=== PATIENT | female | born 1960 | race Caucasian/White ===

== ENCOUNTER → 2021-07-08 12:55 | Outpatient (BNVA) | payer MEDICAID, SELFPAY | PROVIDERS: PCP Registered Nurse Community Health; Visit Provider Advanced Practice Midwife ==

== ENCOUNTER → 2021-07-22 13:25 | Outpatient (BNVA) | payer MEDICAID, SELFPAY | PROVIDERS: PCP Registered Nurse Community Health; Visit Provider Surgery Vascular Surgery | DX: I83.12 Varicose veins of left lower extremity with inflammation (principal) | CPT/HCPCS: 99202 ==

== ENCOUNTER 2021-08-13 12:58 | Outpatient (REF) | payer MEDICAID, SELFPAY ==
--- NOTE | ~2021-08-13 | XR_ITS ---
EXAMINATION: XR lumbar spine 4V min CLINICAL INFORMATION: Reason for Exam DORSALGIA COMPARISON: None TECHNIQUE: 5 views of the lumbar spine XR/XR lumbar spine 4V min FINDINGS/IMPRESSION: Transitional anatomy. There are 4 nonrib-bearing lumbar-type vertebral bodies with sacralization of L5 and rudimentary L5-S1 disc space. There are diminutive T12 ribs. If intervention is being considered recommend total spine radiographs to ensure accurate numbering. Vertebral body heights are maintained. Mild dextroconvex curvature of the lumbar spine centered at L2. No pars defects. Mild multilevel degenerative disc disease at the thoracolumbar junction manifested by loss of disc space height and degenerative endplate spurring. L4-L5 facet arthropathy. Paravertebral soft tissues are unremarkable.
== END 2021-08-13 12:59 | disposition home or self-care (01) ==
LOC: HO.XRAY 12:58
PROVIDERS: Visit Provider Registered Nurse Community Health
DX: M54.9 Dorsalgia, unspecified (principal)
CPT/HCPCS: 72110

== ENCOUNTER 2021-08-20 10:20 | Outpatient (REF) | payer MEDICAID, SELFPAY ==
--- NOTE | ~2021-08-20 | US_ITS ---
EXAMINATION: US LOWER EXTREMITY VENOUS (REFLUX EXAM), BILATERAL CLINICAL INDICATION: This is a 60-year-old female with varicose veins of the lower extremity. Venous insufficiency. COMPARISON: None. TECHNIQUE: Color flow triplex imaging and compression Doppler was performed to evaluate both the deep and the superficial systems bilaterally. To evaluate the superficial system, the examination was performed in the upright position. Color-flow Doppler ultrasound and compression ultrasound were utilized. In addition, maneuvers were utilized to demonstrate reflux. FINDINGS: 1. DEEP VENOUS ULTRASOUND OF THE RIGHT LOWER EXTREMITY: Common Femoral Vein: Compressible, normal respiratory variation and augmented flow. Femoral vein: Compressible, normal color flow and augmentation. Popliteal Vein: Compressible, normal augmentation. Deep Reflux: There is no evidence of reflux in the deep system in either the common femoral vein or the popliteal vein. There is no evidence of a Moran's cyst. 2. SUPERFICIAL ULTRASOUND WITH DOPPLER OF RIGHT LOWER EXTREMITY: GREAT SAPHENOUS VEIN: Saphenofemoral Junction: 0.7 cm. There is no reflux. Mid Thigh: 0.3 cm. There is no reflux. Above Knee: 0.3 cm. There is no reflux. Below Knee: 0.3 cm. The reflux time is 2512 ms. Mid Calf: 0.3 cm. The reflux time is 2960 ms. Ankle: 0.3 cm. The reflux time is 1524 ms. GSV REFLUX: There is isolated reflux below the knee. There is no reflux at the saphenofemoral junction. DUPLICATED GREAT SAPHENOUS VEIN: None SMALL SAPHENOUS VEIN: Proximal: 0.2 cm Distal: 0.3 cm SSV REFLUX: No evidence of reflux. VEIN OF GIACOMINI: None Imaged. PERFORATORS: There is a 0.2 cm proximal thigh rn unit manager without reflux. VARICOSITIES: There are 0.3 cm proximal calf varicose veins with the reflux time of 1664 ms. Incidental note is made of varicose veins next appears to extend off the inferior epigastric vein and communicates to the great saphenous vein in the distal thigh. Another varicosities seen between the great saphenous vein in the thigh to the anterior tibial vein in the proximal calf on the left. 3. DEEP VENOUS ULTRASOUND OF THE LEFT LOWER EXTREMITY: Common Femoral Vein: Compressible, normal respiratory variation and augmented flow. Femoral Vein: Compressible, normal color flow and augmentation. Popliteal Vein: Compressible, normal augmentation. Deep Reflux: There is no evidence of reflux in the deep system in either the common femoral vein or the popliteal vein. There is no evidence of a Moran's cyst. 4. SUPERFICIAL ULTRASOUND WITH DOPPLER OF LEFT LOWER EXTREMITY: GREAT SAPHENOUS VEIN: Saphenofemoral Junction: 0.6 cm. There is no reflux. Mid Thigh: 0.4 cm. The reflux time is 2780 ms. Above Knee: 0.4 cm. There is no reflux. Below Knee: 0.3 cm. The reflux time is 1612 ms. Mid Calf: 0.3 cm. The reflux time is 820 ms. Ankle: 0.3 cm. There is no reflux. GSV REFLUX: There is no reflux at the saphenofemoral junction. The reflux begins in the mid thigh. DUPLICATED GREAT SAPHENOUS VEIN: There is a 0.3 cm duplicated lateral great saphenous vein without reflux. SMALL SAPHENOUS VEIN: Proximal: 0.2 cm Distal: 0.1 cm SSV REFLUX: No evidence of reflux. VEIN OF GIACOMINI: None Imaged. PERFORATORS: There is a 0.5 cm proximal thigh rn unit manager without reflux. There is a 0.3 cm mid calf rn unit manager without reflux. VARICOSITIES: There are 0.3 cm proximal thigh varicose veins without reflux. US/US venous duplex LE BI IMPRESSION: 1. There is a patent right great saphenous vein without reflux at the saphenofemoral junction. 2. There is a patent right small saphenous vein without reflux. 3. There are 0.3 cm proximal calf varicose veins with reflux. 4. There is a patent left great saphenous vein without reflux at the saphenofemoral junction. 5. There is a patent left small saphenous vein without reflux. 6. There are proximal thigh 0.3 cm left-sided varicose veins without reflux. 7. Incidental note is made of some varicose veins extending from the inferior epigastric vein as noted above.
== END 2021-08-20 10:21 | disposition home or self-care (01) ==
LOC: HO.US 10:20
PROVIDERS: Visit Provider Surgery Vascular Surgery
DX: I83.12 Varicose veins of left lower extremity with inflammation (principal)
CPT/HCPCS: 93970

== ENCOUNTER → 2021-08-26 10:46 | Outpatient (BNVA) | payer MEDICAID, SELFPAY | PROVIDERS: PCP Registered Nurse Community Health; Visit Provider Surgery Vascular Surgery | DX: I83.12 Varicose veins of left lower extremity with inflammation (principal) | CPT/HCPCS: 99212 ==

== ENCOUNTER → 2021-08-29 07:35 | Outpatient (BNVA) | payer MEDICAID, SELFPAY | PROVIDERS: PCP Registered Nurse Community Health; Visit Provider Surgery Vascular Surgery | DX: I83.12 Varicose veins of left lower extremity with inflammation (principal); M79.605 Pain in left leg | CPT/HCPCS: 36482 ==

== ENCOUNTER 2021-09-01 11:26 | Outpatient (REF) | payer MEDICAID, SELFPAY ==
--- NOTE | ~2021-09-01 | US_ITS ---
EXAMINATION: US VENOUS ULTRASOUND WITH DOPPLER LOWER EXTREMITY, LEFT CLINICAL INFORMATION: Pain left leg. Status post Venaseal. COMPARISON: None TECHNIQUE: Ultrasound of the deep veins is performed from the hip to the calf with compression sonography and color and pulse Doppler assessment. Spectral analysis with color-flow imaging is performed. FINDINGS: There is an echogenic thrombus seen in the left greater saphenous vein approximately 1.25 cm from the venous junction with common femoral vein. There is no flow seen in the segment. US/US venous duplex LE LT IMPRESSION: Posteriorly not filled there is thrombus visualized in the greater saphenous vein approximately 1.25 cm from the common femoral venous junction.
== END 2021-09-01 11:27 | disposition home or self-care (01) ==
LOC: HO.US 11:26
PROVIDERS: PCP Registered Nurse Community Health; Visit Provider Surgery Vascular Surgery
DX: M79.605 Pain in left leg (principal)
CPT/HCPCS: 93971

== ENCOUNTER → 2021-09-11 12:54 | Outpatient (BNVA) | payer MEDICAID, SELFPAY | PROVIDERS: PCP Registered Nurse Community Health; Visit Provider Surgery Vascular Surgery | DX: I83.12 Varicose veins of left lower extremity with inflammation (principal) | CPT/HCPCS: 99212 ==

== ENCOUNTER 2021-11-12 08:15 | Outpatient (REF) | payer MEDICAID, SELFPAY ==
--- NOTE | ~2021-11-12 | MM_ITS ---
EXAMINATION: MM SCREENING DIGITAL BREAST TOMOSYNTHESIS, BILATERAL CLINICAL INFORMATION: Screening. Asymptomatic. The lifetime risk of breast cancer based on the Tyrer-Cuzick Model is 6%. COMPARISON: Outside mammography 2D images: 10/08/2020 ([facility], [place], [place]). TECHNIQUE: Digital breast tomosynthesis is performed in both the craniocaudal and mediolateral oblique views along with computer-aided detection (CAD). Synthesized 2D images are generated from the tomosynthesis. FINDINGS: There are scattered areas of fibroglandular density (ACR BI-RADS breast composition Category b). Parenchymal pattern is similar to prior outside exam. There are scattered stable bilateral asymmetries. No interval significant mass or architectural abnormality. Again, there is a biopsy clip marker mid 3:00 left breast. Scattered punctate isolated round benign calcifications are again seen in each breast. The axilla and skin contours are unremarkable. MM/MM tomosynthesis screening BI IMPRESSION: No significant changes from prior outside exam. ASSESSMENT: BI-RADS 2: Benign RECOMMENDATION: Routine annual mammography screening. This patient's information was entered into a reminder system with a target due date for their next mammogram.
== END 2021-11-12 08:16 | disposition home or self-care (01) ==
LOC: HO.MAMMO 08:15
PROVIDERS: Visit Provider Registered Nurse Community Health
DX: Z12.31 Encounter for screening mammogram for malignant neoplasm of breast (principal)
CPT/HCPCS: 77063; 77067

== ENCOUNTER → 2021-12-01 09:00 | Outpatient (REF) | payer MEDICAID, SELFPAY | LOC: HO.SL 09:00 | PROVIDERS: Visit Provider Registered Nurse Community Health | DX: G47.33 Obstructive sleep apnea (adult) (pediatric) (principal) | CPT/HCPCS: 95806 ==

== ENCOUNTER → 2021-12-09 10:47 | Outpatient (BNVA) | payer MEDICAID, SELFPAY | PROVIDERS: PCP Registered Nurse Community Health; Visit Provider Surgery Vascular Surgery | DX: I83.12 Varicose veins of left lower extremity with inflammation (principal) | CPT/HCPCS: 99212 ==

== ENCOUNTER 2022-01-07 12:22 | Emergency (ER) | payer MEDICAID, SELFPAY ==
--- NOTE | ~2022-01-07 | CT_ITS ---
EXAMINATION: CT ABDOMEN AND PELVIS WITHOUT CONTRAST CLINICAL INFORMATION: Left lower quadrant pain with question of diverticulitis COMPARISON: None TECHNIQUE: Multidetector volumetric imaging was performed from the superior aspect of the liver through the pubic symphysis. Sagittal and coronal reformatted images were obtained on the technologist's workstation. This CT examination was performed using dose optimization techniques as appropriate, variously including the following: *Automated exposure control *Adjustment of mA and/or kV according to patient size (this includes techniques or standardized protocols for targeted exams where dose is matched to indication/reason for exam; i.e. extremities or head) *Use of iterative reconstruction technique DLP: 551 mGy-cm FINDINGS: LUNG BASES: The visualized lung bases are unremarkable. LIVER, GALLBLADDER, AND BILIARY TREE: The liver is normal in size, and shape but demonstrates decreased attenuation consistent with hepatic steatosis. No focal hepatic lesion or biliary ductal dilatation is present. The gallbladder is unremarkable with no evidence of radiopaque gallstones, gallbladder wall thickening, or obvious pericholecystic inflammatory changes. PANCREAS: Unremarkable. SPLEEN: Unremarkable. ADRENAL GLANDS: Unremarkable. KIDNEYS AND URETERS: The kidneys are normal in size, shape, and attenuation. No hydronephrosis, hydroureter, or calculi seen. No perinephric stranding. BLADDER: Unremarkable. GASTROINTESTINAL TRACT: Marked diverticular changes are present in the sigmoid without evidence of diverticulitis. The small and large bowel are otherwise unremarkable. The appendix is unremarkable. ABDOMINAL WALL: No significant hernia is appreciated. A tiny periumbilical hernia seen containing only fat. LYMPH NODES: No retroperitoneal lymphadenopathy VASCULAR: Unremarkable. The left renal vein is retroaortic. PELVIC VISCERA: Status post hysterectomy. An abnormal pelvic mass or free intraperitoneal fluid is not seen. OSSEOUS STRUCTURES: Unremarkable. CT/CT abdomen pelvis wo con IMPRESSION: 1. A cause for the patient's left lower quadrant has not been found. There is extensive sigmoid diverticulosis but without any findings to suggest diverticulitis. 2. Other incidental findings described above including hepatic steatosis. Fleischner guidelines were followed.
[2022-01-07 12:24] VITALS: BP 153/84; PULSE 83; RESP 18; TEMP 36.4; O2SAT 100; BMI 32.0
[2022-01-07 19:20] LABS: MANUAL DIFF FLAG NO
[2022-01-07 19:24] LABS: Appearance Urine HAZY; Basophils Absolute Auto 0.1 X10*3/uL (0.0-0.2); Basophils Percent Auto 0.5 % (0-2); Color Urine YELLOW; Eosinophils Absolute Auto 0.1 X10*3/uL (0.0-0.4); Eosinophils Percent Auto 0.5 % (0-4); Glucose Urine UA 100 MG/DL (NEG); Hemoglobin 14.2 g/dl (12.0-16.0); Imm Gran Abs Auto 0.03 X10*3/uL (0.00-0.03); Imm Gran Pct Auto 0.3 % (0.0-0.4); Leukocyte Esterase Urine TRACE (NEG); Lymphocytes Absolute Auto 2.9 X10*3/uL (1.2-4.9); Mean Corpuscular HGB Conc 34.6 g/dl (31.0-35.0); Mean Corpuscular Hemoglobin 29.3 pg (27.0-33.0); Mean Corpuscular Volume 84.5 fL (80.0-98.0); Mean Platelet Volume 10.1 fL (9.4-12.3); Monocytes Absolute Auto 0.7 X10*3/uL (0.1-1.2); Monocytes Percent Auto 6.8 % (2-11); Neutrophils Absolute Auto 6.9 x10*3/uL (2.0-8.3); Neutrophils Percent Auto 64.9 % (45-73); Nitrite Urine NEG (NEG); PH 5.5 (5.0-8.0); Platelet Count 343 X10*3/uL (160-400); Red Blood Count 4.85 X10*6/uL (4.20-5.50); Red Cell Distribution Width 13.1 % (11.0-16.0); Specific Gravity - Urine >= 1.030 (1.005-1.025); Urine Blood NEG (NEG); Urine Ketones NEG (NEG); Urine Protein NEG (NEG-TRACE); White Blood Count 10.7 X10*3/uL (4.8-10.8)
[2022-01-07 19:29] VITALS: BP 119/44; PULSE 76; RESP 16; TEMP 36.9; O2SAT 99
--- NOTE | 2022-01-07 19:38 | ED_ITS ---
HPI - Abdominal Pain General Chief Complaint: Abdominal Pain Stated Complaint: L side pain sent by [facility] Time Seen by Provider: 01/07/22 19:38 Source: patient Mode of arrival: ambulatory Limitations: no limitations History of Present Illness HPI narrative: Patient history of diverticulitis in 2019 comes here for 3 days of left lower quadrant pain with with diarrhea and nausea and poor appetite was seen by PCP and sent to the ER for further evaluation. Patient denies any fever or chills no urinary symptoms no blood in the stool Related Data Home Medications Medication Instructions Recorded Confirmed acetaminophen 500 mg capsule 500 mg PO Q6H PRN 07/08/21 07/08/21 albuterol sulfate 90 mcg/actuation 1 inh inhalation Q4-6H PRN 07/08/21 07/08/21 breath activated powder inhaler,sensor lptucxqirm-rissmofmmyayd-ziirjanu 1 cap PO Q8H PRN 07/08/21 07/08/21 50 mg-300 mg-40 mg capsule (Fioricet) calcium carbonate 500 mg calcium 500 mg PO DAILY 07/08/21 07/08/21 (1,250 mg) chewable tablet (Calcium 500) cetirizine 10 mg capsule (Zyrtec) 10 mg PO DAILY PRN 07/08/21 07/08/21 citalopram 20 mg tablet (Celexa) 20 mg PO DAILY 07/08/21 07/08/21 clonazepam 0.5 mg tablet (Klonopin) 0.5 mg PO DAILY 07/08/21 07/08/21 enalapril maleate 10 mg tablet 10 mg PO DAILY 07/08/21 07/08/21 famotidine 20 mg tablet (Pepcid) 20 mg PO DAILY 07/08/21 07/08/21 fluticasone propionate 230 2 puff inhalation BID 07/08/21 07/08/21 mcg-salmeterol 21 mcg/actuation HFA inhaler (Advair HFA) gabapentin 300 mg capsule 300 mg PO DAILY 07/08/21 07/08/21 gemfibrozil 600 mg tablet (Lopid) 600 mg PO DAILY 07/08/21 07/08/21 glimepiride 4 mg tablet (Amaryl) 4 mg PO DAILY 07/08/21 07/08/21 semaglutide 3 mg tablet (Rybelsus) 3 mg PO DAILY 07/08/21 07/08/21 sitagliptin 50 mg tablet (Januvia) 50 mg PO DAILY 07/08/21 07/08/21 zolpidem 5 mg tablet (Ambien) 5 mg PO BEDTIME PRN 07/08/21 07/08/21 metformin 500 mg tablet,extended 500 mg PO BID 07/22/21 release 24 hr blood sugar diagnostic (FreeStyle #10 ea 08/26/21 Lite Strips) lidocaine 5 % topical patch 1 patch topical DAILY 08/26/21 sitagliptin 100 mg tablet (Januvia) 100 mg PO DAILY 08/26/21 gdpqvcmnhe-gdqjxyskvslwd-bayhlglj 0 tab PO 08/29/21 50 mg-325 mg-40 mg tablet calcium carbonate 500 mg-vitamin 1 tab PO DAILY 09/11/21 D3 10 mcg (400 unit) chewable tablet cetirizine 10 mg tablet 10 mg PO DAILY 09/11/21 lancets 28 gauge (FreeStyle #100 ea 09/11/21 Lancets) alcohol swabs (Alcohol Prep Pads) 0 pad topical BID 12/09/21 lancets 33 gauge (TRUEplus Lancets) #100 ea 12/09/21 pregabalin 25 mg capsule 25 mg PO BID PRN neuropathic pain 12/09/21 Previous Rx's Medication Instructions Recorded amoxicillin 875 mg-potassium 1 tab PO BID #20 tabs 01/07/22 clavulanate 125 mg tablet tramadol 50 mg tablet 50 mg PO Q6H PRN pain #20 tabs 01/07/22 Allergies Allergy/AdvReac Type Severity Reaction Status Date / Time No Known Allergies Allergy Verified 12/09/21 10:52 Review of Systems Review of Systems Yes all other systems are reviewed and are negative [facility] Past Medical History Medical History Anxiety Asthma Diverticulitis DM type 2 (diabetes mellitus, type 2) Essential hypertension Gastritis Hyperlipidemia Migraine Moderate persistent asthma Obesity (BMI 30.0-34.9) Osteopenia Poor circulation Urinary tract infection Surgical History H/O colonoscopy with polypectomy H/O total hysterectomy H/O tubal ligation Hx of breast biopsy Social History Social History Patient Tobacco Use Status: Never used Tobacco Advance Directives: No Advance Directives Information Provided: No Physical Exam ED Vital Signs: Vital Signs - 24 hr 01/07/22 12:24 01/07/22 19:29 01/07/22 20:00 Temperature 97.6 F 98.4 F Pulse Rate 83 76 71 Respiratory Rate 18 16 20 Blood Pressure 153/84 H 119/44 L Pulse Oximetry 100 99 98 Oxygen Delivery Method Room Air Room Air Room Air 01/07/22 22:07 01/08/22 00:33 Temperature 97.7 F 97.5 F Pulse Rate 67 63 Respiratory Rate 14 16 Blood Pressure 119/63 106/46 L Pulse Oximetry 98 96 Oxygen Delivery Method Room Air Room Air BMI result Body Mass Index 32.0 Appearance: Alert. Oriented X3. No acute distress. Eyes: No pallor or icterus ENT: Pharynx normal. Oral Mucosa moist Neck: Normal inspection. Neck supple. CVS: Normal heart rate and rhythm. Pulses normal. Respiratory: No respiratory distress. Equal air entry bilateral, no wheezing/rales/rhonchi Abdomen: Soft , deep tenderness left lower quadrant with guarding no rebound tenderness Bowel sounds are present, no mass palpable, no CVA tenderness Skin: Skin warm and dry. Normal skin color. Normal skin turgor. Extremities: No lower extremity edema. No calf tenderness Neuro: Oriented X 3. No motor deficit. MDM - Abdominal Pain MDM Narrative Medical decision making narrative: Patient has significant left lower quadrant pain with normal WBC count and CT scan showing some significant diverticulosis without any findings of diverticulitis although there is no clean no CT scan finding of diverticulitis patient has significant pain will give her dose of Zosyn discharge patient home on Augmentin for possible diverticulitis Lab Data Attestation: I reviewed the patient's lab results. Result diagrams: 01/07/22 19:12 01/07/22 19:12 Labs: Lab Results 01/07/22 01/07/22 01/07/22 Range/Units 19:12 19:12 19:12 WBC 10.7 (4.8-10.8) X10*3/uL RBC 4.85 (4.20-5.50) X10*6/uL Hgb 14.2 (12.0-16.0) g/dl Hct 41.0 (37.0-47.0) % MCV 84.5 (80.0-98.0) fL MCH 29.3 (27.0-33.0) pg MCHC 34.6 (31.0-35.0) g/dl RDW 13.1 (11.0-16.0) % Plt Count 343 (160-400) X10*3/uL MPV 10.1 (9.4-12.3) fL Immature Gran % (Auto) 0.3 (0.0-0.4) % Neut % (Auto) 64.9 (45-73) % Lymph % (Auto) 27.0 (20-40) % [place] % (Auto) 6.8 (2-11) % Eos % (Auto) 0.5 (0-4) % Baso % (Auto) 0.5 (0-2) % Lymph # (Auto) 2.9 (1.2-4.9) X10*3/uL [place] # (Auto) 0.7 (0.1-1.2) X10*3/uL Eos # (Auto) 0.1 (0.0-0.4) X10*3/uL Baso # (Auto) 0.1 (0.0-0.2) X10*3/uL Abs Immat Gran (auto) 0.03 (0.00-0.03) X10*3/uL Absolute Neuts (auto) 6.9 (2.0-8.3) x10*3/uL Absolute Nucleated RBC 0.000 (0.0-0.012) X10*3/uL Nucleated RBC % (auto) 0.0 (0.0-0.2) /100WBC Sodium 143 (135-145) mmol/L Potassium 4.6 (3.3-5.1) mmol/L Chloride 105 (96-108) mmol/L Carbon Dioxide 28 (22-29) mmol/L Anion Gap 15 (12-20) BUN 15 (9-16) mg/dL Creatinine 0.80 (0.5-1.4) mg/dL Estim Creat Clear Calc 68.2 Estimated GFR > 60 Random Glucose 108 (60-115) mg/dL Calcium 9.9 (8.4-10.2) mg/dL Total Bilirubin 0.6 (0.0-1.0) mg/dL Direct Bilirubin 0.2 (0.0-0.5) mg/dL AST 23 (5-31) U/L ALT 30 (0-31) U/L Alkaline Phosphatase 53 (39-117) U/L Total Protein 7.5 (6.5-8.0) g/dL Albumin 4.4 (3.5-5.0) g/dL Urine Color YELLOW Urine Appearance HAZY Urine pH 5.5 (5.0-8.0) Ur Specific [place] >= 1.030 H (1.005-1.025) Urine Protein NEG (NEG-TRACE) MG/DL Urine Glucose (UA) 100 H (NEG) MG/DL Urine Ketones NEG (NEG) MG/DL Urine Blood NEG (NEG) Urine Nitrite NEG (NEG) Ur Leukocyte Esterase TRACE H (NEG) Urine RBC 0 (0) /HPF Urine WBC 1-4 (0-4) /HPF Ur Squamous Epith Cells 2+ /LPF Uric Acid Crystals TRACE /LPF Urine Bacteria NONE /LPF Urine Mucus TRACE /LPF COVID-19 ([facility]) (Negative) COVID-19 Clin Com 01/07/22 Range/Units 20:05 WBC (4.8-10.8) X10*3/uL RBC (4.20-5.50) X10*6/uL Hgb (12.0-16.0) g/dl Hct (37.0-47.0) % MCV (80.0-98.0) fL MCH (27.0-33.0) pg MCHC (31.0-35.0) g/dl RDW (11.0-16.0) % Plt Count (160-400) X10*3/uL MPV (9.4-12.3) fL Immature Gran % (Auto) (0.0-0.4) % Neut % (Auto) (45-73) % Lymph % (Auto) (20-40) % [place] % (Auto) (2-11) % Eos % (Auto) (0-4) % Baso % (Auto) (0-2) % Lymph # (Auto) (1.2-4.9) X10*3/uL [place] # (Auto) (0.1-1.2) X10*3/uL Eos # (Auto) (0.0-0.4) X10*3/uL Baso # (Auto) (0.0-0.2) X10*3/uL Abs Immat Gran (auto) (0.00-0.03) X10*3/uL Absolute Neuts (auto) (2.0-8.3) x10*3/uL Absolute Nucleated RBC (0.0-0.012) X10*3/uL Nucleated RBC % (auto) (0.0-0.2) /100WBC Sodium (135-145) mmol/L Potassium (3.3-5.1) mmol/L Chloride (96-108) mmol/L Carbon Dioxide (22-29) mmol/L Anion Gap (12-20) BUN (9-16) mg/dL Creatinine (0.5-1.4) mg/dL Estim Creat Clear Calc Estimated GFR Random Glucose (60-115) mg/dL Calcium (8.4-10.2) mg/dL Total Bilirubin (0.0-1.0) mg/dL Direct Bilirubin (0.0-0.5) mg/dL AST (5-31) U/L ALT (0-31) U/L Alkaline Phosphatase (39-117) U/L Total Protein (6.5-8.0) g/dL Albumin (3.5-5.0) g/dL Urine Color Urine Appearance Urine pH (5.0-8.0) Ur Specific [place] (1.005-1.025) Urine Protein (NEG-TRACE) MG/DL Urine Glucose (UA) (NEG) MG/DL Urine Ketones (NEG) MG/DL Urine Blood (NEG) Urine Nitrite (NEG) Ur Leukocyte Esterase (NEG) Urine RBC (0) /HPF Urine WBC (0-4) /HPF Ur Squamous Epith Cells /LPF Uric Acid Crystals /LPF Urine Bacteria /LPF Urine Mucus /LPF COVID-19 ([facility]) Negative (Negative) COVID-19 Clin Com See Note Discharge Plan Discharge Clinical Impression: Diverticulosis Patient Disposition: Home, Self-Care Instructions: Diverticulosis (ED) Additional Instructions: You have significant diverticulosis CT scan did not show any evidence of diverticulitis but you have significant pain hence will give antibiotics as prophylaxis Drink plenty of fluids have liquid diet slowly advance as tolerated Tramadol for pain Follow-up with your PCP if not better Prescriptions: New tramadol 50 mg tablet 50 mg PO Q6H PRN (Reason: pain) Qty: 20 0RF amoxicillin-pot clavulanate 875-125 mg tablet 1 tab PO BID Qty: 20 0RF No Action citalopram [Celexa] 20 mg tablet 20 mg PO DAILY clonazepam [Klonopin] 0.5 mg tablet 0.5 mg PO DAILY Advair HFA 230-21 mcg/actuation HFA aerosol inhaler 2 puff inhalation BID albuterol sulfate 90 mcg/actuation aero powdr breath act w/sensor 1 inh inhalation Q4-6H PRN gemfibrozil [Lopid] 600 mg tablet 600 mg PO DAILY gabapentin 300 mg capsule 300 mg PO DAILY glimepiride [Amaryl] 4 mg tablet 4 mg PO DAILY acetaminophen 500 mg capsule 500 mg PO Q6H PRN zolpidem [Ambien] 5 mg tablet 5 mg PO BEDTIME PRN famotidine [Pepcid] 20 mg tablet 20 mg PO DAILY Zyrtec 10 mg capsule 10 mg PO DAILY PRN tbnhvpzthi-zkknrfaqfydfz-fsuv [Fioricet] 50-300-40 mg capsule 1 cap PO Q8H PRN Januvia 50 mg tablet 50 mg PO DAILY Rybelsus 3 mg tablet 3 mg PO DAILY enalapril maleate 10 mg tablet 10 mg PO DAILY calcium carbonate [Calcium 500] 500 mg calcium (1,250 mg) tablet,chewable 500 mg PO DAILY (DME) FreeStyle Lite Strips Strip See Rx Instructions Not Applicable TID Qty: 10 Rx Instructions: As directed Januvia 100 mg tablet 100 mg PO DAILY lidocaine 5 % adhesive patch,medicated 1 patch topical DAILY (DME) lancets [FreeStyle Lancets] 28 gauge misc See Rx Instructions topical BID Qty: 100 Rx Instructions: As directed calcium carbonate-vitamin D3 500 mg-10 mcg (400 unit) tablet,chewable 1 tab PO DAILY cetirizine 10 mg tablet 10 mg PO DAILY (DME) lancets [TRUEplus Lancets] 33 gauge misc See Rx Instructions Not Applicable BID Qty: 100 Rx Instructions: As directed alcohol swabs [Alcohol Prep Pads] Pads, Medicated 0 pad topical BID pregabalin 25 mg capsule 25 mg PO BID PRN (Reason: neuropathic pain) metformin 500 mg tablet extended release 24 hr 500 mg PO BID abuskucgma-hvfkiwfedfvql-lsgk 50-325-40 mg tablet 0 tab PO Interventions: ED Discharge Assessment Last Done: 01/08/22 00:38 Print Language: Latvian
[2022-01-07 19:48] LABS: Alanine Aminotransferase 30 U/L (0-31); Albumin Level 4.4 g/dL (3.5-5.0); Alkaline Phosphatase 53 U/L (39-117); Anion Gap 15 (12-20); Aspartate Amino Transferase 23 U/L (5-31); Bilirubin Direct 0.2 mg/dL (0.0-0.5); Bilirubin Total 0.6 mg/dL (0.0-1.0); Blood Urea Nitrogen 15 mg/dL (9-16); Calcium 9.9 mg/dL (8.4-10.2); Carbon Dioxide 28 mmol/L (22-29); Chloride 105 mmol/L (96-108); Creatinine Clr Calc Pharmacy 68.2; Estimated Glomerular Filt Rate > 60; Glucose Random 108 mg/dL (60-115); Potassium 4.6 mmol/L (3.3-5.1); Sodium 143 mmol/L (135-145); Total Protein 7.5 g/dL (6.5-8.0)
[2022-01-07 19:51] LABS: Mucus Urine TRACE /LPF; RBC Urine 0 /HPF (0); Squamous Epithelial Cell Urine 2+ /LPF; Uric Acid Crystals Urine TRACE /LPF
[2022-01-07 20:00] VITALS: PULSE 71; RESP 20; O2SAT 98
[2022-01-07] MEDS: 0.9 % Sodium Chloride 1,000 ML 999 ML IV (20:04)
[2022-01-07] MEDS: ondansetron HCL 4 MG/2 ML VIAL IVPUSH (20:07)
[2022-01-07] MEDS: Morphine Sulfate 4 MG/ML CARTRIDGE IVPUSH (20:08)
[2022-01-07 20:24] LABS: COVID-19 Test Negative (Negative); IDNOW Serial# 16C4AD1C
[2022-01-07 22:07] VITALS: BP 119/63; PULSE 67; RESP 14; TEMP 36.5; O2SAT 98
--- NOTE | 2022-01-07 22:51 | PC.NURSE ---
report given to SCOTT Man
[2022-01-07] MEDS: Piperacillin Sodium/Tazobactam 3.375 GM in 0.9 % Sodium Chloride 50 ML IV (23:58)
[2022-01-08 00:33] VITALS: BP 106/46; PULSE 63; RESP 16; TEMP 36.4; O2SAT 96
== END 2022-01-08 00:48 | disposition home or self-care (01) ==
PROVIDERS: Emergency Provider Internal Medicine; PCP Registered Nurse Community Health
DX: K57.30 Diverticulosis of large intestine without perforation or abscess without bleeding (principal); Z20.822 Contact with and (suspected) exposure to COVID-19; R10.32 Left lower quadrant pain
CPT/HCPCS: 36415; 74176; 80053; 81001; 82248; 85025; 87635; 96361; 96365; 96375; 99284; J2270; J2405; J2543

== ENCOUNTER → 2022-03-10 15:14 | Outpatient (BNVA) | payer MEDICAID, SELFPAY | PROVIDERS: PCP Registered Nurse Community Health; Visit Provider Nurse Practitioner | DX: R19.7 Diarrhea, unspecified (principal); K21.9 Gastro-esophageal reflux disease without esophagitis; R13.12 Dysphagia, oropharyngeal phase | CPT/HCPCS: 99202; 99212 ==

== ENCOUNTER 2022-03-11 08:39 | Outpatient (REF) | payer MEDICAID, SELFPAY ==
[2022-03-13 10:12] LABS: Transglutaminase Ab IgG <1.0 U/mL; Transglutaminase IgA <1.0 U/mL
== END 2022-03-11 08:40 | disposition home or self-care (01) ==
LOC: HO.LAB 08:39
PROVIDERS: PCP Registered Nurse Community Health; Visit Provider Nurse Practitioner
DX: R19.7 Diarrhea, unspecified (principal)
CPT/HCPCS: 36415; 82656; 83993; 86003; 86140; 86364; 87507

== ENCOUNTER 2022-03-11 13:53 | Outpatient (REF) | payer MEDICAID, SELFPAY ==
[2022-03-11 16:22] LABS: Adenovirus F 40/41 Not Detected (Not Detect.); Astrovirus Not Detected (Not Detect.); Campylobacter Not Detected (Not Detect.); Cryptosporidium Not Detected (Not Detect.); Cyclospora cayetanensis Not Detected (Not Detect.); E. coli EAEC Not Detected (Not Detect.); E. coli EPEC Not Detected (Not Detect.); E. coli ETEC Not Detected (Not Detect.); E. coli STEC Not Detected (Not Detect.); Entamoeba histolytica Not Detected (Not Detect.); Giardia lamblia Not Detected (Not Detect.); Norovirus GI/GII Not Detected (Not Detect.); Plesiomonas shigelloides Not Detected (Not Detect.); Salmonella Not Detected (Not Detect.); Shigella sp./EIEC Not Detected (Not Detect.); Vibrio Not Detected (Not Detect.); Vibrio Cholerae Not Detected (Not Detect.); Yersinia enterocolitica Not Detected (Not Detect.)
[2022-03-11 16:23] LABS: Rotavirus A Not Detected (Not Detect.); Sapovirus Not Detected (Not Detect.)
[2022-03-15 19:32] LABS: Calprotectin, Fecal 20 mcg/g
[2022-03-17 15:06] LABS: Pancreatic Elastase-1 >500 mcg/g
== END 2022-03-11 13:54 | disposition home or self-care (01) ==
LOC: HO.LNP 13:53
PROVIDERS: Visit Provider Nurse Practitioner
DX: R19.7 Diarrhea, unspecified (principal)
CPT/HCPCS: 82656; 83993; 87507

== ENCOUNTER → 2022-04-01 15:05 | Outpatient (BNVA) | payer MEDICAID, SELFPAY | PROVIDERS: PCP Registered Nurse Community Health; Visit Provider Nurse Practitioner | DX: R19.7 Diarrhea, unspecified (principal); R10.12 Left upper quadrant pain; K21.9 Gastro-esophageal reflux disease without esophagitis; R13.12 Dysphagia, oropharyngeal phase | CPT/HCPCS: 99212 ==

== ENCOUNTER 2022-04-08 11:42 | Day surgery (SDC) | payer MEDICAID, SELFPAY ==
[2022-04-02 14:43] VITALS: BMI 30.8
--- NOTE | 2022-04-07 11:59 | P.CONAN_ITS ---
Documented by User: Sharla Gutierrez NP 04/07/22 12:00 HPI - Anesthesia Eval Consult details Narrative: 61yo F for Upper Endoscopy and Colonoscopy [facility] Active Problems Active Problems: All Active Problems (Updated 04/01/22 @ 15:47 by UVALDO Hanson) Left upper quadrant abdominal pain (Acute) Dysphagia, oropharyngeal (Acute) GERD (gastroesophageal reflux disease) (Acute) Diarrhea (Acute) Varicose veins of left lower extremity with inflammation (Acute) Status post total hysterectomy and bilateral salpingo-oophorectomy (BSO) (Acute) Well woman exam with routine gynecological exam (Acute) Past Medical History Medical History Anxiety Asthma Diverticulitis DM type 2 (diabetes mellitus, type 2) Essential hypertension Gastritis Hyperlipidemia Migraine Moderate persistent asthma Obesity (BMI 30.0-34.9) Osteopenia Poor circulation Urinary tract infection Surgical History Surgical History H/O colonoscopy with polypectomy H/O total hysterectomy H/O tubal ligation History of esophagogastroduodenoscopy (EGD) Hx of breast biopsy Social History Social History Patient Tobacco Use Status: Never used Tobacco Advance Directives: No Advance Directives Information Provided: Yes Meds Allergies Allergy/AdvReac Type Severity Reaction Status Date / Time No Known Allergies Allergy Verified 04/01/22 15:13 Home Medications Medication Instructions Recorded Confirmed Last Taken Type acetaminophen 500 mg capsule 500 mg PO Q6H PRN 07/08/21 07/08/21 Unknown History albuterol sulfate 90 mcg/actuation 1 inh inhalation Q4-6H PRN 07/08/21 07/08/21 Unknown History breath activated powder inhaler,sensor citalopram 20 mg tablet (Celexa) 20 mg PO DAILY 07/08/21 07/08/21 Unknown History clonazepam 0.5 mg tablet (Klonopin) 0.5 mg PO DAILY 07/08/21 07/08/21 Unknown History enalapril maleate 10 mg tablet 10 mg PO DAILY 07/08/21 07/08/21 Unknown History fluticasone propionate 230 2 puff inhalation BID 07/08/21 07/08/21 Unknown History mcg-salmeterol 21 mcg/actuation HFA inhaler (Advair HFA) gemfibrozil 600 mg tablet (Lopid) 600 mg PO DAILY 07/08/21 07/08/21 Unknown History zolpidem 5 mg tablet (Ambien) 5 mg PO BEDTIME PRN 07/08/21 07/08/21 Unknown Hi story metformin 500 mg tablet,extended 500 mg PO BID 07/22/21 Unknown History release 24 hr blood sugar diagnostic (FreeStyle #10 ea 08/26/21 Unknown History Lite Strips) lidocaine 5 % topical patch 1 patch topical DAILY 08/26/21 Unknown History sitagliptin 100 mg tablet (Januvia) 100 mg PO DAILY 08/26/21 Unknown History calcium carbonate 500 mg-vitamin 1 tab PO DAILY 09/11/21 Unknown History D3 10 mcg (400 unit) chewable tablet cetirizine 10 mg tablet 10 mg PO DAILY 09/11/21 Unknown History lancets 28 gauge (FreeStyle #100 ea 09/11/21 Unknown History Lancets) alcohol swabs (Alcohol Prep Pads) 0 pad topical BID 12/09/21 Unknown History lancets 33 gauge (TRUEplus Lancets) #100 ea 12/09/21 Unknown History terbinafine HCl 250 mg tablet 250 mg PO DAILY 03/10/22 Unknown History smfjhncdic-czpdzjhpuafvo-xjyaugnv 1 tab PO .every 8 h PRN 04/01/22 Unknown History 50 mg-325 mg-40 mg tablet fluconazole 200 mg tablet 200 mg PO Q3D 04/01/22 Unknown History glimepiride 4 mg tablet (Amaryl) 4 mg PO BID 04/01/22 Unknown History pregabalin 75 mg capsule 75 mg PO BID 04/01/22 Unknown History Exam Exam Date and Time: April 07, 2022 1159 Height,Weight and Vital Signs: Height 5 ft Weight 71.6 kg Pertinent Lab Results Pertinent Lab Results: Laboratory Tests 01/07/22 01/07/22 19:12 19:12 WBC 10.7 Hgb 14.2 Hct 41.0 Plt Count 343 Sodium 143 Potassium 4.6 Chloride 105 Carbon Dioxide 28 BUN 15 Creatinine 0.80 Assessment and Plan Assessment Anesthesia Assessment: Chart Reviewed Documented by User: Ayah Garrison MD 04/08/22 13:24 [facility] Past Medical History Medical History Anxiety Asthma Diverticulitis DM type 2 (diabetes mellitus, type 2) Essential hypertension Gastritis Hyperlipidemia Migraine Moderate persistent asthma Obesity (BMI 30.0-34.9) Osteopenia Poor circulation Urinary tract infection Functional capacity: independent ambulation Patient : No Family History Family history of problems with anesthesia: No Surgical History Surgical History H/O colonoscopy with polypectomy H/O total hysterectomy H/O tubal ligation History of esophagogastroduodenoscopy (EGD) Hx of breast biopsy History of Problems with Anesthesia: No Social History Social History Patient Tobacco Use Status: Never used Tobacco Advance Directives: No Advance Directives Information Provided: Yes Meds Allergies Allergy/AdvReac Type Severity Reaction Status Date / Time No Known Allergies Allergy Verified 04/01/22 15:13 Home Medications Medication Instructions Recorded Confirmed Last Taken Type acetaminophen 500 mg capsule 500 mg PO Q6H PRN 07/08/21 07/08/21 Unknown History albuterol sulfate 90 mcg/actuation 1 inh inhalation Q4-6H PRN 07/08/21 07/08/21 Unknown History breath activated powder inhaler,sensor citalopram 20 mg tablet (Celexa) 20 mg PO DAILY 07/08/21 07/08/21 Unknown History clonazepam 0.5 mg tablet (Klonopin) 0.5 mg PO DAILY 07/08/21 07/08/21 Unknown History enalapril maleate 10 mg tablet 10 mg PO DAILY 07/08/21 07/08/21 Unknown History fluticasone propionate 230 2 puff inhalation BID 07/08/21 07/08/21 Unknown History mcg-salmeterol 21 mcg/actuation HFA inhaler (Advair HFA) gemfibrozil 600 mg tablet (Lopid) 600 mg PO DAILY 07/08/21 07/08/21 Unknown History zolpidem 5 mg tablet (Ambien) 5 mg PO BEDTIME PRN 07/08/21 07/08/21 Unknown History metformin 500 mg tablet,extended 500 mg PO BID 07/22/21 Unknown History release 24 hr blood sugar diagnostic (FreeStyle #10 ea 08/26/21 Unknown History Lite Strips) lidocaine 5 % topical patch 1 patch topical DAILY 08/26/21 Unknown History sitagliptin 100 mg tablet (Januvia) 100 mg PO DAILY 08/26/21 Unknown History calcium carbonate 500 mg-vitamin 1 tab PO DAILY 09/11/21 Unknown History D3 10 mcg (400 unit) chewable tablet cetirizine 10 mg tablet 10 mg PO DAILY 09/11/21 Unknown History lancets 28 gauge (FreeStyle #100 ea 09/11/21 Unknown History Lancets) alcohol swabs (Alcohol Prep Pads) 0 pad topical BID 12/09/21 Unknown History lancets 33 gauge (TRUEplus Lancets) #100 ea 12/09/21 Unknown History terbinafine HCl 250 mg tablet 250 mg PO DAILY 03/10/22 Unknown History dwxsabhurv-fyuviurarveeu-rwxwirad 1 tab PO .every 8 h PRN 04/01/22 Unknown History 50 mg-325 mg-40 mg tablet fluconazole 200 mg tablet 200 mg PO Q3D 04/01/22 Unknown History glimepiride 4 mg tablet (Amaryl) 4 mg PO BID 04/01/22 Unknown History pregabalin 75 mg capsule 75 mg PO BID 04/01/22 Unknown History Exam Airway Mallampati Class: II TM Dist: >3cm Neck ROM: Full Heart: RRR Lungs: CTA Assessment and Plan Final Anesthetic Review Family History of Problems with Anesthesia: No History of Problems with Anesthesia: No ASA Class: II Final Preanesthetic Review: No Changes in Pt Med Stat, Meds/Allgs Chart Reviewed, Consent Obtained/Reviewed and Anes Risks/Benef Reviewed Patient Risk: Low Procedure Risk: Low Anesthetic Plan Anesthetic Plan: MAC: Disposition: Standard PACU
[2022-04-08 12:28] VITALS: BP 125/76; PULSE 80; RESP 16; TEMP 36.6; O2SAT 96
[2022-04-08 12:41] LABS: Glucose, Whole Blood 106 mg/dL (60-115)
--- NOTE | 2022-04-08 12:44 | MHC.SHP ---
Pre-Procedural Eval Section A Date of Service: 04/08/22 Section B Chief Complaint: diarrhea,reflux disease,dysphagia Relevant Social History: None Present Medications: see Short Stay Collaborative assessment Medical History: Significant History (Anxiety Asthma Diverticulitis DM type 2 (diabetes mellitus, type 2) Essential hypertension Gastritis Hyperlipidemia Migraine Moderate persistent asthma Obesity (BMI 30.0-34.9) Osteopenia Poor circulation Urinary tract infection) History of Previous Operations: Relevant previous surgery/procedure and date(s) (H/O colonoscopy with polypectomy H/O total hysterectomy H/O tubal ligation History of esophagogastroduodenoscopy (EGD) Hx of breast biopsy) Allergies: Allergies Allergy/AdvReac Type Severity Reaction Status Date / Time No Known Allergies Allergy Verified 04/01/22 15:13 Review of Systems Sugical H&P ROS: Negative: Constitution, Cardiovascular, Respiratory, Neurological, Psychiatric, Hem-Onc, Allergic/Immunologic, Gastrointestinal, Genitourinary, Musculoskeletal, Integumentary, Endocrine and Eyes/Ears/Nose/Throat Exam Surgical H&P Exam: Normal: HEENT, Normal: Heart, Normal: Lungs, Normal: Extremities, Normal: Abdomen, Normal: Skin and Normal: Neurological Plan Diagnosis/Plan: Unchanged I have reviewed the history and physical and performed a pertinent physical examination on my patient. No changes have occurred unless specified.
[2022-04-08] MEDS: Lactated Ringers 1,000 ML 100 ML IVCONT (12:45)
--- NOTE | 2022-04-08 13:20 | W.PM.OPN ---
Operative Note Operative Note Date of Service: 04/08/22 Narrative: Operative Information Procedure Description: EGD, Colonoscopy Indication: diarrhea, reflux Anesthesia: MAC FLEXIBLE TRANSORAL UPPER GASTROINTESTINAL ENDOSCOPY AND COLONOSCOPY PROCEDURE NOTE UPPER ENDOSCOPY Consent: Indications for the procedure and potential complications of bleeding, perforation, reaction to medications and missed diagnosis were discussed with the patient and informed consent was obtained. Instrument: Olympus GIF H 190 J mid size upper endoscope Monitoring: Vital signs and clinical assessment, continuous EKG monitoring, Pulse oximetry, Carbon Dioxide monitoring and blood pressure monitoring were done throughout the procedure. Procedure: The patient was placed in the left lateral decubitis position and pre-procedure medications were administered and a bite block was placed. The endoscope was inserted into the mouth and advanced under direct vision to the third part of duodenum. A careful inspection was made as the upper endoscope was withdrawn including a retroflexed examination of the proximal stomach; Findings and interventions are described below. Findings: Larynx:normal Esophagus: GE junction at 37 cm, diaphragm hiatus at 37 cm, bogginess and erythema at GEJ, bx taken as well as from distal and proximal esophagus Stomach: Mild erythematous mucosa. Biopsies were obtained. Grade 2 flap valve on retroflexed examination of the cardia. Duodenum: Normal bulb and descending duodenum, mild erythema in bulb, bx taken Intervention: Biopsies as noted above COLONOSCOPY Instrument: Olympus variable stiffness pediatric scope 190L Colonoscopy Monitoring: Vital signs and clinical assessment, continuous EKG monitoring, Pulse oximetry, Carbon Dioxide monitoring and blood pressure monitoring were done throughout the procedure. Colon withdrawal time was 11 minutes. Procedure: The patient was placed in the left lateral decubitis position and pre-procedure medications were administered. After a digital rectal examination of the ano-rectum, the video colonoscope was inserted into the rectum and advanced through the colon to the cecum/TI. The colonoscope was slowly withdrawn in a retrograde panoramic fashion and the colon mucosa was carefully examined including a retroflexed view of the rectum. Findings and interventions are described below. Procedure Difficulty: easy Findings: Terminal Ileum-normal, bx taken bx taken from rectum, left and right colon in separate jars Cecum: x 2 sessile polyps 6-7 mm removed with cold forceps Ascending Colon: x 1 sessile polyp 6-7 mm removed with cold forceps Transverse Colon -normal Descending Colon:normal Sigmoid Colon:moderate diverticulosis Rectum: Retroflexion with small internal hemorrhoids, grade I Anorectum - normal Colon preparation: Fallon Bowel Preparation Scale Right colon; 1 Transverse colon: 2 Left colon; 1-2 (0 = Unprepared colon segment with mucosa not seen due to solid stool that cannot be cleared. 1 = Portion of mucosa of the colon segment seen, but other areas of the colon segment not well seen due to staining, residual stool and/or opaque liquid. 2 = Minor amount of residual staining, small fragments of stool and/or opaque liquid, but mucosa of colon segment seen well. 3 = Entire mucosa of colon segment seen well with no residual staining, small fragments of stool or opaque liquid) Impression and Post Procedure Diagnosis: Endoscopy Findings: esophagitis mild gastritis and duodenitis Colonoscopy Findings: polyps internal hemorrhoids diverticular disease Plan: Await Pathology results Repeat Colonoscopy in 1-2 years due to prep or earlier if clinically indicated High fiber diet leaflet avoid straining at stool, epsom salts and sitz bath, anusol supps or cream if h pylori pos then treat reflux precautions Above findings were reviewed with the patient and relevant handouts were provided if indicated.
[2022-04-08 13:48] VITALS: BP 108/64; PULSE 81; RESP 20; TEMP 36.2; O2SAT 96
[2022-04-08 14:03] VITALS: BP 113/71; PULSE 70; RESP 18; O2SAT 98
[2022-04-08 14:19] VITALS: BP 121/70; PULSE 66; RESP 16; TEMP 36.2; O2SAT 99
== END 2022-04-08 14:55 | disposition home or self-care (01) ==
PROVIDERS: PCP Registered Nurse Community Health; Visit Provider Internal Medicine Gastroenterology
PROC: (CPT 45380; principal; 2022-04-08 13:20)
DX: R19.7 Diarrhea, unspecified (principal); D12.0 Benign neoplasm of cecum; D12.2 Benign neoplasm of ascending colon; K57.30 Diverticulosis of large intestine without perforation or abscess without bleeding; K64.0 First degree hemorrhoids; R13.12 Dysphagia, oropharyngeal phase; K21.9 Gastro-esophageal reflux disease without esophagitis; K44.9 Diaphragmatic hernia without obstruction or gangrene; K29.50 Unspecified chronic gastritis without bleeding; K29.80 Duodenitis without bleeding; K20.80 Other esophagitis without bleeding; I10 Essential (primary) hypertension; F41.1 Generalized anxiety disorder; J45.40 Moderate persistent asthma, uncomplicated; E11.9 Type 2 diabetes mellitus without complications; E78.5 Hyperlipidemia, unspecified; E66.9 Obesity, unspecified; Z68.30 Body mass index [BMI] 30.0-30.9, adult
CPT/HCPCS: 45380; 43239; 82947; 88305; 88342

== ENCOUNTER → 2022-04-22 12:44 | Outpatient (BNVA) | payer MEDICAID, SELFPAY | PROVIDERS: PCP Registered Nurse Community Health; Referring Provider Registered Nurse Community Health; Visit Provider Nurse Practitioner | DX: R19.7 Diarrhea, unspecified (principal); K22.10 Ulcer of esophagus without bleeding; D12.6 Benign neoplasm of colon, unspecified; Z98.890 Other specified postprocedural states | CPT/HCPCS: 99212 ==

== ENCOUNTER 2022-05-06 09:32 | Outpatient (REF) | payer MEDICAID, SELFPAY ==
--- NOTE | ~2022-05-06 | FL_ITS ---
PROCEDURE: FL BARIUM SWALLOW CLINICAL INFORMATION: Dysphagia. COMPARISON: None TECHNIQUE: Barium swallow examination is performed using fluoroscopic evaluation in addition to multiple fluoroscopic spot views. The patient is imaged both upright and prone and using both thick and thin sulfate along with effervescent granules. Fluoroscopy time: 1.7 minutes DAP: 14.938 Gy-cm2 Images: 54 FINDINGS: Following oral administration of thick barium and barium-coated solid food there is normal propagation of bolus from the oral cavity through the pharynx, esophagus into stomach without any evidence of obstruction, narrowing or stricture. There is no extrinsic compression. FL/FL barium swallow IMPRESSION: Unremarkable barium swallow exam.
== END 2022-05-06 09:33 | disposition home or self-care (01) ==
LOC: HO.XRAY 09:32
PROVIDERS: PCP Registered Nurse Community Health; Visit Provider Nurse Practitioner
DX: R13.12 Dysphagia, oropharyngeal phase (principal)
CPT/HCPCS: 74220

== ENCOUNTER → 2022-06-17 14:00 | Outpatient (BNVA) | payer MEDICAID, SELFPAY | PROVIDERS: PCP Registered Nurse Community Health; Visit Provider Nurse Practitioner | DX: K22.10 Ulcer of esophagus without bleeding (principal); K21.9 Gastro-esophageal reflux disease without esophagitis; R13.12 Dysphagia, oropharyngeal phase; R19.7 Diarrhea, unspecified | CPT/HCPCS: 99212 ==

== ENCOUNTER 2022-09-18 12:59 | Outpatient (REF) | payer MEDICAID, SELFPAY ==
[2022-09-19 12:26] LABS: BV Int Neg Control Negative (Negative); BV Int Pos Control Positive (Positive)
== END 2022-09-18 13:00 | disposition home or self-care (01) ==
LOC: HO.LNP 12:59
PROVIDERS: PCP Registered Nurse Community Health; Visit Provider Advanced Practice Midwife
DX: Z01.419 Encounter for gynecological examination (general) (routine) without abnormal findings (principal); N94.9 Unspecified condition associated with female genital organs and menstrual cycle; N95.2 Postmenopausal atrophic vaginitis; N90.89 Other specified noninflammatory disorders of vulva and perineum
CPT/HCPCS: 87480; 87510; 87660

== ENCOUNTER → 2022-10-15 13:14 | Outpatient (BNVA) | payer MEDICAID, SELFPAY | PROVIDERS: PCP Nurse Practitioner Primary Care; Referring Provider Nurse Practitioner Primary Care; Visit Provider Nurse Practitioner | DX: K22.10 Ulcer of esophagus without bleeding (principal); K21.9 Gastro-esophageal reflux disease without esophagitis; R19.7 Diarrhea, unspecified; R13.12 Dysphagia, oropharyngeal phase; Z79.899 Other long term (current) drug therapy; Z86.010 Personal history of colon polyps | CPT/HCPCS: 99212 ==

== ENCOUNTER 2022-11-05 10:51 | Outpatient (REF) | payer MEDICAID, SELFPAY ==
--- NOTE | 2022-11-05 16:59 | MHC.AU.HAS ---
Hearing Aid Evaluation Date of Visit: 11/05/22 Process Checker Used: Occitan- By Phone Historical Information: Description of Hearing: Mild sensorineural hearing loss 1000-2000Hz with otherwise normal hearing bilaterally. See 11/05/22 audiogram for report. Summary: Discussed impact of mild sensorineural hearing loss. Discussed tinnitus management. Gave patient option to try hearing aids now or wait a year with repeat audiogram. Patient is noting difficulty hearing and asking frequently for repetition so she is motivated to try hearing aids now. Discussed benefits of amplification and connectivity to her iPhone. Mailed medical clearance to PCP. Explained that we will wait to order the hearing aids until we receive MC. Once we receive the hearing aids we will contact the patient to schedule the fitting. She indicated understanding. Hearing Aid Prescription: Based on the individual?s shared listening needs, communication environments, dexterity, desire for connectivity, and personal preferences, the following prescription for amplification has been made: Right ear: Oticon More 2 miniRITE-R Rechargeable, #93 chestnut brown Parts Cleaner: 3/ Type of Dome: 8mm open Left ear: Left ear prescription to be same as Right Hearing Aid above: Oticon More 2 miniRITE-R Rechargeable, #93 chestnut brown Parts Cleaner: 3/60 Type of Dome: 8mm open Plan of Care: Primary Diagnosis: H90.3 Bilateral Sensorineural Hearing Loss Secondary Diagnosis: H93.13 Tinnitus, Bilateral Signature: Provider: Lyndsey Phillips, [facility]
== END 2022-11-05 10:52 | disposition home or self-care (01) ==
LOC: HO.SH 10:51
PROVIDERS: Visit Provider Nurse Practitioner Primary Care
DX: Z01.118 Encounter for examination of ears and hearing with other abnormal findings (principal); H90.3 Sensorineural hearing loss, bilateral; H93.13 Tinnitus, bilateral
CPT/HCPCS: 92557; 92567; 92591

== ENCOUNTER 2022-11-16 09:32 | Outpatient (REF) | payer MEDICAID, SELFPAY ==
--- NOTE | ~2022-11-16 | MM_ITS ---
EXAMINATION: MM SCREENING DIGITAL BREAST TOMOSYNTHESIS, BILATERAL CLINICAL INFORMATION: Screening. Asymptomatic. The lifetime risk of breast cancer based on the Tyrer-Cuzick Model is 6.3%. COMPARISON: Mammography: November 12, 2021 and October 08, 2020 TECHNIQUE: Digital breast tomosynthesis is performed in both the craniocaudal and mediolateral oblique views along with computer-aided detection (CAD). Synthesized 2D images are generated from the tomosynthesis. FINDINGS: The breasts are heterogeneously dense, which may obscure small masses (ACR BI-RADS breast composition Category c). There are no significant masses, abnormal calcifications, or other abnormalities. Some stable circumscribed densities seen bilaterally. MM/MM tomosynthesis screening BI IMPRESSION: No significant changes from prior exam. ASSESSMENT: BI-RADS 1: Negative RECOMMENDATION: Routine annual mammography screening. This patient's information was entered into a reminder system with a target due date for their next mammogram.
== END 2022-11-16 09:33 | disposition home or self-care (01) ==
LOC: HO.MAMMO 09:32
PROVIDERS: PCP Nurse Practitioner Primary Care; Visit Provider Nurse Practitioner Primary Care
DX: Z12.31 Encounter for screening mammogram for malignant neoplasm of breast (principal)
CPT/HCPCS: 77063; 77067

== ENCOUNTER 2022-11-27 09:30 | Outpatient (RCR) | payer MEDICAID, SELFPAY | END 2022-12-30 10:05 | disposition home or self-care (01) | LOC: HO.PT 09:30 | PROVIDERS: PCP Nurse Practitioner Primary Care; Visit Provider Nurse Practitioner Primary Care | DX: R42 Dizziness and giddiness (principal) | CPT/HCPCS: 95992; 97112; 97162 ==

== ENCOUNTER 2022-12-17 08:26 | Outpatient (REF) | payer MEDICAID, SELFPAY ==
--- NOTE | 2022-12-17 11:21 | MHC.AU.HA2 ---
Hearing Instrument Fitting- Adult- Binaural Date of Visit: 12/17/22 Tar Man Used: Indonesian, in person hospital home health care physician, Calista. Hearing Instruments Dispensed: Right Ear: Make, Model, Color, Serial Number: Oticon More 2 miniRITE-R, #93 rita fortune SN: [id number] Lunch Truck Operator Repair Warranty: 12/25/2025 Lunch Truck Operator Loss and Damage Warranty: 12/25/2025 [facility] Service Plan: 12/18/2023 Battery Size: Rechargeable Systematic Theology Professor/Slim Tube: 3/60 Earmold/Dome/CShell/SlimTip: 6mm open Type of Wax Guard: Prowax minifit Left Ear: Make, Model, Color, Serial Number: Oticon More 2 miniRITE-R, #93 rita fortune SN: [id number] Lunch Truck Operator Repair Warranty: 12/25/2025 Lunch Truck Operator Loss and Damage Warranty: 12/25/2025 [facility] Service Plan: 12/18/2023 Battery Size: Rechargeable Systematic Theology Professor/Slim Tube: 3/60 Earmold/Dome/CShell/SlimTip: 6mm open Type of Wax Guard: Prowax minifit Accessories/Assistive Technology: Comic Book Writer 1.0 MiniRite R [id number] Warrr 12/25/25 Summary of Fitting: The patient is here for a hearing aid fitting, accompanied by a new [facility] (Calista). Hearing aids were programmed to the patient's audiogram on adaptation level 3. Volume control is disabled. Speech mapping reveals the hearing aids are functioning and meeting targets appropriately. No feedback noted. The patient reported a loud but comfortable volume percept bilaterally. We reviewed hearing aid care and cleaning and reviewed the cupola charger. Discussed importance of consistent hearing aid use. The patient was able to manipulate, insert and remove the hearing aids with ease. We will discuss enabling the volume control and pairing to her iPhone at her follow-up in 2-3 weeks. I have ordered Indonesian hearing aid manual to give at the follow-up as well. She signed the MH receipt and a copy was given. Diagnosis Code(s): Primary Diagnosis: H90.3 Bilateral Sensorineural Hearing Loss Secondary Diagnosis: H93.13 Tinnitus, Bilateral Signature: Provider: Tana Wesley, Lyndsey, CCC-A
== END 2022-12-17 08:27 | disposition home or self-care (01) ==
LOC: HO.HAP 08:26
PROVIDERS: Visit Provider Nurse Practitioner Primary Care
DX: Z46.1 Encounter for fitting and adjustment of hearing aid (principal); H90.3 Sensorineural hearing loss, bilateral
CPT/HCPCS: 92595; V5011; V5160; V5261; V5299

== ENCOUNTER 2023-01-04 10:21 | Outpatient (REF) | payer MEDICAID, SELFPAY | END 2023-01-04 10:22 | disposition home or self-care (01) | LOC: HO.HAP 10:21 | PROVIDERS: Visit Provider Nurse Practitioner Primary Care | DX: Z13.89 Encounter for screening for other disorder (principal) ==

== ENCOUNTER 2023-02-23 14:15 | Outpatient (REF) | payer MEDICAID, SELFPAY ==
[2023-02-23 16:31] LABS: Estimated Average Glucose 111 mg/dL; Hemoglobin A1c % 5.5 %
[2023-02-23 17:12] LABS: Anion Gap 14 (12-20); Blood Urea Nitrogen 11 mg/dL (9-16); Calcium 9.7 mg/dL (8.4-10.2); Carbon Dioxide 27 mmol/L (22-29); Chloride 106 mmol/L (96-108); Cholesterol 163 mg/dL; Estimated Glomerular Filt Rate > 60; Glucose Random 60 mg/dL (60-115); HDL Cholesterol 39 mg/dL; LDL Cholesterol Calculated 69 mg/dl; Potassium 4.1 mmol/L (3.3-5.1); Sodium 143 mmol/L (135-145); Triglycerides 279 mg/dL; Vitamin D 25-OH Total 45.3 ng/mL (>30)
[2023-02-23 17:23] LABS: Creatinine Urine 38.79 mg/dL; Microalbum/Creatinine Ratio Ur 33.5 ug/mg cr
== END 2023-02-23 14:16 | disposition home or self-care (01) ==
LOC: HO.HHCL 14:15
PROVIDERS: Visit Provider Nurse Practitioner Primary Care
DX: Z00.00 Encounter for general adult medical examination without abnormal findings (principal); E78.5 Hyperlipidemia, unspecified; E11.69 Type 2 diabetes mellitus with other specified complication
CPT/HCPCS: 36415; 80048; 80061; 82043; 82306; 83036

== ENCOUNTER → 2023-04-16 12:24 | Outpatient (BNVA) | payer MEDICAID, SELFPAY | PROVIDERS: PCP Nurse Practitioner Primary Care; Visit Provider Nurse Practitioner | DX: R10.12 Left upper quadrant pain (principal); K21.9 Gastro-esophageal reflux disease without esophagitis; K58.9 Irritable bowel syndrome, unspecified; K22.10 Ulcer of esophagus without bleeding; D12.6 Benign neoplasm of colon, unspecified; R19.7 Diarrhea, unspecified | CPT/HCPCS: 99212 ==

== ENCOUNTER 2023-04-16 12:25 | Outpatient (AMB) | payer MEDICAID, SELFPAY ==
--- NOTE | 2023-04-16 12:25 | MHC.OFFVIS ---
Intake Vital Signs 04/16/23 12:40 Height 5 ft Weight 153 lb 0.013 oz BMI 29.9 BP 142/69 H Blood Pressure Location Lt brachial Position Sitting Pulse 75 Intake Visit Reasons: 6 months follow up Intake Note: Patient presents to in office visit today in 6 months follow up of GERD. CC: Patient reports sometimes having abdominal discomfort, bloating, and diarrhea. 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 She continues on her pantoprazole 40mg bid and she has famotidine for breakthrough. She also continues on the dicyclomine which helps with her IBS-D and her esophageal spasm. She is agreeable to having the colonoscopy repeated, there was a 1 year recall requested r/t # polyps and poor prep. There are no prior problems with anesthesia or sedation. Her asthma is well controlled and she denies any cardiac problems. There are no infectious disease problems. She is agreeable to going for lab work for part of her preop exam. Return office visit in 6 months for her chronic problems and of course all see her also after the colonoscop (2) GERD (gastroesophageal reflux disease): Code(s): K21.9 - Gastro-esophageal reflux disease without esophagitis (3) Diarrhea: Code(s): R19.7 - Diarrhea, unspecified (4) Dysphagia, oropharyngeal: Code(s): R13.12 - Dysphagia, oropharyngeal phase (5) Pre-op examination: Code(s): Z01.818 - Encounter for other preprocedural examination (6) Tubular adenoma of colon: Comment: 2021 scope at least 3 repeat in 1 year due to insufficient prep aeb Code(s): D12.6 - Benign neoplasm of colon, unspecified Orders: Orders Comprehensive Met. Panel Today D12.6 - Benign maggy plasm of colon, un specified, Z01.818 - Encounter for o ther preprocedural examination Complete Blood Cou nt Auto Diff Today D12.6 - Benign maggy plasm of colon, un specified, Z01.818 - Encounter for o ther preprocedural examination Medications: New peg 3350-electroly diane 236-22.74-6.74 -5.86 gram (Golyt rain) until feca l effluent is saúl r; do not exceed a total volume of 2 ,000 mL 240 mL PO Q10M 1 day 4,000 mL 0RF Z12.11 - Encounter for screening for malignant neoplas m of colon Refilled dicyclomine 40 mg (2 x 20 mg) PO QID 240 tabs 1R F R19.7 - Diarrhea, unspecified famotidine (Pepcid ) 40 mg PO BID 60 t abs 6RF K21.9 - Gastro-eso phageal reflux dis ease without esoph agitis, R13.12 - D ysphagia, orophary ngeal phase pantoprazole (Prot kiarra) 40 mg PO BID 30 d ays 30 tabs 6RF K22.10 - Ulcer of esophagus without bleeding LABS COLONOSCOPY Not scheduled or obtained BIOPSY TODAY'S VISIT Malagasy #Marilia Basurto She has not yet heard re: colonoscopy. Sent another note. She is complaining of the return of a problem that had resolved in the past. This is pain in the epigastrum and to the LUQ with eating with bloating and post prandial diarrhea. No changes in diet or medications etc. She still has a GB so not post vonda syndrome. Will start imipramine 10mg qhs and titrate up, as this happens will decrease the bentyl to avoid s/e. The cessation of sx seemed to be r/t the bentyl, but we have maxed the dose and it is not working, so will progress. She has not yet heard ROV 4 weeks. [facility] Medical History Anxiety Asthma Diverticulitis DM type 2 (diabetes mellitus, type 2) Essential hypertension Gastritis Hyperlipidemia Migraine Moderate persistent asthma Obesity (BMI 30.0-34.9) Osteopenia Poor circulation Tubular adenoma of colon Urinary tract infection Surgical History H/O colonoscopy with polypectomy H/O total hysterectomy H/O tubal ligation History of esophagogastroduodenoscopy (EGD) Hx of breast biopsy Family History (Updated 04/23/23 @ 10:34 by Lily Nugent [facility]) Maternal Aunt Stomach cancer Father HTN (hypertension) Heart disease Mother Diabetes Asthma Family/Other Diabetes HTN (hypertension) Social History Household Members Other:: son and 2 granddaughters Patient Tobacco Use Status: Never used Tobacco Female Reproductive History Menstrual Age of Menarche: 13 Review of Systems Const Denies fatigue, Denies fever(s), Denies night sweats, Denies poor appetite and Denies weight loss ENT Reports Normal hearing present, Denies dental pain, Denies dysphagia, Denies hearing loss, Denies mouth pain, Denies odynophagia, Denies throat swelling, Denies tongue swelling and Reports other (Dentition adequate) Card Reports no additional complaints Resp Reports no additional complaints GI Reports abdominal pain, Denies melena, Denies bloating, Denies hematochezia, Reports constipation, Denies GI cramping, Denies dysphagia, Denies excessive flatus, Denies early satiety, Reports heartburn, Reports diarrhea, Denies nausea, Denies odynophagia, Denies vomiting and Denies hematemesis Skin/Breast Denies pruritus, Denies lesions, Denies rash and Denies jaundice Neuro Reports Normal hearing present and Denies Abnormal speech present Endo Denies fatigue Aller/Immun Denies throat swelling and Denies tongue swelling Physical Exam Vital Signs: Last Vital Signs Pulse 75 04/16/23 12:40 BP 142/69 H 04/16/23 12:40 BMI result Body Mass Index 29.9 Const General: cooperative, no acute distress, well developed and well groomed Nutritional Appearance: well nourished and overweight Orientation/consciousness: oriented to person, oriented to place and oriented to time Limitations: language barrier HEENT Head: Yes normocephalic and Yes atraumatic Eyes General: appearance normal, both eyes and all related structures Pupils: Equal, round and reactive pupils present Neck Neck: Yes normal visual inspection and Yes no lymphadenopathy Thyroid: Thyroid normal Resp Effort & Inspection: normal respiratory effort and able to speak in complete sentences Auscultation: clear to auscultation bilaterally Cardio Rate: regular rate Rhythm: regular rhythm Heart sounds: Normal, physiologic split S2 sound present Peripheral pulses: radial pulses present and posterior tibial pulses present GI Inspection: No distended, No Abdominal panniculus present and Yes obesity Palpation (GI): Soft to palpation, Tenderness to palpation present (GI) in the LUQ, no guarding, not rigid and No hepatosplenomegaly present Percussion: Yes normal to percussion Auscultation: normal bowel sounds Rectal Exam - Female: deferred Skin General skin exam: no rashes or lesions noted, turgor normal, skin not dry, no jaundice, No spider nevi and no striae Rashes: no rashes Nails: normal Neuro General: oriented to person, oriented to place and oriented to time Cranial nerves: Yes Equal, round and reactive pupils present and Yes Normal hearing present Speech: No Abnormal speech present Extrem General: Yes normal to inspection, No clubbing, No cyanosis and No edema Psych Appearance: grossly normal and well kempt Mental Status: mental status grossly normal Speech and movement: Normal speech and movement present Affect: normal affect Attitude: cooperative Thought process: Normal thought process present and not confabulating Thought content: Normal thought content present Insight: Limited insight present (Psych) Judgement: Limited judgement present (Psych) Assessment & Plan Assessment & Plan (1) Left upper quadrant abdominal pain: Code(s): R10.12 - Left upper quadrant pain Plan: Malagasy #Marilia LIve She has not yet heard re: colonoscopy. Sent another note. She is complaining of the return of a problem that had resolved in the past. This is pain in the epigastrum and to the LUQ with eating with bloating and post prandial diarrhea. No changes in diet or medications etc. She still has a GB so not post vonda syndrome. Will start imipramine 10mg qhs and titrate up, as this happens will decrease the bentyl to avoid s/e. The cessation of sx seemed to be r/t the bentyl, but we have maxed the dose and it is not working, so will progress. She has not yet heard ROV 4 weeks. (2) GERD (gastroesophageal reflux disease): Code(s): K21.9 - Gastro-esophageal reflux disease without esophagitis (3) IBS (irritable bowel syndrome): Code(s): K58.9 - Irritable bowel syndrome without diarrhea (4) Erosive esophagitis: Code(s): K22.10 - Ulcer of esophagus without bleeding (5) Diarrhea: Code(s): R19.7 - Diarrhea, unspecified (6) Tubular adenoma of colon: Comment: 2021 scope at least 3 repeat in 1 year due to insufficient prep aeb Code(s): D12.6 - Benign neoplasm of colon, unspecified Medications: New imipramine HCl 10 mg PO BEDTIME 30 tabs 6RF 30 days K58.9 - Irritable bowel syndrome without diarrhea Coding Level of Care Code Est Pt Level 3 (57087) Diagnoses Left upper quadrant abdominal pain R10.12 GERD (gastroesophageal reflux disease) K21.9 IBS (irritable bowel syndrome) K58.9 Erosive esophagitis K22.10 Diarrhea R19.7 Tubular adenoma of colon D12.6
[2023-04-16 12:40] VITALS: BP 142/69; PULSE 75; BMI 29.9
== END 2023-04-16 13:28 | disposition home or self-care (01) ==
PROVIDERS: PCP Nurse Practitioner Primary Care; Visit Provider Nurse Practitioner
DX: R10.12 Left upper quadrant pain (principal); K21.9 Gastro-esophageal reflux disease without esophagitis; K58.9 Irritable bowel syndrome, unspecified; K22.10 Ulcer of esophagus without bleeding; R19.7 Diarrhea, unspecified; D12.6 Benign neoplasm of colon, unspecified
CPT/HCPCS: 99213

== ENCOUNTER 2023-04-23 09:49 | Outpatient (AMB) | payer MEDICAID, SELFPAY ==
--- NOTE | 2023-04-23 10:12 | MHC.OFFVIS ---
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 Pt was diagnosed with ESTEPHANIA in Nov, 2021. The home sleep study result was significant for moderate degree of sleep apnea. The AHI was 16/hr and oxygen rivera was 81%. She started APAP [id number]. The CPAP compliance and therapy response (01/14/23-04/13/23) reviewed. THe usage days 40% and and the average usage hours 1hr and 40 min. The AHI was 3.7/hr and max pressure was 10.7. Pt reports she feels suffocated. She tried nasal mask and full mask. She did not tolerate the CPAP. [facility] Medical History Anxiety Asthma Diverticulitis DM type 2 (diabetes mellitus, type 2) Essential hypertension Gastritis Hyperlipidemia Migraine Moderate persistent asthma Obesity (BMI 30.0-34.9) Osteopenia Poor circulation Tubular adenoma of colon Urinary tract infection Surgical History H/O colonoscopy with polypectomy H/O total hysterectomy H/O tubal ligation History of esophagogastroduodenoscopy (EGD) Hx of breast biopsy Family History (Updated 04/23/23 @ 10:34 by Lily Nugent CMA) Maternal Aunt Stomach cancer Father HTN (hypertension) Heart disease Mother Diabetes Asthma Family/Other Diabetes HTN (hypertension) Social History Household Members Other:: son and 2 granddaughters Patient Tobacco Use Status: Never used Tobacco Female Reproductive History Menstrual Age of Menarche: 13 Review of Systems Const All systems reviewed & are unremarkable except as noted in HPI and below ENT Reports Normal hearing present Neuro Reports Normal hearing present Physical Exam Vital Signs: Last Vital Signs Pulse 74 04/23/23 10:34 BP 150/92 H 04/23/23 10:34 Pulse Ox 98 04/23/23 10:34 Oxygen Delivery Method Room Air 04/23/23 10:34 BMI result Body Mass Index 29.9 Const General: cooperative Nutritional Appearance: overweight Orientation/consciousness: patient oriented x3 Neck Neck: Yes full ROM and Yes supple Resp Effort & Inspection: normal respiratory effort and able to speak in complete sentences Neuro General: patient oriented x3 and gait normal Cranial nerves: Yes Bilaterally intact EOM present, Yes Normal facial strength present, Yes Midline tongue present, Yes Symmetric palate elevation present, Yes Normal hearing present, Yes Ability to bilaterally rotate head present and Yes Ability to bilaterally elevate shoulders present Cognition (Neuro): normal cognition Gait exam (Neuro): Normal gait present Motor exam (neuro): 5/5 motor strength present throughout, Pronator motor function not present and no tremor noted Psych Appearance: grossly normal Mental Status: mental status grossly normal Speech and movement: Normal speech and movement present Affect: normal affect Attitude: cooperative Assessment & Plan Assessment & Plan (1) Sleep apnea: Code(s): G47.30 - Sleep apnea, unspecified Plan New mask fitting prescription given to patient. Stressed compliance, use CPAP nightly and more than 4 hrs. Pt is not interested in Inspire at this time. Will consider somnoguard to treat her sleep apnea if she is not tolerate CPAP and new masks. Coding Level of Care Code New Pt Level 3 (44370) Diagnoses Sleep apnea G47.30
[2023-04-23 10:34] VITALS: BP 150/92; PULSE 74; O2SAT 98; BMI 29.9
== END 2023-04-23 11:04 | disposition home or self-care (01) ==
PROVIDERS: PCP Nurse Practitioner Primary Care; Visit Provider Nurse Practitioner Family
DX: G47.30 Sleep apnea, unspecified (principal)
CPT/HCPCS: 99203

== ENCOUNTER → 2023-04-23 09:49 | Outpatient (BNVA) | payer MEDICAID, SELFPAY | PROVIDERS: PCP Nurse Practitioner Primary Care; Visit Provider Nurse Practitioner Family | DX: G47.30 Sleep apnea, unspecified (principal) | CPT/HCPCS: 99212 ==

== ENCOUNTER 2023-05-20 12:16 | Outpatient (REF) | payer MEDICAID, SELFPAY ==
--- NOTE | ~2023-05-20 | XR_ITS ---
EXAMINATION: XR SHOULDER, RIGHT CLINICAL INFORMATION: Atraumatic right shoulder pain for 2 to 3 weeks COMPARISON: None available. TECHNIQUE: 5 views of the right shoulder. FINDINGS: Mild degenerative changes in the acromioclavicular and glenohumeral joints with mild hypertrophic change. No abnormal soft tissue calcifications identified adjacent to the humeral head. XR/XR shoulder RT min 2V IMPRESSION: Mild degenerative changes.
== END 2023-05-20 12:17 | disposition home or self-care (01) ==
LOC: HO.HHCX 12:16
PROVIDERS: Visit Provider Nurse Practitioner Primary Care
DX: M25.511 Pain in right shoulder (principal)
CPT/HCPCS: 73030

== ENCOUNTER 2023-05-28 10:25 | Outpatient (AMB) | payer MEDICAID, SELFPAY ==
--- NOTE | 2023-05-28 10:35 | A.OFFVIS_ITS ---
Intake Vital Signs 05/28/23 10:43 Height 5 ft Weight 152 lb 1.903 oz BMI 29.7 BP 134/77 Blood Pressure Location Lt brachial Position Sitting Pulse 81 Intake Visit Reasons: 4 week follow up Diarrhea Intake Note: Patient presents to in office visit today in 4 weeks follow up.SHe CC: Patient reports that she took the imipramine for 2 weeks but she discontinued because she was having headaches, dizziness, and tiredness. She states when she gets abdominal pain almost every time she eats. Special Procedure Technologist Required: Yes Accompanied by: Self / Same As Patient Allergies latex Allergy (Severe, Verified 04/23/23 10:17) Angioedema HPI 4 week follow up Diarrhea HPI Details Assessment & Plan (1) Left upper quadrant abdominal pain: Code(s): R10.12 - Left upper quadrant pain Plan: Syriac #Marilia LIve She has not yet heard re: colonoscopy. Sent another note. She is complaining of the return of a problem that had resolved in the past. Th is is pain in the epigastrum and to the LUQ with eating with bloating and post prandial diarrhea. No changes in diet or medications etc. She still has a GB so not post vonda syndrome. Will start imipramine 10mg qhs and titrate up, as this happens will decrease the bentyl to avoid s/e. The cessation of sx seemed to be r/t the bentyl, but we have maxed the dose and it is not working, so will progress. She has not yet heard ROV 4 weeks. (2) GERD (gastroesophageal reflux diseas e): Code(s): K21.9 - Gastro-esophageal reflux disease without esophagitis (3) IBS (irritable bowel syndrome): Code(s): K58.9 - Irritable bowel syndrome without diarrhea (4) Erosive esophagitis: Code(s): K22.10 - Ulcer of esophagus without bleeding (5) Diarrhea: Code(s): R19.7 - Diarrhea, unspecified (6) Tubular adenoma of colon: Comment: 2021 scope at least 3 repeat in 1 year d ue to insufficient prep aeb Code(s): D12.6 - Benign neoplasm of colon, unspecified Medications: New imipramine HCl 10 mg PO BEDTIME 3 0 tabs 6RF 30 days K58.9 - Irritable bowel syndrome wit hout diarrhea TODAY'S VISIT Syriac #[id number] then Isamar LIve ? REPEAT COLONOSCOPY Scheduled for 07/14 She took the imipramine and she took it for 2 weeks but it caused her PALAFOX and dizziness so she stopped. We will try Levsin next if we can get covered by insurance. In the meantime she can continue the Bentyl even though it does not have enough efficacy at max dose. I will also give a trial of creon and she can start with one for a week, then try the other and see which is better. She still feels left sided swelling. This is post prandial bloating and stooling that varies from hard to soft to diarrhea. ROV 3 weeks. [facility] Medical History Tubular adenoma of colon Urinary tract infection Moderate persistent asthma Osteopenia Hyperlipidemia Essential hypertension Obesity (BMI 30.0-34.9) Poor circulation DM type 2 (diabetes mellitus, type 2) Migraine Diverticulitis Gastritis Asthma Anxiety Surgical History History of esophagogastroduodenoscopy (EGD) Hx of breast biopsy H/O colonoscopy with polypectomy H/O total hysterectomy H/O tubal ligation Family History Maternal Aunt Stomach cancer Father HTN (hypertension) Heart disease Mother Diabetes Asthma Family/Other Diabetes HTN (hypertension) Social History Household Members Other:: son and 2 granddaughters Patient Tobacco Use Status: Never used Tobacco Female Reproductive History Menstrual Age of Menarche: 13 Review of Systems Const Denies fatigue, Denies fever(s), Denies night sweats, Denies poor appetite and Denies weight loss Eyes Details: glasses Reports requires corrective lenses ENT Reports Normal hearing present, Denies dental pain, Denies dysphagia, Denies hearing loss, Denies mouth pain, Denies odynophagia, Denies throat swelling, Denies tongue swelling and Reports other (Dentition adequate) Card Reports no additional complaints Resp Reports no additional complaints GI Reports abdominal pain, Denies melena, Reports bloating, Denies hematochezia, Reports constipation, Denies GI cramping, Denies dysphagia, Denies excessive flatus, Denies early satiety, Reports heartburn, Reports diarrhea, Denies nausea, Denies odynophagia, Denies vomiting and Denies hematemesis Skin/Breast Denies pruritus, Denies lesions, Denies rash and Denies jaundice Neuro Reports Normal hearing present and Denies Abnormal speech present Endo Denies fatigue Aller/Immun Denies throat swelling and Denies tongue swelling Physical Exam Vital Signs: Last Vital Signs Pulse 81 05/28/23 10:43 BP 134/77 05/28/23 10:43 BMI result Body Mass Index 29.7 Const General: cooperative, no acute distress, well developed and well groomed Nutritional Appearance: well nourished and obese Orientation/consciousness: oriented to person, oriented to place and oriented to time Limitations: language barrier HEENT Head: Yes normocephalic and Yes atraumatic Eyes General: appearance normal, both eyes and all related structures Pupils: Equal, round and reactive pupils present Neck Neck: Yes normal visual inspection and Yes no lymphadenopathy Thyroid: Thyroid normal Resp Effort & Inspection: normal respiratory effort and able to speak in complete sentences Auscultation: clear to auscultation bilaterally Cardio Rate: regular rate Rhythm: regular rhythm Heart sounds: Normal, physiologic split S2 sound present Peripheral pulses: radial pulses present and posterior tibial pulses present GI Inspection: No distended, Yes Abdominal panniculus present and Yes obesity Palpation (GI): Soft to palpation, nontender, no guarding, not rigid and No hepatosplenomegaly present Percussion: Yes normal to percussion Auscultation: normal bowel sounds Rectal Exam - Female: deferred Skin General skin exam: no rashes or lesions noted, turgor normal, skin not dry, no jaundice, No spider nevi and no striae Rashes: no rashes Nails: normal Neuro General: oriented to person, oriented to place and oriented to time Cranial nerves: Yes Equal, round and reactive pupils present and Yes Normal he aring present Speech: No Abnormal speech present Extrem General: Yes normal to inspection, No clubbing, No cyanosis and No edema Psych Appearance: grossly normal and well kempt Mental Status: mental status grossly normal Speech and movement: Normal speech and movement present Affect: normal affect Attitude: cooperative Thought process: Normal thought process present and not confabulating Thought content: Normal thought content present Insight: Limited insight present (Psych) Judgement: Limited judgement present (Psych) Assessment & Plan Assessment & Plan (1) GERD (gastroesophageal reflux disease): Code(s): K21.9 - Gastro-esophageal reflux disease without esophagitis (2) Left upper quadrant abdominal pain: Code(s): R10.12 - Left upper quadrant pain (3) Dysphagia, oropharyngeal: Code(s): R13.12 - Dysphagia, oropharyngeal phase (4) Tubular adenoma of colon: Comment: 2021 scope at least 3 repeat in 1 year due to insufficient prep aeb Code(s): D12.6 - Benign neoplasm of colon, unspecified (5) IBS (irritable bowel syndrome): Code(s): K58.9 - Irritable bowel syndrome without diarrhea Plan Syriac #[id number] then Isamar LIve ? REPEAT COLONOSCOPY Scheduled for 07/14 She took the imipramine and she took it for 2 weeks but it caused her PALAFOX and dizziness so she stopped. We will try Levsin next if we can get covered by insurance. In the meantime she can continue the Bentyl even though it does not have enough efficacy at max dose. I will also give a trial of creon and she can start with one for a week, then try the other and see which is better. She still feels left sided swelling. This is post prandial bloating and stooling that varies from hard to soft to diarrhea. ROV 3 weeks. Medications: New hyoscyamine sulfate (Levsin/SL) 0.125 mg PO QID 120 tabs 6RF K58.9 - Irritable bowel syndrome without diarrhea [id number] 24,000-76,000 -120,000 unit (Creon) administer with meals and/or snacks 1 cap PO QID 120 caps 1RF 30 days K58.9 - Irritable bowel syndrome without diarrhea Discontinued imipramine HCl Discontinued Reason: Doctor's Order 10 mg PO BEDTIME 30 days 30 tabs 6RF K58.9 - Irritable bowel syndrome without diarrhea Coding Level of Care Code Est Pt Level 3 (00212) Diagnoses GERD (gastroesophageal reflux disease) K21.9 Left upper quadrant abdominal pain R10.12 Dysphagia, oropharyngeal R13.12 Tubular adenoma of colon D12.6 IBS (irritable bowel syndrome) K58.9
[2023-05-28 10:43] VITALS: BP 134/77; PULSE 81; BMI 29.7
== END 2023-05-28 11:18 | disposition home or self-care (01) ==
PROVIDERS: PCP Nurse Practitioner Primary Care; Visit Provider Nurse Practitioner
DX: K21.9 Gastro-esophageal reflux disease without esophagitis (principal); R10.12 Left upper quadrant pain; R13.12 Dysphagia, oropharyngeal phase; D12.6 Benign neoplasm of colon, unspecified; K58.9 Irritable bowel syndrome, unspecified
CPT/HCPCS: 99213

== ENCOUNTER → 2023-05-28 10:25 | Outpatient (BNVA) | payer MEDICAID, SELFPAY | PROVIDERS: PCP Nurse Practitioner Primary Care; Visit Provider Nurse Practitioner | DX: K21.9 Gastro-esophageal reflux disease without esophagitis (principal); R10.12 Left upper quadrant pain; R13.12 Dysphagia, oropharyngeal phase; K58.0 Irritable bowel syndrome with diarrhea; D12.6 Benign neoplasm of colon, unspecified | CPT/HCPCS: 99212 ==

== ENCOUNTER 2023-06-18 09:52 | Outpatient (AMB) | payer MEDICAID, SELFPAY ==
--- NOTE | 2023-06-18 09:55 | MHC.OFFVIS ---
Intake Vital Signs 06/18/23 10:10 Height 5 ft Weight 150 lb 12.739 oz BMI 29.4 BP 121/66 Blood Pressure Location Lt brachial Position Sitting Pulse 75 Intake Visit Reasons: 3 week follow up IBS Intake Note: Patient presents to in office visit today in 3 weeks follow up of new medication. CC: Patient states she has been feeling so so . Denies any new GI concerns today. Plexiglas Former Required: Yes Accompanied by: Self / Same As Patient Allergies latex Allergy (Severe, Verified 07/21/23 09:47) Angioedema HPI 3 week follow up IBS HPI Details Assessment & Plan (1) Left upper quadrant abdominal pain: Code(s): R10.12 - Left upper quadrant pain Plan: [place] #Marilia LIve She has not yet heard re: colonoscopy. Sent another note. She is complaining of the return of a problem that had resolved in the past. This is pain in the epigastrum and to the LUQ with eating with bloating and post prandial diarrhea. No changes in diet or medications etc. She still has a GB so not post vonda syndrome. Will start imipramine 10mg qhs and titrate up, as this happens will decrease the bentyl to avoid s/e. The cessation of sx seemed to be r/t the bentyl, but we have maxed the dose and it is not working, so will progress. She has not yet heard ROV 4 weeks. (2) GERD (gastroesophageal reflux disease): Code(s): K21.9 - Gastro-esophageal reflux disease without esophagitis (3) IBS (irritable bowel syndrome): Code(s): K58.9 - Irritable bowel syndrome without diarrhea (4) Erosive esophagitis: Code(s): K22.10 - Ulcer of esophagus without bleeding (5) Diarrhea: Code(s): R19.7 - Diarrhea, unspecified (6) Tubular adenoma of colon: Comment: 2021 scope at least 3 repeat in 1 year due to insufficient prep aeb Code(s): D12.6 - Benign neoplasm of colon, unspecified Medications: New imipramine HCl 10 mg PO BEDTIME 3 0 tabs 6RF 30 days K58.9 - Irritable bowel syndrome wit hout diarrhea COLONOSCOPY BIOPSY Scheduled for 07/09 TODAY'S VISIT [place] #Rosalinda Muro There was quite a bit of confusion regarding how to take the medicines. She thought she was to take the creon for a week, then the hyoscamine. BUT I had wanted her to take the bentyl and then the hyoscamine to see which worked best. None made any difference but she did not take the creon long enough. We will simplify the regimen, stopping the famotidine, hyoscamine (she did not like the SL), and continuing the protonix bic. She had a bad rxn to the imipramine wiht PALAFOX and back ache, so can't use this. She has significant diverticular disease of the sigmoid colon and she has persistent left-sided abdominal pain so this could be related to mild diverticulitis. We will try treating her with an antibiotic. Return office visit in 5 weeks to see how she is progressing. [facility] BROUGHT ALL OF HER MEDS TODAY AND WE REVIEWED. WROTE ALL UP IN [place] USING [employer] Medical History Tubular adenoma of colon Urinary tract infection Moderate persistent asthma Osteopenia Hyperlipidemia Essential hypertension Obesity (BMI 30.0-34.9) Poor circulation DM type 2 (diabetes mellitus, type 2) Migraine Diverticulitis Gastritis Asthma Anxiety Surgical History History of esophagogastroduodenoscopy (EGD) Hx of breast biopsy H/O colonoscopy with polypectomy H/O total hysterectomy H/O tubal ligation Family History Maternal Aunt Stomach cancer Father HTN (hypertension) Heart disease Mother Diabetes Asthma Family/Other Diabetes HTN (hypertension) Social History Household Members Other:: son and 2 granddaughters Patient Tobacco Use Status: Never used Tobacco Female Reproductive History Menstrual Age of Menarche: 13 Review of Systems Const Denies fatigue, Denies fever(s), Denies night sweats, Denies poor appetite and Denies weight loss ENT Reports Normal hearing present, Denies dental pain, Denies dysphagia, Denies hearing loss, Denies mouth pain, Denies odynophagia, Denies throat swelling, Denies tongue swelling and Reports other (Dentition adequate) Card Reports no additional complaints Resp Reports no additional complaints GI Denies abdominal pain, Denies melena, Reports bloating, Denies hematochezia, Denies constipation, Reports GI cramping, Denies dysphagia, Denies excessive flatus, Denies early satiety, Reports heartburn, Reports diarrhea, Denies nausea, Denies odynophagia, Denies vomiting and Denies hematemesis Skin/Breast Denies pruritus, Denies lesions, Denies rash and Denies jaundice Neuro Reports Normal hearing present and Denies Abnormal speech present Endo Denies fatigue Aller/Immun Denies throat swelling and Denies tongue swelling Physical Exam Vital Signs: Last Vital Signs Pulse 75 06/18/23 10:10 BP 121/66 06/18/23 10:10 BMI result Body Mass Index 29.4 Const General: cooperative, no acute distress, well developed and well groomed Nutritional Appearance: average body habitus and well nourished Orientation/consciousness: oriented to person, oriented to place and oriented to time Limitations: language barrier and ambulation with cane HEENT Head: Yes normocephalic and Yes atraumatic Eyes General: appearance normal, both eyes and all related structures Pupils: Equal, round and reactive pupils present Neck Neck: Yes normal visual inspection and Yes no lymphadenopathy Thyroid: Thyroid normal Resp Effort & Inspection: normal respiratory effort and able to speak in complete sentences Auscultation: clear to auscultation bilaterally Cardio Rate: regular rate Rhythm: regular rhythm Heart sounds: Normal, physiologic split S2 sound present Peripheral pulses: radial pulses present and posterior tibial pulses present GI Inspection: No distended and No Abdominal panniculus present Palpation (GI): Soft to palpation, Tenderness to palpation present (GI), no guarding, not rigid and No hepatosplenomegaly present Percussion: Yes normal to percussion Auscultation: normal bowel sounds Rectal Exam - Female: deferred Skin General skin exam: no rashes or lesions noted, turgor normal, skin not dry, no jaundice, No spider nevi and no striae Rashes: no rashes Nails: normal Neuro General: oriented to person, oriented to place and oriented to time Cranial nerves: Yes Equal, round and reactive pupils present and Yes Normal hearing present Speech: No Abnormal speech present Extrem General: Yes normal to inspection, No clubbing, No cyanosis and No edema Psych Appearance: grossly normal and well kempt Mental Status: mental status grossly normal Speech and movement: Normal speech and movement present Affect: normal affect Attitude: cooperative Thought process: Normal thought process present and not confabulating Thought content: Normal thought content present Insight: Limited insight present (Psych) Judgement: Limited judgement present (Psych) Assessment & Plan Assessment & Plan (1) Left upper quadrant abdominal pain: Code(s): R10.12 - Left upper quadrant pain (2) GERD (gastroesophageal reflux disease): Code(s): K21.9 - Gastro-esophageal reflux disease without esophagitis (3) IBS (irritable bowel syndrome): Code(s): K58.9 - Irritable bowel syndrome without diarrhea Plan COLONOSCOPY BIOPSY Scheduled for 07/09 TODAY'S VISIT [place] #Rosalinda Muro There was quite a bit of confusion regarding how to take the medicines. She thought she was to take the creon for a week, then the hyoscamine. BUT I had wanted her to take the bentyl and then the hyoscamine to see which worked best. None made any difference but she did not take the creon long enough. We will simplify the regimen, stopping the famotidine, hyoscamine (she did not like the SL), and continuing the protonix bic. She had a bad rxn to the imipramine wiht PALAFOX and back ache, so can't use this. She has significant diverticular disease of the sigmoid colon and she has persistent left-sided abdominal pain so this could be related to mild diverticulitis. We will try treating her with an antibiotic. Return office visit in 5 weeks to see how she is progressing. [facility] BROUGHT ALL OF HER MEDS TODAY AND WE REVIEWED. WROTE ALL UP IN [place] USING [employer] (power[employer]) Medications: New amoxicillin-pot clavulanate 875-125 mg 1 tab PO BID 30 tabs 3RF R10.12 - Left upper quadrant pain Changed From vyetin-rwbujign-mbtyasi 24,000-76,000 -120,000 unit administer with meals and/or snacks 1 cap PO QID 30 days 120 caps 1RF K58.9 - Irritable bowel syndrome without diarrhea To digvcl-domoxzqo-eqsfyyl 24,000-76,000 -120,000 unit (Creon) administer with meals and/or snacks 2 caps PO BID 120 caps 6RF 30 days K58.9 - Irritable bowel syndrome without diarrhea Discontinued famotidine Discontinued Reason: Doctor's Order 40 mg PO BID 60 tabs 6RF K21.9 - Gastro-esophageal reflux disease without esophagitis, R13.12 - Dysphagia, oropharyngeal phase hyoscyamine sulfate Discontinued Reason: Patient Completed Course 0.125 mg PO QID 120 tabs 6RF K58.9 - Irritable bowel syndrome without diarrhea Patient Instructions: Brooklynn Wheatley [place] los medicamentos que le receto de la siguiente manera (October) 1. pantoprazol dos veces al d?a 2. Creon 2 c?psulas dos veces al d?a 3. diciclomina 4 veces al d?a 4. augmentin dos veces al d?a adolfo 14 d?as (el antibi?italo) 5. Probi?italo de venta margarito adolfo al menos 30 d?as para compensar la diarrea que pueda causar el antibi?italo. Quiero verte de regreso en 4-5 semanas. DEJE DE OMERO HIOSCAMINA, IMIPRAMINA, FAMOTIDINA. Coding Level of Care Code Est Pt Level 3 (69218) Diagnoses Left upper quadrant abdominal pain R10.12 GERD (gastroesophageal reflux disease) K21.9 IBS (irritable bowel syndrome) K58.9
[2023-06-18 10:10] VITALS: BP 121/66; PULSE 75; BMI 29.4
== END 2023-06-18 11:22 | disposition home or self-care (01) ==
PROVIDERS: PCP Nurse Practitioner Primary Care; Visit Provider Nurse Practitioner
DX: R10.12 Left upper quadrant pain (principal); K21.9 Gastro-esophageal reflux disease without esophagitis; K58.9 Irritable bowel syndrome, unspecified
CPT/HCPCS: 99213

== ENCOUNTER → 2023-06-18 09:52 | Outpatient (BNVA) | payer MEDICAID, SELFPAY | PROVIDERS: PCP Nurse Practitioner Primary Care; Visit Provider Nurse Practitioner | DX: K58.9 Irritable bowel syndrome, unspecified (principal); K21.9 Gastro-esophageal reflux disease without esophagitis; R10.12 Left upper quadrant pain | CPT/HCPCS: 99212 ==

== ENCOUNTER 2023-07-14 10:22 | Day surgery (SDC) | payer MEDICAID, SELFPAY ==
--- NOTE | 2023-07-13 09:19 | P.CONAN_ITS ---
Documented by User: Sharla Gutierrez NP 07/13/23 09:20 HPI - Anesthesia Eval Consult details Narrative: 62yo F for Colonoscopy PMFSH Active Problems Active Problems: All Active Problems (Updated 05/24/23 @ 23:14 by Fred Jacinto CNP) Sleep apnea (Acute) IBS (irritable bowel syndrome) (Acute) Pre-op examination (Acute) Tubular adenoma of colon (Acute) Erosive esophagitis (Acute) Left upper quadrant abdominal pain (Acute) Dysphagia, oropharyngeal (Acute) GERD (gastroesophageal reflux disease) (Acute) Diarrhea (Acute) Varicose veins of left lower extremity with inflammation (Acute) Status post total hysterectomy and bilateral salpingo-oophorectomy (BSO) (Acute) Well woman exam with routine gynecological exam (Acute) Past Medical History Medical History Tubular adenoma of colon Urinary tract infection Moderate persistent asthma Osteopenia Hyperlipidemia Essential hypertension Obesity (BMI 30.0-34.9) Poor circulation DM type 2 (diabetes mellitus, type 2) Migraine Diverticulitis Gastritis Asthma Anxiety Family History Family History Maternal Aunt Stomach cancer Father HTN (hypertension) Heart disease Mother Diabetes Asthma Family/Other Diabetes HTN (hypertension) Family history of problems with anesthesia: No Surgical History Surgical History History of esophagogastroduodenoscopy (EGD) Hx of breast biopsy H/O colonoscopy with polypectomy H/O total hysterectomy H/O tubal ligation History of Problems with Anesthesia: No Social History Social History Household Members Other:: son and 2 granddaughters Patient Tobacco Use Status: Never used Tobacco Advance Directives: No Advance Directives Information Provided: Yes Meds Allergies Allergy/AdvReac Type Severity Reaction Status Date / Time latex Allergy Severe Angioedema Verified 04/23/23 10:17 Home Medications Medication Instructions Recorded Confirmed Last Taken Type albuterol sulfate 90 mcg/actuation 1 inh inhalation Q4-6H PRN 07/08/21 07/08/21 Unknown History breath activated powder inhaler,sensor enalapril maleate 10 mg tablet 10 mg PO DAILY 07/08/21 07/08/21 Unknown History fluticasone propionate 230 2 puff inhalation BID 07/08/21 07/08/21 Unknown History mcg-salmeterol 21 mcg/actuation HFA inhaler (Advair HFA) blood sugar diagnostic (FreeStyle #10 ea 08/26/21 Unknown History Lite Strips) lidocaine 5 % topical patch 1 patch topical DAILY 08/26/21 Unknown History cetirizine 10 mg tablet 10 mg PO DAILY 09/11/21 Unknown History lancets 28 gauge (FreeStyle #100 ea 09/11/21 Unknown History Lancets) lancets 33 gauge (TRUEplus Lancets) #100 ea 12/09/21 Unknown History glimepiride 4 mg tablet (Amaryl) 4 mg PO BID 04/01/22 Unknown History pregabalin 100 mg capsule 100 mg PO BID 06/17/22 Unknown History capsaicin 0.1 % topical cream appl topical BID 10/15/22 Unknown History (Capzasin-HP) meloxicam 7.5 mg tablet 7.5 mg PO BID 10/15/22 Unknown History gcxkdohame-yguxnjbmrisgd-ysagolgh 1 cap PO DAILY PRN 04/23/23 Unknown History 50 mg-300 mg-40 mg capsule (Fioricet) metformin 500 mg tablet,extended 1,000 mg PO BID 05/28/23 Unknown History release 24 hr acetaminophen 650 mg 650 mg PO Q12H PRN 06/18/23 Unknown History tablet,extended release (Arthritis Pain Relief (acetaminophen) ER) Exam Pertinent Lab Results Pertinent Lab Results: Laboratory Tests 01/07/22 02/23/23 19:12 14:28 WBC 10.7 Hgb 14.2 Hct 41.0 Plt Count 343 Sodium 143 Potassium 4.1 Chloride 106 Carbon Dioxide 27 BUN 11 Creatinine 0.72 Assessment and Plan Assessment Anesthesia Assessment: Chart Reviewed Final Anesthetic Review Family History of Problems with Anesthesia: No History of Problems with Anesthesia: No Documented by User: Trace Horner MD 07/14/23 10:24 [facility] Past Medical History Medical History Tubular adenoma of colon Urinary tract infection Moderate persistent asthma Osteopenia Hyperlipidemia Essential hypertension Obesity (BMI 30.0-34.9) Poor circulation DM type 2 (diabetes mellitus, type 2) Migraine Diverticulitis Gastritis Asthma Anxiety Family History Family History Maternal Aunt Stomach cancer Father HTN (hypertension) Heart disease Mother Diabetes Asthma Family/Other Diabetes HTN (hypertension) Surgical History Surgical History History of esophagogastroduodenoscopy (EGD) Hx of breast biopsy H/O colonoscopy with polypectomy H/O total hysterectomy H/O tubal ligation Social History Social History Household Members Other:: son and 2 granddaughters Patient Tobacco Use Status: Never used Tobacco Advance Directives: No Advance Directives Information Provided: Yes Meds Allergies Allergy/AdvReac Type Severity Reaction Status Date / Time latex Allergy Severe Angioedema Verified 04/23/23 10:17 Home Medications Medication Instructions Recorded Confirmed Last Taken Type albuterol sulfate 90 mcg/actuation 1 inh inhalation Q4-6H PRN 07/08/21 07/08/21 Unknown History breath activated powder inhaler,sensor enalapril maleate 10 mg tablet 10 mg PO DAILY 07/08/21 07/08/21 Unknown History fluticasone propionate 230 2 puff inhalation BID 07/08/21 07/08/21 Unknown History mcg-salmeterol 21 mcg/actuation HFA inhaler (Advair HFA) blood sugar diagnostic (FreeStyle #10 ea 08/26/21 Unknown History Lite Strips) lidocaine 5 % topical patch 1 patch topical DAILY 08/26/21 Unknown History cetirizine 10 mg tablet 10 mg PO DAILY 09/11/21 Unknown History lancets 28 gauge (FreeStyle #100 ea 09/11/21 Unknown History Lancets) lancets 33 gauge (TRUEplus Lancets) #100 ea 12/09/21 Unknown History glimepiride 4 mg tablet (Amaryl) 4 mg PO BID 04/01/22 Unknown History pregabalin 100 mg capsule 100 mg PO BID 06/17/22 Unknown History capsaicin 0.1 % topical cream appl topical BID 10/15/22 Unknown History (Capzasin-HP) meloxicam 7.5 mg tablet 7.5 mg PO BID 10/15/22 Unknown History owxddddfvl-rasevnmdjuyue-hfmelarv 1 cap PO DAILY PRN 04/23/23 Unknown History 50 mg-300 mg-40 mg capsule (Fioricet) metformin 500 mg tablet,extended 1,000 mg PO BID 05/28/23 Unknown History release 24 hr acetaminophen 650 mg 650 mg PO Q12H PRN 06/18/23 Unknown History tablet,extended release (Arthritis Pain Relief (acetaminophen) ER) Exam Airway Mallampati Class: II TM Dist: >3cm Neck ROM: Limited Heart: rrrr Lungs: cta Assessment and Plan Assessment Anesthesia Assessment: Anesthesia Plan Discussed Final Anesthetic Review NPO: Yes ASA Class: III Final Preanesthetic Review: No Changes in Pt Med Stat, Meds/Allgs Chart Reviewed, Consent Obtained/Reviewed and Anes Risks/Benef Reviewed Patient Risk: Intermediate Procedure Risk: Low Anesthetic Plan Anesthetic Plan: MAC: and Agree w/ Assess. and Plan Disposition: Standard PACU
[2023-07-14 10:26] VITALS: BMI 30.1
--- NOTE | 2023-07-14 10:32 | MHC.SHP ---
Pre-Procedural Eval Section A Date of Service: 07/14/23 Section B Chief Complaint: Irritable bowel syndrome without diarrhea Relevant Family History (Specify if Yes): No Relevant Social History: None Present Medications: see Short Stay Collaborative assessment Medical History: Significant History (Tubular adenoma of colon Urinary tract infection Moderate persistent asthma Osteopenia Hyperlipidemia Essential hypertension Obesity (BMI 30.0-34.9) Poor circulation DM type 2 (diabetes mellitus, type 2) Migraine Diverticulitis Gastritis Asthma Anxiety) History of Previous Operations: Relevant previous surgery/procedure and date(s) (History of esophagogastroduodenoscopy (EGD) Hx of breast biopsy H/O colonoscopy with polypectomy H/O total hysterectomy H/O tubal ligation) Allergies: Allergies Allergy/AdvReac Type Severity Reaction Status Date / Time latex Allergy Severe Angioedema Verified 04/23/23 10:17 Review of Systems Sugical H&P ROS: Negative: Constitution, Cardiovascular, Respiratory, Neurological, Psychiatric, Hem-Onc, Allergic/Immunologic, Gastrointestinal, Genitourinary, Musculoskeletal, Integumentary, Endocrine and Eyes/Ears/Nose/Throat Exam Surgical H&P Exam: Normal: HEENT, Normal: Heart, Normal: Lungs, Normal: Extremities, Normal: Abdomen, Normal: Skin and Normal: Neurological Plan Diagnosis/Plan: Unchanged I have reviewed the history and physical and performed a pertinent physical examination on my patient. No changes have occurred unless specified. Time Spent With Patient Time: Total time managing care of this patient today ____ minutes.
[2023-07-14 10:52] VITALS: BP 127/73; PULSE 77; RESP 16; TEMP 36.4; O2SAT 98
[2023-07-14] MEDS: Lactated Ringers 1,000 ML 100 ML IVCONT (10:54)
[2023-07-14 11:00] LABS: Glucose, Whole Blood 111 mg/dL (60-115)
--- NOTE | 2023-07-14 11:55 | W.PM.OPN ---
Operative Note Operative Note Date of Service: 07/14/23 Narrative: Operative Information Procedure Description: Colonoscopy Indication: screening Anesthesia: MAC COLONOSCOPY Instrument: Olympus variable stiffness pediatric scope 190L Colonoscopy Monitoring: Vital signs and clinical assessment, continuous EKG monitoring, Pulse oximetry, Carbon Dioxide monitoring and blood pressure monitoring were done throughout the procedure. Colon withdrawal time was 8 minutes. Procedure: The patient was placed in the left lateral decubitis position and pre-procedure medications were administered. After a digital rectal examination of the ano-rectum, the video colonoscope was inserted into the rectum and advanced through the colon to the cecum/TI. The colonoscope was slowly withdrawn in a retrograde panoramic fashion and the colon mucosa was carefully examined including a retroflexed view of the rectum. Findings and interventions are described below. Procedure Difficulty: easy Findings: Terminal Ileum-normal Cecum: 4-5 mm sessile polyp removed with cold snare Ascending Colon: normal Transverse Colon - 4-5 mm sessile polyp removed with cold forceps Descending Colon:normal Sigmoid Colon: moderate diverticulosis Rectum: Retroflexion with small internal hemorrhoids, grade I Anorectum - normal Colon preparation: W[place] Bowel Preparation Scale Right colon; 1-2 Transverse colon: 2 Left colon; 2 (0 = Unprepared colon segment with mucosa not seen due to solid stool that cannot be cleared. 1 = Portion of mucosa of the colon segment seen, but other areas of the colon segment not well seen due to staining, residual stool and/or opaque liquid. 2 = Minor amount of residual staining, small fragments of stool and/or opaque liquid, but mucosa of colon segment seen well. 3 = Entire mucosa of colon segment seen well with no residual staining, small fragments of stool or opaque liquid) Impression and Post Procedure Diagnosis: polyps internal hemorrhoids diverticular disease Plan: High fiber diet leaflet Avoid straining at stool, epsom salts and sitz bath, anusol supps or cream Repeat Colonoscopy in 3-4 years due to fair prep on the right or earlier if clinically indicated Above findings were reviewed with the patient and relevant handouts were provided if indicated.
[2023-07-14 11:59] VITALS: BP 100/57; PULSE 73; RESP 16; TEMP 36.8; O2SAT 97
[2023-07-14 12:14] VITALS: BP 122/71; PULSE 65; RESP 16; TEMP 36.8; O2SAT 98
== END 2023-07-14 14:19 | disposition home or self-care (01) ==
PROVIDERS: PCP Nurse Practitioner Primary Care; Visit Provider Internal Medicine Gastroenterology
PROC: 0DJD8ZZ Inspection of Lower Intestinal Tract, Via Natural or Artificial Opening Endoscopic (ICD-10-PCS; CPT 45378; principal; 2023-07-14 12:00)
DX: Z12.11 Encounter for screening for malignant neoplasm of colon (principal); D12.0 Benign neoplasm of cecum; K57.30 Diverticulosis of large intestine without perforation or abscess without bleeding; K64.0 First degree hemorrhoids; Z86.010 Personal history of colon polyps; E11.9 Type 2 diabetes mellitus without complications; I10 Essential (primary) hypertension; E78.5 Hyperlipidemia, unspecified; K21.9 Gastro-esophageal reflux disease without esophagitis; K22.10 Ulcer of esophagus without bleeding; K58.9 Irritable bowel syndrome, unspecified; J45.40 Moderate persistent asthma, uncomplicated; Z90.710 Acquired absence of both cervix and uterus; Z79.899 Other long term (current) drug therapy; Z79.84 Long term (current) use of oral hypoglycemic drugs
CPT/HCPCS: 45385; 45380; 82947; 88305; J0171; J2704

== ENCOUNTER → 2023-07-14 10:22 | Outpatient (BNV) | payer MEDICAID, SELFPAY | PROVIDERS: PCP Nurse Practitioner Primary Care; Visit Provider Internal Medicine Gastroenterology | DX: Z12.11 Encounter for screening for malignant neoplasm of colon (principal); D12.0 Benign neoplasm of cecum; D12.3 Benign neoplasm of transverse colon; K64.0 First degree hemorrhoids; K57.30 Diverticulosis of large intestine without perforation or abscess without bleeding | CPT/HCPCS: 45380; 45385 ==

== ENCOUNTER 2023-07-21 09:13 | Outpatient (AMB) | payer MEDICAID, SELFPAY ==
[2023-07-21 09:46] VITALS: PULSE 78; O2SAT 98; BMI 28.9
--- NOTE | 2023-07-21 09:46 | A.OFFVIS_ITS ---
Intake Vital Signs 07/21/23 09:46 Height 5 ft Weight 148 lb BMI 28.9 Pulse 78 Pulse Source Pulse Oximeter Pulse Oximetry (%) 98 Oxygen Delivery Method Room Air Intake Visit Reasons: 3 mnts f/u for Sleep-Confirmed Intake Note: Patient presents for 3 month follow up Allergies latex Allergy (Severe, Verified 07/21/23 09:47) Angioedema HPI HPI Comments History of Present Illness Details 62 y/o female patient presents for follo w up of ESTEPHANIA on CPAP. Pt reports she had new mask but it makes her face itchy. She uses CPAP, but she hold the CPAP mask to not to touch her face. The CPAP compliance and therapy response reviewed, but it says 0 min used. Pt continues to endorse non refreshing sleep and daytime tiredness. [facility] Medical History Tubular adenoma of colon Urinary tract infection Moderate persistent asthma Osteopenia Hyperlipidemia Essential hypertension Obesity (BMI 30.0-34.9) Poor circulation DM type 2 (diabetes mellitus, type 2) Migraine Diverticulitis Gastritis Asthma Anxiety Surgical History History of esophagogastroduodenoscopy (EGD) Hx of breast biopsy H/O colonoscopy with polypectomy H/O total hysterectomy H/O tubal ligation Family History Maternal Aunt Stomach cancer Father HTN (hypertension) Heart disease Mother Diabetes Asthma Family/Other Diabetes HTN (hypertension) Social History Household Members Other:: son and 2 granddaughters Patient Tobacco Use Status: Never used Tobacco Female Reproductive History Menstrual Age of Menarche: 13 Review of Systems Const All systems reviewed & are unremarkable except as noted in HPI and below ENT Reports Normal hearing present Neuro Reports Normal hearing present Physical Exam Vital Signs: Last Vital Signs Pulse 78 07/21/23 09:46 Pulse Ox 98 07/21/23 09:46 Oxygen Delivery Method Room Air 07/21/23 09:46 BMI result Body Mass Index 28.9 Const General: cooperative Nutritional Appearance: overweight Orientation/consciousness: patient oriented x3 Neck Neck: Yes full ROM and Yes supple Resp Effort & Inspection: normal respiratory effort and able to speak in complete sentences Neuro General: patient oriented x3 and gait normal Cranial nerves: Yes Bilaterally intact EOM present, Yes Normal facial strength present, Yes Midline tongue present, Yes Symmetric palate elevation present, Yes Normal hearing present, Yes Ability to bilaterally rotate head present and Yes Ability to bilaterally elevate shoulders present Cognition (Neuro): normal cognition Gait exam (Neuro): Normal gait present Motor exam (neuro): 5/5 motor strength present throughout, Pronator motor function not present and no tremor noted Psych Appearance: grossly normal Mental Status: mental status grossly normal Speech and movement: Normal speech and movement present Affect: normal affect Attitude: cooperative Assessment & Plan Assessment & Plan (1) Sleep apnea: Code(s): G47.30 - Sleep apnea, unspecified Plan New mask fitting prescription given to patient. Advised patient to try CPAP mask liner to prevent skin irritation and allergy reaction. Stressed compliance, use CPAP nightly and more than 4 hrs. Pt is not interested in Inspire at this time. Coding Level of Care Code Est Pt Level 3 (23403) Diagnoses Sleep apnea G47.30
== END 2023-07-21 10:21 | disposition home or self-care (01) ==
PROVIDERS: PCP Nurse Practitioner Primary Care; Visit Provider Nurse Practitioner Family
DX: G47.30 Sleep apnea, unspecified (principal)
CPT/HCPCS: 99213

== ENCOUNTER → 2023-07-21 09:13 | Outpatient (BNVA) | payer MEDICAID, SELFPAY | PROVIDERS: PCP Nurse Practitioner Primary Care; Visit Provider Nurse Practitioner Family | DX: G47.30 Sleep apnea, unspecified (principal) | CPT/HCPCS: 99212 ==

== ENCOUNTER 2023-08-06 13:11 | Outpatient (AMB) | payer MEDICAID, SELFPAY ==
[2023-08-06 13:18] VITALS: BP 136/70; BMI 29.3
--- NOTE | 2023-08-06 13:18 | MHC.OFFVIS ---
Intake Vital Signs 08/06/23 13:18 Height 5 ft Weight 150 lb BMI 29.3 BP 136/70 Blood Pressure Location Lt brachial Position Sitting Intake Visit Reasons: s/p colon Intake Note: Patient presents to in office visit today in follow up of colonoscopy. CC:Patient underwent colonoscopy 07/14/[address] Villalpando. She reports occasional pain from LUQ of her abdomen. Denies other GI symptoms. 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 She thought she was to take the creon for a week, then the hyoscamine. BUT I had wanted her to take the bentyl and then the hyoscamine to see which worked best. None made any difference but she did not take the creon long enough. We will simplify the regimen, stopping the famotidine, hyoscamine (she did not like the SL), and continuing the protonix bic. She had a bad rxn to the imipramine wiht PALAFOX and back ache, so can't use this. She has significant diverticular disease of the sigmoid colon and she has persistent left-sided abdominal pain so this could be related to mild diverticulitis. We will try treating her with an antibiotic. Return office visit in 5 weeks to see how she is progressing. Luis BROUGHT ALL OF HER MEDS TODAY AND WE REVIEWED. WROTE ALL UP IN [place] USING [employer] Medications: New amoxicillin-pot cl avulanate 875-125 mg 1 tab PO BID 30 ta bs 3RF R10.12 - Left uppe r quadrant pain Changed From owztmq-hjhqogvj-ih ylase 24,000-76,00 0 -120,000 unit administer with m eals and/or snacks 1 cap PO QID 30 d ays 120 caps 1RF K58.9 - Irritable bowel syndrome wit hout diarrhea To qjzpdc-fmalgkfa-xx ylase 24,000-76,00 0 -120,000 unit (C reon) administe r with meals and/o r snacks 2 caps PO BID 120 caps 6RF 30 days K58.9 - Irritable bowel syndrome wit hout diarrhea Discontinued famotidine Disc ontinued Reason: Doctor's Order 40 mg PO BID 60 t abs 6RF K21.9 - Gastro-eso phageal reflux dis ease without esoph agitis, R13.12 - D ysphagia, orophary ngeal phase hyoscyamine sulfat e Discontinued Reason: Patient C ompleted Course 0.125 mg PO QID 1 20 tabs 6RF K58.9 - Irritable bowel syndrome wit hout diarrhea Patient Instructions: Brooklynn Wheatley Conley los medicamentos que le receto de la siguiente manera (October) 1. pantoprazol dos veces al d?a 2. Creon 2 c?psulas dos veces al d?a 3. diciclomina 4 veces al d?a 4. augmentin dos veces al d?a adolfo 14 d?as (el antibi?italo) 5. Probi?italo de venta margarito adolfo al menos 30 d?as para compensar la diarrea que pueda causar el antibi?italo. Quiero verte de regreso en 4-5 semanas. DEJE DE OMERO HIOSCAMINA, IMIPRAMINA, FAMOTIDINA. COLONOSCOPY 07/14/23 Findings: Terminal Ileum-normal Cecum: 4-5 mm sessile polyp removed with cold snare Ascending Colon: normal Transverse Colon - 4-5 mm sessile polyp removed with cold forceps Descending Colon:normal Sigmoid Colon: moderate diverticulosis Rectum: Retroflexion with small internal hemorrhoids, grade I Anorectum - normal Impression and Post Procedure Diagnosis: polyps internal hemorrhoids diverticular disease Plan: High fiber diet leaflet Avoid straining at stool, epsom salts and sitz bath, anusol supps or cream Repeat Colonoscopy in 3-4 years due to fair prep on the right or earlier if clinically indicated Received: 07/14/23 Diagnosis A. Cecum, polypectomy: Tubular adenoma; negative for high-grade dysplasia or carcinoma. B. Colon, transverse, polypectomy: Colonic mucosa with mild surface hyperplastic changes TODAY'S VISIT [place] #Isamar Live She wants a picture of the colonoscopy but I can not access it. I will see what I can do - she wants the written reports for the procedure and this I will provide. She is dong better with her GI problems on the current regimen. The OTC probiotic helped alot. She continues on her dicyclomine, Creon, pantoprazole 40 mg twice a day. She has lost a few pounds and she says she wants to lose wt up to the 140's. She admits her appetite has been less antoinette for meats and rice. She also feels that the metformin and glimiperide may be c/f. ROV 6 mos. PFSH Medical History Tubular adenoma of colon Urinary tract infection Moderate persistent asthma Osteopenia Hyperlipidemia Essential hypertension Obesity (BMI 30.0-34.9) Poor circulation DM type 2 (diabetes mellitus, type 2) Migraine Diverticulitis Gastritis Asthma Anxiety Surgical History History of esophagogastroduodenoscopy (EGD) Hx of breast biopsy H/O colonoscopy with polypectomy H/O total hysterectomy H/O tubal ligation Family History Maternal Aunt Stomach cancer Father HTN (hypertension) Heart disease Mother Diabetes Asthma Family/Other Diabetes HTN (hypertension) Social History Household Members Other:: son and 2 granddaughters Patient Tobacco Use Status: Never used Tobacco Female Reproductive History Menstrual Age of Menarche: 13 Review of Systems Const Denies fatigue, Denies fever(s), Denies night sweats, Denies poor appetite and Denies weight loss ENT Reports Normal hearing present, Denies dental pain, Denies dysphagia, Denies hearing loss, Denies mouth pain, Denies odynophagia, Denies throat swelling, Denies tongue swelling and Reports other (Dentition adequate) Card Reports no additional complaints Resp Reports no additional complaints GI Denies abdominal pain, Denies melena, Reports bloating, Denies hematochezia, Denies constipation, Reports GI cramping, Denies dysphagia, Denies excessive flatus, Denies early satiety, Reports heartburn, Reports diarrhea, Denies nausea, Denies odynophagia, Denies vomiting and Denies hematemesis Skin/Breast Denies pruritus, Denies lesions, Denies rash and Denies jaundice Neuro Reports Normal hearing present and Denies Abnormal speech present Endo Denies fatigue Aller/Immun Denies throat swelling and Denies tongue swelling Physical Exam Vital Signs: Last Vital Signs BP 136/70 08/06/23 13:18 BMI result Body Mass Index 29.3 Const General: cooperative, no acute distress, well developed and well groomed Nutritional Appearance: well nourished and overweight Orientation/consciousness: oriented to person, oriented to place and oriented to time Limitations: language barrier HEENT Head: Yes normocephalic and Yes atraumatic Eyes General: appearance normal, both eyes and all related structures Pupils: Equal, round and reactive pupils present Neck Neck: Yes normal visual inspection and Yes no lymphadenopathy Thyroid: Thyroid normal Resp Effort & Inspection: normal respiratory effort and able to speak in complete sentences Auscultation: clear to auscultation bilaterally Cardio Rate: regular rate Rhythm: regular rhythm Heart sounds: Normal, physiologic split S2 sound present Peripheral pulses: radial pulses present and posterior tibial pulses present GI Inspection: No distended and No Abdominal panniculus present Palpation (GI): Soft to palpation, nontender, no guarding, not rigid and No hepatosplenomegaly present Percussion: Yes normal to percussion Auscultation: normal bowel sounds Rectal Exam - Female: deferred Skin General skin exam: no rashes or lesions noted, turgor normal, skin not dry, no jaundice, No spider nevi and no striae Rashes: no rashes Nails: normal Neuro General: oriented to person, oriented to place and oriented to time Cranial nerves: Yes Equal, round and reactive pupils present and Yes Normal hearing present Speech: No Abnormal speech present Extrem General: Yes normal to inspection, No clubbing, No cyanosis and No edema Psych Appearance: grossly normal and well kempt Mental Status: mental status grossly normal Speech and movement: Normal speech and movement present Affect: normal affect Attitude: cooperative Thought process: Normal thought process present and not confabulating Thought content: Normal thought content present Insight: Limited insight present (Psych) Judgement: Limited judgement present (Psych) Assessment & Plan Assessment & Plan (1) Diarrhea: Code(s): R19.7 - Diarrhea, unspecified (2) GERD (gastroesophageal reflux disease): Code(s): K21.9 - Gastro-esophageal reflux disease without esophagitis (3) Dysphagia, oropharyngeal: Code(s): R13.12 - Dysphagia, oropharyngeal phase (4) Erosive esophagitis: Code(s): K22.10 - Ulcer of esophagus without bleeding (5) IBS (irritable bowel syndrome): Code(s): K58.9 - Irritable bowel syndrome without diarrhea (6) Tubular adenoma of colon: Comment: 07/2023=neg but only fair prep repeat 3-4 years; 2021 scope at least 3 repeat in 1 year due to insufficient prep aeb Code(s): D12.6 - Benign neoplasm of colon, unspecified Plan [place] #Isamar Live She wants a picture of the colonoscopy but I can not access it. I will see what I can do - she wants the written reports for the procedure and this I will provide. She is dong better with her GI problems on the current regimen. The OTC probiotic helped alot. She continues on her dicyclomine, Creon, pantoprazole 40 mg twice a day. She has lost a few pounds and she says she wants to lose wt up to the 140's. She admits her appetite has been less antoinette for meats and rice. She also feels that the metformin and glimiperide may be c/f. ROV 6 mos. Medications: Changed From mvsmqy-olfgzybe-imuaugl 24,000-76,000 -120,000 unit administer with meals and/or snacks 2 caps PO BID 30 days 120 caps 6RF K58.9 - Irritable bowel syndrome without diarrhea To gqoytg-fcwjidcj-zsamtli 24,000-76,000 -120,000 unit (Creon) administer with meals and/or snacks 2 caps PO BID 360 caps 2RF 30 days K58.9 - Irritable bowel syndrome without diarrhea Refilled dicyclomine 40 mg (2 x 20 mg) PO QID 720 tabs 2RF R19.7 - Diarrhea, unspecified pantoprazole 40 mg PO BID 180 tabs 2RF K22.10 - Ulcer of esophagus without bleeding Coding Level of Care Code Est Pt Level 3 (49113) Diagnoses Diarrhea R19.7 GERD (gastroesophageal reflux disease) K21.9 Dysphagia, oropharyngeal R13.12 Erosive esophagitis K22.10 IBS (irritable bowel syndrome) K58.9 Tubular adenoma of colon D12.6
== END 2023-08-06 13:49 | disposition home or self-care (01) ==
PROVIDERS: PCP Nurse Practitioner Primary Care; Visit Provider Nurse Practitioner
DX: R19.7 Diarrhea, unspecified (principal); K21.9 Gastro-esophageal reflux disease without esophagitis; R13.12 Dysphagia, oropharyngeal phase; K22.10 Ulcer of esophagus without bleeding; K58.9 Irritable bowel syndrome, unspecified; D12.6 Benign neoplasm of colon, unspecified
CPT/HCPCS: 99213

== ENCOUNTER → 2023-08-06 13:11 | Outpatient (BNVA) | payer MEDICAID, SELFPAY | PROVIDERS: PCP Nurse Practitioner Primary Care; Visit Provider Nurse Practitioner | DX: K21.9 Gastro-esophageal reflux disease without esophagitis (principal); K22.10 Ulcer of esophagus without bleeding; K58.9 Irritable bowel syndrome, unspecified; R19.7 Diarrhea, unspecified; R13.12 Dysphagia, oropharyngeal phase; D12.6 Benign neoplasm of colon, unspecified | CPT/HCPCS: 99212 ==

== ENCOUNTER 2023-09-08 14:47 | Outpatient (REF) | payer MEDICAID, SELFPAY | END 2023-09-08 14:48 | disposition home or self-care (01) | LOC: HO.HAP 14:47 | PROVIDERS: Visit Provider Nurse Practitioner Primary Care | DX: Z13.89 Encounter for screening for other disorder (principal) ==

== ENCOUNTER 2023-09-09 14:39 | Outpatient (REF) | payer MEDICAID, SELFPAY | END 2023-09-09 14:40 | disposition home or self-care (01) | LOC: HO.HAP 14:39 | PROVIDERS: Visit Provider Nurse Practitioner Primary Care | DX: Z13.89 Encounter for screening for other disorder (principal) ==

== ENCOUNTER 2023-09-21 13:16 | Outpatient (AMB) | payer MEDICAID, SELFPAY ==
--- NOTE | 2023-09-21 13:22 | MHC.OFFVIS ---
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 She is doing well with concerns: occasional external itching. Attempting to eat a healthy diet with calcium and vitamin D and stays active with stairs, walking. Currently not sexually active. Denies any vaginal dryness or irritation. History of hysterectomy due to cystocele. Last mammogram; 10/2022. Colonoscopy is UTD. Denies any family history of breast, ovarian or colon cancer. [facility] Medical History Tubular adenoma of colon Urinary tract infection Moderate persistent asthma Osteopenia Hyperlipidemia Essential hypertension Obesity (BMI 30.0-34.9) Poor circulation DM type 2 (diabetes mellitus, type 2) Migraine Diverticulitis Gastritis Asthma Anxiety Surgical History History of esophagogastroduodenoscopy (EGD) Hx of breast biopsy H/O colonoscopy with polypectomy H/O total hysterectomy H/O tubal ligation Family History Maternal Aunt Stomach cancer Father HTN (hypertension) Heart disease Mother Diabetes Asthma Family/Other Diabetes HTN (hypertension) Social History Household Members Other:: son and 2 granddaughters Patient Tobacco Use Status: Never used Tobacco Female Reproductive History Menstrual Age of Menarche: 13 Menopause type: surgical Total pregnancies: 3 Full term: 3 Number of Living Children: 3 Date of Mammogram: 11/16/22 (Birad 1) Review of Systems Const All systems reviewed & are unremarkable except as noted in HPI and below Reports as per HPI Eyes Reports no additional complaints ENT Reports no additional complaints Card Reports no additional complaints Resp Reports no additional complaints GI Reports as per HPI and Reports no additional complaints Reports as per HPI Musc Reports no additional complaints Skin/Breast Reports as per HPI Neuro Reports no additional complaints Psych Reports no additional complaints Endo Reports no additional complaints Nathaniel/Lymph Reports no additional complaints Aller/Immun Reports no additional complaints Physical Exam Vital Signs: Last Vital Signs BP 120/80 09/21/23 13:26 BMI result Body Mass Index 28.5 Const General: cooperative, healthy appearing, no acute distress, well developed and alert Orientation/consciousness: patient oriented x3 HEENT Head: Yes normal to inspection Eyes General: appearance normal, both eyes and all related structures Neck Neck: Yes normal visual inspection Thyroid: Thyroid normal Chest Chest palpation & inspection: normal inspection of the chest and other (no puckering, dimpling, peau de orange, retraction, discharge, masses) Breast/axilla inspection: normal inspection of the breasts Breast/axilla palpation: normal palpation of the breasts Resp Effort & Inspection: normal respiratory effort GI Inspection: Yes normal to inspection Palpation (GI): Soft to palpation Rectal Exam - Female: deferred Other: shaving rash General: Yes bladder normal to palpation External Female Exam: normal external appearance and normal appearance of the urethra Speculum Exam - Vagina: normal appearance of the vagina, normal palpation, normal vaginal discharge (scant) and vagina atrophic Speculum Exam - Cervix: Cervix absent (vag cuff: no lesions or nodules) Bimanual exam- vagina & uterus: normal bimanual exam, normal palpation, bladder normal to palpation and uterus absent Bimanual Exam- Adnexa, other: no masses Skin General skin exam: no rashes or lesions noted Rashes: no rashes Neuro General: patient oriented x3 Cognition (Neuro): normal cognition Extrem General: Yes normal to inspection Psych Attitude: cooperative Thought process: Normal thought process present Assessment & Plan Assessment & Plan (1) Well woman exam with routine gynecological exam: Code(s): Z01.419 - Encounter for gynecological examination (general) (routine) without abnormal findings Plan Discussed: Current recommendations for pap smears per ASCCP guidelines. Breast awareness, periodic self breast exams and yearly mammogram. Maintain a healthy lifestyle, well balanced diet including Calcium 1,200 mg and Vitamin D 600 IU daily, and routine exercise. Patient verbalizes understanding and agrees to the plan of care. She was given opportunity to ask questions and all questions were answered to the best of my ability. RTO in 1 year for annual delicatessen manager exam. This note is constructed using voice recognition software. While every effort has been made to ensure accuracy, solution developer errors may have been included. Coding Level of Care Code Est Pt Prev Care 40-64y(89783) Diagnoses Well woman exam with routine gynecological exam Z01.419
[2023-09-21 13:26] VITALS: BP 120/80; BMI 28.5
== END 2023-09-21 14:19 | disposition home or self-care (01) ==
LOC: HO.HWS 13:16
PROVIDERS: PCP Nurse Practitioner Primary Care; Visit Provider Advanced Practice Midwife
DX: Z01.419 Encounter for gynecological examination (general) (routine) without abnormal findings (principal)
CPT/HCPCS: 99396

== ENCOUNTER 2023-09-21 13:16 | Outpatient (REF) | payer MEDICARE, MEDICAID, SELFPAY ==
[2023-09-23 11:34] LABS: BV Int Neg Control Negative (Negative); BV Int Pos Control Positive (Positive)
== END 2023-09-21 13:17 | disposition home or self-care (01) ==
LOC: HO.LNP 13:16
PROVIDERS: PCP Nurse Practitioner Primary Care; Visit Provider Advanced Practice Midwife
DX: Z01.419 Encounter for gynecological examination (general) (routine) without abnormal findings (principal); N89.8 Other specified noninflammatory disorders of vagina
CPT/HCPCS: 87480; 87510; 87660; 99396

== ENCOUNTER 2023-11-10 09:47 | Outpatient (AMB) | payer MEDICAID, SELFPAY ==
--- NOTE | 2023-11-10 10:00 | A.OFFVIS_ITS ---
Intake Vital Signs 11/10/23 10:08 Height 5 ft Weight 146 lb 8 oz BMI 28.6 BP 122/70 Blood Pressure Location Lt brachial Position Sitting Pulse 76 Pulse Source Pulse Oximeter Pulse Oximetry (%) 98 Oxygen Delivery Method Room Air Intake Visit Reasons: 3 mo f/u - Sleep Intake Note: Patient presents for 3 months F/U. Returned CPAP machine back. Was having a allergic reaction to the mask. Allergies latex Allergy (Severe, Verified 11/10/23 10:07) Angioedema HPI HPI Comments History of Present Illness Details 62 y/o female patient presents for follo w up of ESTEPHANIA on CPAP. Pt reports she had new mask but it makes her face itchy. She uses CPAP, but she hold the CPAP mask to not to touch her face. Pt returned CPAP. Pt continues to endorse non refreshing sleep and daytime tiredness. Pt wants to try CPAP with different mask, or other tretment options. Pt lost about 20 lb since the last sleep study in November/2021. [facility] Medical History Tubular adenoma of colon Urinary tract infection Moderate persistent asthma Osteopenia Hyperlipidemia Essential hypertension Obesity (BMI 30.0-34.9) Poor circulation DM type 2 (diabetes mellitus, type 2) Migraine Diverticulitis Gastritis Asthma Anxiety Surgical History History of esophagogastroduodenoscopy (EGD) Hx of breast biopsy H/O colonoscopy with polypectomy H/O total hysterectomy H/O tubal ligation Family History Maternal Aunt Stomach cancer Father HTN (hypertension) Heart disease Mother Diabetes Asthma Family/Other Diabetes HTN (hypertension) Social History Household Members Other:: son and 2 granddaughters Patient Tobacco Use Status: Never used Tobacco Female Reproductive History Menstrual Age of Menarche: 13 Review of Systems Const All systems reviewed & are unremarkable except as noted in HPI and below ENT Reports Normal hearing present Neuro Reports Normal hearing present Physical Exam Vital Signs: Last Vital Signs Pulse 76 11/10/23 10:08 BP 122/70 11/10/23 10:08 Pulse Ox 98 11/10/23 10:08 Oxygen Delivery Method Room Air 11/10/23 10:08 BMI result Body Mass Index 28.6 Const General: cooperative Nutritional Appearance: overweight Orientation/consciousness: patient oriented x3 Neck Neck: Yes full ROM and Yes supple Resp Effort & Inspection: normal respiratory effort and able to speak in complete sentences Neuro General: patient oriented x3 and gait normal Cranial nerves: Yes Bilaterally intact EOM present, Yes Normal facial strength present, Yes Midline tongue present, Yes Symmetric palate elevation present, Yes Normal hearing present, Yes Ability to bilaterally rotate head present and Yes Ability to bilaterally elevate shoulders present Cognition (Neuro): normal cognition Gait exam (Neuro): Normal gait present Motor exam (neuro): 5/5 motor strength present throughout, Pronator motor function not present and no tremor noted Psych Appearance: grossly normal Mental Status: mental status grossly normal Speech and movement: Normal speech and movement present Affect: normal affect Attitude: cooperative Assessment & Plan Assessment & Plan (1) Sleep apnea: Code(s): G47.30 - Sleep apnea, unspecified Plan Pt advised to undergo in lab sleep study to assess sleep apnea due to she lost about 10% of wt. Pt also did not tolerate the CPAP. Pt is not interested in [facility] at this time. Orders: Orders RT PSG in-lab sleep study Today G47.30 - Sleep apnea, unspecified Coding Level of Care Code Est Pt Level 3 (29923) Diagnoses Sleep apnea G47.30
[2023-11-10 10:08] VITALS: BP 122/70; PULSE 76; O2SAT 98; BMI 28.6
== END 2023-11-10 10:27 | disposition home or self-care (01) ==
PROVIDERS: PCP Nurse Practitioner Primary Care; Visit Provider Nurse Practitioner Family
DX: G47.30 Sleep apnea, unspecified (principal)
CPT/HCPCS: 99213

== ENCOUNTER → 2023-11-10 09:47 | Outpatient (BNVA) | payer MEDICAID, SELFPAY | PROVIDERS: PCP Nurse Practitioner Primary Care; Visit Provider Nurse Practitioner Family | DX: G47.30 Sleep apnea, unspecified (principal) | CPT/HCPCS: 99212 ==

== ENCOUNTER → 2023-11-19 09:00 | Outpatient (BNV) | payer MEDICARE, SELFPAY | PROVIDERS: PCP Nurse Practitioner Primary Care; Visit Provider Radiology Diagnostic Radiology | DX: Z12.31 Encounter for screening mammogram for malignant neoplasm of breast (principal) | CPT/HCPCS: 77063; 77067 ==

== ENCOUNTER 2023-11-19 09:02 | Outpatient (REF) | payer MEDICARE, SELFPAY ==
--- NOTE | ~2023-11-19 | MM_ITS ---
EXAMINATION: MM SCREENING DIGITAL BREAST TOMOSYNTHESIS, BILATERAL CLINICAL INFORMATION: Screening. Asymptomatic. COMPARISON: Mammography: This study is compared with prior exams dating back to 2020. TECHNIQUE: Digital breast tomosynthesis is performed in both the craniocaudal and mediolateral oblique views along with computer-aided detection (CAD). Synthesized 2D images are generated from the tomosynthesis. FINDINGS: There are scattered areas of fibroglandular density (ACR BI-RADS breast composition Category b). There are no significant masses, abnormal calcifications, or other abnormalities. There is a tissue marker present left breast from prior benign percutaneous biopsy. MM/MM tomosynthesis screening BI IMPRESSION: No mammographic evidence of malignancy. ASSESSMENT: BI-RADS BI-RADS 2 - Benign Findings RECOMMENDATION: Routine annual mammography screening. 1 year F/U This examination should not preclude the clinical evaluation of a suspicious palpable abnormality. This patient's information was entered into a reminder system with a target due date for their next mammogram.
== END 2023-11-19 09:03 | disposition home or self-care (01) ==
LOC: HO.MAMMO 09:02
PROVIDERS: PCP Nurse Practitioner Primary Care; Visit Provider Nurse Practitioner Primary Care
DX: Z12.31 Encounter for screening mammogram for malignant neoplasm of breast (principal)
CPT/HCPCS: 77063; 77067

== ENCOUNTER 2023-11-23 13:00 | Outpatient (RCR) | payer MEDICARE, MEDICAID, SELFPAY | END 2023-12-20 08:08 | disposition home or self-care (01) | LOC: HO.PT 13:00 | PROVIDERS: PCP Nurse Practitioner Primary Care; Visit Provider Nurse Practitioner Primary Care | DX: M25.511 Pain in right shoulder (principal) | CPT/HCPCS: 97035; 97110; 97140; 97161 ==

== ENCOUNTER → 2023-12-03 20:30 | Outpatient (REF) | payer MEDICARE, SELFPAY | LOC: HO.SL 20:30 | PROVIDERS: PCP Nurse Practitioner Primary Care; Visit Provider Nurse Practitioner Family | DX: Z13.89 Encounter for screening for other disorder (principal) ==

== ENCOUNTER 2024-01-27 09:30 | Outpatient (REF) | payer MEDICARE, SELFPAY ==
[2024-01-27 12:14] LABS: Anion Gap 13 (12-20); Blood Urea Nitrogen 13 mg/dL (9-16); Calcium 9.8 mg/dL (8.4-10.2); Carbon Dioxide 28 mmol/L (22-29); Chloride 105 mmol/L (96-108); Cholesterol 187 mg/dL (<200); Estimated Glomerular Filt Rate > 60; Glucose Random 77 mg/dL (60-115); HDL Cholesterol 44 mg/dL (>40); LDL Cholesterol Calculated 104 mg/dL (<100); Potassium 4.4 mmol/L (3.3-5.1); Sodium 142 mmol/L (135-145); Triglycerides 199 mg/dL (<150)
[2024-01-27 12:35] LABS: Vitamin D 25-OH Total 34.6 ng/mL (>30)
[2024-01-27 12:36] LABS: Creatinine Urine 40.16 mg/dL; Microalbum/Creatinine Ratio Ur 39.8 ug/mg cr (<30)
== END 2024-01-27 09:31 | disposition home or self-care (01) ==
LOC: HO.HHCL 09:30
PROVIDERS: Visit Provider Nurse Practitioner Primary Care
DX: E11.9 Type 2 diabetes mellitus without complications (principal); M85.80 Other specified disorders of bone density and structure, unspecified site; E78.1 Pure hyperglyceridemia
CPT/HCPCS: 36415; 80048; 80061; 82043; 82306; 82570

== ENCOUNTER 2024-02-24 11:17 | Outpatient (AMB) | payer MEDICARE, MEDICAID, SELFPAY ==
--- NOTE | 2024-02-24 11:27 | MHC.OFFVIS ---
Vital Signs 02/24/24 11:28 Height 5 ft Weight 151 lb 10.848 oz BMI 29.6 BP 142/66 H Blood Pressure Location Lt brachial Position Sitting Pulse 74 Pulse Source Pulse Oximeter Pulse Oximetry (%) 98 Oxygen Delivery Method Room Air Intake Visit Reasons: 6 months follow up Intake Note: Brooklynn presents in office today for a scheduled 6 mos FUV. CC; Pt reports that they have been stable since their last visit and their sx have slightly improved. Pt is still taking all medications as instructed. Pt reports that they are still experiencing diarrhea intermittently, however; it has improved since their previous OV. Bricklayer Sewer Required: Yes Bricklayer Sewer Services: Bricklayer Sewer Offered & Declined Accompanied by: Grand Child Allergies latex Allergy (Severe, Verified 02/24/24 11:27) Angioedema HPI HPI 6 months follow up: Details: Assessment & Plan (1) Diarrhea: Code(s): R19.7 - Diarrhea, unspecified (2) GERD (gastroesophageal reflux disease): Code(s): K21.9 - Gastro-esophageal reflux disease without esophagitis (3) Dysphagia, oropharyngeal: Code(s): R13.12 - Dysphagia, oropharyngeal phase (4) Erosive esophagitis: Code(s): K22.10 - Ulcer of esophagus without bleeding (5) IBS (irritable bowel syndrome): Code(s): K58.9 - Irritable bowel syndrome without diarrhea (6) Tubular adenoma of colon: Comment: 07/2023=neg but only fair prep repeat 3-4 years; 2021 scope at least 3 repeat in 1 year due to insufficient prep aeb Code(s): D12.6 - Benign neoplasm of colon, unspecified Plan [place] #Isamar Live She wants a picture of the colonoscopy but I can not access it. I will see what I can do - she wants the written reports for the procedure and this I will provide. She is dong better with her GI problems on the current regimen. The OTC probiotic helped alot. She continues on her dicyclomine, Creon, pantoprazole 40 mg twice a day. She has lost a few pounds and she says she wants to lose wt up to the 140's. She admits her appetite has been less antoinette for meats and rice. She also feels that the metformin and glimiperide may be c/f. ROV 6 mos. Medications: Changed From rdagpi-vcfurrhw-wfqngiv 24,000-76,000 -120,000 unit administer with meals and/or snacks 2 caps PO BID 30 days 120 caps 6RF K58.9 - Irritable bowel syndrome without diarrhea To jwrksy-urkqczbk-trvyzax 24,000-76,000 -120,000 unit (Creon) administer with meals and/or snacks 2 caps PO BID 360 caps 2RF 30 days K58.9 - Irritable bowel syndrome without diarrhea Refilled dicyclomine 40 mg (2 x 20 mg) PO QID 720 tabs 2RF R19.7 - Diarrhea, unspecified pantoprazole 40 mg PO BID 180 tabs 2RF K22.10 - Ulcer of esophagus without bleeding TODAY'S VISIT [place] #Graddtr translates per pt request She feels that with her current GI medicine in the addition of occasional doses of Imodium she is well controlled. She continues on Creon, dicyclomine, and pantoprazole. Return office visit in 6 months [facility] Medical History (Updated 02/24/24 @ 11:36 by UVALDO Hanson) Pre-op examination Left upper quadrant abdominal pain Well woman exam with routine gynecological exam Tubular adenoma of colon Urinary tract infection Moderate persistent asthma Osteopenia Hyperlipidemia Essential hypertension Obesity (BMI 30.0-34.9) Poor circulation DM type 2 (diabetes mellitus, type 2) Migraine Diverticulitis Gastritis Asthma Anxiety Surgical History (Updated 02/24/24 @ 11:36 by UVALDO Hanson) Status post total hysterectomy and bilateral salpingo-oophorectomy (BSO) History of esophagogastroduodenoscopy (EGD) Hx of breast biopsy H/O colonoscopy with polypectomy H/O total hysterectomy H/O tubal ligation Family History Maternal Aunt Stomach cancer Father HTN (hypertension) Heart disease Mother Diabetes Asthma Family/Other Diabetes HTN (hypertension) Social History Household Members Other:: son and 2 granddaughters Patient Tobacco Use Status: Never used Tobacco Female Reproductive History Menstrual Age of Menarche: 13 Review of Systems Const Denies fatigue, Denies fever(s), Denies night sweats, Denies poor appetite and Denies weight loss ENT Reports Normal hearing present, Denies dental pain, Denies dysphagia, Denies hearing loss, Denies mouth pain, Denies odynophagia, Denies throat swelling, Denies tongue swelling and Reports other (Dentition adequate) Card Reports no additional complaints Resp Reports no additional complaints GI Details: Denies abdominal pain, Denies melena, Reports bloating, Denies hematochezia, Denies constipation, Denies GI cramping, Denies dysphagia, Denies excessive flatus, Denies early satiety, Reports heartburn, Reports diarrhea, Denies nausea, Denies odynophagia, Denies vomiting and Denies hematemesis Skin/Breast Denies pruritus, Denies lesions, Denies rash and Denies jaundice Neuro Reports Normal hearing present and Denies Abnormal speech present Endo Denies fatigue Aller/Immun Denies throat swelling and Denies tongue swelling Physical Exam Vital Signs: Last Vital Signs Pulse 74 02/24/24 11:28 BP 142/66 H 02/24/24 11:28 Pulse Ox 98 02/24/24 11:28 Oxygen Delivery Method Room Air 02/24/24 11:28 BMI result Body Mass Index 29.6 Const General: cooperative, no acute distress, well developed and well groomed Nutritional Appearance: well nourished and overweight Orientation/consciousness: oriented to person, oriented to place and oriented to time Limitations: language barrier HEENT Head: Yes normocephalic and Yes atraumatic Eyes General: appearance normal, both eyes and all related structures Pupils: Equal, round and reactive pupils present Neck Neck: Yes normal visual inspection and Yes no lymphadenopathy Thyroid: Thyroid normal Resp Effort & Inspection: normal respiratory effort and able to speak in complete sentences Auscultation: clear to auscultation bilaterally Cardio Rate: regular rate Rhythm: regular rhythm Heart sounds: Normal, physiologic split S2 sound present Peripheral pulses: radial pulses present and posterior tibial pulses present GI Inspection: No distended, No Abdominal panniculus present and Yes obesity Palpation (GI): Soft to palpation, nontender, no guarding, not rigid and No hepatosplenomegaly present Percussion: Yes normal to percussion Auscultation: normal bowel sounds Rectal Exam - Female: deferred Skin General skin exam: no rashes or lesions noted, turgor normal, skin not dry, no jaundice, No spider nevi and no striae Rashes: no rashes Nails: normal Neuro General: oriented to person, oriented to place and oriented to time Cranial nerves: Yes Equal, round and reactive pupils present and Yes Normal hearing present Speech: No Abnormal speech present Extrem General: Yes normal to inspection, No clubbing, No cyanosis and No edema Psych Appearance: grossly normal and well kempt Mental Status: mental status grossly normal Speech and movement: Normal speech and movement present Affect: normal affect Attitude: cooperative Thought process: Normal thought process present and not confabulating Thought content: Normal thought content present Insight: Limited insight present (Psych) Judgement: Limited judgement present (Psych) Assessment & Plan Assessment & Plan (1) GERD (gastroesophageal reflux disease): Code(s): K21.9 - Gastro-esophageal reflux disease without esophagitis Category: Medical (2) Dysphagia, oropharyngeal: Code(s): R13.12 - Dysphagia, oropharyngeal phase Category: Medical (3) Erosive esophagitis: Code(s): K22.10 - Ulcer of esophagus without bleeding Category: Medical (4) IBS (irritable bowel syndrome): Code(s): K58.9 - Irritable bowel syndrome without diarrhea Category: Medical Plan [place] #Graddtr translates per pt request She feels that with her current GI medicine in the addition of occasional doses of Imodium she is well controlled. She continues on Creon, dicyclomine, and pantoprazole. Return office visit in 6 months Medications: New loperamide (Imodium A-D) 2 mg PO BID 60 caps 6RF K58.9 - Irritable bowel syndrome without diarrhea Refilled vffyre-tnkzmeyt-gfbprsc 24,000-76,000 -120,000 unit (Creon) administer with meals and/or snacks 2 caps PO BID 360 caps 2RF 30 days K58.9 - Irritable bowel syndrome without diarrhea pantoprazole 40 mg PO BID 180 tabs 2RF K22.10 - Ulcer of esophagus without bleeding dicyclomine 40 mg (2 x 20 mg) PO QID 720 tabs 2RF R19.7 - Diarrhea, unspecified Coding Level of Care Code Est Pt Level 3 (70730) Diagnoses GERD (gastroesophageal reflux disease) K21.9 Dysphagia, oropharyngeal R13.12 Erosive esophagitis K22.10 IBS (irritable bowel syndrome) K58.9
[2024-02-24 11:28] VITALS: BP 142/66; PULSE 74; O2SAT 98; BMI 29.6
== END 2024-02-24 11:44 | disposition home or self-care (01) ==
PROVIDERS: PCP Nurse Practitioner Primary Care; Visit Provider Nurse Practitioner
DX: K21.9 Gastro-esophageal reflux disease without esophagitis (principal); R13.12 Dysphagia, oropharyngeal phase; K22.10 Ulcer of esophagus without bleeding; K58.9 Irritable bowel syndrome, unspecified
CPT/HCPCS: 99213

== ENCOUNTER → 2024-02-24 11:17 | Outpatient (BNVA) | payer MEDICARE, SELFPAY | PROVIDERS: PCP Nurse Practitioner Primary Care; Visit Provider Nurse Practitioner | DX: K21.9 Gastro-esophageal reflux disease without esophagitis (principal); K22.10 Ulcer of esophagus without bleeding; R13.12 Dysphagia, oropharyngeal phase; K58.9 Irritable bowel syndrome, unspecified | CPT/HCPCS: 99212 ==

== ENCOUNTER 2024-04-06 12:51 | Outpatient (REF) | payer SELFPAY ==
--- NOTE | 2024-04-06 13:21 | MHC.AU.HA3 ---
Hearing Instrument Follow-Up- Binaural Date of Visit: 04/06/24 Right Ear: Make, Model, Color, Serial Number: [employer] More 2 miniRITE-R SN: [id number] Color: [place] Brown Bench Molder Repair Warranty: 12/25/2025 Bench Molder Loss and Damage Warranty: 12/25/2025 [facility] Service Plan: 12/18/2023 Battery Size: Rechargeable Fur Trimming Machine Operator/Slim Tube: 3/60 Earmold/Dome/CShell/SlimTip:6mm open dome (no retention tail) Type of Wax Guard: miniFit Dispensed By: [facility] Date of Fittin12/17/2022 Left Ear: Make, Model, Color, Serial Number: [employer] More 2 miniRITE-R SN: [id number] Color: [place] Brown Bench Molder Repair Warranty: 12/25/2025 Bench Molder Loss and Damage Warranty: 12/25/2025 [facility] Service Plan: 12/18/2023 Battery Size: Rechargeable Fur Trimming Machine Operator/Slim Tube: 3/60 Earmold/Dome/CShell/SlimTip: 6mm open dome (no retention tail) Type of Wax Guard: miniFit Dispensed By: [facility] Date of Fittin12/17/2022 Follow-Up Summary: Left hearing aid dropped off, casing broken - Sent to [employer] Recommendations: Patient will be contacted when materials have arrived. Diagnosis Code(s): Primary Diagnosis: H90.3 Bilateral Sensorineural Hearing Loss Signature: Provider: Robbin Haney, [facility]
== END 2024-04-06 12:52 | disposition home or self-care (01) ==
LOC: HO.HAP 12:51
PROVIDERS: Visit Provider Nurse Practitioner Primary Care
DX: Z13.89 Encounter for screening for other disorder (principal)

== ENCOUNTER 2024-05-09 13:28 | Outpatient (REF) | payer SELFPAY | END 2024-05-09 13:29 | disposition home or self-care (01) | LOC: HO.HAP 13:28 | PROVIDERS: Visit Provider Nurse Practitioner Primary Care | DX: Z46.1 Encounter for fitting and adjustment of hearing aid (principal) | CPT/HCPCS: 92592 ==

== ENCOUNTER 2024-05-11 13:06 | Outpatient (AMB) | payer MEDICARE, SELFPAY ==
--- NOTE | 2024-05-11 13:08 | MHC.OFFVIS ---
Vital Signs 05/11/24 13:10 Height 5 ft Weight 152 lb 2 oz BMI 29.7 Intake Visit Reasons: 6 mo f/u Intake Note: Patient presents for 6 months Allergies latex Allergy (Severe, Verified 05/11/24 13:12) Angioedema Medication List - Last Reconciled 05/11/24 by STEVE Moreno acetaminophen ER (Arthritis Pain Relief (acetaminophen) ER) 650 mg PO Q12H PRN albuterol sulfate 90 mcg/actuation 1 inh inhalation Q4-6H PRN blood sugar diagnostic (FreeStyle Lite Strips) As directed capsaicin 0.1% (Capzasin-HP) appl topical BID cetirizine 10 mg PO DAILY dicyclomine 40 mg (2 x 20 mg) PO QID enalapril maleate 10 mg PO DAILY fexofenadine 180 mg PO DAILY PRN fluticasone propion-salmeterol 230-21 mcg/actuation (Advair HFA) 2 puffs inhalation BID glimepiride (Amaryl) 4 mg PO BID lancets (TRUEplus Lancets) As directed lancets (FreeStyle Lancets) As directed lidocaine 5% 1 patch topical DAILY vvxmbj-imjnpfts-zpqdbtw 24,000-76,000 -120,000 unit (Creon) 2 caps PO BID 30 days loperamide (Imodium A-D) 2 mg PO BID meloxicam 7.5 mg PO BID metformin ER 1,000 mg PO BID pantoprazole 40 mg PO BID pregabalin 100 mg PO BID HPI Comments Details: 63-yr-old female presents for follow-up visit of sleep apnea, accompanied by her son. Pt denies any significant interval medical history changes. Since the last visit, pt underwent In-lab PSG which revealed: AHI 9/hr REM AHI 7/hr w/ O2 rivera 86% w/ SpO2 < 88% x's 0.5 min, and average SpO2 95%; Periodic limb movement of sleep (PLMS) index: 0.6/hr; PLMS arousal index: 0.5/hr. Since, pt has resumed APAP tx. She is using a new nasal mask, which she is tolerating much better than her previous mask. She states she is using her APAP nightly, the display shows her a green face in the mronings. She is sleeping well on APAP. She denies daytime tiredness. [address], [facility] Email: [email or web address] Compliance Report Usage 04/11/2024 - 05/10/2024 Usage days 30/30 days (100%) >= 4 hours 30 days (100%) < 4 hours 0 days (0%) Average usage (days used) 7 hours 42 minutes AirSense 10 AutoSet Serial number [id number] Mode AutoSet Min Pressure 5 cmH2O Max Pressure 20 cmH2O EPR Fulltime EPR level 2 Response Standard Therapy Pressure - cmH2O Median: 6.2 95th percentile: 9.8 Maximum: 12.1 Leaks - L/min Median: 2.5 95th percentile: 34.2 Maximum: 57.8 Events per hour AI: 1.9 HI: 0.4 AHI: 2.3 Apnea Index Central: 0.3 Obstructive: 0.5 Unknown: 1.0 RERA Index 0.7 PFSH Medical History Pre-op examination Left upper quadrant abdominal pain Well woman exam with routine gynecological exam Tubular adenoma of colon Urinary tract infection Moderate persistent asthma Osteopenia Hyperlipidemia Essential hypertension Obesity (BMI 30.0-34.9) Poor circulation DM type 2 (diabetes mellitus, type 2) Migraine Diverticulitis Gastritis Asthma Anxiety Surgical History Status post total hysterectomy and bilateral salpingo-oophorectomy (BSO) History of esophagogastroduodenoscopy (EGD) Hx of breast biopsy H/O colonoscopy with polypectomy H/O total hysterectomy H/O tubal ligation Family History Maternal Aunt Stomach cancer Father HTN (hypertension) Heart disease Mother Diabetes Asthma Family/Other Diabetes HTN (hypertension) Social History Household Members Other:: son and 2 granddaughters Patient Tobacco Use Status: Never used Tobacco Female Reproductive History Menstrual Age of Menarche: 13 Physical Exam Vital Signs: BMI result Body Mass Index 29.7 Const General: no acute distress Orientation/consciousness: patient oriented x3 HEENT Other: Mallampati stage Resp Effort & Inspection: normal respiratory effort and able to speak in complete sentences Neuro General: patient oriented x3 Psych Mental Status: mental status grossly normal Speech and movement: Clear speech present Attitude: cooperative Assessment & Plan Assessment & Plan (1) Mild obstructive sleep apnea: Code(s): G47.33 - Obstructive sleep apnea (adult) (pediatric) Category: Medical Plan Reviewed results of sleep study report, results c/w sleep apnea. Continue APAP 5-20 cmH2O w/ EPR 2 nightly > 4 hours, as pt is experiencing good clinical effect from use. Clean CPAP machine and supplies routinely. Change CPAP supplies routinely. Pt to contact us or respiratory company with any questions or concerns. Coding Level of Care Code Est Pt Level 3 (17249) Diagnoses Mild obstructive sleep apnea G47.33
[2024-05-11 13:10] VITALS: BMI 29.7
== END 2024-05-11 13:43 | disposition home or self-care (01) ==
PROVIDERS: PCP Nurse Practitioner Primary Care; Visit Provider Nurse Practitioner Family
DX: G47.33 Obstructive sleep apnea (adult) (pediatric) (principal)
CPT/HCPCS: 99213

== ENCOUNTER → 2024-05-11 13:06 | Outpatient (BNVA) | payer OTHER, MEDICAID, SELFPAY | PROVIDERS: PCP Nurse Practitioner Primary Care; Visit Provider Nurse Practitioner Family | DX: G47.33 Obstructive sleep apnea (adult) (pediatric) (principal) | CPT/HCPCS: 99212 ==

== ENCOUNTER 2024-07-18 09:03 | Outpatient (REF) | payer MEDICARE, SELFPAY ==
[2024-07-18 11:38] LABS: Cholesterol 117 mg/dL (<200); HDL Cholesterol 39 mg/dL (>40); LDL Cholesterol Calculated 59 mg/dL (<100); Triglycerides 98 mg/dL (<150)
== END 2024-07-18 09:04 | disposition home or self-care (01) ==
LOC: HO.HHCL 09:03
PROVIDERS: Visit Provider Nurse Practitioner Primary Care
DX: E11.69 Type 2 diabetes mellitus with other specified complication (principal); E78.5 Hyperlipidemia, unspecified
CPT/HCPCS: 36415; 80061

== ENCOUNTER 2024-07-19 11:03 | Outpatient (REF) | payer MEDICARE, SELFPAY ==
--- NOTE | ~2024-07-19 | MM_ITS ---
EXAMINATION: BONE DENSITOMETRY CLINICAL INDICATION: Osteopenia. COMPARISON: This is the patient's baseline examination. TECHNIQUE: Using a [employer] DXA System (software version: 13.1) manufactured by [employer], dual-energy x-ray absorptiometry was performed of the lumbar spine and left hip. The images are of good technical quality. Summary results are attached. FINDINGS: LEFT FEMUR, NECK: BMD 0.715 g/cm2, Z-score -1.1, T-score -2.3, osteopenia. LEFT FEMUR, TOTAL: BMD 0.874 g/cm2, Z-score -0.1, T-score -1.1, osteopenia. AP SPINE L1-L4: BMD 1.050 g/cm2, Z-score 0.1, T-score -1.1, osteopenia. IDENTIFIED RISK FACTORS: Menopause, hysterectomy, bilateral oophorectomy. HISTORY OF FRACTURE: None listed. MEDICATIONS: None listed. MM/XR DEXA axial skeleton IMPRESSION: 1. DIAGNOSIS: Osteopenia based on the lowest T-score value of -2.3 in the femoral neck applying World Health Organization criteria. 2. 10-YEAR FRACTURE RISK PREDICTION, FRAX: Major osteoporotic fracture (clinical spine, forearm, hip or shoulder) 6.2%. Hip fracture 1.0%. 3. Treatment Recommendations: NOF guidelines recommend consideration for treatment in postmenopausal women and men age 50 and older presenting with the following: -A hip or vertebral (clinical or morphometric) fracture. -T-score less than or equal to -2.5 at the femoral neck or spine after appropriate evaluation to exclude secondary causes. -Low bone mass at the hip or spine and a 10-year fracture probability by FRAX of greater than or equal to 3% for hip fracture or greater than or equal to 20% for major osteoporotic fracture based on the [place] adapted WHO algorithm. 4. Other Recommendations: All treatment decisions require clinical judgment and consideration of individual patient factors, including patient preferences, comorbidities, previous drug use, risk factors not captured in the FRAX model (e.g. frailty, falls, vitamin D deficiency, increased bone turnover, interval significant decline in bone density) and possible under or overestimation of fracture risk by FRAX. Additional medical evaluation for secondary cause of low bone mineral density may be appropriate. FUTURE SCAN RECOMMENDATION: People with diagnosed cases of osteoporosis or at high risk for fracture should have regular bone mineral density tests. For patients eligible for Medicare, routine testing is allowed once every 2 years. The testing frequency can be increased to one year for patients who have rapidly progressing disease, those who are receiving or discontinuing medical therapy to restore bone mass, or have additional risk factors. Electronically signed by: All Sullivan MD 07/19/2024 01:56 PM [facility]
== END 2024-07-19 11:04 | disposition home or self-care (01) ==
LOC: HO.MAMMO 11:03
PROVIDERS: PCP Nurse Practitioner Primary Care; Visit Provider Nurse Practitioner Primary Care
DX: Z13.820 Encounter for screening for osteoporosis (principal); M85.80 Other specified disorders of bone density and structure, unspecified site; Z78.0 Asymptomatic menopausal state
CPT/HCPCS: 77080

== ENCOUNTER 2024-08-16 09:25 | Outpatient (REF) | payer MEDICARE, SELFPAY ==
[2024-08-16 11:35] LABS: Alanine Aminotransferase 27 U/L (0-31); Albumin Level 4.5 g/dL (3.5-5.0); Alkaline Phosphatase 65 U/L (39-117); Aspartate Amino Transferase 29 U/L (5-31); Bilirubin Direct 0.2 mg/dL (0.0-0.5); Bilirubin Total 0.7 mg/dL (0.0-1.0); Total Protein 7.7 g/dL (6.5-8.0)
[2024-08-16 12:08] LABS: Folate 15.2 ng/mL (> or = 4.0); Vitamin B12 321 pg/mL (200-900)
== END 2024-08-16 09:26 | disposition home or self-care (01) ==
LOC: HO.HHCL 09:25
PROVIDERS: Visit Provider Nurse Practitioner Primary Care
DX: Z13.89 Encounter for screening for other disorder (principal)
CPT/HCPCS: 36415; 80076; 82607; 82746; 87086

== ENCOUNTER 2024-08-16 16:26 | Emergency (ER) | payer MEDICARE, SELFPAY ==
[2024-08-16 16:37] VITALS: BP 128/63; PULSE 91; RESP 20; TEMP 37.4; O2SAT 97; BMI 26.7
--- NOTE | 2024-08-16 20:59 | ED.BACK ---
HPI - Back Pain/Injury General Chief Complaint: Back Pain/Injury Stated Complaint: Lower back pain Time Seen by Provider: 08/16/24 20:58 Source: patient and family Mode of arrival: EMS Limitations: language barrier (Swiss speaking only, [facility] translator interpreter used) History of Present Illness ED Provider: Dr. Benito Haddad HPI Narrative: 63-year-old female with a history of GERD, IBS, ESTEPHANIA who presents emergency department for evaluation of 3 days of lower back pain. Patient states she was had back pain in the past but this back pain is different than her previous pain. She states that 3 days prior she had gradual onset of left lower back pain with no reported injury. She describes the pain is a constant, sharp pain which is worse with movement. The pain does radiate to her left groin and occasionally down her left anterior thigh to her knee. She denies any weakness or loss of bowel or bladder control. She denied fever, chills or other systemic symptoms. Patient did go to an urgent care clinic and was given IM Toradol with no relief for pain and was advised to go to the emergency department for further evaluation. Related Data Home Medications ?Medication ?Instructions ?Recorded ?Confirmed albuterol sulfate 90 mcg/actuation 1 inh inhalation Q4-6H PRN 07/08/21 05/11/24 breath activated powder inhaler,sensor enalapril maleate 10 mg tablet 10 mg PO DAILY 07/08/21 05/11/24 fluticasone propionate 230 2 puff inhalation BID 07/08/21 05/11/24 mcg-salmeterol 21 mcg/actuation HFA inhaler (Advair HFA) blood sugar diagnostic (FreeStyle #10 ea 08/26/21 05/11/24 Lite Strips) lidocaine 5 % topical patch 1 patch topical DAILY 08/26/21 05/11/24 cetirizine 10 mg tablet 10 mg PO DAILY 09/11/21 05/11/24 lancets 28 gauge (FreeStyle #100 ea 09/11/21 05/11/24 Lancets) lancets 33 gauge (TRUEplus Lancets) #100 ea 12/09/21 05/11/24 glimepiride 4 mg tablet (Amaryl) 4 mg PO BID 04/01/22 05/11/24 pregabalin 100 mg capsule 100 mg PO BID 06/17/22 05/11/24 capsaicin 0.1 % topical cream appl topical BID 10/15/22 05/11/24 (Capzasin-HP) meloxicam 7.5 mg tablet 7.5 mg PO BID 10/15/22 05/11/24 metformin 500 mg tablet,extended 1,000 mg PO BID 05/28/23 05/11/24 release 24 hr acetaminophen 650 mg 650 mg PO Q12H PRN 06/18/23 05/11/24 tablet,extended release (Arthritis Pain Relief (acetaminophen) ER) fexofenadine 180 mg tablet 180 mg PO DAILY PRN allergies 02/24/24 05/11/24 Previous Rx's ?Medication ?Instructions ?Recorded dicyclomine 20 mg tablet 40 mg (2 x 20 mg) PO QID #720 tabs 02/24/24 vzooho-gdzhyqwm-yzbhzxd 2 cap PO BID 30 days #360 caps 02/24/24 24,000-76,000-120,000 unit capsule,delayed rel (Creon) loperamide 2 mg capsule (Imodium 2 mg PO BID #60 caps 02/24/24 A-D) pantoprazole 40 mg tablet,delayed 40 mg PO BID #180 tabs 02/24/24 release cyclobenzaprine 5 mg tablet 5 mg PO TID PRN muscle spasm or 08/16/24 pain #14 tabs morphine 15 mg immediate release 15 mg PO Q8H PRN pain #10 tabs 08/16/24 tablet prednisone 20 mg tablet 60 mg (3 x 20 mg) PO DAILY 5 days 08/16/24 #15 tabs Allergies Allergy/AdvReac Type Severity Reaction Status Date / Time latex Allergy Severe Angioedema Verified 08/16/24 16:39 Review of Systems Review of Systems: Yes all other systems are reviewed and are negative [facility] Past Medical History [facility] Narrative: Social history: She denies tobacco, alcohol and drug use. 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 Medical History Pre-op examination Left upper quadrant abdominal pain Well woman exam with routine gynecological exam Tubular adenoma of colon Urinary tract infection Moderate persistent asthma Osteopenia Hyperlipidemia Essential hypertension Obesity (BMI 30.0-34.9) Poor circulation DM type 2 (diabetes mellitus, type 2) Migraine Diverticulitis Gastritis Asthma Anxiety Surgical History Status post total hysterectomy and bilateral salpingo-oophorectomy (BSO) History of esophagogastroduodenoscopy (EGD) Hx of breast biopsy H/O colonoscopy with polypectomy H/O total hysterectomy H/O tubal ligation Family History Family History Maternal Aunt Stomach cancer Father HTN (hypertension) Heart disease Mother Diabetes Asthma Family/Other Diabetes HTN (hypertension) Social History Social History Household Members Other:: son and 2 granddaughters Patient Tobacco Use Status: Never used Tobacco Advance Directives: No Advance Directives Information Provided: Yes Do you have a plan to hurt others: No Plan Physical Exam Vital Signs: Vital Signs: Last Vital Signs Temp 99.3 F 08/16/24 16:37 Pulse 91 08/16/24 16:37 Resp 20 08/16/24 16:37 BP 128/63 08/16/24 16:37 Pulse Ox 97 08/16/24 16:37 O2 Del Method Room Air 08/16/24 16:37 BMI result Body Mass Index 26.7 Vital signs were normal Exam: General: Awake, alert in no distress Head: Normocephalic, atraumatic Abdomen: soft, nondistended, no tenderness palpation over her groin area or lower abdominal quadrants. Back: Patient has tenderness palpation over her lumbar vertebrae with no localizing point tenderness, she also has tenderness and spasm of the paraspinal muscles in the left lumbar sacral region, she was negative straight leg raises bilaterally, minimally obtainable patella reflexes bilaterally symmetric. Extremities: no deformities, moves all extremities symmetrically Neuro: Awake, alert, oriented, normal speech, cranial nerves intact, moves all extremities symmetrically Psych: Pleasant, cooperative Medical Decision Making Medical Decision Making MDM Narrative: 63-year-old female with a history of GERD, IBS, ESTEPHANIA who presents emergency department for evaluation of 3 days of lower back pain with pain radiating to her left groin and occasionally down the anterior left thigh to her knee with no weakness, loss of bowel or bladder control or concerning systemic symptoms. Patient was seen at an urgent care today in treated with IM Toradol with no relief for pain. Vital signs were normal. Back exam did reveal lumbar sacral vertebral tenderness and tenderness palpation over the paraspinal muscles in the left lumbar sacral area with spasm of these muscles. She had negative straight leg raises bilaterally and no leg weakness on exam. Differential diagnosis: ?Includes but is not limited to musculoskeletal strain, musculoskeletal sprain, lumbar radiculopathy, sciatica Course: 21:31 Patient's examination is consistent with musculoskeletal sprain/strain of the lumbar sacral area on the left with radiculopathy to the left groin and occasionally to the left anterior thigh to the knee. Neurologic exam was nonfocal. This time I do not think the patient needs any imaging studies. Patient was started on prednisone 60 mg once a day for 5 days, Flexeril 5 mg 3 times a day as needed for pain and spasm, Tylenol 1000 mg 3 times a day as needed for pain and for pain not relieved by these medications she was prescribed morphine 15 mg Q 8 hours prn pain. Patient was given printed and verbal instructions and discharged home. She was advised to follow up with her PCP within 2-7 days for re-evaluation. She was advised to return to the emergency department if her symptoms got worse or or she develops any new symptoms that are concerning to her. Admission/Observation Consideration of admission/observation: Escalation of care including admission/observation considered (No) Prescription Management I considered prescription management with: Pain Medication (Morphine) and Other (Anti-inflammatory steroids: Prednisone, antispasmodics: Flexeril) Discharge Plan Discharge Clinical Impression: Acute left lumbar radiculopathy Patient Disposition: Home, Self-Care Instructions: Lumbar Radiculopathy (ED) Additional Instructions: You have tenderness and spasm of the muscles of your left lower back causing inflammation of the nerves coming out of your back. Apply ice for 15 minutes 4 to 6 times a day for the next 2-3 days to reduce the inflammation in his muscles Continue to use the lidocaine patches. Take prednisone 20 mg pills, 3 pills once a day for 5 days. While you ?are taking prednisone, do not take any NSAIDs (Motrin, Advil, ibuprofen, Aleve, naproxen). Take Tylenol (acetaminophen) 2 pills every 6 hours as needed for pain. For pain not relieved by prednisone or Tylenol take morphine 15 mg pills, 1 pill every 6 hours as needed for pain. This medication will make you sleepy, do not drive or work while taking this medication. Morphine is a narcotic medication and can be addicting. If you are concerned about addiction you can ask the pharmacist for less pills or do not get this prescription filled. Take Flexeril (cyclobenzaprine) 10 mg pills, 1 pill every 6-8 hours as needed for pain or spasm. ?This medication will make you sleepy. ?Do not drive or work while taking this medication. Follow-up with your doctor in 2 days. Please return to the emergency department if your symptoms get worse or if you develop any symptoms that are concerning to you. Prescriptions: New prednisone 20 mg tablet 60 mg PO DAILY 5 Days Qty: 15 0RF morphine 15 mg tablet 15 mg PO Q8H PRN (Reason: pain) Qty: 10 0RF Rx Instructions: Partial Fill upon patient request. cyclobenzaprine 5 mg tablet 5 mg PO TID PRN (Reason: muscle spasm or pain) Qty: 14 0RF No Action Advair HFA 230-21 mcg/actuation HFA aerosol inhaler 2 puff inhalation BID albuterol sulfate 90 mcg/actuation aero powdr breath act w/sensor 1 inh inhalation Q4-6H PRN enalapril maleate 10 mg tablet 10 mg PO DAILY glimepiride [Amaryl] 4 mg tablet 4 mg PO BID (DME) FreeStyle Lite Strips Strip See Rx Instructions Not Applicable TID Qty: 10 Rx Instructions: As directed lidocaine 5 % adhesive patch,medicated 1 patch topical DAILY (DME) lancets [FreeStyle Lancets] 28 gauge misc See Rx Instructions topical BID Qty: 100 Rx Instructions: As directed cetirizine 10 mg tablet 10 mg PO DAILY (DME) lancets [TRUEplus Lancets] 33 gauge misc See Rx Instructions Not Applicable BID Qty: 100 Rx Instructions: As directed capsaicin [Capzasin-HP] 0.1 % cream topical BID meloxicam 7.5 mg tablet 7.5 mg PO BID metformin 500 mg tablet extended release 24 hr 1,000 mg PO BID pregabalin 100 mg capsule 100 mg PO BID acetaminophen [Arthritis Pain Relief (acetam)] 650 mg tablet extended release 650 mg PO Q12H PRN fexofenadine 180 mg tablet 180 mg PO DAILY PRN (Reason: allergies) loperamide [Imodium A-D] 2 mg capsule 2 mg PO BID Qty: 60 6RF dicyclomine 20 mg tablet 40 mg PO QID Qty: 720 2RF Creon 24,000-76,000 -120,000 unit capsule,delayed release(DR/EC) 2 cap PO BID 30 Days Qty: 360 2RF Rx Instructions: administer with meals and/or snacks pantoprazole 40 mg tablet,delayed release (DR/EC) 40 mg PO BID Qty: 180 2RF Print Language: Swiss
--- NOTE | 2024-08-16 21:16 | PC.NURSE ---
Dr. Haddad at bedside speaking with patient. Dr. Haddad is using a guest relations representative at the bedside.
[2024-08-16] MEDS: Morphine Sulfate Immed Release 15 MG TABLET PO (21:59)
[2024-08-16 22:00] VITALS: BP 121/60; PULSE 88; RESP 20; TEMP -17.7; TEMP 0; O2SAT 97
[2024-08-16] MEDS: predniSONE 20 MG TABLET 60 MG PO (22:00)
== END 2024-08-16 22:00 | disposition home or self-care (01) ==
PROVIDERS: Emergency Provider Emergency Medicine Emergency Medical Services; PCP Nurse Practitioner Primary Care
DX: M54.16 Radiculopathy, lumbar region (principal); R10.2 Pelvic and perineal pain; M25.562 Pain in left knee; Z79.899 Other long term (current) drug therapy
CPT/HCPCS: 36415; 80076; 82607; 82746; 87086; 99283

== ENCOUNTER 2024-09-28 14:16 | Outpatient (REF) | payer MEDICARE, SELFPAY ==
--- NOTE | 2024-09-28 14:20 | EMG_ITS ---
Chief complaint: Bilateral hand pain and numbness, denied neck pain Reason for referral: Evaluate for Carpal Tunnel Syndrome Referred by: Dr. Ani Anguiano Procedure done: Upper extremity NCS Precautions and/or limitations: Needle phobia Setswana speaking, seen with court interpreter. The limb temperature was monitored continuously and remained between 32-36 degrees C during the performance of the NCS. Nerve Conduction Studies Anti Sensory Summary Table ?Stim Site NR Onset (ms) Norm Onset (ms) Peak (ms) Norm Peak (ms) O-P Amp (?V) Norm O-P Amp Site1 Site2 Delta-0 (ms) Dist (cm) Victor Hugo (m/s) Norm Victor Hugo (m/s) Left Median Anti Sensory (2nd Digit) Wrist ? 3.1 3.8 <3.6 29.3 >10 Wrist 2nd Digit 3.1 14.0 45 Right Median Anti Sensory (2nd Digit) Wrist ? 3.9 4.8 <3.6 8.0 >10 Wrist 2nd Digit 3.9 14.0 36 Right Radial Anti Sensory (Thumb) Forearm ? 1.4 2.1 <3.1 23.9 Forearm Thumb 1.4 0.0 Left Ulnar Anti Sensory (5th Digit) Wrist ? 2.3 3.1 <3.7 22.1 >15.0 Wrist 5th Digit 2.3 14.0 61 Right Ulnar Anti Sensory (5th Digit) Wrist ? 2.4 3.0 <3.7 29.8 >15.0 Wrist 5th Digit 2.4 14.0 58 Motor Summary Table ?Stim Site NR Onset (ms) Norm Onset (ms) O-P Amp (mV) Norm O-P Amp iAmp (mV) Amp (1st) (%) Site1 Site2 Delta-0 (ms) Dist (cm) Victor Hugo (m/s) Norm Victor Hugo (m/s) Left Median Motor (Abd Poll Brev) Wrist ? 3.8 <3.9 6.9 >4.5 8.9 100.0 Elbow Wrist 3.5 18.0 51 >45 Elbow ? 7.3 8.1 10.4 117.4 Right Median Motor (Abd Poll Brev) Wrist ? 6.3 <3.9 6.4 >4.5 7.6 100.0 Elbow Wrist 3.6 18.0 50 >45 Elbow ? 9.9 6.8 8.3 106.3 Left Ulnar Motor (Abd Dig Minimi) Wrist ? 2.9 <3.0 10.5 >5 12.0 100.0 B Elbow Wrist 2.6 16.0 62 >45 B Elbow ? 5.5 9.7 11.2 92.4 A Elbow B Elbow 1.5 10.0 67 >45 A Elbow ? 7.0 8.9 10.2 84.8 Right Ulnar Motor (Abd Dig Minimi) Wrist ? 2.7 <3.0 11.0 >5 12.1 100.0 B Elbow Wrist 2.7 17.0 63 >45 B Elbow ? 5.4 10.1 11.4 91.8 A Elbow B Elbow 1.3 10.0 77 >45 A Elbow ? 6.7 10.0 11.4 90.9 FINDINGS: Right median motor nerve showed prolonged distal latency, normal amplitude and normal conduction velocity. Right median sensory nerve showed prolonged peak latency and small amplitude. Left median sensory nerve showed prolonged peak latency. All other nerves tested were within normal. IMPRESSION: 1. This is an abnormal study. 2. There is electrodiagnostic evidence for right moderate-severe and left mild median neuropathy at the wrist, consistent with carpal tunnel syndrome. 3. There is no electrodiagnostic evidence for ulnar neuropathy. Thank you for your kind referral. Awilda Burnham MD, LUCIA Board Certified, [place] Board [employer] Physical [employer] and Rehabilitation (ABPMR) Board Certified, [place] Board of Electrodiagnostic Medicine (ABEM) CODIN MTDD
--- OUTSIDE RECORDS SUMMARY | 2024-09-28 17:22 | XMS_ITS | Encounter Summary ---
Author Organization [employer] Address [address] [facility] [address] [place] [address] Care Team Providers Care Registered Nurse Nursery Name Role Phone Ani Anguiano Primary Care Provider [phone] Encounter Details Date Type Department Care Team (Late st Contact Info) Description 04/14/2024 Orders Only [facility] MEDICINE [address] [place] [address] Ani Anguiano ANP [address] [place] [address] Social History Tobacco Use Types Packs/Day Years Used Date Smoking Tobacco: Never Smokeless Tobacco: Never Alcohol Use Standard Drinks/Week Comments Not Currently 0 (1 standard drink = 0.6 oz pur e alcohol) Alcohol Answer Date Recorded Frequency of Alcohol Consumption Not on file 09/17/2023 Average Number of Drinks Not on file 024 Frequency of Binge Drinking Not on file 09/02 Score 0 09/17/2023 Depression Answer Date Recorded Patient Health Questionnaire-9 Score 0 09/17/2023 Patient Health Questionnaire-9 Score 0 09/17/2023 Last PHQ-9: Questionnaire Data Not on file 0 09/17/2023 Housing Stability Answer Date Recorded What is your housing situation today? I have shanae blanchard 08/05/[address] you li ve. Do you have problems with any of the following? None of the above 08/05/2023 Food Insecurity Answer Date Recorded Within the past 12 months, y ou worried that your food would run out before you got money to buy more: Sometimes True 2023 Within the past 12 months,th e food you bought just didn't last and you didn't have enough money to get more: Sometimes True 08/05/2023 Transportation Answer Date Recorded In the past 12 months, has l ack of transportation kept you from medical appts, meetings, work or from getting things needed for daily living? No 05/18/2023 Utilities Answer Date Recorded In the past 12 months, has t he electric, gas, oil or water company threatened to shut off services in your home? No 05/18/2023 Depression Answer Date Recorded Patient Health Questionnaire-2 Score 0 09/17/2023 Comments No Sex and Gender Information Value Date Recorded Sex Assigned at Female 06/01/2022 10:39 AM EDT Legal Sex Female 10:39 AM EDT Gender Identity Female 06/01/2022 10:39 AM EDT Sexual Orientation Straight 06/01/2022 10 :39 AM EDT documented as of this encounter Plan of Treatment Upcoming Encounters Date Type Department Care Team (Late st Contact Info) Description 10/13/2024 9:15 AM EDT Office Visit [facility] MEDICINE [address] [place] [phone] Ani Anguiano ANP [address] [place] [phone] 08/10/2025 10:00 AM EST Medication Management [address] [phone] Emma Her, PharmD [address] [place] [phone] documented as of this encounter Visit Diagnoses Not on filedocumented in this encounter Additional Health Concerns Assessment Noted Time PHQ-9 Depression Total Score: 0 09/17/19 24 11:20 AM EST documented as of this encounter Care Teams Registered Nurse Nursery Relationship Specialty Start Date End Date Ani Anguiano ANP [address] [place] [phone] PCP - General Family Medicine 05/06/22 documented as of this encounter
--- OUTSIDE RECORDS SUMMARY | 2024-09-28 17:22 | XMS_ITS | Encounter Summary ---
Author Organization [employer] Address [address] [facility] [address]t [place] [address] Care Team Providers Care Real Estate Paralegal Name Role Phone Ani Anguiano Primary Care Provider [phone] Reason for Visit * Reason Comments Med Refill Encounter Details Date Type Department Care Team ([facility] st Contact Info) Description 06/01/2023 Refill [facility] MED & PEDS [address] [place], [place] [phone] Ani Anguiano ANP [address] [place] [address] Type 2 diabetes mellitus without complication, without long-term current use of insulin ([facility]) Social History Tobacco Use Types Packs/Day Years Used Date Smoking Tobacco: Never Smokeless Tobacco: Never Alcohol Use Standard Drinks/Week Comments Not Currently 0 (1 standard drink = 0.6 oz pur e alcohol) Depression Answer Date Recorded Patient Health Questionnaire-9 Score 0 08/26/2022 Housing Stability Answer Date Recorded What is your housing situation today? I have housing today, but I am worried about losing housing in the future 05/18/[address] you li ve. Do you have problems with any of the following? None of the above 05/18/2023 Food Insecurity Answer Date Recorded Within the past 12 months, y ou worried that your food would run out before you got money to buy more: Never True 05/18/2023 Within the past 12 months,th e food you bought just didn't last and you didn't have enough money to get more: Never True Transportation Answer Date Recorded In the past [...] Date Recorded Patient Health Questionnaire-2 Score 0 08/26/2022 Comments Unknown Sex and Gender Information Value Date Recorded Sex Assigned at Female 06/01/2022 10:39 AM EDT Legal Sex Female 10:39 AM EDT Gender Identity Female 06/01/2022 10:39 AM EDT Sexual Orientation Straight 06/01/2022 10 :39 AM EDT documented as of this encounter Plan of Treatment Upcoming Encounters Date Type Department Care Team (Late st Contact Info) Description 10/13/2024 9:15 AM EDT Office Visit [facility] MEDICINE [address] [place] [phone] Ani Anguiano ANP [address] [place] [address] 08/10/2025 10:00 AM EST Medication Management [facility] MEDICINE [address] [place] [phone] Emma Her, PharmD [address] [place] [phone] documented as of this encounter Visit Diagnoses Diagnosis Type 2 diabetes mellitus without complication, without long-term current use of insulin ([facility]) documented in this encounter Additional Health Concerns Assessment Noted Time PHQ-9 Depression Total Score: 0 08/26/19 23 2:13 PM EST documented as of this encounter Care Teams Real Estate Paralegal Relationship Specialty Start Date End Date Ani Anguiano ANP [address] [place] [phone] PCP - General Family Medicine 05/06/22 documented as of this encounter
--- OUTSIDE RECORDS SUMMARY | 2024-09-28 17:22 | XMS_ITS | Encounter Summary ---
Author Organization [employer] Address [address] [place] [address] [address] [place] [address] Care Team Providers Care Oil Lease Broker Name Role Phone Ani Anguiano Primary Care Provider [phone] Reason for Visit * Reason Onset Date Comments Pre op 04/05/2024 Encounter Details Date Type Department Care Team (Late st Contact Info) Description 04/05/2024 Telephone [facility] MEDICINE [address] [place] [address] Ani Anguiano ANP [address] [place] [address] Pre op Social History Tobacco Use Types Packs/Day Years [...] AM EDT documented as of this encounter Miscellaneous Notes * Telephone Encounter - Francisca Singletary - 04/06/2024 12:02 PM EDT Outgoing call to Germania at [facility] to inform pt is scheduled for pre op 04/14/24 at 10:30AM with [facility]. Appointment reminder letter mailed. * Telephone Encounter - Kylah Nassar - 04/05/2024 1:53 PM EDT Date of Surgery: 04/21/24 Surgical procedure being done: cataract surgery left eye Type of anesthesia: MAC Lab needed: No EKG: No Date of Surgery: 05/05/24 Surgical procedure being done: cataract surgery right eye Type of anesthesia: MAC Lab needed: No EKG: No Surgeon's name: Dr. Gordo Payne Facility name: [facility] Surgeon's office number: [phone] Surgeon's office fax number: [phone] Contact name (person you spoke with): Germania Last office note from surgeon requested: Yes documented in this encounter Plan of Treatment Upcoming Encounters Date Type Department Care Team (Late st Contact Info) Description 10/13/2024 9:15 AM EDT Office Visit [facility] MEDICINE [address] [place] [phone] Ani Anguiano ANP [address] [place] [phone] 08/10/2025 10:00 AM EST Medication Management [address] [place] [address] [phone] Emma Her, PharmD [address] [place] [phone] documented as of this encounter Visit Diagnoses Not on filedocumented in this encounter Additional Health Concerns Assessment Noted Time PHQ-9 Depression Total Score: 0 09/17/19 24 11:20 AM EST documented as of this encounter Care Teams Oil Lease Broker Relationship Specialty Start Date End Date Ani Anguiano ANP [address] [place] [phone] PCP - General Family Medicine 05/06/22 documented as of this encounter
--- OUTSIDE RECORDS SUMMARY | 2024-09-28 17:23 | XMS_ITS | Encounter Summary ---
Author Organization [employer] [facility] Address [address] [place] [address] 7 [place] [address] Care Team Providers Care Financial Accounting Analyst Name Role Phone Ani Anguiano Primary Care Provider [phone] Encounter Details Date Type Department Care Team (Late st Contact Info) Description 10/30/2022 Orders Only [facility] [address] [place] [address] [phone] Ani Anguiano ANP [address] [place] [address] [phone] Social History Tobacco Use Types Packs/Day Years Used Date Smoking Tobacco: Never Smokeless Tobacco: Never Alcohol Use Standard Drinks/Week Comments Not Currently 0 (1 standard drink = 0.6 oz pur e alcohol) Depression Answer Date Recorded Patient Health Questionnaire-9 Score 0 08/26/2022 Depression Answer Date Recorded Patient Health Questionnaire-2 [...] Description 10/13/2024 9:15 AM EDT Office Visit [facility] [address] [place] [phone] Ani Anguiano ANP [address] [place] [address] [phone] 08/10/2025 10:00 AM EST Medication Management [facility] [address] [place] [address] Emma Her, PharmD [address] [place] [address] documented as of this encounter Procedures Procedure Name Priority Date/Time Associated Diagnosis Comments VITAMIN D,25-OH,TOTAL,IA Routine 02/23/2023 2:28 PM EDT BI MAMMOGRAM SCREENING TOMOSYNTHESIS BILATERAL Routine 11/16/2022 9:54 AM EDT documented in this encounter Results * Vitamin D, 25-Hydroxy, Total, Immunoassay (02/23/2023 2:28 PM EDT) Vitamin D 25-OH Total 45.3 >30 ng/mL [facility] Comment:Health Based Referen ce Values*< 20 ng/mL Injbxtipg05-31 ng/mL Insufficient> 30 ng/mL Sufficient*Josh RUBIO. N Engl J Med. 2007;357:266-280Care must be taken in interpreting Vitamin D results fromdifferent laboratories and methodologies. Published datademonstrated that results from patients undergoinghemodialysis may show a negative bias when tested withvarious automated 25-OH vitamin D assays when compared toLC-MS/MS.When testing samples from patients whose predominant form ofVitamin D is Vitamin D2, such as patients receiving VitaminD2 supplementation, results that are subtherapeutic shouldbe confirmed with another method such as LC-MS/MS. 02/23/2023 2:28 PM EDT 02/23/2023 4:02 PM EDT Ani Anguiano [facility] BLOOD ORDERABLES Final Resul t [facility] [address] [place] [address] [phone] * BI Mammogram Screening Tomosynthesis Bilateral (11/16/2022 9:54 AM EDT) Anatomical Region Laterality Modality Breast Bilateral Mammography 11/16/2022 9:54 AM EDT Narrative 11/17/2022 1:31 PM EDT ? [facility] ? [address] ?[place], [place] [address] ? Mammography Report ? Signed ? Patient: Brooklynn De La Rosa ?MR#: ?? [id number] ? : 1960 ?Acct:[id number] ? Age/Sex: 61 / F ?ADM Date: 11/16/22 ? Loc: HO.MAMMO ? Attending Dr: Ani Anguiano QA SOFTWARE TEST ENGINEER ? Ordering Physician: Chanell Lorenz QA SOFTWARE TEST ENGINEER ?Results: 1Negat ?? martin ? Date of Service: 11/16/22 ?Follow Up: 1 Year From Orig ?? inal Mammogram ? Procedure(s): MM tomosynthesis screening BI ?? Accession Number(s): [id number] ? cc: Chanell Lorenz QA SOFTWARE TEST ENGINEER ? EXAMINATION: ?? MM SCREENING DIGITAL BREAST TOMOSYNTHESIS, BILATERAL ? CLINICAL INFORMATION: ? Screening. Asymptomatic. ? The lifetime risk of breast cancer based on the Tyrer-Cuzick Model is ?? 6.3%. ? COMPARISON: ?? Mammography: November 12, 2021 and October 08, 2020 ? TECHNIQUE: ?? Digital breast tomosynthesis is performed in both the craniocaudal and ?? mediolateral oblique views along with computer-aided detection (CAD). ?? Synthesized 2D images are generated from the tomosynthesis. ? FINDINGS: ?? The breasts are heterogeneously dense, which may obscure small masses ?? (ACR BI-RADS breast composition Category c). ? There are no significant masses, abnormal calcifications, or other ?? abnormalities. ?? Some stable circumscribed densities seen bilaterally. ? MM/MM tomosynthesis screening BI ?? IMPRESSION: ?? No significant changes from prior exam. ? ASSESSMENT: ? BI-RADS 1: Negative ? RECOMMENDATION: ?? Routine annual mammography screening. ? This patient's information was entered into a reminder system with a ?? target due date for their next mammogram. ? Dictated By: ?All Sullivan MD ? Signed By: ?<Electronically signed by All Sullivan MD in OV> ?11/17/22 1328 ? DD/ 0954 ? TD/TT: ? Middle School Music Teacher: SK ? Procedure Note Conrad, Image - 11/17/2022 [facility] [address] [place] [address] Mammography Report Signed Patient: Brooklynn De La Rosa EMR#: [id number] : 1960Acct:[id number] Age/Sex: 61 / FADM Date: 11/16/22 Loc: AN[facility]OP[facility] Attending Dr: Ani Anguiano QA SOFTWARE TEST ENGINEER Ordering Physician: Chanell Lorenz NPResults: 1Negat martin Date of Service: 11/16/22Follow Up: 1 Year From Orig inal Mammogram Procedure(s): MM tomosynthesis screening BI Accession Number(s): [id number] cc: Chanell Lorenz NP EXAMINATION: MM SCREENING DIGITAL BREAST TOMOSYNTHESIS, BILATERAL CLINICAL INFORMATION: Screening. Asymptomatic. The lifetime risk of breast cancer based on the Tyrer-Cuzick Model is 6.3%. COMPARISON: Mammography: November 12, 2021 and October 08, 2020 TECHNIQUE: Digital breast tomosynthesis is performed in both the craniocaudal and mediolateral oblique views along with computer-aided detection (CAD). Synthesized 2D images are generated from the tomosynthesis. FINDINGS: The breasts are heterogeneously dense, which may obscure small masses (ACR BI-RADS breast composition Category c). There are no significant masses, abnormal calcifications, or other abnormalities. Some stable circumscribed densities seen bilaterally. MM/MM tomosynthesis screening BI IMPRESSION: No significant changes from prior exam. ASSESSMENT: BI-RADS 1: Negative RECOMMENDATION: Routine annual mammography screening. This patient's information was entered into a reminder system with a target due date for their next mammogram. Dictated By: All Sullivan MD Signed By: <Electronically signed by All Sullivan MD in OV> 11/17/22 1328 DD/ 0954 TD/TT: Middle School Music Teacher: GBABIE [facility] External Provider IMG BI PROCEDURES Final Result documented in this encounter Visit Diagnoses Not on filedocumented in this encounter Additional Health Concerns Assessment Noted Time PHQ-9 Depression Total Score: 0 08/26/19 23 2:13 PM EST documented as of this encounter Care Teams Financial Accounting Analyst Relationship Specialty Start Date End Date Ani Anguiano ANP [address] [place] [phone] PCP - General Family Medicine 05/06/22 documented as of this encounter
--- OUTSIDE RECORDS SUMMARY | 2024-09-28 17:23 | XMS_ITS | Encounter Summary ---
Author Organization [facility] Address [address] [place] [address] [address]t [place] [address] Care Team Providers Care School Office Assistant Name Role Phone Ani Anguiano Primary Care Provider Reason for Visit * Reason Comments Med Refill Encounter Details Date Type Department Care Team ([facility] Contact Info) Description 02/22/2023 Refill [facility] [address] [place] [address] Ani Anguiano ANP [address] [place] [address] Type 2 diabetes mellitus without complication, unspecified whether ad terminal makeup operator insulin use ([facility]) Social History Tobacco Use Types Packs/Day Years [...] Orientation Straight 06/01/2022 10 :39 AM EDT COVID-19 Exposure Response Date Recorded In the last 10 days, have yo u been in contact with someone who was confirmed or suspected to have Coronavirus/COVID-19? No / Unsure 02/09/2023 1:39 PM EDT documented as of this encounter Plan of Treatment Upcoming Encounters Date Type Department Care Team ([facility] st Contact Info) Description 10/13/2024 9:15 AM EDT Office Visit [facility] [address] [place] [address] Ani Anguiano ANP [address] [place] [address] 08/10/2025 10:00 AM EST Medication Management [facility] [address] [place], [place] [phone] Emma Her, PharmD [address] [place], [place] [phone] documented as of this encounter Visit Diagnoses Diagnosis Type 2 diabetes mellitus without complication, unspecified whether custodial insulin use ([facility]) documented in this encounter Additional Health Concerns Assessment Noted Time PHQ-9 Depression Total Score: 0 08/26/19 23 2:13 PM EST documented as of this encounter Care Teams School Office Assistant Relationship Specialty Start Date End Date Ani Anguiano ANP [address] [place] [phone] PCP - General Family Medicine 05/06/22 documented as of this encounter
--- OUTSIDE RECORDS SUMMARY | 2024-09-28 17:23 | XMS_ITS | Encounter Summary ---
Author Organization [employer] [facility] Address [address] [place] [address] 7 [place] [address] Care Team Providers Care Network Management Specialist Name Role Phone Ani Anguiano Primary Care Provider [phone] Reason for Visit * Reason Comments Med Refill Encounter Details Date Type Department Care Team (Late st Contact Info) Description 11/07/2022 Refill [facility] [address] [place] [address] Ani Anguiano ANP [address] [place] [address] Type 2 diabetes mellitus without complication, unspecified whether terminal gauger supervisor insulin use ([facility]) Social History Tobacco Use Types Packs/Day Years [...] 10/13/2024 9:15 AM EDT Office Visit [facility] [address] [place] [address] [phone] Ani Anguiano ANP [address] [place] [address] 08/10/2025 10:00 AM EST Medication Management [facility] [address] [place], [place] [phone] Emma Her, Luiz [address] [place] [address] documented as of this encounter Visit Diagnoses Diagnosis Type 2 diabetes mellitus without complication, unspecified whether chcf insulin use ([facility]) documented in this encounter Additional Health Concerns Assessment Noted Time PHQ-9 Depression Total Score: 0 08/26/19 23 2:13 PM EST documented as of this encounter Care Teams Network Management Specialist Relationship Specialty Start Date End Date Ani Anguiano ANP [address] [place] [phone] PCP - General Family Medicine 05/06/22 documented as of this encounter
--- OUTSIDE RECORDS SUMMARY | 2024-09-28 17:23 | XMS_ITS | Encounter Summary ---
Author Organization [employer] Address [address] [place] [address] [address] [place] [address] Care Team Providers Care Junior Php Developer Name Role Phone Ani Anguiano Primary Care Provider [phone] Reason for Visit * Reason Comments Med Refill Encounter Details Date Type Department Care Team ([facility] st Contact Info) Description 08/24/2024 Refill [facility] [address] [place] [address] Ani Anguiano ANP [address] [place] [address] Hypertension associated with diabetes (CMS/HCC) (CMS/HCC); Bilateral leg pain Social History Tobacco Use Types Packs/Day Years [...] the past 12 months, has t he [employer] gas, oil or water company threatened to [...] Description 10/13/2024 9:15 AM EDT Office Visit [facility] [address] [place] [phone] Ani Anguiano ANP [address] [place] [address] 08/10/2025 10:00 AM EST Medication Management [facility] [address] [place] [phone] Emma Her, PharmD [address] [place] [phone] documented as of this encounter Visit Diagnoses Diagnosis Hypertension associated with diabetes (CMS/HCC) (CMS/HCC) Unspecified essential hypertension Bilateral leg pain Pain in soft tissues of limb documented in this encounter Additional Health Concerns Assessment Noted Time PHQ-9 Depression Total Score: 0 09/17/19 24 11:20 AM EST documented as of this encounter Care Teams Junior Php Developer Relationship Specialty Start Date End Date Ani Anguiano ANP [address] [place] [phone] PCP - General Family Medicine 05/06/22 documented as of this encounter
--- OUTSIDE RECORDS SUMMARY | 2024-09-28 17:23 | XMS_ITS | Clinical Summary ---
Author Organization [employer] Address [address] [place] [address] Care Team Providers Care Box Spring Maker Name Role Phone Cristiano Hairston Primary Care Provider [phone] Allergies Active Allergy Reactions Criticality Noted Date Comments Latex 05/23/2021 Medications Blood Pressure kit A ctive Misc. Devices (Pulse Oximeter For Finger) miscIndications:CO VID-19 To use every 4 hours. To contact the office if O2 sat < 90% 1 each 2 Active dicyclomine (Bentyl) 20 MG tablet TAKE 2 TABLETS BY MOUTH 4 TIMES A DAY 3 Active pantoprazole (ProtoNix) 40 MG EC tablet Take 40 mg by mouth 2 times daily. 3 Active Alcohol Swabs (Alcohol Prep) padsIndications:Ty pe 2 diabetes mellitus without complication, unspecified whether exterminator termite insulin use ([facility]) Use as needed 100 each 11 3 Active glucose blood (OneTouch Ultra) test stripIndications:H ypertension associated with diabetes (CMS/HCC) (CMS/[facility]) Use to test blood sugar 3 times daily 100 each 12 4 025 Active OneTouch Delica Lancets 33G miscIndications:Hy pertension associated with diabetes (CMS/HCC) (CMS/HCC) Use to test blood sugar 3 times daily 100 each 11 4 Active Blood Glucose Monitoring Suppl (ONE TOUCH ULTRA 2) w/Device kitIndications:Hyp ertension associated with diabetes (CMS/HCC) (CMS/[facility]) Use to test blood sugar 3 times daily 1 kit 4 Active Ventolin HFA 108 (90 Base) MCG/ACT inhalerIndications :Asthma, moderate persistent, well-controlled INHALE 2 PUFFS BY MOUTH EVERY 4 HOURS NEEDED FOR WHEEZING OR SHORTNESS OF BREATH 18 g 1 4 Active metFORMIN XR (Glucophage-XR) 500 MG 24 hr tabletIndications: Hypertension associated with diabetes ([facility]/HCC) ([facility]) TAKE 2 TABLETS BY MOUTH EVERY TWELVE HOURS 360 tablet 1 4 Active pregabalin (Lyrica) 100 MG capsuleIndications :Bilateral leg pain TAKE 1 CAPSULE BY MOUTH TWICE DAILY 60 capsule 2 4 Active atorvastatin (Lipitor) 10 MG tabletIndications: Type 2 diabetes mellitus with hyperlipidemia ([facility]/HCC) ([facility]) Take 1 tablet (10 mg) by mouth Once per day. 90 tablet 1 4 025 Active butalbital-acetami nophen-caffeine 50-325-40 MG tabletIndications: Migraine without status migrainosus, not intractable, unspecified migraine type TAKE 1 TO 2 TABLETS BY MOUTH EVERY 4 HOURS NEEDED DO NOT EXCEED 6 TABLETS IN 24 HOURS. TRATA DE USAR MENOS DE 3 BHATTI POR MES 12 tablet 1 4 Active lidocaine (Lidoderm) 5 % patchIndications:U pper back pain on right side Apply 1 patch topically Once per day. Remove & discard patch within 12 hours or as directed by MD. 30 patch 2 4 Active meloxicam (Mobic) 7.5 MG tabletIndications: Osteoarthritis Take 7.5 mg by mouth if needed for moderate pain. Active sharps containerIndicatio ns:Type 2 diabetes mellitus with hyperlipidemia (CMS/HCC) ([facility]) Use for disposal of used pen needles, lancets, needles, syringes, injection supplies 1 each 11 4 Active ketorolac (Acular) 0.5 % ophthalmic solution INSTILL 1 DROP INTO OPERATIVE EYE 3 TIMES A DAY STARTING 2 DAYS PRIOR TO SURGERY. TAPER DIRECTED. 4 Active loperamide (Imodium) 2 MG capsule Take 2 capsules by mouth in the morning. OTC Active simethicone (Mylicon) 80 MG chewable tablet Chew 1 tablet if needed each day for flatulence. OTC Active acetaminophen (Tylenol) 500 MG tablet Take 1 tablet by mouth if needed each day for mild pain. OTC Active cetirizine (ZyrTEC) 10 MG tabletIndications: Non-seasonal allergic rhinitis due to other allergic trigger Take 1 tablet (10 mg) by mouth Once per day. As needed for allergies 90 tablet 1 4 Active enalapril (Vasotec) 10 MG tabletIndications: Hypertension associated with diabetes (CMS/HCC) ([facility]) TAKE 1 TABLET BY MOUTH EVERY DAY IN THE MORNING 90 tablet 4 Active fluticasone-salmet delfin (Advair HFA) 230-21 MCG/ACT inhalerIndications :Asthma, moderate persistent, well-controlled Inhale 2 puffs in the morning and at bedtime. Rinse mouth with water after use to reduce aftertaste and incidence of candidiasis. Do not swallow. 36 g 1 4 Active hydrOXYzine HCl (Atarax) 25 MG tablet Take 1 tablet by mouth if needed each day for anxiety. Active melatonin 3 MG tabletIndications: Insomnia, unspecified type Place 1 tablet (3 mg) under the tongue if needed at bedtime (difficulty sleeping). 90 tablet 1 5 Active cholecalciferol (Vitamin D-3) 20 MCG (800 UNIT) tabletIndications: Osteopenia, unspecified location Take 1 tablet (20 mcg) by mouth Once per day. 90 tablet 3 5 Active Active Problems Problem Noted Date Diagnosed Date Requires assistance with activities of daily adelso ing (ADL) 08/24/2024 Obstructive sleep apnea syndrome 07/02/2022 Overview (01/20/2024): Follows w sleep med, PROJECT SPECIALIST Jacinto Urinary tract infectious disease 07/02/2022 Multiple renal cysts 10/30/2021 Asthma, well controlled 05/08/2021 Hypertension associated with diabetes ([facility]/HCC) 05/08/2021 Obesity 05/08/2021 Osteopenia 05/08/2021 Type 2 diabetes mellitus with hyperlipidemia ( S/HCC) 05/08/2021 Resolved Problems Problem Noted Date Diagnosed Date Resolved Date COVID-19 07/02/2022 09/28/2022 Encounters Date Type Department Care Team Description 08/24/2024 2:15 PM EST Office Visit [facility] [place] [place] [address] Cristiano Hairston ANP Acute left-sided low back pain with left-sided sciatica (Primary Dx); Hypertension associated with diabetes (CMS/HCC) (CMS/HCC); Difficulty sleeping; Osteopenia, unspecified location; Requires assistance with activities of daily living (ADL) 08/24/2024 Refill [facility] [place] [place] [address] Cristiano Hairston ANP Hypertension associated with diabetes (CMS/HCC) (CMS/HCC); Bilateral leg pain 08/24/2024 Travel 08/23/2024 Orders Only [facility] [place] [address] Cristiano Hairston ANP 08/17/2024 Telephone [facility] [address] Nuvia Billingsley RN ER Follow-up 08/16/2024 9:40 AM EST Office Visit [facility] [place] [address] Robert Pinto MD Acute left-sided low back pain with left-sided sciatica (Primary Dx); Left inguinal pain; Hypertension associated with diabetes (CMS/HCC) (CMS/HCC) 08/16/2024 Orders Only [facility] [address] Cristiano Hairston ANP 08/11/2024 Telephone [facility] [address] Sol Husain MA September08/11/2024 Travel 08/09/2024 Telephone [facility] [place] [address] Merry Tong RN Results 07/17/2024 Telephone [facility] [address] Sol Husain [place] PA from [facility] 07/11/2024 Telephone [facility] [place] [address] Cristiano Hairston ANP Prior Authorization ([employer] [place] Request: Lidocaine 5% Patch) 07/11/2024 Refill [facility] [address] [place] [address] Vashti López, DailyD Non-seasonal allergic rhinitis due to other allergic trigger (Primary Dx); Hypertension associated with diabetes ([facility]) ([facility]); Asthma, moderate persistent, well-controlled from Last 3 Months Immunizations Name Administration Dates Next Due Hep A, Adult 10/13/2019,04/13/2019 Hep B, Unspecified 08/18/1991,03/03/1991 Hep B, adult 08/18/1991,03/03/1991,01/27/1991 Influenza injectable quadriv alent preservative free 05/20/2023,09/28/2022,05/08/2021 Influenza, IIV3, injectable 05/08/2021,1 ,01/10/2002,05/03,11/25/1994 Influenza, seasonal, injecta ble, preservative free 06/06/2024 MMR 02/23/1997,05/10/1995 Pfizer Covid-19 Vaccine 12+ 06/19/2021,,12/25/2020 Pneumococcal Conjugate PCV 20 05/20/2023 Pneumococcal Polysaccharide PPSV23 10/12/2018 TD (adult), 2 Lf tetanus tox oid, preservative free, adsorbed 07/06/2002,01/27/1990,06/29/1983 Tdap 01/08/2021,12/19/2010 Varicella 02/23/1997,05/10/1995 Social History Tobacco Use Types Packs/Day Years Used Date Smoking Tobacco: Never Smokeless Tobacco: Never Tobacco Cessation:Counseling Given: Not Answered Alcohol Use Standard Drinks/Week Comments Not Currently [...] Orientation Straight 06/01/2022 10 :39 AM EDT Last Filed Vital Signs Vital Sign Reading Time Taken Comments Blood Pressure 136/81 08/24/2024 2:16 PM EST Pulse 92 08/24/2024 2:16 PM EST Temperature 36.7 ??C (98 ??F) 08/24/2024 2:16 PM EST Respiratory Rate 14 08/24/2024 2:16 PM EST Oxygen Saturation 98% 08/24/2024 2:16 PM EST Inhaled Oxygen Concentration - - Weight 68.3 kg (150 lb 9.6 oz) 08/24/2024 2:16 P M EST Height 154.9 cm (5' 1 ) 04/14/2024 11:33 AM EDT Body Mass Index 28.46 04/14/2024 11:33 AM EDT Plan of Treatment Upcoming Encounters Date Type Department Care Team (Late st Contact Info) Description 10/13/2024 9:15 AM EDT Office Visit [facility] [address] [place] [address] Cristiano Hairston, ANP [address] [place] [address] 08/10/2025 10:00 AM EST Medication Management [facility] [address] [place] [address] Emma Her, PharmD [address] [place], [place] [phone] Health Maintenance Due Date Last Done Comments CT Colonography 1960 FIT DNA/Cologuard 1960 FIT 1960 FOBT 1960 Sigmoidoscopy 1962 Alcohol/Substance Use Screening 1974 Hepatitis C Screening 1980 Pap Smear 12/22/1983 HPV/Cotest 1992 Zoster Vaccines (1 of 2) 2012 RSV Patients and Patients Aged 60 years or older (1 - Risk 60-74 years 1-dose series) 2022 COVID-19 Vaccine ( season) 2024 06/19/2021, 01/15/2021, 12/25/2020 SDOH Screening 08/05/2024 08/05/2023 Diabetes: Hemoglobin A1C 09/06/2024 024, 01/20/2024, 08/13/2023, Additional history exists Depression Screening 09/17/2024 09/17/2023, 09/17/19 24 Mammogram 11/18/2024 11/19/2023, 10/31, 11/12/2021, Additional history exists Diabetes: Foot Exam 01/19/2025 01/20/2024, 01/20/2024, 01/20/2024, Additional history exists Diabetes: Urine Protein Screening 01/26/2025 01/27/2024, 02/23/2023, 05/08/2021 Lipid Panel 07/18/2025 07/18/2024, 01/01, 02/23/2023, Additional history exists Tobacco Screening 08/24/2025 08/24/2024 Eye Exam 03/27/2026 03/27/2024, 0801/2024, 03/27/2024, Additional history exists Colonoscopy 07/14/2026 Colorectal Cancer Screening 07/14/2026 DTaP/Tdap/Td Vaccines (3 - Td or Tdap) 01/08/2031 01/08/2021, 12/19/2010, 07/06/2002, Additional history exists Hepatitis B Vaccines Completed 08/18/1991, 08/18/1991, 03/03/1991, Additional history exists Hepatitis A Vaccines Aged Out 10/13/2019, 04/13/20 19 No longer eligible based on patient's age to complete this topic HIV Screening Completed 05/08/2021 Pneumococcal Vaccine: 50+ Years Completed 05/20/2023, 10/12/2018 Influenza Vaccine Completed 06/06/2024, , 09/28/2022, Additional history exists Cervical Cancer Screening Discontinued HIB Vaccines Aged Out No longer eligi ble based on patient's age to complete this topic HPV Vaccines Aged Out No longer eligi ble based on patient's age to complete this topic IPV Vaccines Aged Out No longer eligi ble based on patient's age to complete this topic Meningococcal Vaccine Aged Out No july johnson eligible based on patient's age to complete this topic RSV under 20 months Aged Out No longe r eligible based on patient's age to complete this topic Rotavirus Vaccines Aged Out No longer eligible based on patient's age to complete this topic Procedures Procedure Name Priority Date/Time Associated Diagnosis Comments POCT URINALYSIS DIPSTICK Routine 08/16/2024 10:46 AM EST Acute left-sided low back pain with left-sided sciatica Left inguinal pain CULTURE, URINE, ROUTINE Routine 08/16/2024 10:43 AM EST Acute left-sided low back pain with left-sided sciatica VITAMIN B12/FOLATE, SERUM PANEL Routine 08/16/2024 9:30 AM EST HEPATIC FUNCTION PANEL Routine 08/16/2024 9:30 AM EST Type 2 diabetes mellitus with hyperlipidemia (CMS/HCC) (CMS/HCC) BD DEXA AXIAL Routine 07/19/2024 11:30 AM EST Osteopenia, unspecified location LIPID PANEL, STANDARD Routine 07/18/2024 9:05 AM EST Type 2 diabetes mellitus with hyperlipidemia (CMS/HCC) ([facility]) POCT GLYCATED HEMOGLOBIN, TOTAL Routine 06/06/2024 2:25 PM EST Type 2 diabetes mellitus with hyperlipidemia (CMS/HCC) ([facility]) ALBUMIN, RANDOM URINE W/CREATININE Routine 01/27/2024 9:32 AM EDT Type 2 diabetes mellitus without complication, without long-term current use of insulin ([facility]) BI MAMMOGRAM SCREENING TOMOSYNTHESIS BILATERAL Routine 11/19/2023 9:20 AM EDT HIV 1/2 ANTIGEN/ANTIBODY, FOURTH GENERATION W/RFL Routine 05/08/2021 10:50 AM EDT from Last 3 Months or Most Recently Relevant to Health Maintenance Results * POCT urinalysis dipstick manually resulted (08/16/2024 10:46 AM EST) Color, UA Yellow Clarity, UA Clear Glucose, UA Negative Bilirubin, UA Negative Ketones, UA Negative Spec Grav, UA 1.010 Blood, UA Negative Negative, None Detected pH, UA 6.5 Protein, UA Negative Urobilinogen, UA 0.2 Leukocytes, UA Trace Negative, Rare, Trace Nitrite, UA Negative Negative, None Detected Urine 08/16/2024 10:4 6 AM EST Robert Pinto MD POINT OF CARE TEST ENTER/EDIT OR DERABLES Final Result * Culture, Urine, Routine (08/16/2024 10:43 AM EST) Urine Urine specimen obtained by clean catch procedure / Unknown 08/16/2024 10:43 AM EST 08/16/2024 1:29 PM EST Comment:UACC Narrative [facility] - 08/17/2024 11:56 AM EST Urine Culture Report Result Urine Culture 10,000 to 50,000 cfu/ml Urine Culture Mixed bacterial hailey characteristic of Urine Culture urogenital contamination. Specimen Source: Urine clean catch Robert Pinto MD LAB MICROBIOLOGY - GENERAL ORDER KEENAN Final Result Performing Organization Address [facility] de Phone Number [facility] [address] [place] [phone] * Vitamin B12 (Cobalamin) and Folate Panel, Serum (08/16/2024 9:30 AM EST) Vitamin B12 321 200 - 900 pg/mL [facility] Comment:NORMAL 200-900 PG/ML INDETERMINATE 160-199 PG/ML DEFICIENT < 160 PG/ML Folate 15.2 > or = 4.0 ng/mL [facility] Comment:Reference Values:> o r = 4.0 ng/mL< 4.0 ng/mL suggests folate deficiency Methotrexate, aminopterin and folinic acid(leucovorin) are chemotherapeutic agents whose molecularstructures are similar to folate; therefore, the Architectfolate assay cannot be used for patients using these drugs. 08/16/2024 9:30 AM EST 08/16/2024 11:05 AM EST Cristiano SMITH LAB BLOOD ORDERABLES Final Resul t Performing Organization Address [facility] de Phone Number [facility] [address] [place] [phone] * Hepatic Function Panel (08/16/2024 9:30 AM EST) Bilirubin, Total 0.7 0.0 - 1.0 mg/dL [facility] Bilirubin, Direct 0.2 0.0 - 0.5 mg/dL [facility] Aspartate Amino Transferase 29 5 - 31 U/L [facility] Alanine Aminotransferase 27 0 - 31 U/L [facility] Total Protein 7.7 6.5 - 8.0 g/dL [facility] Albumin Level 4.5 3.5 - 5.0 g/dL [facility] Alkaline Phosphatase 65 39 - 117 U/L [facility] Blood Venous blood specimen / Unknown 08/16/2024 9:30 AM EST 08/16/2024 11:05 AM EST us Cristiano Hairston ANP LAB BLOOD ORDERABLES Final Resul t [facility] [address] [place] [phone] [phone] * BD DEXA Axial (07/19/2024 11:30 AM EST) Anatomical Region Laterality Modality Body Radiographic Rachel ging 07/19/2024 11:3 0 AM EST Narrative 07/19/2024 1:59 PM EST ? [facility] [place] ? [address] ?[place] [address] ? Mammography Report ? Signed ? Patient: Brooklynn De La Rosa ?MR#: ?? [id number] ? : 1960 ?Acct:[id number] ? Age/Sex: 63 / F ?ADM Date: 12/18/24 ? Loc: HO.MAMMO ? Attending Dr: Cristiano Hairston PROJECT SPECIALIST ? Ordering Physician: HAIRSTON,CRISTIANO PROJECT SPECIALIST ?Results: ? Date of Service: 12/18/24 ?Follow Up: ? Procedure(s): XR DEXA axial skeleton ?? Accession Number(s): [id number] ? cc: CRISTIANO HAIRSTON NP ? EXAMINATION: ?? BONE DENSITOMETRY ? CLINICAL INDICATION: ?? Osteopenia. ? COMPARISON: ?? This is the patient's baseline examination. ? TECHNIQUE: Using a App[employer]les DXA System (software version: ?? 13.1) manufactured by [employer], dual-energy x-ray absorptiometry ?? was performed of the lumbar spine and left hip. The images are of good ?? technical quality. Summary results are attached. ? FINDINGS: ?? LEFT FEMUR, NECK: ?? BMD 0.715 g/cm2, Z-score -1.1, T-score -2.3, osteopenia. ? LEFT FEMUR, TOTAL: ?? BMD 0.874 g/cm2, Z-score -0.1, T-score -1.1, osteopenia. ? AP SPINE L1-L4: ?? BMD 1.050 g/cm2, Z-score 0.1, T-score -1.1, osteopenia. ? IDENTIFIED RISK FACTORS: ?? Menopause, hysterectomy, bilateral oophorectomy. ? HISTORY OF FRACTURE: ?? None listed. ? MEDICATIONS: ?? None listed. ? MM/XR DEXA axial skeleton ?? IMPRESSION: ?? 1. DIAGNOSIS: Osteopenia based on the lowest T-score value of -2.3 in ?? the femoral neck applying World Health Organization criteria. ? 2. 10-YEAR FRACTURE RISK PREDICTION, FRAX: Major osteoporotic fracture ?? (clinical spine, forearm, hip or shoulder) 6.2%. Hip fracture 1.0%. ?? 3. Treatment Recommendations: NOF guidelines recommend consideration ?? for treatment in postmenopausal women and men age 50 and older ?? presenting with the following: ?? -A hip or vertebral (clinical or morphometric) fracture. ?? -T-score less than or equal to -2.5 at the femoral neck or spine after ?? appropriate evaluation to exclude secondary causes. ?? -Low bone mass at the hip or spine and a 10-year fracture probability ?? by FRAX of greater than or equal to 3% for hip fracture or greater than ?? or equal to 20% for major osteoporotic fracture based on the [place] adapted ?? WHO algorithm. ?? 4. Other Recommendations: All treatment decisions require clinical ?? judgment and consideration of individual patient factors, including ?? patient preferences, comorbidities, previous drug use, risk factors not ?? captured in the FRAX model (e.g. frailty, falls, vitamin D deficiency, ?? increased bone turnover, interval significant decline in bone density) ?? and possible under or overestimation of fracture risk by FRAX. ?? Additional medical evaluation for secondary cause of low bone mineral ?? density may be appropriate. ? FUTURE SCAN RECOMMENDATION: ?? People with diagnosed cases of osteoporosis or at high risk for ?? fracture should have regular bone mineral density tests. For patients ?? eligible for Medicare, routine testing is allowed once every 2 years. ?? The testing frequency can be increased to one year for patients who ?? have rapidly progressing disease, those who are receiving or ?? discontinuing medical therapy to restore bone mass, or have additional ?? risk factors. ? Electronically signed by: ??All Sullivan MD ??07/19/2024 01:56 PM EST RP ? Dictated By: ?All Sullivan MD ? Signed By: ?<Electronically signed by All Sullivan MD in OV> ?07/19/24 1356 ? DD/ 1130 ? TD/TT: 07/19/24 1145 ? Subgrade Roller Operator: SK ? Procedure Note Conrad, Image - 07/19/2024 [facility] [address] [place] [address] Mammography Report Signed Patient: Brooklynn De La Rosa EMR#: [id number] : 1960Acct:[id number] Age/Sex: 63 / FADM Date: 07/19/24 Loc: [facility] Attending Dr: Cristiano Hairston NP Ordering Physician: CRISTIANO HAIRSTONesults: Date of Service: 07/19/24Follow Up: Procedure(s): XR DEXA axial skeleton Accession Number(s): [id number] cc: CRISTIANO HAIRSTON NP EXAMINATION: BONE DENSITOMETRY CLINICAL INDICATION: Osteopenia. COMPARISON: This is the patient's baseline examination. TECHNIQUE: Using a [employer] DXA System (software version: 13.1) manufactured by [employer], dual-energy x-ray absorptiometry was performed of the lumbar spine and left hip. The images are of good technical quality. Summary results are attached. FINDINGS: LEFT FEMUR, NECK: BMD 0.715 g/cm2, Z-score -1.1, T-score -2.3, osteopenia. LEFT FEMUR, TOTAL: BMD 0.874 g/cm2, Z-score -0.1, T-score -1.1, osteopenia. AP SPINE L1-L4: BMD 1.050 g/cm2, Z-score 0.1, T-score -1.1, osteopenia. IDENTIFIED RISK FACTORS: Menopause, hysterectomy, bilateral oophorectomy. HISTORY OF FRACTURE: None listed. MEDICATIONS: None listed. MM/XR DEXA axial skeleton IMPRESSION: 1. DIAGNOSIS: Osteopenia based on the lowest T-score value of -2.3 in the femoral neck applying World Health Organization criteria. 2. 10-YEAR FRACTURE RISK PREDICTION, FRAX: Major osteoporotic fracture (clinical spine, forearm, hip or shoulder) 6.2%. Hip fracture 1.0%. 3. Treatment Recommendations: NOF guidelines recommend consideration for treatment in postmenopausal women and men age 50 and older presenting with the following: -A hip or vertebral (clinical or morphometric) fracture. -T-score less than or equal to -2.5 at the femoral neck or spine after appropriate evaluation to exclude secondary causes. -Low bone mass at the hip or spine and a 10-year fracture probability by FRAX of greater than or equal to 3% for hip fracture or greater than or equal to 20% for major osteoporotic fracture based on the [place] adapted WHO algorithm. 4. Other Recommendations: All treatment decisions require clinical judgment and consideration of individual patient factors, including patient preferences, comorbidities, previous drug use, risk factors not captured in the FRAX model (e.g. frailty, falls, vitamin D deficiency, increased bone turnover, interval significant decline in bone density) and possible under or overestimation of fracture risk by FRAX. Additional medical evaluation for secondary cause of low bone mineral density may be appropriate. FUTURE SCAN RECOMMENDATION: People with diagnosed cases of osteoporosis or at high risk for fracture should have regular bone mineral density tests. For patients eligible for Medicare, routine testing is allowed once every 2 years. The testing frequency can be increased to one year for patients who have rapidly progressing disease, those who are receiving or discontinuing medical therapy to restore bone mass, or have additional risk factors. Electronically signed by: All Sullivan MD 07/19/2024 01:56 PM EST Dictated By: All Sullivan MD Signed By: <Electronically signed by All Sullivan MD in OV> 07/19/24 1356 DD/ 1130 TD/TT: 07/19/24 1145 Subgrade Roller Operator: SK us Cristiano Hairston ANP IMG DXA PROCEDURES Edited Result - Final * (ABNORMAL) Lipid Panel, Standard (07/18/2024 9:05 AM EST) Triglycerides 98 <150 mg/dL [facility] Comment:Desirable Triglyceri de: less than 150 mg/dLBorderline High Triglyceride 150-199 mg/dLHigh Triglyceride: 200-499 mg/dLVery High Triglyceride: greater than or equal to 5OO mg/dL Cholesterol 117 <200 mg/dL [facility] Comment:Desirable Cholestero l: less than 200 mg/dLBorderline High Cholesterol: 200-239 mg/dLHigh Cholesterol: greater than 239 mg/dL LDL Cholesterol Calculated 59 <100 mg/dL [facility] Comment:Desirable LDL: less than 100 mg/dLNear Optimal/Above Optimal LDL: 110- 129 mg/dLBorderline High LDL: 130-159 mg/dLHigh LDL: 160-189 mg/dLVery High LDL: greater than or equal to 190 mg/dL HDL Cholesterol 39(L) >40 mg/dL [facility] Comment:Desirable HDL: great er than 40 mg/dL Note: This HDL assay may give artificially low results in patients with liver disease. Blood Venous blood specimen / Unknown 07/18/2024 9:05 AM EST 07/18/2024 11:00 AM EST us Cristiano Hairston ANP LAB BLOOD ORDERABLES Final Resul t [facility] [address] [place] [address] [phone] * (ABNORMAL) POCT HGB A1C (06/06/2024 2:25 PM EST) Hemoglobin A1C 6.2(A) 4.0 - 6.0 % QC Media Lot # [id number] Lot# Expiration Date Blood 06/06/2024 2:25 PM EST us Cristiano Hairston ANP POINT OF CARE TEST ENTER/EDIT OR DERABLES Final Result * (ABNORMAL) Albumin, Random Urine W/Creatinine (01/27/2024 9:32 AM EDT) Pathologist [facility] Creatinine, Urine 40.16 mg/dL [facility] Microalbumin Urine 16.0 mg/L [facility] Microalbum Creatinine Ratio Ur 39.8(H) <30 ug/mg cr [facility] Comment:Albumin/Creatinine R atio Reference Ranges: Normal: < 30 ug/mg creatinine Microalbuminuria: 30 - 300 ug/mg creatinineClinical Albuminuria: > 300 ug/mg creatinine Urine 01/27/2024 9:32 AM EDT 01/27/2024 11:21 AM EDT us Cristiano Hairston ANP LAB URINE ORDERABLES Final Resul t Performing Organization Address City/State/[facility] Co de Phone Number [facility] [address] [place] [phone] * BI Mammogram Screening Tomosynthesis Bilateral (11/19/2023 9:20 AM EDT) Anatomical Region Laterality Modality Breast Bilateral Mammography 11/19/2023 9:20 AM EDT Narrative 12/19/2023 10:00 PM EDT ? [facility] [place] ? [address] [facility] ?[place] [address] ? Mammography Report ? Signed ? Patient: Ferrer Idoni,Brooklynn E ?MR#: ?? [id number] ? : 1960 ?Acct:[id number] ? Age/Sex: 62 / F ?ADM Date: 04/19/24 ? Loc: HO.MAMMO ? Attending Dr: Cristiano Hairston PROJECT SPECIALIST ? Ordering Physician: CRISTIANO HAIRSTON NP ?Results: 2Benign Fin ?? dings ? Date of Service: 11/19/23 ?Follow Up: 1 Year From Orig ?? inal Mammogram ? Procedure(s): MM tomosynthesis screening BI ?? Accession Number(s): [id number] ? cc: CRISTIANO HAIRSTON NP ? EXAMINATION: ?? MM SCREENING DIGITAL BREAST TOMOSYNTHESIS, BILATERAL ? CLINICAL INFORMATION: ? Screening. Asymptomatic. ? COMPARISON: ?? Mammography: This study is compared with prior exams dating back to ?? 2020. ? TECHNIQUE: ?? Digital breast tomosynthesis is performed in both the craniocaudal and ?? mediolateral oblique views along with computer-aided detection (CAD). ?? Synthesized 2D images are generated from the tomosynthesis. ? FINDINGS: ?? There are scattered areas of fibroglandular density (ACR BI-RADS breast ?? composition Category b). ? There are no significant masses, abnormal calcifications, or other ?? abnormalities. ? There is a tissue marker present left breast from prior benign ?? percutaneous biopsy. ? MM/MM tomosynthesis screening BI ?? IMPRESSION: ?? No mammographic evidence of malignancy. ? ASSESSMENT: ? BI-RADS BI-RADS 2 - Benign Findings ? RECOMMENDATION: ?? Routine annual mammography screening. ? 1 year F/U ? This examination should not preclude the clinical evaluation of a ?? suspicious palpable abnormality. ? This patient's information was entered into a reminder system with a ?? target due date for their next mammogram. ? Dictated By: ?Brianna Winkler MD ? Signed By: ?<Electronically signed by rBianna Winkler MD in OV> ? 12/19/232156 ? DD/ 9 ? TD/TT: ? Subgrade Roller Operator: ? Procedure Note Donotuseinterpreter, Image - 12/19/2023 [facility] [address] [place] [address] Mammography Report Signed Patient: Brooklynn De La Rosa EMR#: [id number] : 1960Acct:[id number] Age/Sex: 62 / FADM Date: 11/19/23 Loc: [facility] Attending Dr: Cristiano Hairston NP Ordering Physician: CRISTIANO HAIRSTON NPResults: 2Benign Tai dumont Date of Service: 11/19/23Follow Up: 1 Year From Orig inal Mammogram Procedure(s): MM tomosynthesis screening BI Accession Number(s): [id number] cc: CRISTIANO HAIRSTON NP EXAMINATION: MM SCREENING DIGITAL BREAST TOMOSYNTHESIS, BILATERAL CLINICAL INFORMATION: Screening. Asymptomatic. COMPARISON: Mammography: This study is compared with prior exams dating back to 2020. TECHNIQUE: Digital breast tomosynthesis is performed in both the craniocaudal and mediolateral oblique views along with computer-aided detection (CAD). Synthesized 2D images are generated from the tomosynthesis. FINDINGS: There are scattered areas of fibroglandular density (ACR BI-RADS breast composition Category b). There are no significant masses, abnormal calcifications, or other abnormalities. There is a tissue marker present left breast from prior benign percutaneous biopsy. MM/MM tomosynthesis screening BI IMPRESSION: No mammographic evidence of malignancy. ASSESSMENT: BI-RADS BI-RADS 2 - Benign Findings RECOMMENDATION: Routine annual mammography screening. 1 year F/U This examination should not preclude the clinical evaluation of a suspicious palpable abnormality. This patient's information was entered into a reminder system with a target due date for their next mammogram. Dictated By: Brianna Winkler MD Signed By: <Electronically signed by Brianna Winkler MD in OV> 12/19/237 DD/ 09 TD/TT: Subgrade Roller Operator: us Cristiano SMITH IMG BI PROCEDURES Edited Result - Final * HIV 1/2 ANTIGEN/ANTIBODY,FOURTH GENERATION W/RFL (05/08/2021 10:50 AM EDT) HIV-1/2 ANTIGEN AND ANTIBODIES, 4TH GENERATION W/ REFLEX NON-REACT [facility] NON-REACT [facility] Comment: HIV-1 antigen and HIV-1/HIV-2 antibodies were not detected. There is no laboratory evidence of HIV infection. ?? PLEASE NOTE: This information has been disclosed to you from records whose confidentiality may be protected by state law. ??If your state requires such protection, then the state law prohibits you from making any further disclosure of the information without the specific written consent of the person to whom it pertains, or as otherwise permitted by law. A general authorization for the release of medical or other information is NOT sufficient for this purpose. ? For additional information please refer to http://education.Foodfly.invi/faq/ABB616 (This link is being provided for informational/ educational purposes only.) ? The performance of this assay has not been clinically validated in patients less than 2 years old. ?? 05/08/2021 10:5 0 AM EDT us Chanell Lorenz PROJECT SPECIALIST LAB BLOOD ORDERABLES Final Res ult [facility] [address] from Last 3 Months or Most Recently Relevant to Health Maintenance Insurance [employer] [facility] Care Teams Box Spring Maker Relationship Specialty Start Date End Date Cristiano Hairston ANP [address] [place] [phone] PCP - General Family Medicine 05/06/22
--- OUTSIDE RECORDS SUMMARY | 2024-09-28 17:23 | XMS_ITS | Encounter Summary ---
Author Organization [email or web address] [facility] Address [address] [place] [address] [address] [place] [address] Care Team Providers Care Geospatial Intelligence Analyst Name Role Phone Ani Anguiano Primary Care Provider [phone] Reason for Visit * Reason Comments Med Refill Encounter Details Date Type Department Care Team (Late st Contact Info) Description 11/09/2022 Refill [facility] [address] [place] [phone] Ani Anguiano ANP [address] [place] [address] Type 2 diabetes mellitus without complication, without long-term current use of insulin ([facility]) Social History Tobacco Use Types Packs/Day [...] Description 10/13/2024 9:15 AM EDT Office Visit [facility] [address] [place] [address] Ani Anguiano ANP [address] [place] [address] 08/10/2025 10:00 AM EST Medication Management [facility] [address] [place], [place] [phone] Emma Her PharmD [address] [place] [address] documented as of this encounter Visit Diagnoses Diagnosis Type 2 diabetes mellitus without complication, without long-term current use of insulin ([facility]) documented in this encounter Additional Health Concerns Assessment Noted Time PHQ-9 Depression Total Score: 0 08/26/19 23 2:13 PM EST documented as of this encounter Care Teams Geospatial Intelligence Analyst Relationship Specialty Start Date End Date Ani Anguiano ANP [address] [place] [phone] PCP - General Family Medicine 05/06/22 documented as of this encounter
--- OUTSIDE RECORDS SUMMARY | 2024-09-28 17:23 | XMS_ITS | Encounter Summary ---
Author Organization [facility] Address [address] [place] [address] [address] [place] [address] Care Team Providers Care Stitcher Utility Name Role Phone Ani Anguiano Primary Care Provider [phone] Encounter Details Date Type Department Care Team (Late st Contact Info) Description 07/02/2022 Abstract [facility] [address] [place] [phone] ProviderAnabella MD Social History Tobacco Use Types Packs/Day Years Used Date Smoking Tobacco: Never Assessed Comments Unknown Sex and Gender Information Value [...] suspected to have Coronavirus/COVID-19? No / Unsure 07/02/2022 12:20 PM EST documented as of this encounter Plan of Treatment Upcoming Encounters Date Type Department Care Team (Late st Contact Info) Description 10/13/2024 9:15 AM EDT Office Visit [facility] [address] [place] [address] [phone] Ani Anguiano ANP [address] [place] [address] 08/10/2025 10:00 AM EST Medication Management [facility] [address] [place] [phone] Emma Her, PharmD [address] [place] [address] documented as of this encounter Visit Diagnoses Not on filedocumented in this encounter Care Teams Stitcher Utility Relationship Specialty Start Date End Date Ani Anguiano ANP [address] [place] [address] PCP - General Family Medicine 05/06/22 documented as of this encounter
--- OUTSIDE RECORDS SUMMARY | 2024-09-28 17:23 | XMS_ITS | Encounter Summary ---
Author Organization [employer] Address [address] [place] [address] 7[address] [place] [address] Care Team Providers Care Bench Worker Apprentice Name Role Phone Ani Anguiano Primary Care Provider [phone] Reason for Visit * Reason Onset Date Comments status on script 07/03/2022 Encounter Details Date Type Department Care Team ([facility] st Contact Info) Description 07/03/2022 Telephone [facility] [address] [place] [address] Ani Anguiano ANP [address] [place] [address] status on script Social History Tobacco Use Types Packs/Day Years [...] PM EST documented as of this encounter Miscellaneous Notes * Telephone Encounter - Althea Haro RN - 07/03/2022 3:16 PM EST TC placed to pt at [phone] regarding message below per Dr. Butts. Pt informed medication was verbally called into [facility] pharmacy on [address] Pt verbalized understanding. Pt to F/U as needed. [facility] staff Edwige assisting with translation. Medication was verbally called at [facility] pharmacy [facility] this morning as the right order could not be found in our new EHR. * Telephone Encounter - Saray Aidan - 07/03/2022 8:54 AM EST Tc from Pt stated yesterday came to [facility] and they supposed to send a script for Oxy meter, Paxlovid and she said another medication but she doesn't know the name or what for to see if we can send script to [facility] on [address] [place] P[address] Anguiano The medication was called in for Ms Wheatley. [facility] does not have a pulse oxymeter. Pt will have to have someone picking table worker one for her here at the [facility]. A script will be sent. documented in this encounter Plan of Treatment Upcoming Encounters Date Type Department Care Team (Late st Contact Info) Description 10/13/2024 9:15 AM EDT Office Visit [facility] [address] [place] [phone] Ani Anguiano ANP [address] [place] [address] 08/10/2025 10:00 AM EST Medication Management [facility] [address] [place] [phone] Emma Her, PharmD [address] [place] [address] documented as of this encounter Visit Diagnoses Diagnosis COVID-19- Primary documented in this encounter Care Teams Bench Worker Apprentice Relationship Specialty Start Date End Date Ani Anguiano ANP [address] [place] [phone] PCP - General Family Medicine 05/06/22 documented as of this encounter
== END 2024-09-28 14:17 | disposition home or self-care (01) ==
LOC: HO.NEURO 14:16
PROVIDERS: PCP Nurse Practitioner Primary Care; Visit Provider Nurse Practitioner Primary Care
DX: R20.0 Anesthesia of skin (principal)
CPT/HCPCS: 95911

== ENCOUNTER → 2024-09-28 14:20 | Outpatient (BNV) | payer MEDICARE, SELFPAY | PROVIDERS: PCP Nurse Practitioner Primary Care; Visit Provider Physical Medicine & Rehabilitation | DX: G56.01 Carpal tunnel syndrome, right upper limb (principal) | CPT/HCPCS: 95909 ==

== ENCOUNTER 2024-11-01 09:27 | Outpatient (AMB) | payer MEDICARE, MEDICAID, SELFPAY ==
--- NOTE | 2024-11-01 09:29 | MHC.OFFVIS ---
Vital Signs 11/01/24 09:30 11/01/24 09:44 Height 5 ft 5 ft Weight 151 lb BMI 29.5 BP 171/98 H Blood Pressure Location Rt brachial Position Sitting Pulse 79 Intake Visit Reasons: 6 mo f/u Gerd, IBS Intake Note: Patient in office today in follow up of GERD and IBS. CC: Patient reports that every time she eats foods with grease she gets abdominal pain and diarrhea. Tunnel Form Placing Supervisor Required: Yes Allergies latex Allergy (Severe, Verified 11/01/24 09:49) Angioedema dicyclomine [From Bentyl] Adverse Reaction (Severe, Verified 11/01/24 09:49) Dry Mucus Membranes HPI HPI 6 mo f/u Gerd, IBS: Details: Assessment & Plan (1) GERD (gastroesophageal reflux disease): Code(s): K21.9 - Gastro-esophageal reflux disease without esophagitis Category: Medical (2) Dysphagia, oropharyngeal: Code(s): R13.12 - Dysphagia, oropharyngeal phase Category: Medical (3) Erosive esophagitis: Code(s): K22.10 - Ulcer of esophagus without bleeding Category: Medical (4) IBS (irritable bowel syndrome): Code(s): K58.9 - Irritable bowel syndrome without diarrhea Category: Medical Plan [place] #Graddtr translates per pt request She feels that with her current GI medicine in the addition of occasional doses of Imodium she is well controlled. She continues on Creon, dicyclomine, and pantoprazole. Return office visit in 6 months Medications: New loperamide (Imodium A-D) 2 mg PO BID 60 caps 6RF K58.9 - Irritable bowel syndrome without diarrhea Refilled qecabd-upazqnby-qvhrlar 24,000-76,000 -120,000 unit (Creon) administer with meals and/or snacks 2 caps PO BID 360 caps 2RF 30 days K58.9 - Irritable bowel syndrome without diarrhea pantoprazole 40 mg PO BID 180 tabs 2RF K22.10 - Ulcer of esophagus without bleeding dicyclomine 40 mg (2 x 20 mg) PO QID 720 tabs 2RF R19.7 - Diarrhea, unspecified TODAY'S VISIT [place] #Gloria Live She stopped the benthl r/t dry mouth, and she also had a bad reaction to creon. She was doing well on the loperimide. She also takes simethicone for gas. She has been out of the loperimide, so she has been having postprandial BM's with urgency and diarrhea. She asks why this is, and I explain (since she DOES have a GB) this could be genetic pancreatic enzyme deficiencies, IBS, or even a s/e of her metformin. She confirms that she was changed to metformin in extended release r/t diarrhea severely with the IR dose. ROV 3 mos. She is due for repeat scope next year, but she is fearful of the prep - it caused nausea. She objects to the flavor, apparently the pharmacy mixed it for her - will try to get unmixed so she can do it herself. [facility] Medical History Pre-op examination Left upper quadrant abdominal pain Well woman exam with routine gynecological exam Tubular adenoma of colon Urinary tract infection Moderate persistent asthma Osteopenia Hyperlipidemia Essential hypertension Obesity (BMI 30.0-34.9) Poor circulation DM type 2 (diabetes mellitus, type 2) Migraine Diverticulitis Gastritis Asthma Anxiety Surgical History Status post total hysterectomy and bilateral salpingo-oophorectomy (BSO) History of esophagogastroduodenoscopy (EGD) Hx of breast biopsy H/O colonoscopy with polypectomy H/O total hysterectomy H/O tubal ligation Family History Maternal Aunt Stomach cancer Father HTN (hypertension) Heart disease Mother Diabetes Asthma Family/Other Diabetes HTN (hypertension) Social History Household Members Other:: son and 2 granddaughters Patient Tobacco Use Status: Never used Tobacco Female Reproductive History Menstrual Age of Menarche: 13 Review of Systems Const Denies fatigue, Denies fever(s), Denies night sweats, Denies poor appetite and Denies weight loss Eyes Details: glasses Reports requires corrective lenses ENT Reports Normal hearing present, Denies dental pain, Denies dysphagia, Denies hearing loss, Denies mouth pain, Denies odynophagia, Denies throat swelling, Denies tongue swelling and Reports other (Dentition adequate) Card Reports no additional complaints Resp Reports no additional complaints GI Details: Reports abdominal pain, Denies melena, Reports bloating, Denies hematochezia, Denies constipation, Denies GI cramping, Denies dysphagia, Denies excessive flatus, Denies early satiety, Reports heartburn, Reports diarrhea, Denies nausea, Denies odynophagia, Denies vomiting and Denies hematemesis Skin/Breast Denies pruritus, Denies lesions, Denies rash and Denies jaundice Neuro Reports Normal hearing present and Denies Abnormal speech present Endo Denies fatigue Aller/Immun Denies throat swelling and Denies tongue swelling Physical Exam Vital Signs: Last Vital Signs Pulse 79 11/01/24 09:44 BP 171/98 H 11/01/24 09:44 BMI result Body Mass Index 29.5 Const General: cooperative, no acute distress, well developed and well groomed Nutritional Appearance: well nourished and obese Orientation/consciousness: oriented to person, oriented to place and oriented to time Limitations: language barrier HEENT Head: Yes normocephalic and Yes atraumatic Eyes General: appearance normal, both eyes and all related structures Neck Neck: Yes normal visual inspection Resp Effort & Inspection: normal respiratory effort and able to speak in complete sentences GI Inspection: No distended, No Abdominal panniculus present and Yes obesity Palpation (GI): Soft to palpation, nontender, no guarding, not rigid and No hepatosplenomegaly present Percussion: Yes normal to percussion Auscultation: normal bowel sounds Rectal Exam - Female: deferred Skin General skin exam: no rashes or lesions noted Nails: normal Neuro General: oriented to person, oriented to place and oriented to time Cranial nerves: Yes Normal hearing present Speech: No Abnormal speech present Extrem General: Yes normal to inspection Psych Appearance: grossly normal and well kempt Mental Status: mental status grossly normal Speech and movement: Normal speech and movement present Affect: normal affect Attitude: cooperative Thought process: Normal thought process present and not confabulating Thought content: Normal thought content present Insight: Fair insight present (Psych) Judgement: Fair judgement present (Psych) Assessment & Plan Assessment & Plan (1) GERD (gastroesophageal reflux disease): Code(s): K21.9 - Gastro-esophageal reflux disease without esophagitis Category: Medical (2) Erosive esophagitis: Code(s): K22.10 - Ulcer of esophagus without bleeding Category: Medical (3) IBS (irritable bowel syndrome): Code(s): K58.9 - Irritable bowel syndrome, unspecified Category: Medical Plan [place] #Gloria Live She stopped the benthl r/t dry mouth, and she also had a bad reaction to creon. She was doing well on the loperimide and pantoprazole twice a day. She also takes simethicone for gas. She has been out of the loperimide, so she has been having postprandial BM's with urgency and diarrhea. She asks why this is, and I explain (since she DOES have a GB) this could be genetic pancreatic enzyme deficiencies, IBS, or even a s/e of her metformin. She confirms that she was changed to metformin in extended release r/t diarrhea severely with the IR dose. ROV 3 mos. She is due for repeat scope next year, but she is fearful of the prep - it caused nausea. She objects to the flavor, apparently the pharmacy mixed it for her - will try to get unmixed so she can do it herself. Medications: New simethicone (Gas Relief (simethicone)) 125 mg PO BID-QID PRN 180 caps 1RF abdominal distention Refilled pantoprazole 40 mg PO BID 180 tabs 2RF K22.10 - Ulcer of esophagus without bleeding Discontinued widvol-cpzlseib-selpwds 24,000-76,000 -120,000 unit (Creon) administer with meals and/or snacks Discontinued Reason: Doctor's Order 2 caps PO BID 30 days 360 caps 2RF K58.9 - Irritable bowel syndrome, unspecified Coding Level of Care Code Est Pt Level 3 (66455) Diagnoses GERD (gastroesophageal reflux disease) K21.9 Erosive esophagitis K22.10 IBS (irritable bowel syndrome) K58.9
[2024-11-01 09:44] VITALS: BP 171/98; PULSE 79; BMI 29.5
--- OUTSIDE RECORDS SUMMARY | 2024-11-01 10:37 | XMS_ITS | Encounter Summary ---
Author Organization [employer] Address [address] [place] [address] 7 [place] [address] Care Team Providers Care Camera Machinist Name Role Phone Ani Anguiano Primary Care Provider [phone] Reason for Visit * Reason Onset Date Comments Pre op 04/05/2024 Encounter Details Date Type Department Care Team (Late st Contact Info) Description 04/05/2024 Telephone [facility] [address] [place] [address] Ani Anguiano ANP [address] [place] [address] Pre op Social History Tobacco Use Types [...] for pre op 04/14/24 at 10:30AM with [place]. Appointment reminder letter mailed. * Telephone Encounter [...] Payne Facility name: [facility] Surgeon's office number: [phone] Surgeon's office fax number: [phone] Contact name (person you spoke with): Germania Last office note from surgeon requested: Yes documented in this encounter Plan of Treatment Upcoming Encounters Date Type Department Care Team (Late st Contact Info) Description 01/23/2025 1:00 PM EDT Office Visit [facility] [address] [place] [phone] Ani Anguiano ANP [address] [place] [address] 08/10/2025 10:00 AM EST Medication Management [address] [address] Emma Her, PharmD [address] [place] [phone] documented as of this encounter Visit Diagnoses Not on filedocumented in this encounter Additional Health Concerns Assessment Noted Time PHQ-9 Depression Total Score: 0 09/17/19 24 11:20 AM EST documented as of this encounter Care Teams Camera Machinist Relationship Specialty Start Date End Date Ani Anguiano ANP [address] [place] [address] PCP - General Family Medicine 05/06/22 documented as of this encounter
--- OUTSIDE RECORDS SUMMARY | 2024-11-01 10:37 | XMS_ITS | Encounter Summary ---
Author Organization [employer] Address [address] [place] [address] [address] [place] [address] Care Team Providers Care Apparel Cutter Name Role Phone Ani Anguiano Primary Care Provider [phone] Reason for Visit * Reason Onset Date Comments status on script 07/03/2022 Encounter Details Date Type Department Care Team ([facility] st Contact Info) Description 07/03/2022 Telephone [facility] [address] [place] [address] Ani Anguiano ANP [address] [place] [address] status on script Social History Tobacco Use [...] PM EST TC placed to pt at [phone] regarding message below per Dr. Butts. Pt informed medication was verbally called into [facility] pharmacy on [address] Pt verbalized understanding. Pt to F/U as needed. [facility] staff Edwige assisting with translation. Medication was verbally called at [facility] pharmacy [facility] this morning as the right order could not be found in our new EHR. * Telephone Encounter - Saray Aidan - 07/03/2022 8:54 AM EST Tc from Pt stated yesterday came to [facility] and they supposed to send a script for Oxy meter, Paxlovid and she said another medication but she doesn't know the name or what for to see if we can send script to [facility] on [address] [place] Anguiano The medication was called in for Ms Wheatley. [facility] does not have a pulse oxymeter. Pt will have to have someone rock picker one for her here at the [facility]. A script will be sent. documented in this encounter Plan of Treatment Upcoming Encounters Date Type Department Care Team (Late st Contact Info) Description 01/23/2025 1:00 PM EDT Office Visit [facility] [address] [place] [phone] Ani Anguiano ANP [address] [place] [address] 08/10/2025 10:00 AM EST Medication Management [facility] [address] [place] [phone] Emma Her, PharmD [address] [place] [address] documented as of this encounter Visit Diagnoses Diagnosis COVID-19- Primary documented in this encounter Care Teams Apparel Cutter Relationship Specialty Start Date End Date Ani Anguiano ANP [address] [place] [phone] PCP - General Family Medicine 05/06/22 documented as of this encounter
--- OUTSIDE RECORDS SUMMARY | 2024-11-01 10:37 | XMS_ITS | Encounter Summary ---
Author Organization [facility] Address [address] [place] [address] [address] [place] [address] Care Team Providers Care Environmental Safety Specialist Name Role Phone Ani Anguiano Primary Care Provider [phone] Reason for Visit * Reason Comments Med Refill Encounter Details Date Type Department Care Team (Late st Contact Info) Description 11/07/2022 Refill [facility] [address] [place] [address] Ani Anguiano ANP [address] [place] [address] Type 2 diabetes mellitus without complication, unspecified whether chcf insulin use ([facility]) Social History Tobacco Use Types Packs/Day Years [...] Description 01/23/2025 1:00 PM EDT Office Visit [facility] [address] [place] [address] [phone] Ani Anguiano ANP [address] [place] [address] 08/10/2025 10:00 AM EST Medication Management [facility] [address] [place], [place] [phone] Emma Her, Luiz [address] [place] [address] documented as of this encounter Visit Diagnoses Diagnosis Type 2 diabetes mellitus without complication, unspecified whether chcf insulin use ([facility]) documented in this encounter Additional Health Concerns Assessment Noted Time PHQ-9 Depression Total Score: 0 08/26/19 23 2:13 PM EST documented as of this encounter Care Teams Environmental Safety Specialist Relationship Specialty Start Date End Date Ani Anguiano ANP [address] [place] [phone] PCP - General Family Medicine 05/06/22 documented as of this encounter
--- OUTSIDE RECORDS SUMMARY | 2024-11-01 10:37 | XMS_ITS | Clinical Summary ---
Author Organization [employer] Address [address] [facility] [address] [place] [address] Care Team Providers Care General Doc Name Role Phone Cristiano Hairston Primary Care Provider [phone] Allergies Active Allergy Reactions Criticality Noted Date Comments Latex 05/23/2021 Medications Blood Pressure kit Active Misc. Devices (Pulse Oximeter For Finger) miscIndications:C OVID-19 To use every 4 hours. To contact the office if O2 sat < 90% 1 each 022 Active dicyclomine (Bentyl) 20 MG tablet TAKE 2 TABLETS BY MOUTH 4 TIMES A DAY 023 Active pantoprazole (ProtoNix) 40 MG EC tablet Take 40 mg by mouth 2 times daily. 023 Active glucose blood (OneTouch Ultra) test stripIndications: Hypertension associated with diabetes ([facility]) Use to test blood sugar 3 times daily 100 each 12 024 2024 Active OneTouch Delica Lancets 33G miscIndications:H ypertension associated with diabetes ([facility]) Use to test blood sugar 3 times daily 100 each 11 024 Active Blood Glucose Monitoring Suppl (ONE TOUCH ULTRA 2) w/Device kitIndications:Hy pertension associated with diabetes ([facility]) Use to test blood sugar 3 times daily 1 kit 024 Active butalbital-acetam inophen-caffeine 50-325-40 MG tabletIndications :Migraine without status migrainosus, not intractable, unspecified migraine type TAKE 1 TO 2 TABLETS BY MOUTH EVERY 4 HOURS NEEDED DO NOT EXCEED 6 TABLETS IN 24 HOURS. TRATA DE USAR MENOS DE 3 BHATTI POR MES 12 tablet 1 Active lidocaine (Lidoderm) 5 % patchIndications: Upper back pain on right side Apply 1 patch topically Once per day. Remove & discard patch within 12 hours or as directed by MD. 30 patch 2 Active meloxicam (Mobic) 7.5 MG tabletIndications :Osteoarthritis Take 7.5 mg by mouth if needed for moderate pain. Active sharps containerIndicati ons:Type 2 diabetes mellitus with hyperlipidemia ([facility]/HCC) ([facility]) Use for disposal of used pen needles, lancets, needles, syringes, injection supplies 1 each Active ketorolac (Acular) 0.5 % ophthalmic solution INSTILL 1 DROP INTO OPERATIVE EYE 3 TIMES A DAY STARTING 2 DAYS PRIOR TO SURGERY. TAPER DIRECTED. Active loperamide (Imodium) 2 MG capsule Take 2 capsules by mouth in the morning. OTC Active simethicone (Mylicon) 80 MG chewable tablet Chew 1 tablet if needed each day for flatulence. OTC Active acetaminophen (Tylenol) 500 MG tablet Take 1 tablet by mouth if needed each day for mild pain. OTC Active cetirizine (ZyrTEC) 10 MG tabletIndications :Non-seasonal allergic rhinitis due to other allergic trigger Take 1 tablet (10 mg) by mouth Once per day. As needed for allergies 90 tablet 1 Active fluticasone-salme terol (Advair HFA) 230-21 MCG/ACT inhalerIndication s:Asthma, moderate persistent, well-controlled Inhale 2 puffs in the morning and at bedtime. Rinse mouth with water after use to reduce aftertaste and incidence of candidiasis. Do not swallow. 36 g 1 024 Active hydrOXYzine HCl (Atarax) 25 MG tablet Take 1 tablet by mouth if needed each day for anxiety. Active melatonin 3 MG tabletIndications :Insomnia, unspecified type Place 1 tablet (3 mg) under the tongue if needed at bedtime (difficulty sleeping). 90 tablet 1 025 Active cholecalciferol (Vitamin D-3) 20 MCG (800 UNIT) tabletIndications :Osteopenia, unspecified location Take 1 tablet (20 mcg) by mouth Once per day. 90 tablet 3 025 Active Alcohol Swabs (Alcohol Prep) 70 % padsIndications:T ype 2 diabetes mellitus without complication, unspecified whether usp insulin use ([facility]) USE DIRECTED TWICE DAILY 100 each 11 025 Active empagliflozin (Jardiance) 10 MGIndications:Typ e 2 diabetes mellitus with hyperlipidemia (CMS/HCC) ([facility]) Take 1 tablet (10 mg) by mouth Once per day. 30 tablet 025 2025 Active atorvastatin (Lipitor) 10 MG tabletIndications :Type 2 diabetes mellitus with hyperlipidemia ([facility]/HCC) ([facility]) Take 1 tablet (10 mg) by mouth at bedtime. 90 tablet 3 025 2025 Active enalapril (Vasotec) 10 MG tabletIndications :Hypertension associated with diabetes ([facility]) TAKE 1 TABLET BY MOUTH EVERY DAY IN THE MORNING 90 tablet 3 025 Active metFORMIN XR (Glucophage-XR) 500 MG 24 hr tabletIndications :Hypertension associated with diabetes ([facility]) TAKE 2 TABLETS BY MOUTH EVERY TWELVE HOURS 360 tablet 3 025 Active pregabalin (Lyrica) 100 MG capsuleIndication s:Bilateral leg pain Take 1 capsule (100 mg) by mouth 2 times daily. 60 capsule 2 025 Active Ventolin HFA 108 (90 Base) MCG/ACT inhalerIndication s:Asthma, moderate persistent, well-controlled INHALE 2 PUFFS BY MOUTH EVERY 4 HOURS NEEDED FOR WHEEZING OR SHORTNESS OF BREATH 18 g 1 025 Active Alcohol Swabs (Alcohol Prep) padsIndications:T ype 2 diabetes mellitus without complication, unspecified whether usp insulin use ([facility]) Use as needed 100 each 11 023 2024 Discontinued Ventolin HFA 108 (90 Base) MCG/ACT inhalerIndication s:Asthma, moderate persistent, well-controlled INHALE 2 PUFFS BY MOUTH EVERY 4 HOURS NEEDED FOR WHEEZING OR SHORTNESS OF BREATH 18 g 1 024 2024 Discontinued metFORMIN XR (Glucophage-XR) 500 MG 24 hr tabletIndications :Hypertension associated with diabetes (CMS/HCC) TAKE 2 TABLETS BY MOUTH EVERY TWELVE HOURS 360 tablet 1 024 2024 Discontinued(R eorder (will not trigger notification to Pharmacy)) pregabalin (Lyrica) 100 MG capsuleIndication s:Bilateral leg pain TAKE 1 CAPSULE BY MOUTH TWICE DAILY 60 capsule 2 024 2024 Discontinued(R eorder (will not trigger notification to Pharmacy)) atorvastatin (Lipitor) 10 MG tabletIndications :Type 2 diabetes mellitus with hyperlipidemia (CMS/HCC) (CMS/HCC) Take 1 tablet (10 mg) by mouth Once per day. 90 tablet 1 024 2024 Discontinued(R eorder (will not trigger notification to Pharmacy)) enalapril (Vasotec) 10 MG tabletIndications :Hypertension associated with diabetes (CMS/HCC) TAKE 1 TABLET BY MOUTH EVERY DAY IN THE MORNING 90 tablet 024 2024 Discontinued(R eorder (will not trigger notification to Pharmacy)) zoster vaccine-recombina nt adjuvanted (Shingrix) 50 MCG/0.5ML vaccine Inject 0.5 mL (50 mcg) into the muscle 1 (one) time for 1 dose. Repeat as directed. 1 each 1 025 2024 Active Problems Problem Noted Date Diagnosed Date Bilateral carpal tunnel syndrome 10/16/2024 Chronic left-sided low back pain with left-sided sciatica 10/13/2024 Difficulty walking 10/13/2024 Requires assistance with activities of daily adelso ing (ADL) 08/24/2024 Obstructive sleep apnea syndrome 07/02/2022 Overview (01/20/2024): Follows w sleep med, PROGRAM RESEARCH SPECIALIST Jacinto Urinary tract infectious disease 07/02/2022 Multiple renal cysts 10/30/2021 Asthma, well controlled 05/08/2021 Hypertension associated with diabetes 05/08/2021 Obesity 05/08/2021 Osteopenia 05/08/2021 Type 2 diabetes mellitus with hyperlipidemia ([facility]/HCC) 05/08/2021 Resolved Problems Problem Noted Date Diagnosed Date Resolved Date COVID-19 07/02/2022 09/28/2022 Encounters Date Type Department Care Team Description 10/22/2024 Refill [facility] [address] [place] [phone] Cristiano Hairston ANP Asthma, moderate persistent, well-controlled 10/17/[address] [phone] Cristiano Hairston ANP Durable Medical Equipment 10/17/2024 Travel 10/13/2024 9:15 AM EDT Office Visit [address] [phone] Cristiano Hairston ANP Osteopenia, unspecified location (Primary Dx); Type 2 diabetes mellitus with hyperlipidemia (CMS/HCC) (CMS/HCC); Dietary counseling; Exercise counseling; Ambulates with cane; Requires assistance with activities of daily living (ADL); Chronic left-sided low back pain with left-sided sciatica; Difficulty walking; Hypertension associated with diabetes (CMS/HCC) (CMS/HCC); Bilateral leg pain; Bilateral carpal tunnel syndrome; History of left breast biopsy 10/13/2024 Travel 10/12/[address] [address] Cristiano Hairston ANP Type 2 diabetes mellitus without complication, unspecified whether usp insulin use (CMS/HCC) 10/11/[address] [phone] Jennifer Jean MA chart prep 10/02/2024 Patient Outreach [address] [phone] Cristiano Hairston ANP Pre-visit Planning (SDOH Screening negative and Tobacco screening negative) 08/24/2024 2:15 PM EST Office Visit [address] [address] Cristiano Hairston ANP Acute left-sided low back pain with left-sided sciatica (Primary Dx); Hypertension associated with diabetes (CMS/HCC) (CMS/HCC); Difficulty sleeping; Osteopenia, unspecified location; Requires assistance with activities of daily living (ADL) 08/24/2024 Refill [facility] [address] [place] [phone] Cristiano Hairston ANP Hypertension associated with diabetes (CMS/HCC) (CMS/HCC); Bilateral leg pain 08/24/2024 Travel 08/23/2024 Orders Only [facility] [address] [place] [phone] Cristiano Hairston ANP 08/17/[address] [address] Nuvia Billingsley, BEHAVIORAL INTERVENTIONIST Follow-up 08/16/2024 9:40 AM EST Office Visit [facility] [address] [place] [phone] Robert Pinto MD Acute left-sided low back pain with left-sided sciatica (Primary Dx); Left inguinal pain; Hypertension associated with diabetes (CMS/HCC) (CMS/HCC) 08/16/2024 Orders Only [facility] [address] [place] [phone] Cristiano Hairston ANP 08/11/[address] [phone] Sol Husain [place] September recall 08/11/2024 Travel 08/09/[address] [phone] Merry Wan, SCOTT Results from Last 3 Months Immunizations Name Administration Dates Next Due Hep A, Adult 10/13/2019,04/13/2019 Hep B, Unspecified 08/18/1991,03/03/1991 Hep B, adult 08/18/1991,03/03/1991,01/27/1991 Influenza injectable quadriv alent preservative free 05/20/2023,09/28/2022,05/08/2021 Influenza, IIV3, injectable 05/08/2021,1 ,01/10/2002,05/03,11/25/1994 Influenza, seasonal, injecta ble, preservative free 06/06/2024 MMR 02/23/1997,05/10/1995 Pfizer Covid-19 Vaccine 12+ 06/19/2021,,12/25/2020 Pneumococcal Conjugate PCV 20 05/20/2023 Pneumococcal Polysaccharide PPSV23 10/12/2018 RSV Bivalent 10/17/2024 TD (adult), 2 Lf tetanus tox oid, [...] Answer Date Recorded Patient Health Questionnaire-9 Score 6 10/13/2024 Patient Health Questionnaire-9 Score 6 10/13/2024 Last PHQ-9: Questionnaire Data Not on file 0 10/13/2024 Housing Stability Answer Date Recorded What is your housing situation today? I have shanae blanchard 10/02/[address] you li ve. Do you have problems with any of the following? None of the above 10/02/2024 Food Insecurity Answer Date Recorded Within the past 12 months, y ou worried that your food would run out before you got money to buy more: Never True 10/02/2024 Within the past 12 months,th e food you bought just didn't last and you didn't have enough money to get more: Never True 09/2024 Transportation Answer Date Recorded In the past 12 months, has l ack of transportation kept you from medical appts, meetings, work or from getting things needed for daily living? No 10/02/2024 Utilities Answer Date Recorded In the past 12 months, has t he electric, gas, oil or water company threatened to shut off services in your home? No 10/02/2024 Depression Answer Date Recorded Patient Health Questionnaire-2 Score 2 10/13/2024 Internet Access Answer Date Recorded Internet Access Q1 Yes 10/02/2024 Internet Access Q2 Not on file 10/02/2024 Comments No Sex and Gender Information Value Date Recorded Sex Assigned at Female 06/01/2022 10:39 AM EDT Legal Sex Female 10:39 AM EDT Gender Identity Female 06/01/2022 10:39 AM EDT Sexual Orientation Straight 06/01/2022 10 :39 AM EDT Last Filed Vital Signs Vital Sign Reading Time Taken Comments Blood Pressure 130/77 10/13/2024 10:01 AM EDT Pulse 83 10/13/2024 10:01 AM EDT Temperature 36.7 ??C (98 ??F) 10/13/2024 10: 01 AM EDT Respiratory Rate 14 10/13/2024 10:0 1 AM EDT Oxygen Saturation 97% 10/13/2024 10: 01 AM EDT Inhaled Oxygen Concentration - - Weight 64.3 kg (141 lb 12.8 oz) 025 10:01 AM EDT Height 154.9 cm (5' 1 ) 10/13/2024 10:0 1 AM EDT Body Mass Index 26.79 10/13/2024 10:01 AM EDT Plan of Treatment Upcoming Encounters Date Type Department Care Team (Late st Contact Info) Description 01/23/2025 1:00 PM EDT Office Visit [facility] [address] [place] [phone] Cristiano Hairston, ANP [address] [place] [address] 08/10/2025 10:00 AM EST Medication Management [facility] [address] [place] [phone] Emma Her, PharmD [address] [place] [address] Health Maintenance Due Date Last Done Comments CT Colonography 1962 FIT DNA/Cologuard 1962 FIT 1962 FOBT 1960 Sigmoidoscopy 1962 Alcohol/Substance Use Screening 1974 Hepatitis C Screening 1980 Pap Smear 12/22/1983 HPV/Cotest 1992 Zoster Vaccines (1 of 2) 2012 COVID-19 Vaccine ( season) 2024 06/19/2021, 01/15/2021, 12/25/2020 Mammogram 11/18/2024 11/19/2023, 10/31, 11/12/2021, Additional history exists Diabetes: Hemoglobin A1C 01/13/2025 025, 06/06/2024, 01/20/2024, Additional history exists Diabetes: Foot Exam 01/19/2025 01/20/2024, 01/20/2024, 01/20/2024, Additional history exists Diabetes: Urine Protein Screening 01/26/2025 01/27/2024, 02/23/2023, 05/08/2021 Lipid Panel 07/18/2025 07/18/2024, 01/01, 02/23/2023, Additional history exists SDOH Screening 10/02/2025 10/02/2024 Depression Screening 10/13/2025 10/13/2024, 10/14/19 Tobacco Screening 10/13/2025 10/13/2024 Eye Exam 03/27/2026 03/27/2024, 03/03, 03/27/2024, Additional history exists Colonoscopy 07/14/2026 Colorectal [...] Completed 06/06/2024, , 09/28/2022, Additional history exists RSV Patients and Patients Aged 60 years or older Completed 10/17/2024 Cervical Cancer Screening Discontinued HIB Vaccines Aged [...] Name Priority Date/Time Associated Diagnosis Comments POCT GLYCATED HEMOGLOBIN, TOTAL Routine 10/13/2024 10:11 AM EDT Osteopenia, unspecified location POCT GLUCOSE Routine 10/13/2024 10:09 AM EDT Osteopenia, unspecified location POCT URINALYSIS DIPSTICK Routine 08/16/2024 10:46 AM EST Acute left-sided low back pain with left-sided sciatica Left inguinal pain CULTURE, URINE, ROUTINE Routine 08/16/2024 10:43 AM EST Acute left-sided low back pain with left-sided sciatica VITAMIN B12/FOLATE, SERUM PANEL Routine 08/16/2024 9:30 AM EST HEPATIC FUNCTION PANEL Routine 08/16/2024 9:30 AM EST Type 2 diabetes mellitus with hyperlipidemia (CMS/HCC) (CMS/HCC) LIPID PANEL, STANDARD Routine 07/18/2024 9:05 AM EST Type 2 diabetes mellitus with hyperlipidemia (CMS/HCC) (CMS/HCC) ALBUMIN, RANDOM URINE W/CREATININE Routine 01/27/2024 9:32 AM EDT Type 2 diabetes mellitus without complication, without long-term current use of insulin (CMS/HCC) BI MAMMOGRAM SCREENING TOMOSYNTHESIS BILATERAL Routine 11/19/2023 9:20 AM EDT HIV 1/2 ANTIGEN/ANTIBODY, FOURTH GENERATION W/RFL Routine 05/08/2021 10:50 AM EDT from Last 3 Months or Most Recently Relevant to Health Maintenance Results * (ABNORMAL) POCT HGB A1C (10/13/2024 10:11 AM EDT) Hemoglobin A1C 7.7(A) 4.0 - 6.0 % QC Media Lot # [id number] Lot# Expiration Date , 6 Blood 10/13/2024 10:1 1 AM EDT us Cristiano Hairston ANP POINT OF CARE TEST ENTER/EDIT OR DERABLES Final Result * POCT Glucose (10/13/2024 10:09 AM EDT) Pathologist [facility] Glucose Blood, POC 121 60 - 200 mg/dL QC Media Lot # [id number] Lot# Expiration Date [id number] Blood Capillary blood specimen / Unknown 10/13/2024 10:09 AM EDT Cristiano Hairston ANP POINT OF CARE TEST ENTER/EDIT OR DERABLES Final Result * POCT urinalysis dipstick manually resulted (08/16/2024 10:46 AM EST) Pathologist [facility] Color, UA Yellow Clarity, UA Clear Glucose, UA Negative Bilirubin, UA Negative Ketones, UA Negative Spec Grav, UA 1.010 Blood, UA Negative Negative, None Detected pH, UA 6.5 Protein, UA Negative Urobilinogen, UA 0.2 Leukocytes, UA Trace Negative, Rare, Trace Nitrite, UA Negative Negative, None Detected Urine 08/16/2024 10:4 6 AM EST us Robert Pinto MD POINT OF CARE TEST ENTER/EDIT OR DERABLES Final Result * Culture, Urine, Routine (08/16/2024 10:43 AM EST) Urine Urine specimen obtained by clean catch procedure / Unknown 08/16/2024 10:43 AM EST 08/16/2024 1:29 PM EST Comment:[facility] Narrative [facility] - 08/17/2024 11:56 AM EST Urine Culture Report Result Urine Culture 10,000 to 50,000 cfu/ml Urine Culture Mixed bacterial hailey characteristic of Urine Culture urogenital contamination. Specimen Source: Urine clean catch Robert Pinto MD LAB MICROBIOLOGY - GENERAL ORDER KEENAN Final Result Performing Organization Address City/[facility]/ZIP Co de Phone Number [facility] [address] [place] [phone] * Vitamin B12 (Cobalamin) and Folate Panel, Serum (08/16/2024 9:30 AM EST) Vitamin B12 321 200 - 900 pg/mL [facility] Comment:NORMAL 200-900 PG/ML INDETERMINATE 160-199 PG/ML DEFICIENT < 160 PG/ML Folate 15.2 > or = 4.0 ng/mL [facility] Comment:Reference Values:> o r = 4.0 ng/mL< 4.0 ng/mL suggests folate deficiency Methotrexate, aminopterin and folinic acid(leucovorin) are chemotherapeutic agents whose molecularstructures are similar to folate; therefore, the Architectfolate assay cannot be used for patients using these drugs. 08/16/2024 9:30 AM EST 08/16/2024 11:05 AM EST Cristiano SMITH LAB BLOOD ORDERABLES Final Resul t Performing Organization Address [facility] Co de Phone Number [facility] [address] [place] [phone] * Hepatic Function Panel (08/16/2024 9:30 AM EST) Bilirubin, Total 0.7 0.0 - 1.0 mg/dL [facility] Bilirubin, Direct 0.2 0.0 - 0.5 mg/dL [facility] Aspartate Amino Transferase 29 5 - 31 U/L [facility] Alanine Aminotransferase 27 0 - 31 U/L [facility] Total Protein 7.7 6.5 - 8.0 g/dL [facility] Albumin Level 4.5 3.5 - 5.0 g/dL [facility] Alkaline Phosphatase 65 39 - 117 U/L [facility] Blood Venous blood specimen / Unknown 08/16/2024 9:30 AM EST 08/16/2024 11:05 AM EST Cristiano Hairston [facility] LAB BLOOD ORDERABLES Final Resul t Performing Organization Address [facility] Co de Phone Number [facility] [address] [place] [phone] * (ABNORMAL) Lipid Panel, Standard (07/18/2024 9:05 AM EST) Triglycerides 98 <150 mg/dL [facility] Comment:Desirable Triglyceri de: less than 150 mg/dLBorderline High Triglyceride 150-199 mg/dLHigh Triglyceride: 200-499 mg/dLVery High Triglyceride: greater than or equal to 5OO mg/dL Cholesterol 117 <200 mg/dL [facility] Comment:Desirable Cholestero l: less than 200 mg/dLBorderline High Cholesterol: 200-239 mg/dLHigh Cholesterol: greater than 239 mg/dL LDL Cholesterol Calculated 59 <100 mg/dL [facility] Comment:Desirable LDL: less than 100 mg/dLNear Optimal/Above Optimal LDL: 110- 129 mg/dLBorderline High LDL: 130-159 mg/dLHigh LDL: 160-189 mg/dLVery High LDL: greater than or equal to 190 mg/dL HDL Cholesterol 39(L) >40 mg/dL [facility] Comment:Desirable HDL: grea ter than 40 mg/dL Note: This HDL assay may give artificially low results in patients with liver disease. Blood Venous blood specimen / Unknown 07/18/2024 9:05 AM EST 07/18/2024 11:00 AM EST us Cristiano Hairston ANP LAB BLOOD ORDERABLES Final Resul t Performing Organization Address [facility]/ZIP Co de Phone Number [facility] [address] [place] [phone] * (ABNORMAL) Albumin, Random Urine W/Creatinine (01/27/2024 9:32 AM EDT) Creatinine, Urine 40.16 mg/dL [facility] Microalbumin Urine 16.0 mg/L [facility] Microalbum Creatinine Ratio Ur 39.8(H) <30 ug/mg cr [facility] Comment:Albumin/Creatinine R atio Reference Ranges: Normal: < 30 ug/mg creatinine Microalbuminuria: 30 - 300 ug/mg creatinineClinical Albuminuria: > 300 ug/mg creatinine Urine 01/27/2024 9:32 AM EDT 01/27/2024 11:21 AM EDT us Cristiano Hairston ANP LAB URINE ORDERABLES Final Resul t [facility] [address] [place] [phone] * BI Mammogram Screening Tomosynthesis Bilateral (11/19/2023 9:20 AM EDT) Anatomical Region Laterality Modality Breast Bilateral Mammography 11/19/2023 9:20 AM EDT Narrative 12/19/2023 10:00 PM EDT ? [facility] ? [address] ?[place] [id number] ? Mammography Report ? Signed ? Patient: Efrrer DioniBrooklynn Hutton ?MR#: ?? [id number] ? : 1960 ?Acct:[id number] ? Age/Sex: 62 / F ?ADM Date: 04/19/24 ? Loc: HO.MAMMO ? Attending Dr: Cristiano Hairston PROGRAM RESEARCH SPECIALIST ? Ordering Physician: CRISTIANO HAIRSTON NP ?Results: 2Benign Fin ?? dings ? Date of Service: /19/24 ?Follow Up: 1 Year From Orig ?? inal Mammogram ? Procedure(s): MM tomosynthesis screening BI ?? Accession Number(s): [id number] ? cc: MARIKA,CRISTIANO BURGOS ? EXAMINATION: ?? MM SCREENING DIGITAL BREAST [...] MD ? Signed By: ?<Electronically signed by Brianna Winkler MD in OV> ? 12/19/232156 ? DD/ 9 ? TD/TT: ? Cable Tool Driller: ? Procedure Note Conrad, Image - 12/19/2023 [facility] [address] [place] [address] Dr. [place], [place] [id number] Mammography Report Signed Patient: Brooklynn De La Rosa EMR#: [id number] : 1960Acct:[id number] Age/Sex: 62 / FADM Date: 11/19/23 Loc: [facility] Attending Dr: Cristiano Hairston NP Ordering Physician: CRISTIANO HAIRSTON NPResults: 2Byogn Tai dumont Date of Service: 11/19/23Follow Up: 1 Year From Orig inal Mammogram Procedure(s): MM tomosynthesis screening BI Accession Number(s): [id number] cc: CRISTIANO HAIRSTON NP EXAMINATION: MM SCREENING [...] Brianna Winkler MD in OV> 12/19/237 DD/ 0920 TD/TT: Cable Tool Driller: Cristiano Hairston ANP IMG BI PROCEDURES Edited Result - Final * HIV 1/2 ANTIGEN/ANTIBODY,FOURTH GENERATION W/RFL (05/08/2021 10:50 AM EDT) HIV-1/2 ANTIGEN AND ANTIBODIES, 4TH GENERATION W/ REFLEX NON-REACT [facility] NON-REACT [facility] Comment: HIV-1 antigen and HIV-1/HIV-2 [...] ? For additional information please refer to http://education.Valderm/faq/NWH268 (This link is being provided for informational/ educational purposes only.) ? The performance of this assay has not been clinically validated in patients less than 2 years old. ?? 05/08/2021 10:5 0 AM EDT us Chanell Lorenz PROGRAM RESEARCH SPECIALIST LAB BLOOD ORDERABLES Final Res ult Performing Organization Address City/State/[facility] Co wy Phone Number [facility] Anywhere [address] from Last 3 Months or Most Recently Relevant to Health Maintenance Insurance [facility] MEDICARE REPLACEMENT Care Teams General Doc Relationship Specialty Start Date End Date Cristiano Hairston ANP [address] [place] [phone] PCP - General Family Medicine 05/06/22
--- OUTSIDE RECORDS SUMMARY | 2024-11-01 10:37 | XMS_ITS | Encounter Summary ---
Author Organization [employer] [facility] Address [address] [place] [address] 7t [place] [address] Care Team Providers Care Ventilator Specialist Name Role Phone Ani Anguiano Primary Care Provider [phone] Encounter Details Date Type Department Care Team (Late Contact Info) Description 07/02/2022 Abstract [facility] MEDICINE [address] [place] [phone] ProviderAnabella MD Social History Tobacco Use Types [...] Description 01/23/2025 1:00 PM EDT Office Visit [facility] MEDICINE [address] [place] [address] [phone] Ani Anguiano ANP [address] [place] [address] 08/10/2025 10:00 AM EST Medication Management [facility] MEDICINE [address] [place] [address] [phone] Emam Her, PharmD [address] [place] [address] documented as of this encounter Visit Diagnoses Not on filedocumented in this encounter Care Teams Ventilator Specialist Relationship Specialty Start Date End Date Ani Anguiano ANP [address] [place] [address] PCP - General Family Medicine 05/06/22 documented as of this encounter
--- OUTSIDE RECORDS SUMMARY | 2024-11-01 10:37 | XMS_ITS | Encounter Summary ---
Author Organization [employer] [facility] Address [address] [place] [address] 7 [place] [address] Care Team Providers Care Card Punching Machine Operator Name Role Phone Ani Anguiano Primary Care Provider [phone] Reason for Visit * Reason Comments Med Refill Encounter Details Date Type Department Care Team (Late st Contact Info) Description 11/09/2022 Refill [facility] MEDICINE [address] [place] [address] Ani Anguiano ANP 230 [place] [address] Type 2 diabetes mellitus without complication, without long-term current use of insulin ([facility]) Social History Tobacco Use Types Packs/Day Years [...] Description 01/23/2025 1:00 PM EDT Office Visit [facility] MEDICINE [address] [place] [address] Ani Anguiano ANP [address] [place] [address] 08/10/2025 10:00 AM EST Medication Management [facility] MEDICINE 230 [place], [place] [phone] Emma Her PharmD 230 [place] [address] documented as of this encounter Visit Diagnoses Diagnosis Type 2 diabetes mellitus without complication, without long-term current use of insulin ([facility]) documented in this encounter Additional Health Concerns Assessment Noted Time PHQ-9 Depression Total Score: 0 08/26/19 23 2:13 PM EST documented as of this encounter Care Teams Card Punching Machine Operator Relationship Specialty Start Date End Date Ani Anguiano ANP [address] [place] [address] PCP - General Family Medicine 05/06/22 documented as of this encounter
--- OUTSIDE RECORDS SUMMARY | 2024-11-01 10:37 | XMS_ITS | Encounter Summary ---
Author Organization [employer] Address [address] [place] [address] 7t [place] [address] Care Team Providers Care Supply Chain Engineer Name Role Phone Ani Anguiano Primary Care Provider [phone] Reason for Visit * Reason Comments Med Refill Encounter Details Date Type Department Care Team ([facility] st Contact Info) Description 08/24/2024 Refill [facility] MEDICINE [address] [place] [address] Ani Anguiano ANP 230 [place] [address] Hypertension associated with diabetes (CMS/HCC) (CMS/HCC); Bilateral [...] the past 12 months, has t he [employer], gas, oil or water company threatened to [...] Description 01/23/2025 1:00 PM EDT Office Visit [facility] MEDICINE [address] [place] [phone] Ani Anguiano ANP [address] [place] [address] 08/10/2025 10:00 AM EST Medication Management [facility] MEDICINE [address] [place] [phone] Emma Her, PharmD [address] [place] [address] documented as of this encounter Visit Diagnoses Diagnosis Hypertension associated with diabetes (CMS/HCC) Unspecified essential hypertension Bilateral leg pain Pain in soft tissues of limb documented in this encounter Additional Health Concerns Assessment Noted Time PHQ-9 Depression Total Score: 0 09/17/19 24 11:20 AM EST documented as of this encounter Care Teams Supply Chain Engineer Relationship Specialty Start Date End Date Ani Anguiano ANP [address] [place] [address] PCP - General Family Medicine 05/06/22 documented as of this encounter
--- OUTSIDE RECORDS SUMMARY | 2024-11-01 10:37 | XMS_ITS | Encounter Summary ---
Author Organization [employer] [facility] Address [address] [place] [address] 7 [place] [address] Care Team Providers Care Lockstitch Cup Setter Name Role Phone Ani Anguiano Primary Care Provider [phone] Encounter Details Date Type Department Care Team (Late st Contact Info) Description 10/30/2022 Orders Only [facility] MEDICINE [address] [place] [address] [phone] Ani Anguiano ANP [address] [place] [address] [phone] Social History Tobacco Use Types Packs/Day Years [...] Description 01/23/2025 1:00 PM EDT Office Visit [facility] MEDICINE [address] [place] [phone] Ani Anguiano ANP [address] [place] [address] [phone] 08/10/2025 10:00 AM EST Medication Management [facility] MED[facility] [address] [place] [address] Emma Her, PharmD 230 [place] [address] documented as of this encounter Procedures Procedure Name Priority Date/Time Associated Diagnosis Comments VITAMIN D,25-OH,TOTAL,IA Routine 02/23/2023 2:28 PM EDT BI MAMMOGRAM SCREENING TOMOSYNTHESIS BILATERAL Routine 11/16/2022 9:54 AM EDT documented in this encounter Results * Vitamin D, 25-Hydroxy, Total, Immunoassay (02/23/2023 2:28 PM EDT) Vitamin D 25-OH Total 45.3 >30 ng/mL [facility] Comment:Health Based Referen ce Values*< 20 ng/mL Xlfbllwyy24-99 ng/mL Insufficient> 30 ng/mL Sufficient*Josh RUBIO. N [...] EDT 02/23/2023 4:02 PM EDT Ani Anguiano [facility] BLOOD ORDERABLES Final Resul t [facility] [address] [place] [address] [phone] * BI Mammogram Screening Tomosynthesis Bilateral (11/16/2022 9:54 AM EDT) Anatomical Region Laterality Modality Breast Bilateral Mammography 11/16/2022 9:54 AM EDT Narrative 11/17/2022 1:31 PM EDT ? [facility] ? [address] ?[place] [address] ? Mammography Report ? Signed ? Patient: Brooklynn De La Rosa ?MR#: ?? [id number] ? : 1960 ?Acct:[id number] ? Age/Sex: 61 / F ?ADM Date: 11/16/22 ? Loc: HO.MAMMO ? Attending Dr: Ani Anguiano MEDICAL CSR ? Ordering Physician: Chanell Lorenz MEDICAL CSR ?Results: 1Negat ?? martin ? Date of Service: 11/16/22 ?Follow Up: 1 Year From Orig ?? inal Mammogram ? Procedure(s): MM tomosynthesis screening BI ?? Accession Number(s): [id number] ? cc: Chanell Lorenz MEDICAL CSR ? EXAMINATION: ?? MM SCREENING DIGITAL BREAST [...] 1328 ? DD/ 0954 ? TD/TT: ? Clinical Care Coordinator: SK ? Procedure Note Conrad, Image - 11/17/2022 [facility] [address] [place] [address] Mammography Report Signed Patient: Brooklynn De La Rosa EMR#: [id number] : 1960Acct:[id number] Age/Sex: 61 / FADM Date: 11/16/22 Loc: ANOOPO Attending Dr: Ani Anguiano MEDICAL CSR Ordering Physician: Chanell Lorenz NPResults: 1Negat martin Date of Service: 11/16/22Follow Up: 1 Year From Orig inal Mammogram Procedure(s): MM tomosynthesis screening BI Accession Number(s): [id number] cc: Chanell Lorenz NP EXAMINATION: MM SCREENING [...] in OV> 11/17/22 1328 DD/ 0954 TD/TT: Clinical Care Coordinator: GABBIE [facility] External Provider IMG BI PROCEDURES Final Result documented in this encounter Visit Diagnoses Not on filedocumented in this encounter Additional Health Concerns Assessment Noted Time PHQ-9 Depression Total Score: 0 08/26/19 23 2:13 PM EST documented as of this encounter Care Teams Lockstitch Cup Setter Relationship Specialty Start Date End Date Ani Anguiano ANP [address] [place] [phone] PCP - General Family Medicine 05/06/22 documented as of this encounter
--- OUTSIDE RECORDS SUMMARY | 2024-11-01 10:37 | XMS_ITS | Encounter Summary ---
Author Organization [employer] Address [address] 7t [place] [address] Care Team Providers Care Dispatch Specialist Name Role Phone Ani Anguiano Primary Care Provider [phone] Encounter Details Date Type Department Care Team (Late st Contact Info) Description 04/14/2024 Orders Only [facility] MEDICINE [address] [place] [address] Ani Anguiano ANP [address] [place] [address] Social History Tobacco Use Types Packs/Day Years [...] Description 01/23/2025 1:00 PM EDT Office Visit [facility] MEDICINE [address] [place] [address] Ani Anguiano ANP [address] [place] [address] 08/10/2025 10:00 AM EST Medication Management [address] [address] Emma Her, PharmD [address] [place] [address] documented as of this encounter Visit Diagnoses Not on filedocumented in this encounter Additional Health Concerns Assessment Noted Time PHQ-9 Depression Total Score: 0 09/17/19 24 11:20 AM EST documented as of this encounter Care Teams Dispatch Specialist Relationship Specialty Start Date End Date Ani Anguiano ANP [address] [place] [address] PCP - General Family Medicine 05/06/22 documented as of this encounter
--- OUTSIDE RECORDS SUMMARY | 2024-11-01 10:37 | XMS_ITS | Encounter Summary ---
Author Organization [employer] [facility] Address [address] [place] [address] 7t [place] [address] Care Team Providers Care Doughnut Maker Name Role Phone Ani Anguiano Primary Care Provider [phone] Reason for Visit * Reason Comments Med Refill Encounter Details Date Type Department Care Team ([facility] Contact Info) Description 02/22/[address] [facility] MEDICINE [address] [place] [address] Ani Anguiano ANP [address] [place] [address] Type 2 diabetes mellitus without complication, unspecified whether alf insulin use ([facility]) Social History Tobacco Use Types [...] Upcoming Encounters Date Type Department Care Team ([facility] st Contact Info) Description 01/23/2025 1:00 PM EDT Office Visit [facility] MEDICINE [address] [place], [place] [phone] Ani Anguiano ANP [address] [place] [address] 08/10/2025 10:00 AM EST Medication Management [facility] MEDICINE [address] [place], [place] [phone] Emma Her, PharmD [address] [place], [place] [phone] documented as of this encounter Visit Diagnoses Diagnosis Type 2 diabetes mellitus without complication, unspecified whether intermodal dispatcher insulin use ([facility]) documented in this encounter Additional Health Concerns Assessment Noted Time PHQ-9 Depression Total Score: 0 08/26/19 23 2:13 PM EST documented as of this encounter Care Teams Doughnut Maker Relationship Specialty Start Date End Date Ani Anguiano ANP [address] [place] [address] [phone] PCP - General Family Medicine 05/06/22 documented as of this encounter
== END 2024-11-01 10:24 | disposition home or self-care (01) ==
PROVIDERS: PCP Nurse Practitioner Primary Care; Visit Provider Nurse Practitioner
DX: K21.9 Gastro-esophageal reflux disease without esophagitis (principal); K22.10 Ulcer of esophagus without bleeding; K58.9 Irritable bowel syndrome, unspecified
CPT/HCPCS: 99213

== ENCOUNTER → 2024-11-01 09:27 | Outpatient (BNVA) | payer MEDICARE, SELFPAY | PROVIDERS: PCP Nurse Practitioner Primary Care; Visit Provider Nurse Practitioner | DX: K21.9 Gastro-esophageal reflux disease without esophagitis (principal); K22.10 Ulcer of esophagus without bleeding; K58.0 Irritable bowel syndrome with diarrhea; R13.12 Dysphagia, oropharyngeal phase | CPT/HCPCS: 99212 ==

== ENCOUNTER 2024-11-29 15:00 | Outpatient (AMB) | payer OTHER, MEDICAID, SELFPAY ==
[2024-11-29 15:09] VITALS: BP 110/70; PULSE 94; O2SAT 98; BMI 28.5
--- NOTE | 2024-11-29 15:09 | A.OFFVIS_ITS ---
Vital Signs 11/29/24 15:09 Height 5 ft Weight 146 lb BMI 28.5 BP 110/70 Blood Pressure Location Rt brachial Position Sitting Pulse 94 Pulse Source Pulse Oximeter Pulse Oximetry (%) 98 Oxygen Delivery Method Room Air Intake Visit Reasons: Follow Up Intake Note: Patient presents follow up for Adhesive Bandage Machine Operator Required: Yes Adhesive Bandage Machine Operator Services: Adhesive Bandage Machine Operator Offered & Declined Adhesive Bandage Machine Operator Name: Son Accompanied by: Self / Same As Patient Allergies latex Allergy (Severe, Verified 11/29/24 15:13) Angioedema dicyclomine [From Bentyl] Adverse Reaction (Severe, Verified 11/29/24 15:13) Dry Mucus Membranes HPI Comments Details: 63-yr-old female presents for follow-up visit of mild obstructive sleep apnea, accompanied by her son. 12/03/2023, In-lab PSG revealed: AHI 9/hr REM AHI 7/hr w/ O2 rivera 86% w/ SpO2 < 88% x's 0.5 min, and average SpO2 95%; Periodic limb movement of sleep (PLMS) index: 0.6/hr; PLMS arousal index: 0.5/hr. Pt denies any significant interval medical history changes. Patient reports she is using her APAP nightly with good effect. She is sleeping well on APAP. She is tolerating her new mask better. She denies daytime tiredness. She is cleaning and changing her CPAP supplies routinely. She is using distilled water in her CPAP water tank reservoir. [place] [address] Email: [email or web address] Compliance Report Usage 08/24/2024 - 11/21/2024 Overall usage 99% Usage greater than 4 hours 96% Average usage (days used) 5 hours and 27 minutes AirSense 10 AutoSet Serial number [id number] Mode APAP 5-20 cmH2O with EPR to 2 Maximum pressure 10.7 cm H2O Medium leaks 2.3 L/min Residual AHI 1.4 per hour COUNT INCLUDES THE [facility] Medical History Pre-op examination Left upper quadrant abdominal pain Well woman exam with routine gynecological exam Tubular adenoma of colon Urinary tract infection Moderate persistent asthma Osteopenia Hyperlipidemia Essential hypertension Obesity (BMI 30.0-34.9) Poor circulation DM type 2 (diabetes mellitus, type 2) Migraine Diverticulitis Gastritis Asthma Anxiety Surgical History Status post total hysterectomy and bilateral salpingo-oophorectomy (BSO) History of esophagogastroduodenoscopy (EGD) Hx of breast biopsy H/O colonoscopy with polypectomy H/O total hysterectomy H/O tubal ligation Family History Maternal Aunt Stomach cancer Father HTN (hypertension) Heart disease Mother Diabetes Asthma Family/Other Diabetes HTN (hypertension) Social History Household Members Other:: son and 2 granddaughters Patient Tobacco Use Status: Never used Tobacco Female Reproductive History Menstrual Age of Menarche: 13 Physical Exam Vital Signs: Last Vital Signs Pulse 94 11/29/24 15:09 BP 110/70 11/29/24 15:09 Pulse Ox 98 11/29/24 15:09 Oxygen Delivery Method Room Air 11/29/24 15:09 BMI result Body Mass Index 28.5 Const General: no acute distress Orientation/consciousness: patient oriented x3 Resp Effort & Inspection: normal respiratory effort and able to speak in complete sentences Neuro Other: Steady gait with cane General: patient oriented x3 Psych Mental Status: mental status grossly normal Speech and movement: Clear speech present Attitude: cooperative Assessment & Plan Assessment & Plan (1) Mild obstructive sleep apnea: Code(s): G47.33 - Obstructive sleep apnea (adult) (pediatric) Category: Medical Plan Continue APAP 5-20 cmH2O w/ EPR 2 nightly > 4 hours, as pt is experiencing good clinical effect from use. * Clean CPAP machine and supplies routinely. * Change CPAP supplies routinely. * Use distilled water in CPAP water tank reservoir * Reviewed indications to contact [facility] versus this clinic. Pt to contact us or respiratory [facility] with any questions or concerns. Pt to follow-up in 12 months or sooner prn. Coding Level of Care Code Est Pt Level 3 (43665) Diagnoses Mild obstructive sleep apnea G47.33
--- OUTSIDE RECORDS SUMMARY | 2024-11-29 16:07 | XMS_ITS | Encounter Summary ---
Author Organization [employer] Address [address] [facility] 7t [place] [address] Care Team Providers Care Flood Control Engineer Name Role Phone Ani Anguiano Primary Care Provider Encounter Details Date Type Department Care Team (Late st Contact Info) Description 04/14/2024 Orders Only [facility] MEDICINE [address] [place] [address] Ani Anguiano ANP [address] [place] [address] Social History Tobacco Use Types Packs/Day Years [...] 1:00 PM EDT Office Visit [facility] MEDICINE [address] [place] [address] Ani Anguiano ANP [address] [place] [address] 08/10/2025 10:00 AM EST Medication Management [address] [address] Emma Her, PharmD [address] [place] [phone] documented as of this encounter Visit Diagnoses Not on filedocumented in this encounter Additional Health Concerns Assessment Noted Time PHQ-9 Depression Total Score: 0 09/17/19 24 11:20 AM EST documented as of this encounter Care Teams Flood Control Engineer Relationship Specialty Start Date End Date Ani Anguiano ANP [address] [place] [address] PCP - General Family Medicine 05/06/22 documented as of this encounter
--- OUTSIDE RECORDS SUMMARY | 2024-11-29 16:07 | XMS_ITS | Encounter Summary ---
Author Organization [employer] [facility] Address [address] [place] [address] 7t [place] [address] Care Team Providers Care Data Solutions Architect Name Role Phone Ani Anguiano Primary Care Provider [phone] Encounter Details Date Type Department Care Team (Late Contact Info) Description 07/02/2022 Abstract [facility] MEDICINE [address] [place] [phone] ProviderAnabella MD Social History Tobacco Use Types [...] Description 01/23/2025 1:00 PM EDT Office Visit [facility] MEDICINE [address] [place] [address] [phone] Ani Anguiano ANP [address] [place] [address] 08/10/2025 10:00 AM EST Medication Management [facility] MEDICINE [address] [place] [address] [phone] Emma Her, PharmD [address] [place] [address] documented as of this encounter Visit Diagnoses Not on filedocumented in this encounter Care Teams Data Solutions Architect Relationship Specialty Start Date End Date Ani Anguiano ANP [address] [place] [address] PCP - General Family Medicine 05/06/22 documented as of this encounter
--- OUTSIDE RECORDS SUMMARY | 2024-11-29 16:07 | XMS_ITS | Encounter Summary ---
Author Organization [employer] [facility] Address [address] [place] [address] 7t [place] [address] Care Team Providers Care Samples And Repairs Preparer Name Role Phone Ani Anguiano Primary Care Provider [phone] Reason for Visit * Reason Comments Med Refill Encounter Details Date Type Department Care Team ([facility] Contact Info) Description 02/22/[address] [facility] MEDICINE [address] [place] [address] Ani Anguiano ANP [address] [place] [address] Type 2 diabetes mellitus without complication, unspecified whether termite treater insulin use ([facility]) Social History Tobacco Use Types Packs/Day Years [...] Upcoming Encounters Date Type Department Care Team ([facility] st Contact Info) Description 01/23/2025 1:00 PM EDT Office Visit [facility] MEDICINE [address] [place], [place] [phone] Ani Anguiano ANP [address] [place] [address] 08/10/2025 10:00 AM EST Medication Management [facility] [address] [place], [place] [phone] Emma Her, PharmD [address] [place], [place] [phone] documented as of this encounter Visit Diagnoses Diagnosis Type 2 diabetes mellitus without complication, unspecified whether termite treater insulin use ([facility]) documented in this encounter Additional Health Concerns Assessment Noted Time PHQ-9 Depression Total Score: 0 08/26/19 23 2:13 PM EST documented as of this encounter Care Teams Samples And Repairs Preparer Relationship Specialty Start Date End Date Ani Anguiano ANP [address] [place] [address] [phone] PCP - General Family Medicine 05/06/22 documented as of this encounter
--- OUTSIDE RECORDS SUMMARY | 2024-11-29 16:07 | XMS_ITS | Encounter Summary ---
Author Organization [employer] Address [address] [facility] 7t [place] [address] Care Team Providers Care Manager Casino Name Role Phone Ani Anguiano Primary Care Provider [phone] Reason for Visit * Reason Comments Med Refill Encounter Details Date Type Department Care Team ([facility] st Contact Info) Description 06/01/2023 Refill [facility] [address] [place], [place] [phone] Ani Anguiano ANP [address] [place] [address] Type 2 diabetes mellitus without complication, without long-term current use of insulin ([facility]) Social History Tobacco Use Types Packs/Day [...] Description 01/23/2025 1:00 PM EDT Office Visit [facility] MEDICINE [address] [place] [phone] Ani Anguiano ANP 230 [place] [address] 08/10/2025 10:00 AM EST Medication Management [facility] MEDICINE [address] [place] [phone] Emma Her, PharmD [address] [place] [phone] documented as of this encounter Visit Diagnoses Diagnosis Type 2 diabetes mellitus without complication, without long-term current use of insulin ([facility]) documented in this encounter Additional Health Concerns Assessment Noted Time PHQ-9 Depression Total Score: 0 08/26/19 23 2:13 PM EST documented as of this encounter Care Teams Manager Casino Relationship Specialty Start Date End Date Ani Anguiano ANP [address] [place] [address] PCP - General Family Medicine 05/06/22 documented as of this encounter
--- OUTSIDE RECORDS SUMMARY | 2024-11-29 16:07 | XMS_ITS | Encounter Summary ---
Author Organization [employer] Address [address] [place] [address] 7 [place] [address] Care Team Providers Care Set Making Machine Operator Name Role Phone Ani Anguiano Primary Care Provider [phone] Reason for Visit * Reason Onset Date Comments Pre op 04/05/2024 Encounter Details Date Type Department Care Team (Late st Contact Info) Description 04/05/2024 Telephone [facility] MEDICINE [address] [place] [address] Ani Anguiano ANP [address] [place] [address] Pre op Social History Tobacco Use Types [...] for pre op 04/14/24 at 10:30AM with [place]. Appointment reminder letter mailed. * Telephone Encounter [...] Payne Facility name: [facility] Surgeon's office number: [phone] Surgeon's office fax number: [phone] Contact name (person you spoke with): Germania Last office note from surgeon requested: Yes documented in this encounter Plan of Treatment Upcoming Encounters Date Type Department Care Team (Late st Contact Info) Description 01/23/2025 1:00 PM EDT Office Visit [facility] MEDICINE [address] [place] [phone] Ani Anguiano ANP [address] [place] [address] 08/10/2025 10:00 AM EST Medication Management [address] [address] Emma Her, PharmD [address] [place] [phone] documented as of this encounter Visit Diagnoses Not on filedocumented in this encounter Additional Health Concerns Assessment Noted Time PHQ-9 Depression Total Score: 0 09/17/19 24 11:20 AM EST documented as of this encounter Care Teams Set Making Machine Operator Relationship Specialty Start Date End Date Ani Anguiano ANP [address] [place] [address] PCP - General Family Medicine 05/06/22 documented as of this encounter
--- OUTSIDE RECORDS SUMMARY | 2024-11-29 16:07 | XMS_ITS | Clinical Summary ---
Author Organization [employer] Address [address] [facility] 7t [place] [address] Care Team Providers Care Cake Puncher Name Role Phone Cristiano Hairston Primary Care Provider [phone] Allergies Active Allergy Reactions Criticality Noted Date Comments Latex 05/23/2021 Medications Blood Pressure kit Active Misc. Devices (Pulse Oximeter For Finger) miscIndications:C OVID-19 To use every 4 hours. To contact the office if O2 sat < 90% 1 each 07/03/20 22 Active dicyclomine (Bentyl) 20 MG tablet TAKE 2 TABLETS BY MOUTH 4 TIMES A DAY 01/21/20 23 Active pantoprazole (ProtoNix) 40 MG EC tablet Take 40 mg by mouth 2 times daily. 01/15/20 23 Active glucose blood (OneTouch Ultra) test stripIndications: Hypertension associated with diabetes ([facility]) Use to test blood sugar 3 times daily 100 each 01/11/20 24 2024 Active OneTouch Delica Lancets 33G miscIndications:H ypertension associated with diabetes ([facility]) Use to test blood sugar 3 times daily 100 each 01/11/20 24 Active Blood Glucose Monitoring Suppl (ONE TOUCH ULTRA 2) w/Device kitIndications:Hy pertension associated with diabetes ([facility]) Use to test blood sugar 3 times daily 1 kit 01/11/20 24 Active butalbital-acetam inophen-caffeine 50-325-40 MG tabletIndications :Migraine without status migrainosus, not intractable, unspecified migraine type TAKE 1 TO 2 TABLETS BY MOUTH EVERY 4 HOURS NEEDED DO NOT EXCEED 6 TABLETS IN 24 HOURS. TRATA DE USAR MENOS DE 3 BHATTI POR MES 12 tablet 1 06/06/20 24 Active meloxicam (Mobic) 7.5 MG tabletIndications :Osteoarthritis Take 7.5 mg by mouth if needed for moderate pain. Active sharps containerIndicati ons:Type 2 diabetes mellitus with hyperlipidemia ([facility]/HCC) ([facility]) Use for disposal of used pen needles, lancets, needles, syringes, injection supplies 1 each 11 06/06/20 24 Active ketorolac (Acular) 0.5 % ophthalmic solution INSTILL 1 DROP INTO OPERATIVE EYE 3 TIMES A DAY STARTING 2 DAYS PRIOR TO SURGERY. TAPER DIRECTED. 06/26/20 24 Active loperamide (Imodium) 2 MG capsule Take [...] As needed for allergies 90 tablet 1 07/11/20 24 Active fluticasone-salme terol (Advair HFA) 230-21 MCG/ACT inhalerIndication s:Asthma, moderate persistent, well-controlled Inhale 2 puffs in the morning and at bedtime. Rinse mouth with water after use to reduce aftertaste and incidence of candidiasis. Do not swallow. 36 g 1 07/11/20 24 Active hydrOXYzine HCl (Atarax) 25 MG tablet Take 1 tablet by mouth if needed each day for anxiety. Active melatonin 3 MG tabletIndications :Insomnia, unspecified type Place 1 tablet (3 mg) under the tongue if needed at bedtime (difficulty sleeping). 90 tablet 1 08/23/19 25 Active cholecalciferol (Vitamin D-3) 20 MCG (800 UNIT) tabletIndications :Osteopenia, unspecified location Take 1 tablet (20 mcg) by mouth Once per day. 90 tablet 3 08/24/19 25 Active Alcohol Swabs (Alcohol Prep) 70 % padsIndications:T ype 2 diabetes mellitus without complication, unspecified whether buttermaker continuous churn insulin use ([facility]) USE DIRECTED TWICE DAILY 100 each 11 10/14/19 25 Active atorvastatin (Lipitor) 10 MG tabletIndications :Type 2 diabetes mellitus with hyperlipidemia (CMS/HCC) ([facility]) Take 1 tablet (10 mg) by mouth at bedtime. 90 tablet 3 10/14/19 25 2025 Active enalapril (Vasotec) 10 MG tabletIndications :Hypertension associated with diabetes ([facility]) TAKE 1 TABLET BY MOUTH EVERY DAY IN THE MORNING 90 tablet 3 10/14/19 25 Active metFORMIN XR (Glucophage-XR) 500 MG 24 hr tabletIndications :Hypertension associated with diabetes ([facility]) TAKE 2 TABLETS BY MOUTH EVERY TWELVE HOURS 360 tablet 3 10/14/19 25 Active pregabalin (Lyrica) 100 MG capsuleIndication s:Bilateral leg pain Take 1 capsule (100 mg) by mouth 2 times daily. 60 capsule 2 10/14/19 25 Active Ventolin HFA 108 (90 Base) MCG/ACT inhalerIndication s:Asthma, moderate persistent, well-controlled INHALE 2 PUFFS BY MOUTH EVERY 4 HOURS NEEDED FOR WHEEZING OR SHORTNESS OF BREATH 18 g 1 10/24/19 25 Active lidocaine (Lidoderm) 5 % patchIndications: Upper back pain on right side APPLY 1 PATCH TOPICALLY TO SKIN, LEAVE ON FOR 12 HOURS AND OFF FOR 12 HOURS DIRECTED 30 patch 2 11/07/19 25 Active Jardiance 10 MGIndications:Typ e 2 diabetes mellitus with hyperlipidemia ([facility]/HCC) ([facility]) TAKE 1 TABLET EVERY DAY 30 tablet 11/11/19 25 Active lidocaine (Lidoderm) 5 % patchIndications: Upper back pain on right side Apply 1 patch topically Once per day. Remove & discard patch within 12 hours or as directed by MD. 30 patch 2 06/06/20 24 2024 Discontinued empagliflozin (Jardiance) 10 MGIndications:Typ e 2 diabetes mellitus with hyperlipidemia (CMS/HCC) ([facility]) Take 1 tablet (10 mg) by mouth Once per day. 30 tablet 10/14/19 25 2024 Discontinued Active Problems Problem Noted Date Diagnosed Date Bilateral carpal tunnel syndrome 10/16/2024 Chronic left-sided low back pain with left-sided sciatica 10/13/2024 Difficulty walking 10/13/2024 Requires assistance with activities of daily adelso ing (ADL) 08/24/2024 Obstructive sleep apnea syndrome 07/02/2022 Overview (01/20/2024): Follows w sleep med, ASSISTANT PROFESSOR OF GEOGRAPHY Jacinto Urinary tract infectious disease 07/02/2022 Multiple renal cysts 10/30/2021 Asthma, well controlled 05/08/2021 Hypertension associated with diabetes 05/08/2021 Obesity 05/08/2021 Osteopenia 05/08/2021 Type 2 diabetes mellitus with hyperlipidemia ([facility] S/HCC) 05/08/2021 Resolved Problems Problem Noted Date Diagnosed Date Resolved Date COVID-19 07/02/2022 09/28/2022 Encounters Date Type Department Care Team Description 11/09/2024 Refill [facility] [address] [place] [address] Cristiano Hairston ANP Type 2 diabetes mellitus with hyperlipidemia (CMS/HCC) (CMS/HCC) 11/04/2024 Refill [facility] [address] [place] [address] Cristiano Hairston ANP Upper back pain on right side 10/22/2024 Refill [facility] [address] [place] [address] Cristiano Hairston ANP Asthma, moderate persistent, well-controlled 10/17/2024 Telephone [facility] [address] [place] [address] Cristiano Hairston ANP Durable Medical Equipment 10/17/2024 Travel 10/13/2024 9:15 AM EDT Office Visit [facility] [address] [place] [address] Cristiano Hairston ANP Osteopenia, unspecified location (Primary Dx); Type 2 diabetes mellitus with hyperlipidemia (CMS/HCC) (CMS/HCC); Dietary counseling; Exercise counseling; Ambulates with cane; Requires assistance with activities of daily living (ADL); Chronic left-sided low back pain with left-sided sciatica; Difficulty walking; Hypertension associated with diabetes (CMS/HCC) (CMS/HCC); Bilateral leg pain; Bilateral carpal tunnel syndrome; History of left breast biopsy 10/13/2024 Travel 10/12/2024 Refill [facility] [address] [place] [address] Cristiano Hairston ANP Type 2 diabetes mellitus without complication, unspecified whether buttermaker continuous churn insulin use ([facility]) 10/11/2024 Telephone [facility] [address] [place] [address] Jennifer Jean MA chart prep 10/02/2024 Patient Outreach [facility] [address] [place] [address] Cristiano Hairston ANP Pre-visit Planning (SDOH Screening negative and Tobacco screening negative) from Last 3 Months Immunizations Name Administration [...] Office Visit [facility] [address] [place], [place] [phone] Cristiano Hairston, ANP [address] [place] [address] 08/10/2025 10:00 AM EST Medication Management [facility] [address] [place] [address] Emma Her, PharmD [address] [place], [place] [phone] Health Maintenance Due Date Last Done Comments [...] Screening 10/13/2025 10/13/2024 Eye Exam 03/27/2026 03/27/2024, 0801/2024, 03/27/2024, Additional [...] 10/13/2024 10:09 AM EDT Osteopenia, unspecified location LIPID PANEL, STANDARD Routine 07/18/2024 9:05 AM EST Type 2 diabetes mellitus with hyperlipidemia (CMS/HCC) ([facility]) ALBUMIN, RANDOM URINE W/CREATININE Routine 01/27/2024 9:32 AM EDT Type 2 diabetes mellitus without complication, without long-term current use of insulin ([facility]) BI MAMMOGRAM SCREENING TOMOSYNTHESIS BILATERAL Routine 11/19/2023 9:20 AM EDT HIV 1/2 ANTIGEN/ANTIBODY, FOURTH GENERATION W/RFL Routine 05/08/2021 10:50 AM EDT from Last 3 Months or Most Recently Relevant to Health Maintenance Results * (ABNORMAL) POCT HGB A1C (10/13/2024 10:11 AM EDT) Pathologist [facility] Hemoglobin A1C 7.7(A) 4.0 - 6.0 % QC Media Lot # [id number] Lot# Expiration Date , 6 Blood 10/13/2024 10:1 1 AM EDT us Cristiano Hairston ANP POINT OF CARE TEST ENTER/EDIT OR DERABLES Final Result * POCT Glucose (10/13/2024 10:09 AM EDT) Pathologist [facility] Glucose Blood, POC 121 60 - 200 mg/dL QC Media Lot # [id number] Lot# Expiration Date [id number] Blood Capillary blood specimen / Unknown 10/13/2024 10:09 AM EDT us Cristiano Hairston ANP POINT OF CARE TEST ENTER/EDIT OR DERABLES Final Result * (ABNORMAL) Lipid Panel, Standard (07/18/2024 9:05 AM EST) Triglycerides 98 <150 mg/dL [facility] Comment:Desirable Triglyceri de: less than 150 mg/dLBorderline High Triglyceride 150-199 mg/dLHigh Triglyceride: 200-499 mg/dLVery High Triglyceride: greater than or equal to 5OO mg/dL Cholesterol 117 <200 mg/dL [facility] Comment:Desirable Cholestero l: less than 200 mg/dLBorderline High Cholesterol: 200-239 mg/dLHigh Cholesterol: greater than 239 mg/dL LDL Cholesterol Calculated 59 <100 mg/dL [facility] Comment:Desirable LDL: less than 100 mg/dLNear Optimal/Above Optimal LDL: 110- 129 mg/dLBorderline High LDL: 130-159 mg/dLHigh LDL: 160-189 mg/dLVery High LDL: greater than or equal to 190 mg/dL HDL Cholesterol 39(L) >40 mg/dL [facility] Comment:Desirable HDL: great er than 40 mg/dL Note: This HDL assay may give artificially low results in patients with liver disease. Blood Venous blood specimen / Unknown 07/18/2024 9:05 AM EST 07/18/2024 11:00 AM EST Cristiano Hairston ANP LAB BLOOD ORDERABLES Final Resul t Performing Organization Address [facility] de Phone Number [facility] [address] [place] [phone] * (ABNORMAL) Albumin, Random Urine W/Creatinine (01/27/2024 9:32 AM EDT) Creatinine, Urine 40.16 mg/dL [facility] Microalbumin Urine 16.0 mg/L [facility] Microalbum Creatinine Ratio Ur 39.8(H) <30 ug/mg cr [facility] Comment:Albumin/Creatinine R atio Reference Ranges: Normal: < 30 ug/mg creatinine Microalbuminuria: 30 - 300 ug/mg creatinineClinical Albuminuria: > 300 ug/mg creatinine Urine 01/27/2024 9:32 AM EDT 01/27/2024 11:21 AM EDT us Cristiano Hairston ANP LAB URINE ORDERABLES Final Resul t Performing Organization Address [facility] Co de Phone Number [facility] [address] [place] [phone] * BI Mammogram Screening Tomosynthesis Bilateral (11/19/2023 9:20 AM EDT) Anatomical Region Laterality Modality Breast Bilateral Mammography 11/19/2023 9:20 AM EDT Narrative 12/19/2023 10:00 PM EDT ? [facility] ? [address] ?[place], [place] [address] ? Mammography Report ? Signed ? Patient: Brooklynn De La Rosa ?MR#: ?? [id number] ? : 1960 ?Acct:[id number] ? Age/Sex: 62 / F ?ADM Date: 11/19/23 ? Loc: HO.MAMMO ? Attending Dr: Cristiano Hairston ASSISTANT PROFESSOR OF GEOGRAPHY ? Ordering Physician: CRISTIANO HAIRSTON NP ?Results: 2Benign Fin ?? dings ? Date of Service: 11/19/23 ?Follow Up: 1 Year From Orig ?? inal Mammogram ? Procedure(s): MM tomosynthesis screening BI ?? Accession Number(s): [id number] ? cc: MARIKA,CRISTIANO BURGOS ? EXAMINATION: ?? [...] MD in OV> ? 12/19/232156 ? DD/ 0920 ? TD/TT: ? Line Assigner: ? Procedure Note Donmaria dolores, Image - 12/19/2023 [place] [facility] [address] [place] [address] Mammography Report Signed Patient: Brooklynn De La Rosa EMR#: [id number] : 1960Acct:[id number] Age/Sex: 62 / FADM Date: 11/19/23 Loc: [facility] Attending Dr: Cristiano Hairston ASSISTANT PROFESSOR OF GEOGRAPHY Ordering Physician: CRISTIANO HAIRSTONesults: 2Benign Tai dumont Date of Service: 11/19/23Follow Up: 1 Year From Orig inal Mammogram Procedure(s): MM tomosynthesis screening BI Accession Number(s): [id number] cc: CRISTIANO HAIRSTON NP EXAMINATION: MM SCREENING [...] signed by Brianna Winkler MD in OV> 12/19/230 DD/ 9 TD/TT: Line Assigner: Cristiano SMITH John BI PROCEDURES Edited Result - Final * HIV 1/2 ANTIGEN/ANTIBODY,FOURTH GENERATION W/RFL (05/08/2021 10:50 AM EDT) HIV-1/2 ANTIGEN AND ANTIBODIES, 4TH GENERATION W/ REFLEX NON-REACT [facility] NON-REACT [facility] Comment: HIV-1 antigen and HIV-1/HIV-2 [...] ? For additional information please refer to http://education.[employer]/faq/KRL188 (This link is being provided for informational/ educational purposes only.) ? The performance of this assay has not been clinically validated in patients less than 2 years old. ?? 05/08/2021 10:5 0 AM EDT us Chanell Lorenz ASSISTANT PROFESSOR OF GEOGRAPHY LAB BLOOD ORDERABLES Final Res ult [facility] [address] from Last 3 Months or Most Recently Relevant to Health Maintenance Insurance [facility] STANDARD PLUS [facility] MEDICARE REPLACEMENT GENERIC MEDICARE ADVANTAGE on file Care Teams Cake Puncher Relationship Specialty Start Date End Date Cristiano Hairston ANP [address] [place] [phone] PCP - General Family Medicine 05/06/22
--- OUTSIDE RECORDS SUMMARY | 2024-11-29 16:07 | XMS_ITS | Encounter Summary ---
Author Organization [employer] Address [address] [place] [address] 7t [place] [address] Care Team Providers Care Senior Technical Trainer Name Role Phone Ani Anguiano Primary Care Provider [phone] Reason for Visit * Reason Onset Date Comments status on script 07/03/2022 Encounter Details Date Type Department Care Team ([facility] st Contact Info) Description 07/03/2022 Telephone [facility] [address] [place] [address] Ani Anguiano ANP [address] [place] [address] status on script Social History Tobacco Use [...] PM EST TC placed to pt at [phone] regarding message below per Dr. Butts. Pt informed medication was verbally called into [facility] pharmacy on [address] Pt verbalized understanding. Pt to F/U as needed. [facility] staff Edwige assisting with translation. Medication was verbally called at [facility] pharmacy [facility] this morning as the right order could not be found in our new EHR. * Telephone Encounter - Saray Aidan - 07/03/2022 8:54 AM EST Tc from Pt stated yesterday came to [facility] and they supposed to send a script for Oxy meter, Paxlovid and she said another medication but she doesn't know the name or what for to see if we can send script to [facility] Pharmacy on [address] [place] PCP DR. Anguiano The medication was called in for Ms Wheatley. [facility] does not have a pulse oxymeter. Pt will have to have someone sampler pickup one for her [facility]. A script will be sent. documented in this encounter Plan of Treatment Upcoming Encounters Date Type Department Care Team (Late st Contact Info) Description 01/23/2025 1:00 PM EDT Office Visit [facility] [address] [place] [phone] Ani Anguiano ANP [address] [place] [address] 08/10/2025 10:00 AM EST Medication Management [facility]INE [address] [place] [phone] Emma Her, PharmD [address] [place] [address] documented as of this encounter Visit Diagnoses Diagnosis COVID-19- Primary documented in this encounter Care Teams Senior Technical Trainer Relationship Specialty Start Date End Date Ani Anguiano ANP [address] [place] [phone] PCP - General Family Medicine 05/06/22 documented as of this encounter
--- OUTSIDE RECORDS SUMMARY | 2024-11-29 16:07 | XMS_ITS | Encounter Summary ---
Author Organization [id number] Address [address] [place] [address] 7t [place] [address] Care Team Providers Care Finance Business Partner Name Role Phone Ani Anguiano Primary Care Provider [phone] Reason for Visit * Reason Comments Med Refill Encounter Details Date Type Department Care Team ([facility] st Contact Info) Description 08/24/2024 Refill [facility] [address] [place] [address] Ani Anguiano ANP [address] [place] [address] Hypertension associated with diabetes (CMS/HCC) (CMS/HCC); Bilateral [...] the past 12 months, has t he [employer] gas, oil or water company threatened to [...] Description 01/23/2025 1:00 PM EDT Office Visit [facility] [address] [place] [phone] Ani Anguiano ANP [address] [place] [phone] 08/10/2025 10:00 AM EST Medication Management [facility] [address] [place] [phone] Emma Her, PharmD [address] [place] [phone] documented as of this encounter Visit Diagnoses Diagnosis Hypertension associated with diabetes (CMS/HCC) Unspecified essential hypertension Bilateral leg pain Pain in soft tissues of limb documented in this encounter Additional Health Concerns Assessment Noted Time PHQ-9 Depression Total Score: 0 09/17/19 24 11:20 AM EST documented as of this encounter Care Teams Finance Business Partner Relationship Specialty Start Date End Date Ani Anguiano ANP [address] [place] [phone] PCP - General Family Medicine 05/06/22 documented as of this encounter
--- OUTSIDE RECORDS SUMMARY | 2024-11-29 16:08 | XMS_ITS | Encounter Summary ---
Author Organization [employer] [facility] Address [address] [place] [address] 7 [place] [address] Care Team Providers Care Location Director Name Role Phone Ani Anguiano Primary Care Provider [phone] Reason for Visit * Reason Comments Med Refill Encounter Details Date Type Department Care Team (Late st Contact Info) Description 11/09/2022 Refill [facility] [address] [place] [phone] Ani Anguiano ANP [address] [place] [address] Type 2 diabetes mellitus without complication, without long-term current use of insulin ([facility]) Social History Tobacco Use Types Packs/Day [...] Description 01/23/2025 1:00 PM EDT Office Visit [facility] [address] [place] [phone] Ani Anguiano ANP [address] [place] [address] 08/10/2025 10:00 AM EST Medication Management [facility] [address] [place], [place] [phone] Emma Her PharmD [address] [place] [address] documented as of this encounter Visit Diagnoses Diagnosis Type 2 diabetes mellitus without complication, without long-term current use of insulin ([facility]) documented in this encounter Additional Health Concerns Assessment Noted Time PHQ-9 Depression Total Score: 0 08/26/19 23 2:13 PM EST documented as of this encounter Care Teams Location Director Relationship Specialty Start Date End Date Ani Anguiano ANP [address] [place] [phone] PCP - General Family Medicine 05/06/22 documented as of this encounter
--- OUTSIDE RECORDS SUMMARY | 2024-11-29 16:08 | XMS_ITS | Encounter Summary ---
Author Organization [facility] Address [address] [place] [address] 7 [place] [address] Care Team Providers Care Intellectual Property Lawyer Name Role Phone Ani Anguiano Primary Care Provider [phone] Reason for Visit * Reason Comments Med Refill Encounter Details Date Type Department Care Team (Late st Contact Info) Description 11/07/2022 Refill [facility] [address] [place] [address] Ani Anguiano ANP [address] [place] [address] Type 2 diabetes mellitus without complication, unspecified whether manager long term care insulin use ([facility]) Social History Tobacco Use Types Packs/Day Years [...] Description 01/23/2025 1:00 PM EDT Office Visit [facility] [address] [place] [phone] Ani Anguiano ANP [address] [place] [address] 08/10/2025 10:00 AM EST Medication Management [facility] [address] [place], [place] [phone] Emma Her, Luiz [address] [place] [address] documented as of this encounter Visit Diagnoses Diagnosis Type 2 diabetes mellitus without complication, unspecified whether fci insulin use ([facility]) documented in this encounter Additional Health Concerns Assessment Noted Time PHQ-9 Depression Total Score: 0 08/26/19 23 2:13 PM EST documented as of this encounter Care Teams Intellectual Property Lawyer Relationship Specialty Start Date End Date Ani Anguiano ANP [address] [place] [phone] PCP - General Family Medicine 05/06/22 documented as of this encounter
--- OUTSIDE RECORDS SUMMARY | 2024-11-29 16:08 | XMS_ITS | Encounter Summary ---
Author Organization [employer] [facility] Address [address] [place] [address] 7 [place] [address] Care Team Providers Care Inbound Call Center Agent Name Role Phone Ani Anguiano Primary Care Provider [phone] Encounter Details Date Type Department Care Team (Late st Contact Info) Description 10/30/2022 Orders Only [facility] MEDICINE [address] [place] [address] [phone] Ani Anguiano ANP [address] [place] [address] [phone] Social History Tobacco Use Types Packs/Day Years [...] Description 01/23/2025 1:00 PM EDT Office Visit [facility] MEDICINE [address] [place] [phone] Ani Anguiano ANP [address] [place] [address] [phone] 08/10/2025 10:00 AM EST Medication Management [facility] [address] [place] [address] Emma Her, PharmD [address] [place] [address] documented as of this encounter Procedures Procedure Name Priority Date/Time Associated Diagnosis Comments VITAMIN D,25-OH,TOTAL,IA Routine 02/23/2023 2:28 PM EDT BI MAMMOGRAM SCREENING TOMOSYNTHESIS BILATERAL Routine 11/16/2022 9:54 AM EDT documented in this encounter Results * Vitamin D, 25-Hydroxy, Total, Immunoassay (02/23/2023 2:28 PM EDT) Vitamin D 25-OH Total 45.3 >30 ng/mL [facility] Comment:Health Based Referen ce Values*< 20 ng/mL Uhzzyttru49-34 ng/mL Insufficient> 30 ng/mL Sufficient*Josh RUBIO. N [...] EDT 02/23/2023 4:02 PM EDT Ani Anguiano [facility] BLOOD ORDERABLES Final Resul t [facility] [address] [place] [address] [phone] * BI Mammogram Screening Tomosynthesis Bilateral (11/16/2022 9:54 AM EDT) Anatomical Region Laterality Modality Breast Bilateral Mammography 11/16/2022 9:54 AM EDT Narrative 11/17/2022 1:31 PM EDT ? [facility] ? [address] ?[place], [place] [address] ? Mammography Report ? Signed ? Patient: Brooklynn De La Rosa ?MR#: ?? [id number] ? : 1960 ?Acct:[id number] ? Age/Sex: 61 / F ?ADM Date: 11/16/22 ? Loc: HO.MAMMO ? Attending Dr: Ani Anguiano PHARMACEUTICAL SALESPERSON ? Ordering Physician: Chanell Lorenz PHARMACEUTICAL SALESPERSON ?Results: 1Negat ?? martin ? Date of Service: 11/16/22 ?Follow Up: 1 Year From Orig ?? inal Mammogram ? Procedure(s): MM tomosynthesis screening BI ?? Accession Number(s): [id number] ? cc: Chanell Lorenz PHARMACEUTICAL SALESPERSON ? EXAMINATION: ?? MM SCREENING DIGITAL BREAST [...] 1328 ? DD/ 0954 ? TD/TT: ? Oleomargarine Maker: SK ? Procedure Note Conrad, Image - 11/17/2022 [facility] [address] [place] [address] Mammography Report Signed Patient: Brooklynn De La Rosa EMR#: [id number] : 1960Acct:[id number] Age/Sex: 61 / FADM Date: 11/16/22 Loc: ANOOPO Attending Dr: Ani Anguiano PHARMACEUTICAL SALESPERSON Ordering Physician: Chanell Lorenz NPResults: 1Negat martin Date of Service: 11/16/22Follow Up: 1 Year From Orig inal Mammogram Procedure(s): MM tomosynthesis screening BI Accession Number(s): [id number] cc: Chanell Lorenz NP EXAMINATION: MM SCREENING [...] in OV> 11/17/22 1328 DD/ 0954 TD/TT: Oleomargarine Maker: GABBIE [facility] External Provider IMG BI PROCEDURES Final Result documented in this encounter Visit Diagnoses Not on filedocumented in this encounter Additional Health Concerns Assessment Noted Time PHQ-9 Depression Total Score: 0 08/26/19 23 2:13 PM EST documented as of this encounter Care Teams Inbound Call Center Agent Relationship Specialty Start Date End Date Ani Anguiano ANP [address] [place] [phone] PCP - General Family Medicine 05/06/22 documented as of this encounter
== END 2024-11-29 15:44 | disposition home or self-care (01) ==
LOC: HO.HSMS 15:00
PROVIDERS: PCP Nurse Practitioner Primary Care; Visit Provider Nurse Practitioner Family
DX: G47.33 Obstructive sleep apnea (adult) (pediatric) (principal)
CPT/HCPCS: 99213

== ENCOUNTER 2024-11-30 08:50 | Outpatient (REF) | payer OTHER, MEDICAID, SELFPAY ==
--- OUTSIDE RECORDS SUMMARY | 2024-11-30 09:14 | XMS_ITS | Encounter Summary ---
Author Organization [employer] Address [address] [place] [address] 7 [place] [address] Care Team Providers Care Oil Well Driller Name Role Phone Ani Anguiano Primary Care Provider [phone] Reason for Visit * Reason Onset Date Comments Pre op 04/05/2024 Encounter Details Date Type Department Care Team (Late st Contact Info) Description 04/05/2024 Telephone [facility] MEDICINE [address] [place] [address] Ani Anguiano ANP [address] [place] [address] Pre op Social History Tobacco Use Types [...] for pre op 04/14/24 at 10:30AM with [place]. Appointment reminder letter mailed. * Telephone Encounter [...] Payne Facility name: [facility] Surgeon's office number: [phone] Surgeon's office fax number: [phone] Contact name (person you spoke with): Germania Last office note from surgeon requested: Yes documented in this encounter Plan of Treatment Upcoming Encounters Date Type Department Care Team (Late st Contact Info) Description 01/23/2025 1:00 PM EDT Office Visit [facility] MEDICINE [address] [place] [phone] Ani Anguiano ANP [address] [place] [phone] 08/10/2025 10:00 AM EST Medication Management [address] [address] Emma Her, PharmD [address] [place] [phone] documented as of this encounter Visit Diagnoses Not on filedocumented in this encounter Additional Health Concerns Assessment Noted Time PHQ-9 Depression Total Score: 0 09/17/19 24 11:20 AM EST documented as of this encounter Care Teams Oil Well Driller Relationship Specialty Start Date End Date Ani Anguiano ANP [address] [place] [phone] PCP - General Family Medicine 05/06/22 documented as of this encounter
--- OUTSIDE RECORDS SUMMARY | 2024-11-30 09:14 | XMS_ITS | Encounter Summary ---
Author Organization [employer] Address [address] 7t [place] [address] Care Team Providers Care Delinquent Tax Collection Assistant Name Role Phone Ani Anguiano Primary Care Provider [phone] Reason for Visit * Reason Comments Med Refill Encounter Details Date Type Department Care Team ([facility] st Contact Info) Description 06/01/2023 Refill [facility] [address] [place], [place] [phone] Ani Anguiano ANP [address] [place] [address] Type 2 diabetes mellitus without complication, without long-term current use of insulin ([facility]) Social History Tobacco Use Types Packs/Day Years [...] 01/23/2025 1:00 PM EDT Office Visit [facility] MEDICINE [address] [place] [phone] Ani Anguiano ANP [address] [place] [address] 08/10/2025 10:00 AM EST Medication Management [facility] MEDICINE [address] [place] [phone] Emma Her, PharmD [address] [place] [phone] documented as of this encounter Visit Diagnoses Diagnosis Type 2 diabetes mellitus without complication, without long-term current use of insulin ([facility]) documented in this encounter Additional Health Concerns Assessment Noted Time PHQ-9 Depression Total Score: 0 08/26/19 23 2:13 PM EST documented as of this encounter Care Teams Delinquent Tax Collection Assistant Relationship Specialty Start Date End Date Ani Anguiano ANP [address] [place] [phone] PCP - General Family Medicine 05/06/22 documented as of this encounter
--- OUTSIDE RECORDS SUMMARY | 2024-11-30 09:15 | XMS_ITS | Encounter Summary ---
Author Organization [employer] Address [address] [facility] 7t [place] [address] Care Team Providers Care Commercial Green Building Architect Name Role Phone Ani Anguiano Primary Care Provider [phone] Encounter Details Date Type Department Care Team (Late st Contact Info) Description 04/14/2024 Orders Only [facility] MEDICINE [address] [place] [address] Ani Anguiano ANP [address] [place] [address] Social History Tobacco Use Types Packs/Day Years [...] 01/23/2025 1:00 PM EDT Office Visit [facility] MEDICINE [address] [place] [phone] Ani Anguiano ANP [address] [place] [address] 08/10/2025 10:00 AM EST Medication Management [address] [address] Emma Her, PharmD [address] [place] [phone] documented as of this encounter Visit Diagnoses Not on filedocumented in this encounter Additional Health Concerns Assessment Noted Time PHQ-9 Depression Total Score: 0 09/17/19 24 11:20 AM EST documented as of this encounter Care Teams Commercial Green Building Architect Relationship Specialty Start Date End Date Ani Anguiano ANP [address] [place] [phone] PCP - General Family Medicine 05/06/22 documented as of this encounter"
--- OUTSIDE RECORDS SUMMARY | 2024-11-30 09:15 | XMS_ITS | Encounter Summary ---
Author Organization [employer] [facility] Address [address] [place] [address] 7 [place] [address] Care Team Providers Care Warehouse Processor Name Role Phone Ani Anguiano Primary Care Provider [phone] Encounter Details Date Type Department Care Team (Late st Contact Info) Description 10/30/2022 Orders Only [facility] MEDICINE [address] [place] [address] [phone] Ani Anguiano ANP [address] [place] [address] [phone] Social History Tobacco Use Types Packs/Day Years [...] Description 01/23/2025 1:00 PM EDT Office Visit [facility]ICINE [address] [place] [address] Ani Anguiano ANP [address] [place] [address] [phone] 08/10/2025 10:00 AM EST Medication Management [facility] [address] [place] [address] Emma Her, PharmD 230 [place] [address] documented as of this encounter Procedures Procedure Name Priority Date/Time Associated Diagnosis Comments VITAMIN D,25-OH,TOTAL,IA Routine 02/23/2023 2:28 PM EDT BI MAMMOGRAM SCREENING TOMOSYNTHESIS BILATERAL Routine 11/16/2022 9:54 AM EDT documented in this encounter Results * Vitamin D, 25-Hydroxy, Total, Immunoassay (02/23/2023 2:28 PM EDT) Vitamin D 25-OH Total 45.3 >30 ng/mL [facility] Comment:Health Based Referen ce Values*< 20 ng/mL Bquogfhso07-12 ng/mL Insufficient> 30 ng/mL Sufficient*Josh RUBIO. N [...] EDT 02/23/2023 4:02 PM EDT Ani Anguiano [facility] BLOOD ORDERABLES Final Resul t [facility] [address] [place] [address] [phone] * BI Mammogram Screening Tomosynthesis Bilateral (11/16/2022 9:54 AM EDT) Anatomical Region Laterality Modality Breast Bilateral Mammography 11/16/2022 9:54 AM EDT Narrative 11/17/2022 1:31 PM EDT ? [facility] ? [address] ?[place], [place] [address] ? Mammography Report ? Signed ? Patient: Brooklynn De La Rosa ?MR#: ?? [id number] ? : 1960 ?Acct:[id number] ? Age/Sex: 61 / F ?ADM Date: 11/16/22 ? Loc: HO.MAMMO ? Attending Dr: Ani Anguiano GAS TURBINE ASSEMBLER ? Ordering Physician: Chanell Lorenz GAS TURBINE ASSEMBLER ?Results: 1Negat ?? martin ? Date of Service: 11/16/22 ?Follow Up: 1 Year From Orig ?? inal Mammogram ? Procedure(s): MM tomosynthesis screening BI ?? Accession Number(s): [id number] ? cc: Chanell Lorenz GAS TURBINE ASSEMBLER ? EXAMINATION: ?? MM SCREENING DIGITAL BREAST [...] 1328 ? DD/ 0954 ? TD/TT: ? Hand Iii Cutter: SK ? Procedure Note Conrad, Image - 11/17/2022 [facility] [address] [place] [address] Mammography Report Signed Patient: Brooklynn De La Rosa EMR#: [id number] : 1960Acct:[id number] Age/Sex: 61 / FADM Date: 11/16/22 Loc: ANOOPO Attending Dr: nAi Anguiano GAS TURBINE ASSEMBLER Ordering Physician: Chanell Lorenz NPResults: 1Negat martin Date of Service: 11/16/22Follow Up: 1 Year From Orig inal Mammogram Procedure(s): MM tomosynthesis screening BI Accession Number(s): [id number] cc: Chanell Lorenz NP EXAMINATION: MM SCREENING [...] in OV> 11/17/22 1328 DD/ 0954 TD/TT: Hand Iii Cutter: GABBIE [facility] External Provider IMG BI PROCEDURES Final Result documented in this encounter Visit Diagnoses Not on filedocumented in this encounter Additional Health Concerns Assessment Noted Time PHQ-9 Depression Total Score: 0 08/26/19 23 2:13 PM EST documented as of this encounter Care Teams Warehouse Processor Relationship Specialty Start Date End Date Ani Anguiano ANP [address] [place] [phone] PCP - General Family Medicine 05/06/22 documented as of this encounter
--- OUTSIDE RECORDS SUMMARY | 2024-11-30 09:15 | XMS_ITS | Encounter Summary ---
Author Organization [employer] Address [address] [place] [address] 7t [place] [address] Care Team Providers Care Back Gray Cloth Washer Name Role Phone Ani Anguiano Primary Care Provider [phone] Reason for Visit * Reason Comments Med Refill Encounter Details Date Type Department Care Team ([facility] st Contact Info) Description 08/24/2024 Refill [facility] MEDICINE [address] [place] [address] Ani Anguiano ANP [address] [place] [address] Hypertension associated with diabetes (CMS/HCC) (CMS/HCC); Bilateral [...] the past 12 months, has t he [employer], gas, oil or water company threatened to [...] Description 01/23/2025 1:00 PM EDT Office Visit [facility] MEDICINE [address] [place] [phone] Ani Anguiano ANP [address] [place] [address] 08/10/2025 10:00 AM EST Medication Management [facility] MEDICINE [address] [place] [phone] Emma Her, PharmD [address] [place] [phone] documented as of this encounter Visit Diagnoses Diagnosis Hypertension associated with diabetes (CMS/HCC) Unspecified essential hypertension Bilateral leg pain Pain in soft tissues of limb documented in this encounter Additional Health Concerns Assessment Noted Time PHQ-9 Depression Total Score: 0 09/17/19 24 11:20 AM EST documented as of this encounter Care Teams Back Gray Cloth Washer Relationship Specialty Start Date End Date Ani Anguiano ANP [address] [place] [phone] PCP - General Family Medicine 05/06/22 documented as of this encounter
--- OUTSIDE RECORDS SUMMARY | 2024-11-30 09:15 | XMS_ITS | Encounter Summary ---
Author Organization [employer] [facility] Address [address] [place] [address] 7t [place] [address] Care Team Providers Care Corrosion Control Engineer Name Role Phone Ani Anguiano Primary Care Provider [phone] Reason for Visit * Reason Comments Med Refill Encounter Details Date Type Department Care Team ([facility] Contact Info) Description 02/22/2023 Refill [facility] MEDICINE [address] [place] [address] Ani Anguiano ANP [address] [place] [address] Type 2 diabetes mellitus without complication, unspecified whether termination clerk insulin use ([facility]) Social History Tobacco Use Types Packs/Day Years [...] Upcoming Encounters Date Type Department Care Team ([facility] st Contact Info) Description 01/23/2025 1:00 PM EDT Office Visit [facility] MEDICINE [address] [place], [place] [phone] Ani Anguiano ANP [address] [place] [address] 08/10/2025 10:00 AM EST Medication Management [facility] MED[facility]INE [address] [place], [place] [phone] Emma Her, PharmD [address] [place], [place] [phone] documented as of this encounter Visit Diagnoses Diagnosis Type 2 diabetes mellitus without complication, unspecified whether termination clerk insulin use ([facility]) documented in this encounter Additional Health Concerns Assessment Noted Time PHQ-9 Depression Total Score: 0 08/26/19 23 2:13 PM EST documented as of this encounter Care Teams Corrosion Control Engineer Relationship Specialty Start Date End Date Ani Anguiano ANP [address] [place] [address] [phone] PCP - General Family Medicine 05/06/22 documented as of this encounter
--- OUTSIDE RECORDS SUMMARY | 2024-11-30 09:15 | XMS_ITS | Encounter Summary ---
Author Organization [employer] Address [address] [place] [address] 7t [place] [address] Care Team Providers Care Upsetting Machine Operator Name Role Phone Ani Anguiano Primary Care Provider [phone] Reason for Visit * Reason Onset Date Comments status on script 07/03/2022 Encounter Details Date Type Department Care Team ([facility] st Contact Info) Description 07/03/2022 Telephone [facility] MEDICINE [address] [place] [address] Ani Anguiano ANP [address] [place] [address] status on script Social History Tobacco Use [...] PM EST TC placed to pt at [phone] regarding message below per Dr. Butts. Pt informed medication was verbally called into [facility] pharmacy on [address] Pt verbalized understanding. Pt to F/U as needed. [facility] staff Edwige assisting with translation. Medication was verbally called at [facility] this morning as the right order could not be found in our new EHR. * Telephone Encounter - Saray Aidan - 07/03/2022 8:54 AM EST Tc from Pt stated yesterday came to [facility] and they supposed to send a script for Oxy meter, Paxlovid and she said another medication but she doesn't know the name or what for to see if we can send script to [facility] Pharmacy on [address] [place] PCP DR. Anguiano The medication was called in for Ms Wheatley. [facility] does not have a pulse oxymeter. Pt will have to have someone berry picker one for her here at the [facility]. A script will be sent. documented in this encounter Plan of Treatment Upcoming Encounters Date Type Department Care Team (Late st Contact Info) Description 01/23/2025 1:00 PM EDT Office Visit [facility] MEDICINE [address] [place] [phone] Ani Anguiano ANP [address] [place] [address] 08/10/2025 10:00 AM EST Medication Management [facility]INE [address] [place] [phone] Emma Her, PharmD [address] [place] [address] documented as of this encounter Visit Diagnoses Diagnosis COVID-19- Primary documented in this encounter Care Teams Upsetting Machine Operator Relationship Specialty Start Date End Date Ani Anguiano ANP [address] [place] [phone] PCP - General Family Medicine 05/06/22 documented as of this encounter
--- OUTSIDE RECORDS SUMMARY | 2024-11-30 09:15 | XMS_ITS | Encounter Summary ---
Author Organization [employer] [facility] Address [address] [place] [address] 7 [place] [address] Care Team Providers Care Boiler Water Tester Name Role Phone Ani Anguiano Primary Care Provider [phone] Reason for Visit * Reason Comments Med Refill Encounter Details Date Type Department Care Team (Late st Contact Info) Description 11/07/2022 Refill [facility] MEDICINE [address] [place] [address] Ani Anguiano ANP [address] [place] [address] Type 2 diabetes mellitus without complication, unspecified whether route aide insulin use ([facility]) Social History Tobacco Use Types [...] Description 01/23/2025 1:00 PM EDT Office Visit [facility] MEDICINE [address] [place] [address] [phone] Ani Anguiano ANP [address] [place] [address] 08/10/2025 10:00 AM EST Medication Management [facility] MEDICINE [address] [place], [place] [phone] Emma Her, Luiz [address] [place] [address] documented as of this encounter Visit Diagnoses Diagnosis Type 2 diabetes mellitus without complication, unspecified whether mcfp insulin use ([facility]) documented in this encounter Additional Health Concerns Assessment Noted Time PHQ-9 Depression Total Score: 0 08/26/19 23 2:13 PM EST documented as of this encounter Care Teams Boiler Water Tester Relationship Specialty Start Date End Date Ani Anguiano ANP [address] [place] [phone] PCP - General Family Medicine 05/06/22 documented as of this encounter
--- OUTSIDE RECORDS SUMMARY | 2024-11-30 09:15 | XMS_ITS | Clinical Summary ---
Author Organization [employer] Address [address] [facility] 7t [place] [address] Care Team Providers Care Stone Grader Name Role Phone Cristiano Hairston Primary Care Provider [phone] Allergies Active Allergy Reactions Criticality Noted Date [...] Ultra) test stripIndications: Hypertension associated with diabetes ([facility]) Use to test blood sugar 3 times daily 100 each 01/11/20 24 2024 Active OneTouch Delica Lancets 33G miscIndications:H ypertension associated with diabetes ([facility]) Use to test blood sugar 3 times daily 100 each 01/11/20 24 Active Blood Glucose Monitoring Suppl (ONE TOUCH ULTRA 2) w/Device kitIndications:Hy pertension associated with diabetes ([facility]) Use to test blood sugar 3 times [...] containerIndicati ons:Type 2 diabetes mellitus with hyperlipidemia ([facility]/HCC) ([facility]) Use for disposal of used pen needles, [...] 2 diabetes mellitus without complication, unspecified whether ferry terminal supervisor insulin use ([facility]) USE DIRECTED TWICE DAILY 100 each 11 10/14/19 25 Active atorvastatin (Lipitor) 10 MG tabletIndications :Type 2 diabetes mellitus with hyperlipidemia (CMS/HCC) ([facility]) Take 1 tablet (10 mg) by mouth at bedtime. 90 tablet 3 10/14/19 25 2025 Active enalapril (Vasotec) 10 MG tabletIndications :Hypertension associated with diabetes ([facility]) TAKE 1 TABLET BY MOUTH EVERY DAY IN THE MORNING 90 tablet 3 10/14/19 25 Active metFORMIN XR (Glucophage-XR) 500 MG 24 hr tabletIndications :Hypertension associated with diabetes ([facility]) TAKE 2 TABLETS BY MOUTH EVERY TWELVE [...] MGIndications:Typ e 2 diabetes mellitus with hyperlipidemia ([facility]/HCC) ([facility]) TAKE 1 TABLET EVERY DAY 30 tablet 11/11/19 25 Active lidocaine (Lidoderm) 5 % patchIndications: Upper back pain on right side Apply 1 patch topically Once per day. Remove & discard patch within 12 hours or as directed by MD. 30 patch 2 06/06/20 24 2024 Discontinued empagliflozin (Jardiance) 10 MGIndications:Typ e 2 diabetes mellitus with hyperlipidemia (CMS/HCC) ([facility]) Take 1 tablet (10 mg) by mouth Once per day. 30 tablet 10/14/19 25 2024 Discontinued Active Problems Problem Noted Date Diagnosed Date Bilateral carpal tunnel syndrome 10/16/2024 Chronic left-sided low back pain with left-sided sciatica 10/13/2024 Difficulty walking 10/13/2024 Requires assistance with activities of daily adelso ing (ADL) 08/24/2024 Obstructive sleep apnea syndrome 07/02/2022 Overview (01/20/2024): Follows w sleep med, READING INTERVENTION TEACHER Jacinto Urinary tract infectious disease 07/02/2022 Multiple renal cysts 10/30/2021 Asthma, well controlled 05/08/2021 Hypertension associated with diabetes 05/08/2021 Obesity 05/08/2021 Osteopenia 05/08/2021 Type 2 diabetes mellitus with hyperlipidemia (CM S/HCC) 05/08/2021 Resolved Problems Problem Noted Date Diagnosed Date Resolved Date COVID-19 07/02/2022 09/28/2022 Encounters Date Type Department Care Team Description 11/09/2024 Refill [facility] [address] [place] [address] Cristiano Hairston ANP Type 2 diabetes mellitus with hyperlipidemia (CMS/HCC) (CMS/HCC) 11/04/2024 Refill [facility] [address] [place] [address] Cristiano Hairston ANP Upper back pain on right side 10/22/2024 Refill [facility] [address] [place] [address] Cristiano Hairston ANP Asthma, moderate persistent, well-controlled 10/17/2024 Telephone [facility] [address] [place] [address] Cristiano Hairston ANP Durable Medical Equipment 10/17/2024 Travel 10/13/2024 9:15 AM EDT Office Visit [facility] [address] [place] [address] Cristiano Hairston ANP Osteopenia, unspecified location (Primary Dx); Type 2 diabetes mellitus with hyperlipidemia (CMS/HCC) (CMS/HCC); Dietary counseling; Exercise counseling; Ambulates with cane; Requires assistance with activities of daily living (ADL); Chronic left-sided low back pain with left-sided sciatica; Difficulty walking; Hypertension associated with diabetes (CMS/HCC) (CMS/HCC); Bilateral leg pain; Bilateral carpal tunnel syndrome; History of left breast biopsy 10/13/2024 Travel 10/12/2024 Refill [facility] [address] [place] [address] Cristiano Hairston ANP Type 2 diabetes mellitus without complication, unspecified whether fci insulin use ([facility]) 10/11/2024 Telephone [facility] [address] [place] [address] Jennifer Jean MA chart prep 10/02/2024 Patient Outreach [facility] [address] [place] [address] Cristiano Hairston ANP Pre-visit Planning (SDOH Screening [...] Description 01/23/2025 1:00 PM EDT Office Visit [facility] [address] [place], [place] [phone] Cristiano Hairston, ANP [address] [place] [address] 08/10/2025 10:00 AM EST Medication Management [facility] [address] [place] [address] Emma Her, PharmD [address] [place], [place] [phone] Health Maintenance Due Date Last Done Comments [...] Type 2 diabetes mellitus with hyperlipidemia (CMS/HCC) ([facility]) ALBUMIN, RANDOM URINE W/CREATININE Routine 01/27/2024 9:32 AM EDT Type 2 diabetes mellitus without complication, without long-term current use of insulin ([facility]) BI MAMMOGRAM SCREENING TOMOSYNTHESIS BILATERAL Routine 11/19/2023 9:20 AM EDT HIV 1/2 ANTIGEN/ANTIBODY, FOURTH GENERATION W/RFL Routine 05/08/2021 10:50 AM EDT from Last 3 Months or Most Recently Relevant to Health Maintenance Results * (ABNORMAL) POCT HGB A1C (10/13/2024 10:11 AM EDT) Pathologist [facility] Hemoglobin A1C 7.7(A) 4.0 - 6.0 % QC Media Lot # [id number] Lot# Expiration Date , 6 Blood 10/13/2024 10:1 1 AM EDT us Cristiano Hairston ANP POINT OF CARE TEST ENTER/EDIT OR DERABLES Final Result * POCT Glucose (10/13/2024 10:09 AM EDT) Pathologist [facility] Glucose Blood, POC 121 60 - 200 mg/dL QC Media Lot # [id number] Lot# Expiration Date [id number] Blood Capillary blood specimen / Unknown 10/13/2024 10:09 AM EDT us Cristiano Hairston ANP POINT OF CARE TEST ENTER/EDIT OR DERABLES Final Result * (ABNORMAL) Lipid Panel, Standard (07/18/2024 9:05 AM EST) Triglycerides 98 <150 mg/dL [facility] Comment:Desirable Triglyceri de: less than 150 mg/dLBorderline High Triglyceride 150-199 mg/dLHigh Triglyceride: 200-499 mg/dLVery High Triglyceride: greater than or equal to 5OO mg/dL Cholesterol 117 <200 mg/dL [facility] Comment:Desirable Cholestero l: less than 200 mg/dLBorderline High Cholesterol: 200-239 mg/dLHigh Cholesterol: greater than 239 mg/dL LDL Cholesterol Calculated 59 <100 mg/dL [facility] Comment:Desirable LDL: less than 100 mg/dLNear Optimal/Above Optimal LDL: 110- 129 mg/dLBorderline High LDL: 130-159 mg/dLHigh LDL: 160-189 mg/dLVery High LDL: greater than or equal to 190 mg/dL HDL Cholesterol 39(L) >40 mg/dL [facility] Comment:Desirable HDL: great er than 40 mg/dL Note: This HDL assay may give artificially low results in patients with liver disease. Blood Venous blood specimen / Unknown 07/18/2024 9:05 AM EST 07/18/2024 11:00 AM EST Cristiano Hairston ANP LAB BLOOD ORDERABLES Final Resul t Performing Organization Address [facility] de Phone Number [facility] [address] [place] [phone] * (ABNORMAL) Albumin, Random Urine W/Creatinine (01/27/2024 9:32 AM EDT) Creatinine, Urine 40.16 mg/dL [facility] Microalbumin Urine 16.0 mg/L [facility] Microalbum Creatinine Ratio Ur 39.8(H) <30 ug/mg cr [facility] Comment:Albumin/Creatinine R atio Reference Ranges: Normal: < 30 ug/mg creatinine Microalbuminuria: 30 - 300 ug/mg creatinineClinical Albuminuria: > 300 ug/mg creatinine Urine 01/27/2024 9:32 AM EDT 01/27/2024 11:21 AM EDT us Cristiano Hairston ANP LAB URINE ORDERABLES Final Resul t Performing Organization Address [facility] Co de Phone Number [facility] [address] [place] [phone] * BI Mammogram Screening Tomosynthesis Bilateral (11/19/2023 9:20 AM EDT) Anatomical Region Laterality Modality Breast Bilateral Mammography 11/19/2023 9:20 AM EDT Narrative 12/19/2023 10:00 PM EDT ? [facility] ? [address] ?[place] [address] ? Mammography Report ? Signed ? Patient: Brooklynn De La Rosa ?MR#: ?? [id number] ? : 1960 ?Acct:[id number] ? Age/Sex: 62 / F ?ADM Date: 11/19/23 ? Loc: HO.MAMMO ? Attending Dr: Cristiano Hairston READING INTERVENTION TEACHER ? Ordering Physician: CRISTIANO HAIRSTON NP ?Results: 2Benign Fin ?? dings ? Date of Service: 11/19/23 ?Follow Up: 1 Year From Orig ?? inal Mammogram ? Procedure(s): MM tomosynthesis screening BI ?? Accession Number(s): [id number] ? cc: MARIKA,CRISTIANO BURGOS ? EXAMINATION: ?? [...] 12/19/232156 ? DD/ 0920 ? TD/TT: ? Door To Door Sales Representative: ? Procedure Note Donmaria dolores, Image - 12/19/2023 [facility] [address] [place] [address] Mammography Report Signed Patient: Brooklynn De La Rosa EMR#: [id number] : 1960Acct:[id number] Age/Sex: 62 / FADM Date: 11/19/23 Loc: [facility] Attending Dr: Cristiano Hairston READING INTERVENTION TEACHER Ordering Physician: CRISTIANO HAIRSTONesults: 2Benign Tai dumont Date of Service: 11/19/23Follow Up: 1 Year From Orig inal Mammogram Procedure(s): MM tomosynthesis screening BI Accession Number(s): [id number] cc: CRISTIANO HAIRSTON NP EXAMINATION: MM SCREENING [...] MD in OV> 12/19/230 DD/ 9 TD/TT: Door To Door Sales Representative: Cristiano SMITH John BI PROCEDURES Edited Result - Final * HIV 1/2 ANTIGEN/ANTIBODY,FOURTH GENERATION W/RFL (05/08/2021 10:50 AM EDT) HIV-1/2 ANTIGEN AND ANTIBODIES, 4TH GENERATION W/ REFLEX NON-REACT [facility] NON-REACT [facility] Comment: HIV-1 antigen and HIV-1/HIV-2 [...] ? For additional information please refer to http://education.[email or web address]/URD990 (This link is being provided for informational/ educational purposes only.) ? The performance of this assay has not been clinically validated in patients less than 2 years old. ?? 05/08/2021 10:5 0 AM EDT us Chanell Lorenz READING INTERVENTION TEACHER LAB BLOOD ORDERABLES Final Res ult [facility] [address] from Last 3 Months or Most Recently Relevant to Health Maintenance Insurance [facility] MEDICARE REPLACEMENT GENERIC MEDICARE ADVANTAGE on file Care Teams Stone Grader Relationship Specialty Start Date End Date Cristiano Hairston ANP [address] [place] [phone] PCP - General Family Medicine 05/06/22
--- OUTSIDE RECORDS SUMMARY | 2024-11-30 09:15 | XMS_ITS | Encounter Summary ---
Author Organization [employer] [facility] Address [address] [place] [address] [address] [place] [address] Care Team Providers Care Shallot Packer Name Role Phone Ani Anguiano Primary Care Provider [phone] Reason for Visit * Reason Comments Med Refill Encounter Details Date Type Department Care Team (Late st Contact Info) Description 11/09/2022 Refill [facility] [address] [place] [phone] Ani Anguiano ANP [address] [place] [address] Type 2 diabetes mellitus without complication, without long-term current use of insulin ([facility]) Social History Tobacco Use Types Packs/Day [...] Description 01/23/2025 1:00 PM EDT Office Visit [facility] [address] [place] [address] Ani Anguiano ANP [address] [place] [address] 08/10/2025 10:00 AM EST Medication Management [facility] [address] [place], [place] [phone] Emma Her PharmD [address] [place] [address] documented as of this encounter Visit Diagnoses Diagnosis Type 2 diabetes mellitus without complication, without long-term current use of insulin ([facility]) documented in this encounter Additional Health Concerns Assessment Noted Time PHQ-9 Depression Total Score: 0 08/26/19 23 2:13 PM EST documented as of this encounter Care Teams Shallot Packer Relationship Specialty Start Date End Date Ani Anguiano ANP [address] [place] [phone] PCP - General Family Medicine 05/06/22 documented as of this encounter
--- OUTSIDE RECORDS SUMMARY | 2024-11-30 09:15 | XMS_ITS | Encounter Summary ---
Author Organization [employer] [facility] Address [address] [place] [address] 7[address] [place] [address] Care Team Providers Care Edge Inker Name Role Phone Ani Anguiano Primary Care Provider [phone] Encounter Details Date Type Department Care Team (Late Contact Info) Description 07/02/2022 Abstract [facility] [address] [place] [phone] ProviderAnabella MD Social History Tobacco Use Types [...] Description 01/23/2025 1:00 PM EDT Office Visit [facility] [address] [place] [address] [phone] Ani Anguiano ANP [address] [place] [address] 08/10/2025 10:00 AM EST Medication Management [facility] [address] [place] [address] [phone] Emma Her, PharmD [address] [place] [address] documented as of this encounter Visit Diagnoses Not on filedocumented in this encounter Care Teams Edge Inker Relationship Specialty Start Date End Date Ani Anguiano ANP [address] [place] [address] PCP - General Family Medicine 05/06/22 documented as of this encounter
== END 2024-11-30 08:51 | disposition home or self-care (01) ==
LOC: HO.MAMMO 08:50
PROVIDERS: PCP Nurse Practitioner Primary Care; Visit Provider Nurse Practitioner Primary Care
DX: Z12.31 Encounter for screening mammogram for malignant neoplasm of breast (principal)
CPT/HCPCS: 77063; 77067

== ENCOUNTER → 2024-11-30 09:00 | Outpatient (BNV) | payer OTHER, MEDICAID, SELFPAY | PROVIDERS: PCP Nurse Practitioner Primary Care; Visit Provider Internal Medicine | DX: Z12.31 Encounter for screening mammogram for malignant neoplasm of breast (principal) | CPT/HCPCS: 77063; 77067 ==

== ENCOUNTER 2024-12-05 12:39 | Outpatient (AMB) | payer MEDICARE, SELFPAY ==
--- NOTE | 2024-12-05 12:50 | MHC.OFFVIS ---
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 Patient reports pain, numbness and tingling that runs up into her left elbow and shoulder. She reports some days her bilateral hands cramp up and lock, mainly the 3rd and 4th digits. She expresses difficultly with lifting, gripping, and grasping. Her symptoms exacerbate during the night. She reports nothing alleviates her symptoms. Hx of Type 2 DM. A1C last known is 7 done @ [facility]. IMPRESSION: 1. This is an abnormal study. 2. There is electrodiagnostic evidence for right moderate-severe and left mild median neuropathy at the wrist, consistent with carpal tunnel syndrome. 3. There is no electrodiagnostic evidence for ulnar neuropathy. 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 Patient reports pain, numbness and tingling that runs up into her left elbow and shoulder. She reports some days her bilateral hands cramp up and lock, mainly the 3rd and 4th digits. She expresses difficultly with lifting, gripping, and grasping. Her symptoms exacerbate during the night. She reports nothing alleviates her symptoms. Hx of Type 2 DM. A1C last known is 7 done @ [facility]. IMPRESSION: 1. This is an abnormal study. 2. There is electrodiagnostic evidence for right moderate-severe and left mild median neuropathy at the wrist, consistent with carpal tunnel syndrome. 3. There is no electrodiagnostic evidence for ulnar neuropathy. [facility] Medical History Pre-op examination Left upper quadrant abdominal pain Well woman exam with routine gynecological exam Tubular adenoma of colon Urinary tract infection Moderate persistent asthma Osteopenia Hyperlipidemia Essential hypertension Obesity (BMI 30.0-34.9) Poor circulation DM type 2 (diabetes mellitus, type 2) Migraine Diverticulitis Gastritis Asthma Anxiety Surgical History Status post total hysterectomy and bilateral salpingo-oophorectomy (BSO) History of esophagogastroduodenoscopy (EGD) Hx of breast biopsy H/O colonoscopy with polypectomy H/O total hysterectomy H/O tubal ligation Family History Maternal Aunt Stomach cancer Father HTN (hypertension) Heart disease Mother Diabetes Asthma Family/Other Diabetes HTN (hypertension) Social History Household Members Other:: son and 2 granddaughters Patient Tobacco Use Status: Never used Tobacco Female Reproductive History Menstrual Age of Menarche: 13 Review of Systems Const All systems reviewed & are unremarkable except as noted in HPI and below Physical Exam Vital Signs: BMI result Body Mass Index 28.5 Extrem Other: Neuro: Decreased sensation in the median nerve distribution of the left hand. Normal sensation to all other digits in the left hand today. Normal sensation in the tips of all digits of the right hand today. No thenar or intrinsic wasting. Good APB muscle firing and good finger cross. Vascular: Capillary refill brisk. ROM: Patient can make a fist and extend all their digits. Skin: No lacerations or abrasions noted. General: No ecchymosis. No erythema or evidence of infection. [] Assessment & Plan Assessment & Plan (1) Bilateral carpal tunnel syndrome: Code(s): G56.03 - Carpal tunnel syndrome, bilateral upper limbs Category: Medical Plan 1. Bilateral carpal tunnel syndrome Intermittent, daily, worse at night Patient is educated about this condition Patient is educated about the typical treatment course At this time, patient was informed that the best treatment we have for carpal tunnel syndrome is minor surgery The patient states she would like to have some time to think about pursuit of surgical intervention Patient also states she has several vacations planned this summer, and would like to delay surgery until after these Patient is educated on the risks of potentially prolonging carpal tunnel treatment sign patient understands these risks Follow-up in March or April, sooner with any acute concerns Coding Level of Care Code New Pt Level 3 (42744) Global (39522) Diagnoses Bilateral carpal tunnel syndrome G56.03
[2024-12-05 12:52] VITALS: BMI 28.5
--- OUTSIDE RECORDS SUMMARY | 2024-12-05 13:50 | XMS_ITS | Encounter Summary ---
Author Organization [employer] Address [address] [place] [address] [address] [place] [address] Care Team Providers Care Testing Projects Administrator Name Role Phone Ani Anguiano Primary Care Provider [phone] Reason for Visit * Reason Onset Date Comments Pre op 04/05/2024 Encounter Details Date Type Department Care Team ([facility] st Contact Info) Description 04/05/2024 Telephone [facility] [address] [place] [address] Ani Anguiano ANP [address] [place] [address] Pre op Social History Tobacco Use Types [...] for pre op 04/14/24 at 10:30AM with [facility]. Appointment reminder letter mailed. * Telephone Encounter [...] Payne Facility name: [facility] Surgeon's office number: [phone] Surgeon's office fax number: [phone] Contact name (person you spoke with): Germania Last office note from surgeon requested: Yes documented in this encounter Plan of Treatment Upcoming Encounters Date Type Department Care Team (Late st Contact Info) Description 01/23/2025 1:00 PM EDT Office Visit [facility] [address] [place] [address] Ani Anguiano ANP [address] [place] [phone] 08/10/2025 10:00 AM EST Medication Management [address] [address] Emma Her, PharmD [address] [place] [phone] documented as of this encounter Visit Diagnoses Not on filedocumented in this encounter Additional Health Concerns Assessment Noted Time PHQ-9 Depression Total Score: 0 09/17/19 24 11:20 AM EST documented as of this encounter Care Teams Testing Projects Administrator Relationship Specialty Start Date End Date Ani Anguiano ANP [address] [place] [phone] PCP - General Family Medicine 05/06/22 documented as of this encounter
--- OUTSIDE RECORDS SUMMARY | 2024-12-05 13:50 | XMS_ITS | Encounter Summary ---
Author Organization [employer] Address [address] [facility] 7t [place] [address] Care Team Providers Care Extrusion Process Operator Name Role Phone Ani Anguiano Primary Care Provider [phone] Reason for Visit * Reason Comments Med Refill Encounter Details Date Type Department Care Team ([facility] Contact Info) Description 06/01/2023 Refill [facility] [address] [place], [place] [phone] Ani Anguiano ANP [address] [facility] [place] [address] Type 2 diabetes mellitus without complication, without long-term current use of insulin ([facility]) Social History Tobacco Use Types [...] Description 01/23/2025 1:00 PM EDT Office Visit [facility] [address] [place] [phone] Ani Anguiano ANP [address] [place] [address] 08/10/2025 10:00 AM EST Medication Management [facility] [address] [place] [phone] Emma Her, PharmD [address] [place] [phone] documented as of this encounter Visit Diagnoses Diagnosis Type 2 diabetes mellitus without complication, without long-term current use of insulin ([facility]) documented in this encounter Additional Health Concerns Assessment Noted Time PHQ-9 Depression Total Score: 0 08/26/19 23 2:13 PM EST documented as of this encounter Care Teams Extrusion Process Operator Relationship Specialty Start Date End Date Ani Anguiano ANP [address] [place] [phone] PCP - General Family Medicine 05/06/22 documented as of this encounter
--- OUTSIDE RECORDS SUMMARY | 2024-12-05 13:50 | XMS_ITS | Encounter Summary ---
Author Organization [employer] Address [address] [facility] 7t [place] [address] Care Team Providers Care Souvenir Assembler Name Role Phone Ani Anguiano Primary Care Provider [phone] Encounter Details Date Type Department Care Team (Late st Contact Info) Description 04/14/2024 Orders Only [facility] [address] [place] [address] Ani Anguiano ANP 230 [place] [address] Social History Tobacco Use Types Packs/Day Years [...] Description 01/23/2025 1:00 PM EDT Office Visit [facility] [address] [place] [phone] Ani Anguiano ANP [address] [place] [address] 08/10/2025 10:00 AM EST Medication Management [facility] [address] [place] [phone] Emma Her, PharmD [address] [place] [phone] documented as of this encounter Visit Diagnoses Not on filedocumented in this encounter Additional Health Concerns Assessment Noted Time PHQ-9 Depression Total Score: 0 09/17/19 24 11:20 AM EST documented as of this encounter Care Teams Souvenir Assembler Relationship Specialty Start Date End Date Ani Anguiano ANP [address] [place] [phone] PCP - General Family Medicine 05/06/22 documented as of this encounter
--- OUTSIDE RECORDS SUMMARY | 2024-12-05 13:51 | XMS_ITS | Encounter Summary ---
Author Organization [facility] [facility] Address [address] [place] [address] [place], [place] [address] Care Team Providers Care Lead Manufacturing Engineering Tech Name Role Phone Ani Anguiano Primary Care Provider [phone] Reason for Visit * Reason Comments Med Refill Encounter Details Date Type Department Care Team (Late st Contact Info) Description 11/09/2022 Refill [facility] [address] [place] [phone] Ani Anguiano ANP [address] [place] [address] Type 2 diabetes mellitus without complication, without long-term current use of insulin ([facility]) Social History Tobacco Use Types [...] 01/23/2025 1:00 PM EDT Office Visit [facility] [address] [place] [phone] Ani Anguiano ANP [address] [place] [address] 08/10/2025 10:00 AM EST Medication Management [facility] [address] [place], [place] [phone] Emma Her, DailyD [address] [place] [address] documented as of this encounter Visit Diagnoses Diagnosis Type 2 diabetes mellitus without complication, without long-term current use of insulin ([facility]) documented in this encounter Additional Health Concerns Assessment Noted Time PHQ-9 Depression Total Score: 0 08/26/19 23 2:13 PM EST documented as of this encounter Care Teams Lead Manufacturing Engineering Tech Relationship Specialty Start Date End Date Ani Anguiano ANP [address] [place] [address] PCP - General Family Medicine 05/06/22 documented as of this encounter
--- OUTSIDE RECORDS SUMMARY | 2024-12-05 13:51 | XMS_ITS | Encounter Summary ---
Author Organization [employer] Address [address] [place] [address] 7t [place] [address] Care Team Providers Care Lathe Machine Operator Name Role Phone Ani Anguiano Primary Care Provider [phone] Reason for Visit * Reason Comments Med Refill Encounter Details Date Type Department Care Team (Late st Contact Info) Description 02/22/2023 Refill [facility] [address] [place] [address] Ani Anguiano ANP [address] [place] [address] Type 2 diabetes mellitus without complication, unspecified whether manager long term care insulin use ([facility]) Social History Tobacco Use Types Packs/Day Years [...] Description 01/23/2025 1:00 PM EDT Office Visit [facility] [address] [place] [phone] Ani Anguiano ANP [address] [place] [address] 08/10/2025 10:00 AM EST Medication Management [facility] [address] [place] [phone] Emma Her, DailyD [address] [place] [address] documented as of this encounter Visit Diagnoses Diagnosis Type 2 diabetes mellitus without complication, unspecified whether mcc insulin use ([facility]) documented in this encounter Additional Health Concerns Assessment Noted Time PHQ-9 Depression Total Score: 0 08/26/19 23 2:13 PM EST documented as of this encounter Care Teams Lathe Machine Operator Relationship Specialty Start Date End Date Ani Anguiano ANP [address] [place] [phone] PCP - General Family Medicine 05/06/22 documented as of this encounter
--- OUTSIDE RECORDS SUMMARY | 2024-12-05 13:51 | XMS_ITS | Encounter Summary ---
Author Organization [facility] Address [address] [place] [address] 7 [place] [address] Care Team Providers Care Conservation Science Teacher Name Role Phone Ani Anguiano Primary Care Provider [phone] Encounter Details Date Type Department Care Team (Late st Contact Info) Description 07/02/2022 Abstract [facility] [address] [place] [phone] ProviderAnabella MD Social History Tobacco Use Types [...] 1:00 PM EDT Office Visit [facility] [address] [place] [address] [phone] Ani Anguiano ANP [address] [place], [place] [phone] 08/10/2025 10:00 AM EST Medication Management [facility] [address] [place] [address] [phone] Emma Her, PharmD 230 [place] [address] documented as of this encounter Visit Diagnoses Not on filedocumented in this encounter Care Teams Conservation Science Teacher Relationship Specialty Start Date End Date Ani Anguiano ANP [address] [place] [address] PCP - General Family Medicine 05/06/22 documented as of this encounter
--- OUTSIDE RECORDS SUMMARY | 2024-12-05 13:51 | XMS_ITS | Encounter Summary ---
Author Organization [employer] Address [address] [place] [address] 7t [place] [address] Care Team Providers Care Welding Specialist Name Role Phone Ani Anguiano Primary Care Provider [phone] Reason for Visit * Reason Comments Med Refill Encounter Details Date Type Department Care Team ([facility] st Contact Info) Description 08/24/2024 Refill [facility] [address] [place] [address] Ani Anguiano ANP [address] [place] [address] Hypertension associated with diabetes (CMS/HCC) (CMS/HCC); Bilateral [...] 01/23/2025 1:00 PM EDT Office Visit [facility] [address] [place] [phone] Ani Anguiano ANP [address] [place] [phone] 08/10/2025 10:00 AM EST Medication Management [facility] [address] [place] [phone] Emma Her, PharmD [address] [place] [phone] documented as of this encounter Visit Diagnoses Diagnosis Hypertension associated with diabetes (CMS/HCC) Unspecified essential hypertension Bilateral leg pain Pain in soft tissues of limb documented in this encounter Additional Health Concerns Assessment Noted Time PHQ-9 Depression Total Score: 0 09/17/19 24 11:20 AM EST documented as of this encounter Care Teams Welding Specialist Relationship Specialty Start Date End Date Ani Anguiano ANP [address] [place] [phone] PCP - General Family Medicine 05/06/22 documented as of this encounter
--- OUTSIDE RECORDS SUMMARY | 2024-12-05 13:51 | XMS_ITS | Encounter Summary ---
Author Organization [facility] [facility] Address [address] [place] [address] [address] [address] Care Team Providers Care Supply Chain Tech Name Role Phone Ani Anguiano Primary Care Provider [phone] Reason for Visit * Reason Comments Med Refill Encounter Details Date Type Department Care Team (Late st Contact Info) Description 11/07/2022 Refill [facility] [address] [place] [address] [phone] Ani Anguiano ANP [address] [place], [place] [phone] Type 2 diabetes mellitus without complication, unspecified whether hot mill observer insulin use ([facility]) Social History Tobacco Use Types Packs/Day Years [...] Description 01/23/2025 1:00 PM EDT Office Visit [facility] [address] [place] [phone] Ani Anguiano ANP [address] [place] [address] 08/10/2025 10:00 AM EST Medication Management [facility] 230 [place], [place] [phone] Emma Her, DailyD [address] [place] [address] documented as of this encounter Visit Diagnoses Diagnosis Type 2 diabetes mellitus without complication, unspecified whether fci insulin use ([facility]) documented in this encounter Additional Health Concerns Assessment Noted Time PHQ-9 Depression Total Score: 0 08/26/19 23 2:13 PM EST documented as of this encounter Care Teams Supply Chain Tech Relationship Specialty Start Date End Date Ani Anguiano ANP [address] [place] [address] PCP - General Family Medicine 05/06/22 documented as of this encounter
--- OUTSIDE RECORDS SUMMARY | 2024-12-05 13:51 | XMS_ITS | Encounter Summary ---
Author Organization [employer] [facility] Address [address] [place] [address] 7 [place] [address] Care Team Providers Care Special Education Inclusion Teacher Name Role Phone Ani Anguiano Primary Care Provider [phone] Encounter Details Date Type Department Care Team (Late st Contact Info) Description 10/30/2022 Orders Only [facility] [address] [place] [address] [phone] Ani Anguiano ANP [address] [place] [address] [phone] Social History Tobacco Use Types Packs/Day Years [...] Description 01/23/2025 1:00 PM EDT Office Visit [facility] [address] [place] [phone] Ani Anguiano ANP [address] [place] [address] [phone] 08/10/2025 10:00 AM EST Medication Management [facility] [address] [place] [address] Emma Her, PharmD [address] [place] [address] documented as of this encounter Procedures Procedure Name Priority Date/Time Associated Diagnosis Comments VITAMIN D,25-OH,TOTAL,IA Routine 02/23/2023 2:28 PM EDT BI MAMMOGRAM SCREENING TOMOSYNTHESIS BILATERAL Routine 11/16/2022 9:54 AM EDT documented in this encounter Results * Vitamin D, 25-Hydroxy, Total, Immunoassay (02/23/2023 2:28 PM EDT) Vitamin D 25-OH Total 45.3 >30 ng/mL [facility] Comment:Health Based Referen ce Values*< 20 ng/mL [id number] ng/mL Insufficient> 30 ng/mL Sufficient*Josh RUBIO. N [...] PM EDT 02/23/2023 4:02 PM EDT Ani [facility] LAB BLOOD ORDERABLES Final Resul t [facility] [address] [place] [address] [phone] * BI Mammogram Screening Tomosynthesis Bilateral (11/16/2022 9:54 AM EDT) Anatomical Region Laterality Modality Breast Bilateral Mammography 11/16/2022 9:54 AM EDT Narrative 11/17/2022 1:31 PM EDT ? [facility] ? [address] ?[place], [place] [address] ? Mammography Report ? Signed ? Patient: Brooklynn De La Rosa ?MR#: ?? [id number] ? : 1960 ?Acct:[id number] ? Age/Sex: 61 / F ?ADM Date: 11/16/22 ? Loc: HO.MAMMO ? Attending Dr: Ani Anguiano EATING DISORDER SPECIALIST ? Ordering Physician: Chanell Lorenz EATING DISORDER SPECIALIST ?Results: 1Negat ?? martin ? Date of Service: 11/16/22 ?Follow Up: 1 Year From Orig ?? inal Mammogram ? Procedure(s): MM tomosynthesis screening BI ?? Accession Number(s): [id number] ? cc: Chanell Lorenz EATING DISORDER SPECIALIST ? EXAMINATION: ?? MM SCREENING DIGITAL BREAST [...] signed by All Sullivan MD in OV> ?11/17/228 ? DD/ 0954 ? TD/TT: ? Sail Cutter: SK ? Procedure Note Abdulaziz Martines - 11/17/2022 [facility] [address] [place] [address] Mammography Report Signed Patient: Brooklynn De La Rosa EMR#: [id number] : 1960Acct:[id number] Age/Sex: 61 / FADM Date: 11/16/22 Loc: ANOOPO Attending Dr: Ani Anguiano NP Ordering Physician: Chanell Lorenz NPResults: 1Negat martin Date of Service: 11/16/22Follow Up: 1 Year From Orig [facility] Mammogram Procedure(s): MM tomosynthesis screening BI Accession Number(s): [id number] cc: Chanell Lorenz NP EXAMINATION: MM SCREENING [...] in OV> 11/17/22 1328 DD/ 0954 TD/TT: Sail Cutter: [facility] External Provider IMG BI PROCEDURES Final Result documented in this encounter Visit Diagnoses Not on filedocumented in this encounter Additional Health Concerns Assessment Noted Time PHQ-9 Depression Total Score: 0 08/26/19 23 2:13 PM EST documented as of this encounter Care Teams Special Education Inclusion Teacher Relationship Specialty Start Date End Date Ani Anguiano ANP [address] [place] [phone] PCP - General Family Medicine 05/06/22 documented as of this encounter
--- OUTSIDE RECORDS SUMMARY | 2024-12-05 13:51 | XMS_ITS | Clinical Summary ---
Author Organization [employer] Address [address] [facility] [address] [place] [address] Care Team Providers Care Packaging Inspector Name Role Phone Cristiano Hairston LUIS Primary Care Provider [phone] Allergies Active Allergy Reactions Criticality Noted Date [...] Ultra) test stripIndications: Hypertension associated with diabetes ([facility]) Use to test blood sugar 3 times daily 100 each 01/11/20 24 2024 Active OneTouch Delica Lancets 33G miscIndications:H ypertension associated with diabetes (CMS/HCC) Use to test blood sugar 3 times daily 100 each 01/11/20 24 Active Blood Glucose Monitoring Suppl (ONE TOUCH ULTRA 2) w/Device kitIndications:Hy pertension associated with diabetes ([facility]) Use to test blood sugar 3 [...] containerIndicati ons:Type 2 diabetes mellitus with hyperlipidemia ([facility]/HCC) ([facility]) Use for disposal of used pen needles, lancets, needles, syringes, injection supplies 1 each 06/06/20 24 Active ketorolac (Acular) 0.5 % [...] each day for mild pain. OTC Active fluticasone-salme terol (Advair HFA) 230-21 MCG/ACT [...] 2 diabetes mellitus without complication, unspecified whether longterm insulin use ([facility]) USE DIRECTED TWICE DAILY 100 each 10/14/19 25 Active atorvastatin (Lipitor) 10 MG tabletIndications :Type 2 diabetes mellitus with hyperlipidemia (CMS/HCC) ([facility]) Take 1 tablet (10 mg) by [...] e 2 diabetes mellitus with hyperlipidemia (CMS/HCC) ([facility]) TAKE 1 TABLET EVERY DAY 30 tablet 11/11/19 25 Active cetirizine (ZyrTEC) 10 MG tabletIndications :Non-seasonal allergic rhinitis due to other allergic trigger TAKE 1 TABLET BY MOUTH EVERY MORNING NEEDED FOR ALLERGIES 90 tablet 1 12/06/19 25 Active lidocaine (Lidoderm) 5 % patchIndications: Upper back pain on right side Apply 1 patch topically Once per day. Remove & discard patch within 12 hours or as directed by MD. 30 patch 2 06/06/20 24 2024 Discontinued cetirizine (ZyrTEC) 10 MG tabletIndications :Non-seasonal allergic rhinitis due to other allergic trigger Take 1 tablet (10 mg) by mouth Once per day. As needed for allergies 90 tablet 1 07/11/20 24 2024 Discontinued empagliflozin (Jardiance) 10 MGIndications:Typ e 2 diabetes mellitus with hyperlipidemia (CMS/HCC) ([facility]) Take 1 tablet (10 mg) by mouth Once per day. 30 tablet 10/14/19 25 2024 Discontinued Active Problems Problem Noted Date Diagnosed Date Bilateral carpal tunnel syndrome 10/16/2024 Chronic left-sided low back pain with left-sided sciatica 10/13/2024 Difficulty walking 10/13/2024 Requires assistance with activities of daily adelso ing (ADL) 08/24/2024 Obstructive sleep apnea syndrome 07/02/2022 Overview (01/20/2024): Follows w sleep med, FILLING CARRIER Jacinto Urinary tract infectious disease 07/02/2022 Multiple renal cysts 10/30/2021 Asthma, well controlled 05/08/2021 Hypertension associated with diabetes 05/08/2021 Obesity 05/08/2021 Osteopenia 05/08/2021 Type 2 diabetes mellitus with hyperlipidemia ([facility] S/HCC) 05/08/2021 Resolved Problems Problem Noted Date Diagnosed Date Resolved Date COVID-19 07/02/2022 09/28/2022 Encounters Date Type Department Care Team Description 12/04/[address] [facility] MEDICINE [address] [place] [address] Cristiano Hairston ANP Non-seasonal allergic rhinitis due to other allergic trigger 11/09/[address] [facility] MEDICINE [address] [place] [address] Cristiano Hairston ANP Type 2 diabetes mellitus with hyperlipidemia (CMS/HCC) (CMS/HCC) 11/04/[address] [facility] MEDICINE [address] [place] [address] Cristiano Hairston ANP Upper back pain on right side 10/22/[address] [facility] MEDICINE [address] [place] [address] Cristiano Hairston ANP Asthma, moderate persistent, well-controlled 10/17/[address] [facility] MEDICINE [address] [place] [address] Cristiano Hairston ANP Durable Medical Equipment 10/17/2024 Travel 10/13/2024 9:15 AM EDT Office Visit [facility] MEDICINE [address] [place] [address] Cristiano Hairston ANP Osteopenia, unspecified location (Primary Dx); Type 2 diabetes mellitus with hyperlipidemia (CMS/HCC) (CMS/HCC); Dietary counseling; Exercise counseling; Ambulates with cane; Requires assistance with activities of daily living (ADL); Chronic left-sided low back pain with left-sided sciatica; Difficulty walking; Hypertension associated with diabetes ([facility]) ([facility]); Bilateral leg pain; Bilateral carpal tunnel syndrome; History of left breast biopsy 10/13/2024 Travel 10/12/[address] [facility] MEDICINE [address] [place], [place] [phone] Cristiano Hairston ANP Type 2 diabetes mellitus without complication, unspecified whether longterm insulin use ([facility]) 10/11/[address] [facility] MEDICINE [address] [place], [place] [phone] Jennifer Jean MA chart prep 10/02/2024 Patient Outreach [address] [phone] Cristiano Hairston ANP Pre-visit Planning (SDOH Screening [...] 1:00 PM EDT Office Visit [facility] MEDICINE [address] [place] [address] Cristiano Hairston, ANP [address] [place] [address] 08/10/2025 10:00 AM EST Medication Management [facility] MEDICINE [address] [place] [phone] Emma Her, PharmD [address] [place] [address] Health Maintenance Due Date Last Done Comments [...] Hepatitis A Vaccines Aged Out 10/13/2019, 04/13/20 No longer eligible based on patient's age [...] Type 2 diabetes mellitus with hyperlipidemia (CMS/HCC) ([facility]) ALBUMIN, RANDOM URINE W/CREATININE Routine 01/27/2024 9:32 AM EDT Type 2 diabetes mellitus without complication, without long-term current use of insulin ([facility]) BI MAMMOGRAM SCREENING TOMOSYNTHESIS BILATERAL Routine 11/19/2023 9:20 AM EDT HIV 1/2 ANTIGEN/ANTIBODY, FOURTH GENERATION W/RFL Routine 05/08/2021 10:50 AM EDT from Last 3 Months or Most Recently Relevant to Health Maintenance Results * (ABNORMAL) POCT HGB A1C (10/13/2024 10:11 AM EDT) Hemoglobin A1C 7.7(A) 4.0 - 6.0 % QC Media Lot # [id number] Lot# Expiration Date ,02 6 Blood 10/13/2024 10:1 1 AM EDT us Cristiano SMITH POINT OF CARE TEST ENTER/EDIT OR DERABLES Final Result * POCT Glucose (10/13/2024 10:09 AM EDT) Glucose Blood, POC 121 60 - 200 mg/dL QC Media Lot # [id number] Lot# Expiration Date 2430,025 Blood Capillary blood specimen / Unknown 10/13/2024 10:09 AM EDT us Cristiano SMITH POINT OF CARE TEST ENTER/EDIT OR DERABLES Final Result * (ABNORMAL) Lipid Panel, Standard (07/18/2024 9:05 AM EST) Triglycerides 98 <150 mg/dL [facility] Comment:Desirable Triglyceri de: less than 150 mg/dLBorderline High Triglyceride 150-199 mg/dLHigh Triglyceride: 200-499 mg/dLVery High Triglyceride: greater than or equal to 5OO mg/dL Cholesterol 117 <200 mg/dL [facility] Comment:Desirable Cholestero l: less than 200 mg/dLBorderline High Cholesterol: 200-239 mg/dLHigh Cholesterol: greater than 239 mg/dL LDL Cholesterol Calculated 59 <100 mg/dL [facility] Comment:Desirable LDL: less than 100 mg/dLNear Optimal/Above Optimal LDL: 110- 129 mg/dLBorderline High LDL: 130-159 mg/dLHigh LDL: 160-189 mg/dLVery High LDL: greater than or equal to 190 mg/dL HDL Cholesterol 39(L) >40 mg/dL [facility] Comment:Desirable HDL: great er than 40 mg/dL Note: This HDL assay may give artificially low results in patients with liver disease. Blood Venous blood specimen / Unknown 07/18/2024 9:05 AM EST 07/18/2024 11:00 AM EST Cristiano Hairston [facility] LAB BLOOD ORDERABLES Final Resul t [facility] [address] [place], [place] [phone] * (ABNORMAL) Albumin, Random Urine W/Creatinine (01/27/2024 9:32 AM EDT) Creatinine, Urine 40.16 mg/dL [facility] Microalbumin Urine 16.0 mg/L [facility] Microalbum Creatinine Ratio Ur 39.8(H) <30 ug/mg cr [facility] Comment:Albumin/Creatinine R atio Reference Ranges: Normal: < 30 ug/mg creatinine Microalbuminuria: 30 - 300 ug/mg creatinineClinical Albuminuria: > 300 ug/mg creatinine Urine 01/27/2024 9:32 AM EDT 01/27/2024 11:21 AM EDT us Cristiano Hairston ANP LAB URINE ORDERABLES Final Resul t [facility] [address] [facility] [place] [address] [phone] * BI Mammogram Screening Tomosynthesis Bilateral (11/19/2023 9:20 AM EDT) Anatomical Region Laterality Modality Breast Bilateral Mammography 11/19/2023 9:20 AM EDT Narrative 12/19/2023 10:00 PM EDT ? [facility] [place] ? [address] ?[place] ? Mammography Report ? Signed ? Patient: Brooklynn De La Rosa ?MR#: ?? [id number] ? : 1960 ?Acct:[id number] ? Age/Sex: 62 / F ?ADM Date: 11/19/23 ? Loc: HO.MAMMO ? Attending Dr: Cristiano Hairston FILLING CARRIER ? Ordering Physician: CRISTIANO HAIRSTON NP ?Results: 2Benign Fin ?? dings ? Date of Service: 11/19/23 ?Follow Up: 1 Year From Orig ?? inal Mammogram ? Procedure(s): MM tomosynthesis screening BI ?? Accession Number(s): [id number] ? cc: MARIKA,CRISTIANO BURGOS ? EXAMINATION: ?? [...] ? DD/ 9 ? TD/TT: ? Cable Hooker: ? Procedure Note Abdulaziz Martines - 12/19/2023 [facility] [address] [place], [place] [address] Mammography Report Signed Patient: Brooklynn De La Rosa EMR#: [id number] : 1960Acct:[id number] Age/Sex: 62 / FADM Date: 11/19/23 Loc: [facility] Attending Dr: Cristiano Hairston FILLING CARRIER Ordering Physician: CRISTIANO HAIRSTONults: 2Beniantonette dumont Date of Service: 11/19/23Follow Up: 1 Year From Orig inal Mammogram Procedure(s): MM tomosynthesis screening BI Accession Number(s): [id number] cc: CRISTIANO HAIRSTON NP EXAMINATION: MM SCREENING [...] signed by Brianna Winkler MD in OV> 12/19/232156 DD/ 9 TD/TT: Cable Hooker: Cristiano SMITH John BI PROCEDURES Edited Result - Final * HIV 1/2 ANTIGEN/ANTIBODY,FOURTH GENERATION W/RFL (05/08/2021 10:50 AM EDT) HIV-1/2 ANTIGEN AND ANTIBODIES, 4TH GENERATION W/ REFLEX NON-REACT [facility] NON-REACT [facility] Comment: HIV-1 antigen and HIV-1/HIV-2 [...] ? For additional information please refer to http://[email or web address]/faq/OMT248 (This link is being provided for informational/ educational purposes only.) ? The performance of this assay has not been clinically validated in patients less than 2 years old. ?? 05/08/2021 10:5 0 AM EDT us Chanell Lorenz FILLING CARRIER LAB BLOOD ORDERABLES Final Res ult [facility] [address] from Last 3 Months or Most Recently Relevant to Health Maintenance Insurance [facility] ST[facility] MEDICARE REPLACEMENT GENERIC MEDICARE ADVANTAGE on file Care Teams Packaging Inspector Relationship Specialty Start Date End Date Cristiano Hairston ANP [address] [place] [phone] PCP - General Family Medicine 05/06/22
--- OUTSIDE RECORDS SUMMARY | 2024-12-05 13:51 | XMS_ITS | Encounter Summary ---
Author Organization [employer] Address [address] [place] [address] 7t [place] [address] Care Team Providers Care Terrazzo Laborer Name Role Phone Ani Anguiano Primary Care Provider [phone] Reason for Visit * Reason Comments Med Refill Encounter Details Date Type Department Care Team ([facility] st Contact Info) Description 12/04/2024 Refill [facility] MEDICINE [address] [place] [address] Ani Anguiano ANP [address] [place] [address] Non-seasonal allergic rhinitis due to other allergic trigger Social History Tobacco Use Types Packs/Day Years [...] Description 01/23/2025 1:00 PM EDT Office Visit [facility] MEDICINE [address] [place] [phone] Ani Anguiano ANP [address] [place] [address] 08/10/2025 10:00 AM EST Medication Management [facility] [address] [place] [phone] Emma Her, PharmD [address] [place] [address] documented as of this encounter Visit Diagnoses Diagnosis Non-seasonal allergic rhinitis due to other allergic trigger documented in this encounter Additional Health Concerns Assessment Noted Time PHQ-9 Depression Total Score: 6 10/14/19 25 10:44 AM EDT documented as of this encounter Care Teams Terrazzo Laborer Relationship Specialty Start Date End Date Ani Anguiano ANP [address] [place] [phone] PCP - General Family Medicine 05/06/22 documented as of this encounter
--- OUTSIDE RECORDS SUMMARY | 2024-12-05 13:51 | XMS_ITS | Encounter Summary ---
Author Organization [employer] Address [address] [place] [address] 7t [place] [address] Care Team Providers Care Planning Management It Specialist Name Role Phone Ani Anguiano Primary Care Provider [phone] Reason for Visit * Reason Onset Date Comments status on script 07/03/2022 Encounter Details Date Type Department Care Team ([facility] st Contact Info) Description 07/03/2022 Telephone [facility] MEDICINE [address] [place] [address] Ani Anguiano ANP [address] [place] [address] status on script Social History Tobacco Use [...] PM EST TC placed to pt at [phone] regarding message below per Dr. Butts. Pt informed medication was verbally called into [facility] pharmacy on [address] Pt verbalized understanding. Pt to F/U as needed. [facility] staff Edwige assisting with translation. Medication was verbally called at [facility] pharmacy [facility] this morning as the right order could not be found in our new EHR. * Telephone Encounter - Saray Bermudez - 07/03/2022 8:54 AM EST Tc from Pt stated yesterday came to [facility] and they supposed to send a script for Oxy meter, Paxlovid and she said another medication but she doesn't know the name or what for to see if we can send script to [facility]acy on [address] [place] P[address] Anguiano The medication was called in for Ms Wheatley. [facility] does not have a pulse oxymeter. Pt will have to have someone bead picker one for her here at the [facility]. A script will be sent. documented in this encounter Plan of Treatment Upcoming Encounters Date Type Department Care Team (Late st Contact Info) Description 01/23/2025 1:00 PM EDT Office Visit [facility] MEDICINE [address] [place] [address] Ani Anguiano ANP [address] [place] [address] 08/10/2025 10:00 AM EST Medication Management [facility] MEDICINE [address] [place] [phone] Emma Her, PharmD [address] [place] [address] documented as of this encounter Visit Diagnoses Diagnosis COVID-19- Primary documented in this encounter Care Teams Planning Management It Specialist Relationship Specialty Start Date End Date Ani Anguiano ANP [address] [place] [phone] PCP - General Family Medicine 05/06/22 documented as of this encounter
== END 2024-12-05 13:22 | disposition home or self-care (01) ==
LOC: HO.HOS 12:39
PROVIDERS: PCP Nurse Practitioner Primary Care
DX: G56.03 Carpal tunnel syndrome, bilateral upper limbs (principal)
CPT/HCPCS: 99203

== ENCOUNTER → 2024-12-05 12:39 | Outpatient (BNVA) | payer MEDICARE, SELFPAY | PROVIDERS: PCP Nurse Practitioner Primary Care | DX: G56.03 Carpal tunnel syndrome, bilateral upper limbs (principal) | CPT/HCPCS: 99202 ==

== ENCOUNTER 2025-01-10 14:44 | Outpatient (AMB) | payer MEDICARE, SELFPAY ==
--- NOTE | 2025-01-10 14:45 | A.OFFVIS_ITS ---
Vital Signs 01/10/25 14:46 Height 5 ft Weight 146 lb BMI 28.5 BP 100/62 Intake Visit Reasons: HEALTHCARE BUSINESS ANALYST annual exam/DO NOT RS X4 Senior Web Applications Developer Required: Yes Senior Web Applications Developer Language: Manager Social Media Services: Senior Web Applications Developer Present (in person) Senior Web Applications Developer Name: [employer] Information Interpreted: non-clinical & clinical Portable Grinding Machine Operator: Portable Grinding Machine Operator Present (Aria) Allergies latex Allergy (Severe, Verified 01/10/25 14:46) Angioedema dicyclomine [From Bentyl] Adverse Reaction (Severe, Verified 01/10/25 14:46) Dry Mucus Membranes HPI Comments Details: She is a postmenopausal woman 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 She is doing well with manager educational concerns: large breast and back pain, has PCP appt. next week, she reports she will readdress her concerns for back pain and desires for a consult for a breast reduction. Occasional itching when her blood sugars are elevated. She reports currently her BS have improved. Currently not sexually active. Denies any vaginal dryness or irritation. Attempting to eat a healthy diet with calcium and vitamin D and stays active with exercise-walking w/cane. Hysterectomy due to HMB. Last mammogram; 2024. Colonoscopy is UTD. Denies any family history of breast, ovarian or colon cancer. [facility] Medical History Well woman exam with routine gynecological exam Pre-op examination Left upper quadrant abdominal pain Tubular adenoma of colon Urinary tract infection Moderate persistent asthma Osteopenia Hyperlipidemia Essential hypertension Obesity (BMI 30.0-34.9) Poor circulation DM type 2 (diabetes mellitus, type 2) Migraine Diverticulitis Gastritis Asthma Anxiety Surgical History Status post total hysterectomy and bilateral salpingo-oophorectomy (BSO) History of esophagogastroduodenoscopy (EGD) Hx of breast biopsy H/O colonoscopy with polypectomy H/O total hysterectomy H/O tubal ligation Family History Maternal Aunt Stomach cancer Father HTN (hypertension) Heart disease Mother Diabetes Asthma HTN (hypertension) Family/Other Diabetes HTN (hypertension) Social History Household Members Other:: son and 2 granddaughters Patient Tobacco Use Status: Never used Tobacco Female Reproductive History Menstrual Age of Menarche: 13 Menopause type: surgical Total pregnancies: 3 Full term: 3 Number of Living Children: 3 Date of Mammogram: 11/30/24 (Birad 2) Date of last Bone Density Screenin07/19/24 Review of Systems Const All systems reviewed & are unremarkable except as noted in HPI and below Reports as per HPI Eyes Reports no additional complaints ENT Reports no additional complaints Card Reports no additional complaints Resp Reports no additional complaints GI Reports as per HPI and Reports no additional complaints Reports as per HPI Musc Reports no additional complaints Skin/Breast Reports as per HPI Neuro Reports no additional complaints Psych Reports no additional complaints Endo Reports no additional complaints Nathaniel/Lymph Reports no additional complaints Aller/Immun Reports no additional complaints Physical Exam Vital Signs: Last Vital Signs BP 100/62 01/10/25 14:46 BMI result Body Mass Index 28.5 Const General: cooperative, healthy appearing, no acute distress, well developed and alert Orientation/consciousness: patient oriented x3 HEENT Head: Yes normal to inspection Eyes General: appearance normal, both eyes and all related structures Neck Neck: Yes normal visual inspection Thyroid: Thyroid normal Chest Other: Large pendulous breasts Chest palpation & inspection: normal inspection of the chest and other (no puckering, dimpling, peau de orange, retraction, discharge, masses) Breast/axilla inspection: normal inspection of the breasts Breast/axilla palpation: normal palpation of the breasts Resp Effort & Inspection: normal respiratory effort GI Inspection: Yes normal to inspection Palpation (GI): Soft to palpation Rectal Exam - Female: deferred General: Yes bladder normal to palpation External Female Exam: normal external appearance and normal appearance of the urethra Speculum Exam - Vagina: normal appearance of the vagina, normal palpation, normal vaginal discharge and vagina atrophic Speculum Exam - Cervix: normal appearance of the cervix and Cervix absent (Vaginal cuff no lesions or nodules) Bimanual exam- vagina & uterus: normal bimanual exam, normal palpation, bladder normal to palpation, uterus absent and cervical motion tenderness Bimanual Exam- Adnexa, other: no masses Skin General skin exam: no rashes or lesions noted Rashes: no rashes Neuro General: patient oriented x3 Cognition (Neuro): normal cognition Extrem General: Yes normal to inspection Psych Attitude: cooperative Thought process: Normal thought process present Assessment & Plan Assessment & Plan (1) Well woman exam with routine gynecological exam: Code(s): Z01.419 - Encounter for gynecological examination (general) (routine) without abnormal findings Category: Medical Plan Discussed: Current recommendations for pap smears per ASCCP guidelines. Breast awareness, periodic self breast exams and yearly mammogram. Maintain a healthy lifestyle, well balanced diet including Calcium 1,200 mg and Vitamin D 600 IU daily, and routine exercise. Use of condoms for STI prevention if indicated. Follow up with PCP to discuss back pain related to large pendulous breasts and desire to have a breast reduction surgery. Patient verbalizes understanding and agrees to the plan of care. She was given opportunity to ask questions and all questions were answered to the best of my ability. RTO in 1 year for annual manager educational exam. This note is constructed using voice recognition software. While every effort has been made to ensure accuracy, rubbish collector errors may have been included. Coding Level of Care Code Est Pt Prev Care 40-64y(93963) Diagnoses Well woman exam with routine gynecological exam Z01.419
[2025-01-10 14:46] VITALS: BP 100/62; BMI 28.5
== END 2025-01-10 15:47 | disposition home or self-care (01) ==
LOC: HO.HWS 14:44
PROVIDERS: PCP Nurse Practitioner Primary Care; Visit Provider Advanced Practice Midwife
DX: Z01.419 Encounter for gynecological examination (general) (routine) without abnormal findings (principal)
CPT/HCPCS: 99396; 99459

== ENCOUNTER → 2025-01-10 14:44 | Outpatient (BNVA) | payer MEDICARE, SELFPAY | PROVIDERS: PCP Nurse Practitioner Primary Care; Visit Provider Advanced Practice Midwife | DX: Z01.419 Encounter for gynecological examination (general) (routine) without abnormal findings (principal) | CPT/HCPCS: 99396; 99459 ==

== ENCOUNTER 2025-01-23 14:22 | Outpatient (REF) | payer MEDICARE, SELFPAY ==
--- OUTSIDE RECORDS SUMMARY | 2025-01-23 17:33 | XMS_ITS | Encounter Summary ---
Author Organization [employer] Address [address] [place] [address] 7t [place] [address] Care Team Providers Care Fire Alarm Dispatcher Name Role Phone Ani Anguiano Primary Care Provider [phone] Gracie Corona Unavailable [phone] Reason for Visit * Reason Comments Med Refill Encounter Details Date Type Department Care Team ([facility] st Contact Info) Description 06/01/2023 Refill [facility] [address] [place], [place] [phone] Ani Anguiano ANP [address] [facility] [place] [address] Type 2 diabetes mellitus without complication, without long-term current use of insulin ([facility]) Social History Tobacco Use Types [...] Care Team (Late st Contact Info) Description 08/10/2025 10:00 AM EST Medication Management [facility] MEDICINE [address] [place] [address] Emma Her, PharmD [address] [place] [address] documented as of this encounter Visit Diagnoses Diagnosis Type 2 diabetes mellitus without complication, without long-term current use of insulin ([facility]) documented in this encounter Additional Health Concerns Assessment Noted Time PHQ-9 Depression Total Score: 0 08/26/19 23 2:13 PM EST documented as of this encounter Care Teams Fire Alarm Dispatcher Relationship Specialty Start Date End Date Ani Anguiano ANP [address] [place] [address] PCP - General Family Medicine 05/06/22 Gracie Corona [address] [place] [address] Sleep Medicine 01/23/25 documented as of this encounter
[2025-01-23 17:35] LABS: Alanine Aminotransferase 19 U/L (0-31); Albumin Level 4.4 g/dL (3.5-5.0); Alkaline Phosphatase 64 U/L (39-117); Anion Gap 15 (12-20); Aspartate Amino Transferase 22 U/L (5-31); Bilirubin Total 0.5 mg/dL (0.0-1.0); Blood Urea Nitrogen 13 mg/dL (9-16); Carbon Dioxide 28 mmol/L (22-29); Chloride 105 mmol/L (96-108); Estimated Glomerular Filt Rate > 60; Glucose Random 54 mg/dL (60-115); Magnesium 2.1 mg/dL (1.6-2.6); Potassium 4.2 mmol/L (3.3-5.1); Sodium 144 mmol/L (135-145); Total Protein 6.9 g/dL (6.5-8.0)
== END 2025-01-23 14:23 | disposition home or self-care (01) ==
LOC: HO.HHCL 14:22
PROVIDERS: PCP Nurse Practitioner Primary Care; Visit Provider Nurse Practitioner Primary Care
DX: R07.89 Other chest pain (principal)
CPT/HCPCS: 36415; 80053; 83735

== ENCOUNTER 2025-01-26 09:41 | Outpatient (AMB) | payer MEDICARE, MEDICAID, SELFPAY ==
--- NOTE | 2025-01-26 09:43 | MHC.OFFVIS ---
Vital Signs 01/26/25 09:46 Height 5 ft Weight 136 lb 10.986 oz BMI 26.7 BP 112/56 L Blood Pressure Location Lt brachial Position Sitting Intake Visit Reasons: 3 mo Diarrhea, Gerd Intake Note: Brooklynn presents in the office as a 3 month follow up for diarrhea and GERD. CC: She states that she is having all the same concerns as her previous appt. Platform Power Technician Required: Yes Platform Power Technician Name: [id number] Allergies latex Allergy (Severe, Verified 01/26/25 09:48) Angioedema dicyclomine (From Bentyl) Adverse Reaction (Severe, Verified 01/26/25 09:48) Dry Mucus Membranes HPI HPI 3 mo Diarrhea, Gerd: Details: Assessment & Plan (1) GERD (gastroesophageal reflux disease): Code(s): K21.9 - Gastro-esophageal reflux disease without esophagitis Category: Medical (2) Erosive esophagitis: Code(s): K22.10 - Ulcer of esophagus without bleeding Category: Medical (3) IBS (irritable bowel syndrome): Code(s): K58.9 - Irritable bowel syndrome, unspecified Category: Medical Plan English #Gloria Live She stopped the benthl r/t dry mouth, and she also had a bad reaction to creon. She was doing well on the loperimide and pantoprazole twice a day. She also takes simethicone for gas. She has been out of the loperimide, so she has been having postprandial BM's with urgency and diarrhea. She asks why this is, and I explain (since she DOES have a GB) this could be genetic pancreatic enzyme deficiencies, IBS, or even a s/e of her metformin. She confirms that she was changed to metformin in extended release r/t diarrhea severely with the IR dose. ROV 3 mos. She is due for repeat scope next year, but she is fearful of the prep - it caused nausea. She objects to the flavor, apparently the pharmacy mixed it for her - will try to get unmixed so she can do it herself. Medications: New simethicone (Gas Relief (simethicone)) 125 mg PO BID-QID PRN 180 caps 1RF abdominal distention Refilled pantoprazole 40 mg PO BID 180 tabs 2RF K22.10 - Ulcer of esophagus without bleeding Discontinued [id number] 24,000-76,000 -120,000 unit (Creon) administer with meals and/or snacks Discontinued Reason: Doctor's Order 2 caps PO BID 30 days 360 caps 2RF K58.9 - Irritable bowel syndrome, unspecified TODAYS VISIT English #Urvashi Live We need to discuss colonoscopy, She really disliked the taste of the prep and had trouble completing it. It appears that her insurance covers Sutab so this may be a good option for her. She had her last 07/2023 with a 3 year repeat and this would be next year, 2025 doretha. She never received the simethicone. I advise her that this can be obtained inexpensively OTC. She continues to loperimide (I neglected to send it last visit) for diarrhea and her pantoprazole bid. ROV 6 mos. Discuss colonoscopy next summer. [facility] Medical History Well woman exam with routine gynecological exam Pre-op examination Left upper quadrant abdominal pain Tubular adenoma of colon Urinary tract infection Moderate persistent asthma Osteopenia Hyperlipidemia Essential hypertension Obesity (BMI 30.0-34.9) Poor circulation DM type 2 (diabetes mellitus, type 2) Migraine Diverticulitis Gastritis Asthma Anxiety Surgical History Status post total hysterectomy and bilateral salpingo-oophorectomy (BSO) History of esophagogastroduodenoscopy (EGD) Hx of breast biopsy H/O colonoscopy with polypectomy H/O total hysterectomy H/O tubal ligation Family History Maternal Aunt Stomach cancer Father HTN (hypertension) Heart disease Mother Diabetes Asthma HTN (hypertension) Family/Other Diabetes HTN (hypertension) Social History Household Members Other:: son and 2 granddaughters Patient Tobacco Use Status: Never used Tobacco Female Reproductive History Menstrual Age of Menarche: 13 Review of Systems Const Denies fatigue, Denies fever(s), Denies night sweats, Denies poor appetite and Denies weight loss ENT Reports Normal hearing present, Denies dental pain, Denies dysphagia, Denies hearing loss, Denies mouth pain, Denies odynophagia, Denies throat swelling, Denies tongue swelling and Reports other (Dentition adequate) Card Reports no additional complaints Resp Reports no additional complaints GI Details: Denies abdominal pain, Denies melena, Denies bloating, Denies hematochezia, Denies constipation, Denies GI cramping, Denies dysphagia, Denies excessive flatus, Denies early satiety, Reports heartburn, Reports diarrhea, Denies nausea, Denies odynophagia, Denies vomiting and Denies hematemesis Skin/Breast Denies pruritus, Denies lesions, Denies rash and Denies jaundice Neuro Reports Normal hearing present and Denies Abnormal speech present Endo Denies fatigue Aller/Immun Denies throat swelling and Denies tongue swelling Physical Exam Vital Signs: Last Vital Signs BP 112/56 L 01/26/25 09:46 BMI result Body Mass Index 26.7 Const General: cooperative, no acute distress, well developed and well groomed Nutritional Appearance: average body habitus and well nourished Orientation/consciousness: oriented to person, oriented to place and oriented to time Limitations: language barrier HEENT Head: Yes normocephalic and Yes atraumatic Eyes General: appearance normal, both eyes and all related structures Pupils: Equal, round and reactive pupils present Neck Neck: Yes normal visual inspection and Yes no lymphadenopathy Thyroid: Thyroid normal Resp Effort & Inspection: normal respiratory effort and able to speak in complete sentences Auscultation: clear to auscultation bilaterally Cardio Rate: regular rate Rhythm: regular rhythm Heart sounds: Normal, physiologic split S2 sound present Peripheral pulses: radial pulses present and posterior tibial pulses present GI Inspection: No distended and No Abdominal panniculus present Palpation (GI): Soft to palpation, nontender, no guarding, not rigid and No hepatosplenomegaly present Percussion: Yes normal to percussion Auscultation: normal bowel sounds Rectal Exam - Female: deferred Skin General skin exam: no rashes or lesions noted, turgor normal, skin not dry, no jaundice, No spider nevi and no striae Rashes: no rashes Nails: normal Neuro General: oriented to person, oriented to place and oriented to time Cranial nerves: Yes Equal, round and reactive pupils present and Yes Normal hearing present Speech: No Abnormal speech present Extrem General: Yes normal to inspection, No clubbing, No cyanosis and No edema Psych Appearance: grossly normal and well kempt Mental Status: mental status grossly normal Speech and movement: Normal speech and movement present Affect: normal affect Attitude: cooperative Thought process: Normal thought process present and not confabulating Thought content: Normal thought content present Insight: Fair insight present (Psych) Judgement: Fair judgement present (Psych) Assessment & Plan Assessment & Plan (1) Erosive esophagitis: Code(s): K22.10 - Ulcer of esophagus without bleeding Category: Medical (2) Diarrhea: Code(s): R19.7 - Diarrhea, unspecified Category: Medical (3) Tubular adenoma of colon: Comment: 07/2023=neg but only fair prep repeat 3-4 years; 2021 scope at least 3 repeat in 1 year due to insufficient prep aeb Code(s): D12.6 - Benign neoplasm of colon, unspecified Category: Medical (4) GERD (gastroesophageal reflux disease): Code(s): K21.9 - Gastro-esophageal reflux disease without esophagitis Category: Medical Plan English #Tachira Live We need to discuss colonoscopy, She really disliked the taste of the prep and had trouble completing it. It appears that her insurance covers Sutab so this may be a good option for her. She had her last 07/2023 with a 3 year repeat and this would be next year, 2025 doretha. She never received the simethicone. I advise her that this can be obtained inexpensively OTC. She continues to loperimide (I neglected to send it last visit) for diarrhea and her pantoprazole bid. ROV 6 mos. Discuss colonoscopy next summer. Medications: Refilled loperamide (Imodium A-D) 2 mg PO BID 60 caps 6RF K58.9 - Irritable bowel syndrome, unspecified pantoprazole 40 mg PO BID 180 tabs 2RF K22.10 - Ulcer of esophagus without bleeding simethicone (Gas Relief (simethicone)) 125 mg PO BID-QID PRN 180 caps 1RF abdominal distention Coding Level of Care Code Est Pt Level 3 (82585) Diagnoses Erosive esophagitis K22.10 Diarrhea R19.7 Tubular adenoma of colon D12.6 GERD (gastroesophageal reflux disease) K21.9
[2025-01-26 09:46] VITALS: BP 112/56; BMI 26.7
--- OUTSIDE RECORDS SUMMARY | 2025-01-26 10:11 | XMS_ITS | Encounter Summary ---
Author Organization [employer] Address [address] [place] [address] 7t [place] [address] Care Team Providers Care Human Development Professor Name Role Phone Ani Anguiano Primary Care Provider [phone] Gracie Corona Unavailable [phone] Reason for Visit * Reason Comments Med Refill Encounter Details Date Type Department Care Team ([facility] st Contact Info) Description 06/01/2023 Refill [facility] [address] [place], [place] [phone] Ani Anguiano ANP [address] [facility] [place] [address] Type 2 diabetes mellitus without complication, without long-term current use of insulin ([facility] [place] [facility]) Social History Tobacco Use [...] Care Team (Late st Contact Info) Description 01/31/2025 2:30 PM EDT Clinical Support [address] [address] 08/10/2025 10:00 AM EST Medication Management [address] [address] Emma Her, PharmD [address] [place] [address] documented as of this encounter Visit Diagnoses Diagnosis Type 2 diabetes mellitus without complication, without long-term current use of insulin ([facility] [place] [facility]) documented in this encounter Additional Health Concerns Assessment Noted Time PHQ-9 Depression Total Score: 0 08/26/19 23 2:13 PM EST documented as of this encounter Care Teams Human Development Professor Relationship Specialty Start Date End Date Ani Anguiano ANP [address] [place] [id number] PCP - General Family Medicine 05/06/22 Gracie Corona [address] 3rd [place] [address] Sleep Medicine 01/23/25 documented as of this encounter
== END 2025-01-26 10:31 | disposition home or self-care (01) ==
LOC: HO.HGI 09:42
PROVIDERS: PCP Nurse Practitioner Primary Care; Visit Provider Nurse Practitioner
DX: K22.10 Ulcer of esophagus without bleeding (principal); R19.7 Diarrhea, unspecified; D12.6 Benign neoplasm of colon, unspecified; K21.9 Gastro-esophageal reflux disease without esophagitis
CPT/HCPCS: 99213

== ENCOUNTER → 2025-01-26 09:41 | Outpatient (BNVA) | payer MEDICARE, MEDICAID, SELFPAY | PROVIDERS: PCP Nurse Practitioner Primary Care; Visit Provider Nurse Practitioner | DX: K22.10 Ulcer of esophagus without bleeding (principal); K21.9 Gastro-esophageal reflux disease without esophagitis; R19.7 Diarrhea, unspecified; D12.6 Benign neoplasm of colon, unspecified | CPT/HCPCS: 99212 ==

== ENCOUNTER 2025-02-05 18:10 | Outpatient (REF) | payer MEDICARE, MEDICAID, SELFPAY ==
[2025-02-06 11:06] LABS: Bacterial Vaginosis PCR NEGATIVE (Negative); Candida Group PCR DETECTED (Not Detect); Candida glab krusei PCR NOT DETECTED (Not Detect); Trichomonas vaginalis PCR NOT DETECTED (Not Detect)
== END 2025-02-05 18:11 | disposition home or self-care (01) ==
LOC: HO.HHCLNP 18:10
PROVIDERS: Visit Provider Student in an Organized Health Care Education/Training Program
DX: N89.8 Other specified noninflammatory disorders of vagina (principal)
CPT/HCPCS: 81515

== ENCOUNTER 2025-03-02 12:12 | Outpatient (REF) | payer MEDICARE, MEDICAID, SELFPAY ==
--- OUTSIDE RECORDS SUMMARY | 2025-03-02 12:16 | XMS_ITS | Clinical Summary ---
Author Organization [facility] Address [address] [facility] [address] [facility] [address] [place] [address] Phone Care Team Providers Care Fried Cake Maker Name Role Phone Ani Anguiano NP Primary Care Provider [phone] Social History Tobacco Use Types Packs/Day Years Used Date Smoking Tobacco: Never Assessed Education Answer Date Recorded Are you interested in more education? Not on haydee e 02/09/2025 Are you concerned about learning? Not on file 02/09/2025 No 02/09/2025 No 02/09/2025 Digital Access Answer Date Recorded No 02/09/2025 No 02/09/2025 Reliable internet access at home? Not on file 02/09/2025 Device with a working camera? Not on file Comments Unknown Sex and Gender Information Value Date Recorded Sex Assigned at Not on file Legal Sex Female 10:58 AM EDT Gender Identity Not on file Sexual Orientation Not on file Plan of Treatment Upcoming Encounters Date Type Department Care Team (Late st Contact Info) Description 07/23/2025 10:30 AM EST Office Visit [facility] [place] [facility] [address] [place] [address] Jeremy Cifuentes MD [address] [place] [address], [address] [address] [email or web address] Health Maintenance Due Date Last Done Comments Adult Td,Tdap Booster 1962 LIPID PANEL 1962 DEPRESSION SCREENING 1974 SMOKING Hx and SMOKELESS TOB ACCO SCREENING 12/22/1975 HEPATITIS C SCREENING 1980 HIV ONE-TIME SCREENING (18-6 5 YEARS) 1980 PAP SMEAR 12/22/1983 MAMMOGRAM 2002 COLOGUARD 12/22/2007 COLONOSCOPY 12/22/2007 COLORECTAL CANCER SCREENING 12/22/2007 FIT TEST 12/22/2007 FOBT 12/22/2007 SIGMOIDOSCOPY 12/22/2007 VIRTUAL COLONOSCOPY 12/22/2007 PNEUMOCOCCAL VACCINES (50+ y ears) (1 of 1 - PCV) 2012 ZOSTER VACCINES (1 of 2) 2012 COVID-19 VACCINE (1 - 2023-2 5 season) 2024 RSV VACCINE (1 - 1-dose 75+ series) 2037 HEPATITIS A VACCINES Aged Out No long er eligible based on patient's age to complete this topic HIB VACCINES Aged Out No longer eligi ble based on patient's age to complete this topic MENINGOCOCCAL VACCINES (ACWY) Aged Out No longer eligible based on patient's age to complete this topic MENINGOCOCCAL VACCINES (B) Aged Out N o longer eligible based on patient's age to complete this topic Medical Devices Not on file Insurance [facility] [place] [address] [facility] MEDICARE REPLACEMENT [facility] MEDICARE REPLACEMENT [facility] MEDICARE REPLACEMENT [facility] MEDICARE REPLACEMENT [place] [id number] [facility] MEDICARE REPLACEMENT [place] [id number] Care Teams Fried Cake Maker Relationship Specialty Start Date End Date Ani Anguiano NP [address] [place] [address] PCP - General 02/09/25 Additional Source Comments The information contained in this document represents components of the legal health record. It is not the complete legal health record.[facility]
[2025-03-02 13:51] LABS: Bacterial Vaginosis PCR NEGATIVE (Negative); Candida Group PCR DETECTED (Not Detect); Candida glab krusei PCR NOT DETECTED (Not Detect); Trichomonas vaginalis PCR NOT DETECTED (Not Detect)
== END 2025-03-02 12:13 | disposition home or self-care (01) ==
LOC: HO.HHCLNP 12:12
PROVIDERS: Visit Provider Nurse Practitioner
DX: N89.8 Other specified noninflammatory disorders of vagina (principal)
CPT/HCPCS: 81515

== ENCOUNTER 2025-03-19 15:19 | Outpatient (AMB) | payer MEDICARE, MEDICAID, SELFPAY ==
--- NOTE | 2025-03-19 15:26 | A.OFFVIS_ITS ---
Vital Signs 03/19/25 15:32 Height 5 ft Weight 130 lb BMI 25.4 Handedness Right Intake Visit Reasons: OV: Discuss CTS Intake Note: Brooklynn is a 64 year old right hand dominant female who presents today for follow up of bilateral hand pain and numbness, left greater than right. Patient was last seen 12/05/24 where surgery was discussed but not scheduled to give patient time to think about it. Today, patient reports she wishes to move forward with surgery. At this time, her symptoms remain the same as the last visit. History of Diabes Type 2. Last A1C done within the last 3-4 months, 6.5%. Deputy Probation Officer Required: No Allergies latex Allergy (Severe, Verified 03/19/25 15:29) Angioedema dicyclomine (From Bentyl) Adverse Reaction (Severe, Verified 03/19/25 15:29) Dry Mucus Membranes HPI HPI OV: Discuss CTS: Details: Brooklynn is a 64 year old right hand dominant female who presents today for follow up of bilateral hand pain and numbness, left greater than right. Patient was last seen 12/05/24 where surgery was discussed but not scheduled to give patient time to think about it. Today, patient reports she wishes to move forward with surgery. At this time, her symptoms remain the same as the last visit. History of Diabes Type 2. Last A1C done within the last 3-4 months, 6.5% PFSH Medical History Well woman exam with routine gynecological exam Pre-op examination Left upper quadrant abdominal pain Tubular adenoma of colon Urinary tract infection Moderate persistent asthma Osteopenia Hyperlipidemia Essential hypertension Obesity (BMI 30.0-34.9) Poor circulation DM type 2 (diabetes mellitus, type 2) Migraine Diverticulitis Gastritis Asthma Anxiety Surgical History Status post total hysterectomy and bilateral salpingo-oophorectomy (BSO) History of esophagogastroduodenoscopy (EGD) Hx of breast biopsy H/O colonoscopy with polypectomy H/O total hysterectomy H/O tubal ligation Family History Maternal Aunt Stomach cancer Father HTN (hypertension) Heart disease Mother Diabetes Asthma HTN (hypertension) Family/Other Diabetes HTN (hypertension) Social History Household Members Other:: son and 2 granddaughters Patient Tobacco Use Status: Never used Tobacco Female Reproductive History Menstrual Age of Menarche: 13 Review of Systems Const All systems reviewed & are unremarkable except as noted in HPI and below Physical Exam Vital Signs: BMI result Body Mass Index 25.4 Extrem Other: Neuro: Normal sensation of the tips of all digits of bilateral hands in the office today No thenar or intrinsic wasting. Good APB muscle firing and good finger cross. Vascular: Capillary refill brisk. ROM: Patient can make a fist and extend all their digits. Skin: No lacerations or abrasions noted. General: No ecchymosis. No erythema or evidence of infection. Results Reviewed Results Reviewed: IMPRESSION: 1. This is an abnormal study. 2. There is electrodiagnostic evidence for right moderate-severe and left mild median neuropathy at the wrist, consistent with carpal tunnel syndrome. 3. There is no electrodiagnostic evidence for ulnar neuropathy. Thank you for your kind referral. Awilda Burnham MD, LUCIA Assessment & Plan Assessment & Plan (1) Bilateral carpal tunnel syndrome: Code(s): G56.03 - Carpal tunnel syndrome, bilateral upper limbs Category: Medical Plan 1. Left carpal tunnel syndrome Symptoms intermittent, daily, worse at night I educated the patient about the condition. I discussed both operative and nonoperative treatment options. The patient would like to proceed with surgery. The risks and benefits of operative treatment were discussed with the patient and the patient wishes to proceed with surgery. These risks include, but are not limited to, risk of damage to blood vessels, nerves, tendons, infection, recurrence, incomplete relief of preoperative symptoms, persistent pain, possible need for further surgery, and the risks associated with regional blocks and/or anesthesia. Plan is to take the patient to the operating room at some point in the next few weeks for the following procedures: 1. Left carpal tunnel release under local All of the preoperative paperwork including the consent was discussed today. All of the patient's questions were answered in the clinic today. The patient understands that they will be in contact with our outside property agent to discuss scheduling their procedure. Patient reports diabetes, last A1c 6.5 Denies blood thinners, asthma, heart issues, lung issues, kidney issues, or current smoking. Coding Level of Care Code Est Pt Level 4 (42078) Diagnoses Bilateral carpal tunnel syndrome G56.03
[2025-03-19 15:32] VITALS: BMI 25.4
--- OUTSIDE RECORDS SUMMARY | 2025-03-19 15:53 | XMS_ITS | Encounter Summary ---
Author Organization [employer] Address [address] [place] [address] 7[address] [place] [address] Care Team Providers Care Sports Clerk Name Role Phone Ani Angiuano Primary Care Provider [phone] Gracie Corona Unavailable [phone] Reason for Visit * Reason Comments Med Refill Encounter Details Date Type Department Care Team ([facility] st Contact Info) Description 06/01/2023 Refill [facility] & PEDS [address] [place], [place] [phone] Ani Anguiano ANP [address] [place] [address] Type 2 diabetes mellitus without complication, without long-term current use of insulin ([facility]) Social History Tobacco Use Types [...] Care Team (Late st Contact Info) Description 04/16/2025 10:00 AM EDT Nutrition [facility] [address] [place] [address] Vee Gomez, PATRICK [address] [place] [address] 07/10/2025 2:30 PM EST Office Visit [facility] [address] [place] [address] Bonny Means, OD [address] [place] [address] 08/10/2025 10:00 AM EST Medication Management [facility] [address] [place] [address] Emma Her, PharmD [address] [place] [address] documented as of this encounter Visit Diagnoses Diagnosis Type 2 diabetes mellitus without complication, without long-term current use of insulin ([facility]) documented in this encounter Additional Health Concerns Assessment Noted Time PHQ-9 Depression Total Score: 0 08/26/19 23 2:13 PM EST documented as of this encounter Care Teams Sports Clerk Relationship Specialty Start Date End Date Ani Anguiano ANP [address] [place] [address] PCP - General Family Medicine 05/06/22 Gracie Corona [address] [place] [address] Drive 3rd Floor [place] [address] Sleep Medicine 01/23/25 documented as of this encounter
--- OUTSIDE RECORDS SUMMARY | 2025-03-19 15:53 | XMS_ITS | Clinical Summary ---
Author Organization [facility] Address [address] [facility] [address] [place] [address] Phone Care Team Providers Care Risk And Compliance Analytics Director Name Role Phone AnguianoAni Primary Care Provider [phone] Social History Tobacco Use Types Packs/Day Years [...] Description 07/23/2025 10:30 AM EST Office Visit [facility] [place] [facility] [address] [place] [address] Jeremy Cifuentes MD [address] [place] [address], [address] [address] Health Maintenance Due Date Last Done Comments [...] topic Medical Devices Not on file Insurance [facility] MEDICARE REPLACEMENT [facility] MEDICARE REPLACEMENT [facility] MEDICARE REPLACEMENT [facility] MEDICARE REPLACEMENT [facility] MEDICARE REPLACEMENT [place] [id number] [facility] MEDICARE REPLACEMENT [place] [id number] Care Teams Risk And Compliance Analytics Director Relationship Specialty Start Date End Date Ani Anguiano ANP [address] [place] [address] PCP - General 02/09/25 Additional Source Comments The information contained in this document represents components of the legal health record. It is not the complete legal health record.[facility]
== END 2025-03-19 16:02 | disposition home or self-care (01) ==
LOC: HO.HOS 15:20
PROVIDERS: PCP Nurse Practitioner Primary Care
DX: G56.03 Carpal tunnel syndrome, bilateral upper limbs (principal)
CPT/HCPCS: 99214

== ENCOUNTER → 2025-03-19 15:19 | Outpatient (BNVA) | payer MEDICARE, MEDICAID, SELFPAY | PROVIDERS: PCP Nurse Practitioner Primary Care | DX: G56.03 Carpal tunnel syndrome, bilateral upper limbs (principal) | CPT/HCPCS: 99212 ==

== ENCOUNTER 2025-04-23 07:52 | Day surgery (SDC) | payer MEDICARE, MEDICAID, SELFPAY ==
--- OUTSIDE RECORDS SUMMARY | 2025-04-13 16:15 | XMS_ITS | Clinical Summary ---
Author Organization [facility] Address [address] [facility] [place] [address] Phone Care Team Providers Care Quilting Supervisor Name Role Phone AnguianoAni Primary Care Provider [phone] Social History Tobacco Use Types Packs/Day Years [...] Description 07/23/2025 10:30 AM EST Office Visit [facility] [place] [facility] [address] [place] [address] Jeremy Cifuentes MD [address] [place] [address], [address] [address] [email or web address] Health Maintenance Due Date Last Done Comments [...] 2012 ZOSTER VACCINES (1 of 2) 2012 INFLUENZA VACCINE (#1) 2025 COVID-19 VACCINE (1 - 2023-2 5 season) 2025 RSV VACCINE (1 - 1-dose 75+ series) [...] topic Medical Devices Not on file Insurance [facility] MEDICARE REPLACEMENT [facility] MEDICARE REPLACEMENT [facility] MEDICARE REPLACEMENT [facility] MEDICARE REPLACEMENT [facility] MEDICARE REPLACEMENT [place] [id number] [facility] MEDICARE REPLACEMENT Care Teams Quilting Supervisor Relationship Specialty Start Date End Date Ani Anguiano ANP [address] [place] [address] PCP - General 02/09/25 Additional Source Comments The information contained in this document represents components of the legal health record. It is not the complete legal health record.[facility]
[2025-04-23 08:23] VITALS: BP 125/59; PULSE 79; RESP 12; TEMP 36.4; O2SAT 98; BMI 27.1
--- NOTE | 2025-04-23 09:22 | MHC.SHP ---
Pre-Procedural Eval Section A - 24 Hr Update-Section A only Date of Service: 04/23/25 The patient is an INPATIENT: No Changes since office visit: No Cold of Flu in the past 2 weeks, No New Medical Problems, No Changes in Medication and No Patient answered all questions The patient has been examined within 24 hours of the surgical procedure. The History & Physical has been completed within 30 days and I have reviewed it.: Yes Section B - Complete if H&P > 30 days Chief Complaint: Carpal tunnel syndrome, left upper limb Allergies: Allergies Allergy/AdvReac Type Severity Reaction Status Date / Time latex Allergy Severe Angioedema Verified 04/23/25 08:21 dicyclomine (From Bentyl) AdvReac Severe Dry Mucus Verified 04/23/25 08:21 Membranes Plan Diagnosis/Plan: Unchanged I have reviewed the history and physical and performed a pertinent physical examination on my patient. No changes have occurred unless specified. Time Spent With Patient Time: Total time managing care of this patient today ____ minutes.
--- NOTE | 2025-04-23 09:22 | W.PM.OPN ---
Operative Note Operative Note Date of Service: 04/23/25 Narrative: Preop diagnosis: 1. Left Carpal tunnel syndrome Postop diagnosis: same Procedure: 1. Left Carpal tunnel release Surgeon: Viji Salazar MD Plumbing Assembler: None Anesthesia: local block using 1% lidocaine with epinephrine Findings: Thickened transverse carpal ligament. EBL: Less than 5 mL Specimens: None Complications: None Disposition: Brought to recovery room in stable condition Plan: Follow-up for 10-14 days for wound check and suture removal Indications: The patient is 64 years old, with left carpal tunnel syndrome that has been unresponsive to nonoperative management. The risks and benefits of operative treatment including but not limited to risk of damage to blood vessels, nerves, tendons, infection, persistent pain, persistent symptoms, or possible need for additional surgery were discussed with the patient and the patient wishes to proceed with surgery. Procedure: Once consent was obtained a local block was performed using a combination of 1% lidocaine with epinephrine. The patient was then brought back to the operating suite and placed on the operative table in supine position. The left upper extremity was prepped and draped in a standard surgical fashion. Once assured that we had a good block, a 2.0 cm longitudinal incision was made centered over the carpal tunnel. The incision was made through the skin to the subcutaneous tissues using a #15 blade. Dissection was made down to the level of the transverse carpal ligament with care being taken to protect the palmar cutaneous nerve. Once the transverse carpal ligament was clearly visualized, a longitudinal incision was made in the transverse carpal ligament 1st using a #15 blade, then using tenotomy scissors under direct visualization. Care was taken to look for and protect the motor branch of the median nerve when seen in this area. Once satisfied with our carpal tunnel release the wound was copiously irrigated with normal saline and hemostasis was obtained with a brief period of local pressure. The skin edges were reapproximated with some 5.0 nylon suture material and a sterile dressing was applied. The patient appears to have tolerated the procedure well and with no complications. All digits were well vascularized at the conclusion of the case.
[2025-04-23 10:41] VITALS: BP 125/74; PULSE 84; RESP 16; O2SAT 98
== END 2025-04-23 10:42 | disposition home or self-care (01) ==
PROVIDERS: PCP Nurse Practitioner Primary Care; Visit Provider Orthopaedic Surgery
PROC: (CPT 64721; principal; 2025-04-23 09:10)
DX: G56.02 Carpal tunnel syndrome, left upper limb (principal); M79.642 Pain in left hand; R20.0 Anesthesia of skin; I10 Essential (primary) hypertension; E78.5 Hyperlipidemia, unspecified; E11.9 Type 2 diabetes mellitus without complications; J45.40 Moderate persistent asthma, uncomplicated; G43.909 Migraine, unspecified, not intractable, without status migrainosus; Z91.040 Latex allergy status; Z88.8 Allergy status to other drugs, medicaments and biological substances; Z98.890 Other specified postprocedural states
CPT/HCPCS: 64721; J0165; J2003

== ENCOUNTER → 2025-04-23 07:52 | Outpatient (BNV) | payer MEDICARE, MEDICAID, SELFPAY | PROVIDERS: PCP Nurse Practitioner Primary Care; Visit Provider Orthopaedic Surgery | DX: G56.02 Carpal tunnel syndrome, left upper limb (principal) | CPT/HCPCS: 64721 ==

== ENCOUNTER 2025-05-08 12:57 | Outpatient (AMB) | payer MEDICARE, MEDICAID, SELFPAY ==
[2025-05-08 13:01] VITALS: BMI 26.9
--- NOTE | 2025-05-08 13:01 | MHC.OFFVIS ---
Vital Signs 05/08/25 13:01 Height 5 ft Weight 138 lb BMI 26.9 Intake Visit Reasons: PO LT CTR 04/23/25 AR Intake Note: Brooklynn is a 64 year old, German Speaking, Right hand dominant female who presents today for her first post operative appointment s/p Left Carpal Tunnel Release 04/23/25. Patient reported she has been feeling well, all she has been having was mild pain near the incision site. 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 Nabil Wheatley is a 64-year-old female who presents to the office today status post left carpal tunnel release performed on 04/23/[address] Salazar. She reports that she is in a long experiencing any pain, numbness or tingling. She is overall very satisfied with her recovery course. [facility] Medical History Well woman exam with routine gynecological exam Pre-op examination Left upper quadrant abdominal pain Tubular adenoma of colon Urinary tract infection Moderate persistent asthma Osteopenia Hyperlipidemia Essential hypertension Obesity (BMI 30.0-34.9) Poor circulation DM type 2 (diabetes mellitus, type 2) Migraine Diverticulitis Gastritis Asthma Anxiety Surgical History Status post total hysterectomy and bilateral salpingo-oophorectomy (BSO) History of esophagogastroduodenoscopy (EGD) Hx of breast biopsy H/O colonoscopy with polypectomy H/O total hysterectomy H/O tubal ligation Family History Maternal Aunt Stomach cancer Father HTN (hypertension) Heart disease Mother Diabetes Asthma HTN (hypertension) Family/Other Diabetes HTN (hypertension) Social History Household Members Other:: son and 2 granddaughters Patient Tobacco Use Status: Never used Tobacco Female Reproductive History Menstrual Age of Menarche: 13 Review of Systems Const All systems reviewed & are unremarkable except as noted in HPI and below Physical Exam Vital Signs: BMI result Body Mass Index 26.9 Const General: cooperative, healthy appearing and no acute distress Resp Effort & Inspection: normal respiratory effort and able to speak in complete sentences Extrem Other: Left hand: Incision site is clean dry and intact. No surrounding erythema or drainage. No signs of infection. Able to perform full finger flexion, extension, abduction, adduction, finger cross, okay sign, and thumbs up without deficit. Able to make a closed fist. Able to flex and extend the wrist to end range. Sensation intact. Capillary refill is brisk. Radial pulse intact. Psych Appearance: grossly normal Mental Status: mental status grossly normal Attitude: cooperative Assessment & Plan Assessment & Plan (1) Status post carpal tunnel release: Code(s): Z98.890 - Other specified postprocedural states Category: Surgical Plan Ms. Nabil Wheatley is a 64-year-old female who presents to the office today status post left carpal tunnel release performed on 04/23/[address] Salazar. She reports that she is in a long experiencing any pain, numbness or tingling. She is overall very satisfied with her recovery course. While in the office today sutures are removed and Steri-Strips were applied. Patient was instructed to not perform any lifting pushing pulling more than 2 lb for the next 4 weeks. Patient was also educated on no submerging in any water including bath Jacuzzi or sink water for 2 weeks. Patient may cover the incision site with a light dressing when leaving the home until the incision site is well approximated and completely healed. Additionally, the patient was educated on not using Band-Aids our gloves for more than 2 hours at a time. Patient understands and accepts. We deferred on occupational therapy at this time as the patient is able to perform full function with the left hand and wrist. I did ask the patient if she wanted to proceed with right carpal tunnel release however at this time she is not experiencing significant symptoms and would like to defer. She will follow up PRN, sooner if needed. Coding Level of Care Code Global (14603) Diagnoses Status post carpal tunnel release Z98.890
--- OUTSIDE RECORDS SUMMARY | 2025-05-08 15:51 | XMS_ITS | Encounter Summary ---
Author Organization [facility] Address [address] [place] [address] 7 [place] [address] Care Team Providers Care Automotive Product Specialist Name Role Phone Ani Anguiano Primary Care Provider [phone] Gracie Corona Unavailable [phone] Encounter Details Date Type Department Care Team ([facility] Contact Info) Description 07/02/2022 Abstract [facility] MEDICINE [address] [place] [address] [phone] Provider, MD Anabella Social History Tobacco Use Types Packs/Day Years [...] Care Team (Late st Contact Info) Description 05/11/2025 9:00 AM EDT Clinical Support [facility] DIABETES/NUTRITION [address] [place], [place] [phone] Vee [address] [place] [address] 05/31/2025 9:30 AM EDT Office Visit [facility] MEDICINE [address] [place] [address] [phone] Ani Anguiano ANP [address] [place] [address] 07/10/2025 2:30 PM EST Office Visit [facility] OPTOMETRY [address] [place] [address] Bonny Means, OD 230 [place] [address] 08/10/2025 10:00 AM EST Medication Management [facility] MEDICINE [address] [place] [address] Emma Her, DailyD [address] [place] [address] documented as of this encounter Visit Diagnoses Not on filedocumented in this encounter Care Teams Automotive Product Specialist Relationship Specialty Start Date End Date Ani Anguiano ANP [address] [place] [address] PCP - General Family Medicine 05/06/22 Gracie Corona [address] 3rd [place] [address] Sleep Medicine 01/23/25 documented as of this encounter
--- OUTSIDE RECORDS SUMMARY | 2025-05-08 15:51 | XMS_ITS | Encounter Summary ---
Author Organization [facility] Address [address] [place] [address] [place] [address] Care Team Providers Care Leaf Sorter Name Role Phone Ani Anguiano Primary Care Provider [phone] Gracie Corona Unavailable [phone] Reason for Visit * Reason Comments Med Refill Encounter Details Date Type Department Care Team (Late st Contact Info) Description 11/09/2022 Refill [facility] MED[facility]INE [address] [place] [address] Ani Anguiano ANP [address] [place] [address] Type 2 diabetes mellitus without complication, without long-term current use of insulin ([facility]) Social History Tobacco Use Types [...] Description 05/11/2025 9:00 AM EDT Clinical Support [facility] DIABETES/NUTRITION [address] [place] [address] Vee Gomez, RD [address] [place] [address] 05/31/2025 9:30 AM EDT Office Visit [facility] MEDICINE [address] [place] [address] Ani Anguiano ANP [address] [place] [address] 07/10/2025 2:30 PM EST Office Visit [facility] OPTOMETRY [address] [place] [address] Miguelangel, Bnony, OD [address] [place] [address] 08/10/2025 10:00 AM EST Medication Management [facility] MEDICINE [address] [place] [address] Emma Her, PharmD [address] [place] [address] documented as of this encounter Visit Diagnoses Diagnosis Type 2 diabetes mellitus without complication, without long-term current use of insulin (HCC) documented in this encounter Additional Health Concerns Assessment Noted Time PHQ-9 Depression Total Score: 0 08/26/19 23 2:13 PM EST documented as of this encounter Care Teams Leaf Sorter Relationship Specialty Start Date End Date Ani Anguiano ANP [address] [place] [address] PCP - General Family Medicine 05/06/22 Gracie Corona [address]rd [place] [address] Sleep Medicine 01/23/25 documented as of this encounter
--- OUTSIDE RECORDS SUMMARY | 2025-05-08 15:51 | XMS_ITS | Encounter Summary ---
Author Organization [employer] Address [address] [place] [address] 7 [place] [address] Care Team Providers Care Sat Tutor Name Role Phone Ani Anguiano Primary Care Provider [phone] Gracie Corona Unavailable [phone] Reason for Visit * Reason Comments Med Refill Encounter Details Date Type Department Care Team (Late st Contact Info) Description 02/24/2025 Refill [facility] MEDICINE [address] [place] [address] Ani Anguiano ANP [address] [place] [address] Bilateral leg pain Social History Tobacco Use [...] the past 12 months, has t he [employer] gas, oil or water company threatened to [...] Description 05/11/2025 9:00 AM EDT Clinical Support [facility] DIABETES/NUTRITION [address] [place] [address] [place] [address] 05/31/2025 9:30 AM EDT Office Visit [facility] MEDICINE [address] [place] [address] Ani Anguiano ANP [address] [place] [address] 07/10/2025 2:30 PM EST Office Visit [facility] OPTOMETRY [address] [place] [address] Bonny Means, IRASEMA [address] [place] [address] 08/10/2025 10:00 AM EST Medication Management [facility] MEDICINE [address] [place] [address] Emma Her, Luiz [address] [place] [address] documented as of this encounter Visit Diagnoses Diagnosis Bilateral leg pain Pain in soft tissues of limb documented in this encounter Additional Health Concerns Assessment Noted Time PHQ-9 Depression Total Score: 6 10/14/19 25 10:44 AM EDT documented as of this encounter Care Teams Sat Tutor Relationship Specialty Start Date End Date Ani Anguiano ANP [address] [place] [address] PCP - General Family Medicine 05/06/22 Gracie Corona [address] [place] [address] Drive 3rd [place] [address] Sleep Medicine 01/23/25 documented as of this encounter
--- OUTSIDE RECORDS SUMMARY | 2025-05-08 15:51 | XMS_ITS | Clinical Summary ---
Author Organization [facility] Address [address] [place] [address] Phone Care Team Providers Care It Project Manager Name Role Phone AnguianoAni Primary Care Provider [phone] Social History Tobacco Use Types Packs/Day Years [...] Description 07/23/2025 10:30 AM EST Office Visit [facility] [address] [place] [address] Jeremy Cifuentes MD [address] [place] [address], [address] [address] [email or web address] Health Maintenance Due Date Last Done Comments [...] VACCINE (#1) 2025 COVID-19 VACCINE (1 - 2024-2 6 season) 2025 RSV VACCINE (1 - 1-dose [...] topic Medical Devices Not on file Insurance [facility] MEDICARE REPLACEMENT [facility] MEDICARE REPLACEMENT [facility] MEDICARE REPLACEMENT [facility] MEDICARE REPLACEMENT [facility] MEDICARE REPLACEMENT [place] [id number] [facility] MEDICARE REPLACEMENT Care Teams It Project Manager Relationship Specialty Start Date End Date Ani Anguiano ANP [address] [place] [address] PCP - General 02/09/25 Additional Source Comments The information contained in this document represents components of the legal health record. It is not the complete legal health record.[facility]
--- OUTSIDE RECORDS SUMMARY | 2025-05-08 15:51 | XMS_ITS | Encounter Summary ---
Author Organization [facility] Address [address] [place] [address] 7[address] [place] [address] Care Team Providers Care Parts Back Counter Man Name Role Phone Ani Anguaino Primary Care Provider [phone] Gracie Corona Unavailable [phone] Encounter Details Date Type Department Care Team (Late st Contact Info) Description 10/30/2022 Orders Only [facility] MEDICINE [address] [place] [address] Ani Anguiano ANP [address] [place] [address] Social History Tobacco Use Types Packs/Day Years [...] Description 05/11/2025 9:00 AM EDT Clinical Support [facility] DIABETES/NUTRITION [address] [place] [address] [place] [address] 05/31/2025 9:30 AM EDT Office Visit [facility] MEDICINE [address] [place] [address] Ani Anguiano, ANP [address] [place] [address] 07/10/2025 2:30 PM EST Office Visit [facility] OPTOMETRY [address] [place] [address] MiguelangelGiovanni vencesn, OD [address] [place] [address] 08/10/2025 10:00 AM EST Medication Management [facility] MEDICINE [address] [place] [address] Emma Her, PharmD [address] [place] [address] documented as of this encounter Procedures Procedure Name Priority Date/Time Associated Diagnosis Comments VITAMIN D,25-OH,TOTAL,IA Routine 02/23/2023 2:28 PM EDT BI MAMMOGRAM SCREENING TOMOSYNTHESIS BILATERAL Routine 11/16/2022 9:54 AM EDT documented in this encounter Results * Vitamin D, 25-Hydroxy, Total, Immunoassay (02/23/2023 2:28 PM EDT) Vitamin D 25-OH Total 45.3 >30 ng/mL [facility] Comment:Health Based Referen ce Values*< 20 ng/mL Aqemyqznx85-56 ng/mL Insufficient> 30 ng/mL Sufficient*Josh RUBIO. N [...] EDT 02/23/2023 4:02 PM EDT Ani Anguiano ANP LAB BLOOD ORDERABLES Final Resul t [facility] [address] [place] [phone] * BI Mammogram Screening Tomosynthesis Bilateral (11/16/2022 9:54 AM EDT) Anatomical Region Laterality Modality Breast Bilateral Mammography 11/16/2022 9:54 AM EDT Narrative 11/17/2022 1:31 PM EDT [address] [place] [address] Mammography Report Signed Patient: Brooklynn De La Rosa MR#: [id number] : 1960 Acct:[id number] Age/Sex: 61 / F ADM Date: 11/16/22 Loc: [facility] Attending Dr: Ani Anguiano NP Ordering Physician: Chanell Lorenz NP Results: 1Negat martin Date of Service: 11/16/22 Follow Up: 1 Year From Orig ina Mammogram Procedure(s): MM tomosynthesis screening BI Accession Number(s): [id number] cc: Chanell Lorenz NP EXAMINATION: MM SCREENING [...] in OV> 11/17/22 1328 DD/ 0954 TD/TT: Diversity Specialist: SK Procedure Note Donotuseinterpreter, Image - 11/17/2022 [facility] [address] [place], [place] [address] Mammography Report Signed Patient: Brooklynn De La Rosa EMR#: [id number] : 1960Acct:[id number] Age/Sex: 61 / FADM Date: 11/16/22 Loc: [facility] Attending Dr: Ani Anguiano NP Ordering Physician: Chanell Lorenz NPResults: 1Negat martin Date of Service: 11/16/22Follow Up: 1 Year From Orig inal Mammogram Procedure(s): MM tomosynthesis screening BI Accession Number(s): [id number] cc: Chanell Lorenz NP EXAMINATION: MM SCREENING [...] in OV> 11/17/22 1328 DD/ 0954 TD/TT: Diversity Specialist: GABBIE [facility] External Provider IMG BI PROCEDURES Final Result documented in this encounter Visit Diagnoses Not on filedocumented in this encounter Additional Health Concerns Assessment Noted Time PHQ-9 Depression Total Score: 0 08/26/19 23 2:13 PM EST documented as of this encounter Care Teams Parts Back Counter Man Relationship Specialty Start Date End Date Ani Anguiano ANP [address] [place] [address] PCP - General Family Medicine 05/06/22 Grcaie Corona [address] [place] [address] 3rd [place] [address] Sleep Medicine 01/23/25 documented as of this encounter
--- OUTSIDE RECORDS SUMMARY | 2025-05-08 15:51 | XMS_ITS | Encounter Summary ---
Author Organization [facility] Address [address] [place] [address] [address] [address] Care Team Providers Care Mix Technician Name Role Phone Ani Anguiano Primary Care Provider [phone] Gracie Corona Unavailable [phone] Reason for Visit * Reason Comments Med Refill Encounter Details Date Type Department Care Team (Late st Contact Info) Description 11/07/2022 Refill [facility] MEDICINE [address] [place] [address] Ani Anguiano ANP [address] [place] [address] Type 2 diabetes mellitus without complication, unspecified whether terminal computer operator insulin use ([facility]) Social History Tobacco Use Types Packs/Day Years [...] Description 05/11/2025 9:00 AM EDT Clinical Support [facility] DIABETES/NUTRITION [address] [place] [address] Vee Gomez, RD [address] [place] [address] 05/31/2025 9:30 AM EDT Office Visit [facility] MEDICINE [address] [place] [address] Ani Anguiano ANP [address] [place] [address] 07/10/2025 2:30 PM EST Office Visit [facility] OPTOMETRY [address] [place] [address] Miguelangel, Bonny, OD [address] [place] [address] 08/10/2025 10:00 AM EST Medication Management [facility] MEDICINE [address] [place] [address] Emma Her PharmD [address] [place] [address] documented as of this encounter Visit Diagnoses Diagnosis Type 2 diabetes mellitus without complication, unspecified whether terminal computer operator insulin use documented in this encounter Additional Health Concerns Assessment Noted Time PHQ-9 Depression Total Score: 0 08/26/19 23 2:13 PM EST documented as of this encounter Care Teams Mix Technician Relationship Specialty Start Date End Date Ani Anguiano ANP [address] [place] [address] PCP - General Family Medicine 05/06/22 Gracie Corona [address]rd [place] [address] Sleep Medicine 01/23/25 documented as of this encounter
--- OUTSIDE RECORDS SUMMARY | 2025-05-08 15:51 | XMS_ITS | Encounter Summary ---
Author Organization [employer] Address [address] [place] [address] [address] [place] [address] Care Team Providers Care Oil And Gas Drafter Name Role Phone Ani Anguiano Primary Care Provider Gracie Corona Unavailable [phone] Reason for Visit * Reason Comments Med Refill Encounter Details Date Type Department Care Team (Late st Contact Info) Description 02/22/2023 Refill [facility] MEDICINE [address] [place] [address] Ani Anguiano ANP [address] [place] [address] Type 2 diabetes mellitus without complication, unspecified whether ferry terminal agent insulin use ([facility]) Social History Tobacco Use Types [...] Description 05/11/2025 9:00 AM EDT Clinical Support [facility] DIABETES/NUTRITION [address] [place] [address] Vee Gomez, RD [address] [place] [address] 05/31/2025 9:30 AM EDT Office Visit [facility] MEDICINE [address] [place] [address] Ani Anguiano ANP [address] [place] [address] 07/10/2025 2:30 PM EST Office Visit [facility] OPTOMETRY [address] [place] [address] Miguelangel, Bonny, OD [address] [place] [address] 08/10/2025 10:00 AM EST Medication Management [facility] MEDICINE [address] [place] [address] Emma Her, DailyD [address] [place] [address] documented as of this encounter Visit Diagnoses Diagnosis Type 2 diabetes mellitus without complication, unspecified whether fci insulin use documented in this encounter Additional Health Concerns Assessment Noted Time PHQ-9 Depression Total Score: 0 08/26/19 23 2:13 PM EST documented as of this encounter Care Teams Oil And Gas Drafter Relationship Specialty Start Date End Date Ani Anguiano ANP [address] [place] [address] PCP - General Family Medicine 05/06/22 Gracie Corona [address] [place] [address] Drive 3rd [place] [address] Sleep Medicine 01/23/25 documented as of this encounter
--- OUTSIDE RECORDS SUMMARY | 2025-05-08 15:51 | XMS_ITS | Encounter Summary ---
Author Organization [employer] Address [address] 7t [place] [address] Care Team Providers Care Steam Plant Operator Name Role Phone Ani Anguiano Primary Care Provider [phone] Gracie Corona Unavailable [phone] Encounter Details Date Type Department Care Team ([facility] st Contact Info) Description 04/14/2024 Orders Only [facility] MEDICINE [address] [place] [address] Ani Anguiano ANP [address] [place] [address] Social History Tobacco Use Types Packs/Day Years [...] Description 05/11/2025 9:00 AM EDT Clinical Support [facility] DIABETES/NUTRITION [address] [place] [address] Vee Gomez, PATRICK [address] [place] [address] 05/31/2025 9:30 AM EDT Office Visit [facility] MEDICINE [address] [place] [address] Ani Anguiano ANP [address] [place] [address] 07/10/2025 2:30 PM EST Office Visit [facility] OPTOMETRY [address] [place] [address] Bonny Means, OD [address] [place] [address] 08/10/2025 10:00 AM EST Medication Management [facility] MEDICINE [address] [place] [address] Emma Her, PharmD [address] [place] [address] documented as of this encounter Visit Diagnoses Not on filedocumented in this encounter Additional Health Concerns Assessment Noted Time PHQ-9 Depression Total Score: 0 09/17/19 24 11:20 AM EST documented as of this encounter Care Teams Steam Plant Operator Relationship Specialty Start Date End Date Ani Anguiano ANP [address] [place] [address] PCP - General Family Medicine 05/06/22 Gracie Corona [address] [place] [address] Drive 3rd [place] [address] Sleep Medicine 01/23/25 documented as of this encounter
--- OUTSIDE RECORDS SUMMARY | 2025-05-08 15:51 | XMS_ITS | Encounter Summary ---
Author Organization [employer] Address [address] [place] [address] [address] [place] [address] Care Team Providers Care Reinforced Concrete Inspector Name Role Phone Ani Anguiano Primary Care Provider [phone] Gracie Corona Unavailable [phone] Reason for Visit * Reason Onset Date Comments status on script 07/03/2022 Encounter Details Date Type Department Care Team (Late st Contact Info) Description 07/03/2022 Telephone [facility] MEDICINE [address] [place] [address] Ani Anguiano ANP [address] [place] [address] status on script Social History Tobacco Use [...] PM EST TC placed to pt at [phone] regarding message below per Dr. Butts. Pt informed medication was verbally called into [facility] pharmacy on [address] Pt verbalized understanding. Pt to F/U as needed. [facility] staff Edwige assisting with translation. Medication was verbally called at [facility] pharmacy [facility] this morning as the right order could not be found in our new EHR. * Telephone Encounter - Saray Bermudez - 07/03/2022 8:54 AM EST Tc from Pt stated yesterday came to [facility] and they supposed to send a script for Oxy meter, Paxlovid and she said another medication but she doesn't know the name or what for to see if we can send script to [facility]acy on [address] [place] PCP DR. Anguiano The medication was called in for Ms Wheatley. [facility] does not have a pulse oxymeter. Pt will have to have someone garbage pick up worker one for her here at the [facility]. A script will be sent. documented in this encounter Plan of Treatment Upcoming Encounters Date Type Department Care Team (Late st Contact Info) Description 05/11/2025 9:00 AM EDT Clinical Support [facility] DIABETES/NUTRITION [address] [place] [address] Vee Gomez, PATRICK [address] [place] [address] 05/31/2025 9:30 AM EDT Office Visit [facility] MEDICINE [address] [place] [address] Ani Anguiano, LUIS [address] [place] [address] 07/10/2025 2:30 PM EST Office Visit [facility] OPTOMETRY [address] [place] [address] Bonny Means, OD [address] [place] [address] 08/10/2025 10:00 AM EST Medication Management [facility] MEDICINE [address] [place] [address] Emma Her, Luiz [address] [place] [address] documented as of this encounter Visit Diagnoses Diagnosis COVID-19- Primary documented in this encounter Care Teams Reinforced Concrete Inspector Relationship Specialty Start Date End Date Ani Anguiano ANP [address] [place] [id number] PCP - General Family Medicine 05/06/22 Gracie Corona [address] [place] [address] 3[address] [place] [address] Sleep Medicine 01/23/25 documented as of this encounter
--- OUTSIDE RECORDS SUMMARY | 2025-05-08 15:51 | XMS_ITS | Clinical Summary ---
Author Organization [employer] Address [address] [facility] [address] [place] [address] Care Team Providers Care [employer] Name Role Phone Cristiano Hairston LUIS Primary Care Provider [phone] Gracie Corona Unavailable [phone] Allergies Active Allergy Reactions Criticality Noted Date Comments Latex 05/23/2021 Medications Blood Pressure kit A ctive Misc. Devices (Pulse Oximeter For Finger) miscIndications:CO VID-19 To use every 4 hours. To contact the office if O2 sat < 90% 1 each 2 Active dicyclomine (Bentyl) 20 MG tablet 3 Active pantoprazole (ProtoNix) 40 MG EC tablet Take 40 mg by mouth in the morning and 40 mg in the evening. 3 Active OneTouch Delica Lancets 33G miscIndications:Hy pertension associated with diabetes (HCC) Use to test blood sugar 3 times daily 100 each 11 4 Active Blood Glucose Monitoring Suppl (ONE TOUCH ULTRA 2) w/Device kitIndications:Hyp ertension associated with diabetes (HCC) Use to test blood sugar 3 times daily 1 kit 4 Active butalbital-acetami nophen-caffeine 50-325-40 MG tabletIndications: Migraine without status migrainosus, not intractable, unspecified migraine type TAKE 1 TO 2 TABLETS BY MOUTH EVERY 4 HOURS NEEDED DO NOT EXCEED 6 TABLETS IN 24 HOURS. TRATA DE USAR MENOS DE 3 BHATTI POR MES 12 tablet 1 4 Active meloxicam (Mobic) 7.5 MG tabletIndications: Osteoarthritis Take 7.5 mg by mouth if needed for moderate pain. Active sharps containerIndicatio ns:Type 2 diabetes mellitus with hyperlipidemia (HCC) Use for disposal of used pen needles, lancets, needles, syringes, injection supplies 1 each 11 4 Active ketorolac (Acular) 0.5 % ophthalmic solution 4 Active loperamide (Imodium) 2 MG capsule Take 2 capsules by mouth in the morning. OTC Active simethicone (Mylicon) 80 MG chewable tablet Chew 1 tablet if needed each day for flatulence. OTC Active acetaminophen (Tylenol) 500 MG tablet Take 1 tablet by mouth if needed each day for mild pain. OTC Active fluticasone-salmet delfin (Advair HFA) 230-21 MCG/ACT inhalerIndications :Asthma, moderate persistent, well-controlled Inhale 2 puffs in the morning and at bedtime. Rinse mouth with water after use to reduce aftertaste and incidence of candidiasis. Do not swallow. 36 g 1 4 Active hydrOXYzine HCl (Atarax) 25 MG tablet Take 1 tablet by mouth if needed each day for anxiety. Active cholecalciferol (Vitamin D-3) 20 MCG (800 UNIT) tabletIndications: Osteopenia, unspecified location Take 1 tablet (20 mcg) by mouth Once per day. 90 tablet 3 5 Active Alcohol Swabs (Alcohol Prep) 70 % padsIndications:Ty pe 2 diabetes mellitus without complication, unspecified whether longitudinal float operator insulin use USE DIRECTED TWICE DAILY 100 each 11 5 Active atorvastatin (Lipitor) 10 MG tabletIndications: Type 2 diabetes mellitus with hyperlipidemia (HCC) Take 1 tablet (10 mg) by mouth at bedtime. 90 tablet 3 5 026 Active enalapril (Vasotec) 10 MG tabletIndications: Hypertension associated with diabetes (HCC) TAKE 1 TABLET BY MOUTH EVERY DAY IN THE MORNING 90 tablet 3 5 Active metFORMIN XR (Glucophage-XR) 500 MG 24 hr tabletIndications: Hypertension associated with diabetes (HCC) TAKE 2 TABLETS BY MOUTH EVERY TWELVE HOURS 360 tablet 3 5 Active pregabalin (Lyrica) 100 MG capsuleIndications :Bilateral leg pain Take 1 capsule (100 mg) by mouth 2 times daily. 60 capsule 2 5 Active Ventolin HFA 108 (90 Base) MCG/ACT inhalerIndications :Asthma, moderate persistent, well-controlled INHALE 2 PUFFS BY MOUTH EVERY 4 HOURS NEEDED FOR WHEEZING OR SHORTNESS OF BREATH 18 g 1 5 Active lidocaine (Lidoderm) 5 % patchIndications:U pper back pain on right side APPLY 1 PATCH TOPICALLY TO SKIN, LEAVE ON FOR 12 HOURS AND OFF FOR 12 HOURS DIRECTED 30 patch 2 5 Active cetirizine (ZyrTEC) 10 MG tabletIndications: Non-seasonal allergic rhinitis due to other allergic trigger TAKE 1 TABLET BY MOUTH EVERY MORNING NEEDED FOR ALLERGIES 90 tablet 1 5 Active fluconazole (Diflucan) 150 MG tabletIndications: Vaginal itching Take 1 tab today and 1 in 2 days 2 tablet 5 Active Melatonin 3 MG tablet dispersibleIndicat ions:Insomnia, unspecified type DISSOLVE 1 TABLET UNDER THE TONGUE AT BEDTIME NEEDED FOR SLEEP 90 tablet 1 5 Active Jardiance 10 MGIndications:Type 2 diabetes mellitus with hyperlipidemia (HCC) TAKE 1 TABLET BY MOUTH DAILY 90 tablet 5 Active Accu-Chek Softclix Lancets lancets Use to check blood sugar 3 times daily 100 each 12 5 026 Active Blood Glucose Monitoring Suppl (Accu-Chek Guide Id) w/Device kit USE DIRECTED TO TEST BLOOD SUGAR THREE TIMES DAILY 1 kit 5 Active Accu-Chek Guide Test test strip USE DIRECTED TO TEST BLOOD SUGAR THREE TIMES DAILY 100 each 11 5 Active Active Problems Problem Noted Date Diagnosed Date Bilateral carpal tunnel syndrome 10/16/2024 Chronic left-sided low back pain with left-sided sciatica 10/13/2024 Difficulty walking 10/13/2024 Requires assistance with activities of daily adelso ing (ADL) 08/24/2024 Obstructive sleep apnea syndrome 07/02/2022 Overview (01/20/2024): Follows w sleep med, DIRECTOR OF EMERGENCY NURSING Jacinto Urinary tract infectious disease 07/02/2022 Multiple renal cysts 10/30/2021 Asthma, well controlled 05/08/2021 Hypertension associated with diabetes 05/08/2021 Obesity 05/08/2021 Osteopenia 05/08/2021 Type 2 diabetes mellitus with hyperlipidemia 01/2021 Resolved Problems Problem Noted Date Diagnosed Date Resolved Date COVID-19 07/02/2022 09/28/2022 Encounters Date Type Department Care Team Description 04/16/2025 10:00 AM EDT Nutrition [facility] DIABETES/NUTRITION [address] [place] [address] Type 2 diabetes mellitus with hyperlipidemia (CMS/HCC) ([facility]) 04/16/2025 Travel 03/27/2025 Telephone [facility] MEDICINE [address] [place] [phone] Cristiano Hairston ANP october recall 03/16/2025 Telephone [facility] MEDICINE [address] [place] [phone] Cristiano Hairston ANP Referral 03/15/2025 Telephone [facility] MEDICINE [address] [place] [phone] Cristiano Hairston ANP Referral 03/06/2025 Refill [facility] MEDICINE [address] [place] [phone] Cristiano Hairston ANP 03/05/2025 Refill [facility] MEDICINE [address] [place] [phone] Cristiano Hairston ANP Insomnia, unspecified type; Type 2 diabetes mellitus with hyperlipidemia (CMS/HCC) ([facility]) 03/02/2025 9:00 AM EDT Office Visit [facility] WALK-IN CENTER [address] [place] [phone] Amber Franklin NP Vaginal itching (Primary Dx); Acute low back pain, unspecified back pain laterality, unspecified whether sciatica present; Discomfort of left ear 03/02/2025 Results Follow-Up [facility] WALK-IN CENTER [address] [place] [phone] Amber Franklin NP POCT urinalysis dipstick manually resulted, POCT glucose manually resulted, POCT A1C, Bacterial Vaginosis Panel 03/02/2025 Refill [facility] MEDICINE [address] [place] [phone] Cristiano Hairston ANP 03/02/2025 Refill [facility] MEDICINE [address] [place] [address] Cristiano Hairston ANP Hypertension associated with diabetes ([facility]/HCC) 03/02/2025 Travel 02/24/2025 Refill [facility] MEDICINE [address] [place] [address] Cristiano Hairston ANP Bilateral leg pain 02/09/2025 Results Follow-Up [facility] CHC MED & PEDS [address] [place] [address] Jessy Laurent MD Bacterial Vaginosis, POCT urinalysis dipstick manually resulted 02/05/2025 9:20 AM EDT Office Visit [facility] WALK-IN CENTER [address] [place] [address] Jessy Laurent MD Vaginal itching (Primary Dx) 02/05/2025 Travel from Last 3 Months Immunizations Immunization Administration Dates Next Due Hep A, Adult [...] Sign Reading Time Taken Comments Blood Pressure 132/82 03/02/2025 8:58 AM EDT Pulse 82 03/02/2025 8:58 AM EDT Temperature 36.5 C (97.7 F) 03/02/2025 8:58 AM EDT Respiratory Rate 16 03/02/2025 8:58 AM EDT Oxygen Saturation 97% 10/13/2024 10:01 AM EDT Inhaled Oxygen Concentration - - Weight 64.1 kg (141 lb 6.4 oz) 04/17/2025 3:12 P M EDT Height 154.9 cm (5' 1 ) 04/17/2025 3:12 PM EDT Body Mass Index 26.72 04/17/2025 3:12 PM EDT Plan of Treatment Upcoming Encounters Date Type Department Care Team (Late st Contact Info) Description 05/11/2025 9:00 AM EDT Clinical Support [facility] DIABETES/NUTRITION [address] [place] [address] Vee Gomez, PATRICK [address] [place] [address] 05/31/2025 9:30 AM EDT Office Visit [facility] MEDICINE [address] [place] [address] Cristiano Hairston, ANP [address] [place] [address] 07/10/2025 2:30 PM EST Office Visit [facility] OPTOMETRY [address] [place] [address] Miguelangel, Bonny, OD [address] [place] [address] 08/10/2025 10:00 AM EST Medication Management [facility] MEDICINE [address] [place] [address] Emma Her, PharmD [address] [place] [address] Health Maintenance Due Date Last Done Comments CT Colonography 1960 FIT DNA/Cologuard 1960 FIT 1960 FOBT 1960 Sigmoidoscopy 1960 Hepatitis C Screening 1980 Pap Smear 12/22/1983 HPV/Cotest 1992 Zoster Vaccines (1 of 2) 2012 Diabetes: Foot Exam 01/19/2025 01/20/2024, 01/20/2024, 01/20/2024, Additional history exists Diabetes: Urine Protein Screening 01/26/2025 01/27/2024, 02/23/2023, 05/08/2021 COVID-19 Vaccine ( season) 2025 06/19/2021, 01/15/2021, 12/25/2020 Influenza Vaccine (#1) 2025 , 05/20/2023, 09/28/2022, Additional history exists Diabetes: Hemoglobin A1C 06/02/2025 025, 01/23/2025, 10/13/2024, Additional history exists Lipid Panel 07/18/2025 07/18/2024, 01/01, 02/23/2023, Additional history exists SDOH Screening 10/02/2025 10/02/2024 Depression Screening 10/13/2025 10/13/2024, 10/14/19 25 Mammogram 11/30/2025 11/30/2024, 04/1 04/2024, 11/16/2022, Additional history exists Alcohol/Substance Use Screening 01/23/2026 01/23/2025 Disability Screening 01/23/2026 01/23/2025 Tobacco Screening 03/02/2026 03/02/2025 Eye Exam 03/27/2026 03/27/2024, 03/03, 03/27/2024, Additional history exists Colonoscopy 07/14/2027 07/14/2023 Colorectal Cancer Screening 07/14/2027 DTaP/Tdap/Td Vaccines (3 - Td or Tdap) 01/08/2031 01/08/2021, 12/19/2010, 07/06/2002, Additional history exists Hepatitis B Vaccines Completed 08/18/1991, 08/18/1991, 03/03/1991, Additional history exists Hepatitis A Vaccines Aged Out 10/13/2019, 04/13/20 19 No longer eligible based on patient's age to complete this topic HIV Screening Completed 05/08/2021 Pneumococcal Vaccine: 50+ Years Completed 05/20/2023, 10/12/2018 RSV Patients and Patients Aged 60 years [...] patient's age to complete this topic Meningococcal B Vaccine Aged Out No l onger eligible based on patient's age to complete [...] Diagnosis Comments POCT GLYCATED HEMOGLOBIN, TOTAL Routine 03/02/2025 9:54 AM EDT Vaginal itching POCT GLUCOSE Routine 03/02/2025 9:54 AM EDT Vaginal itching POCT URINALYSIS DIPSTICK Routine 03/02/2025 9:54 AM EDT Acute low back pain, unspecified back pain laterality, unspecified whether sciatica present BACTERIAL VAGINOSIS PANEL Routine 03/02/2025 9:54 AM EDT Vaginal itching POCT URINALYSIS DIPSTICK Routine 02/05/2025 9:24 AM EDT Vaginal itching BACTERIAL VAGINOSIS PANEL Routine 02/05/2025 9:11 AM EDT Vaginal itching BI MAMMOGRAM SCREENING TOMOSYNTHESIS BILATERAL Routine 11/30/2024 9:10 AM EDT LIPID PANEL, STANDARD Routine 07/18/2024 9:05 AM EST Type 2 diabetes mellitus with hyperlipidemia (CMS/HCC) (CMS/HCC) ALBUMIN, RANDOM URINE W/CREATININE Routine 01/27/2024 9:32 AM EDT Type 2 diabetes mellitus without complication, without long-term current use of insulin ([facility]) HM COLONOSCOPY Routine 07/14/2023 HIV 1/2 ANTIGEN/ANTIBODY, FOURTH GENERATION W/RFL Routine 05/08/2021 10:50 AM EDT from Last 3 Months or Most Recently Relevant to Health Maintenance Results * (ABNORMAL) Bacterial Vaginosis Panel (03/02/2025 9:54 AM EDT) Only the most recent of2 resultswithin the time period is included. TRICHOMONAS VAGINALIS DETECTION BY PCR NOT DETECTED Not Detect [facility] BACTERIAL VAGINOSIS DETECTION BY PCR NEGATIVE Negative [facility] Comment:The BV organism targ ets of the Xpert Xpress MVP test can becommensal in women; Xpert Xpress MVP positive results forbacterial vaginosis should be considered in conjunction withother clinical and patient information to determine thedisease status. Organisms that are not detected by the XpertXpress MVP test have also been reported to be associatedwith BV and aerobic vaginitis.The Xpert Xpress MVP test performance has not been evaluatedin patients under the age of 14. AIRAM GROUP DETECTION BY PCR DETECTED(A) Not Detect [facility] Airam glab krusei PCR NOT DETECTED Not Detect [facility] Swab Vaginal structure / Unknown 03/02/2025 9:54 AM EDT 03/02/2025 12:13 PM EDT Amber Franklin NP LAB MICROBIOLOGY - GENERAL ROSA ROSAS Final Result [facility] [address] [place] [phone] * (ABNORMAL) POCT A1C (03/02/2025 9:54 AM EDT) Hemoglobin A1C 6.6(A) 4.0 - 5.7 % Blood 03/02/2025 9:54 AM EDT [facility] POINT OF CARE TEST ENTER/EDIT O RDERABLES Final Result * POCT glucose manually resulted (03/02/2025 9:54 AM EDT) Glucose Blood, POC 109 60 - 200 mg/dL Blood Capillary blood specimen / Unknown 03/02/2025 9:54 AM EDT [facility] POINT OF CARE TEST ENTER/EDIT O RDERABLES Final Result * POCT urinalysis dipstick manually resulted (03/02/2025 9:54 AM EDT) Only the most recent of2 resultswithin the time period is included. Color, UA Yellow Clarity, UA Clear Glucose, UA Trace Comment:1000 mg/dl Bilirubin, UA Negative Ketones, UA Negative Spec Grav, UA 1.020 Blood, UA Negative Negative, None Detected pH, UA 5.5 Protein, UA Negative Urobilinogen, UA 0.2 Leukocytes, UA Negative Negative, Rare, Trace Nitrite, UA Negative Negative, None Detected Urine 03/02/2025 9:54 AM EDT [facility] POINT OF CARE TEST ENTER/EDIT O RDERABLES Final Result * BI Mammogram Screening Tomosynthesis Bilateral (11/30/2024 9:10 AM EDT) Anatomical Region Laterality Modality Breast Bilateral Mammography 11/30/2024 9:10 AM EDT Narrative 12/05/2024 5:41 PM EDT [facility] [address] [place] [address] Mammography Report Signed Patient: Brooklynn De La Rosa MR#: [id number] : 1960 Acct:[id number] Age/Sex: 63 / F ADM Date: 11/30/24 Loc: [facility] Attending Dr: Cristiano Hairston NP Ordering Physician: CRISTIANO HAIRSTON DIRECTOR OF EMERGENCY NURSING Results: 2Benign Tai dumont Date of Service: 11/30/24 Follow Up: 1 Year From Orig inal Mammogram Procedure(s): MM tomosynthesis screening BI Accession Number(s): [id number] cc: CRISTIANO HAIRSTON DIRECTOR OF EMERGENCY NURSING EXAMINATION: MM SCREENING DIGITAL BREAST TOMOSYNTHESIS, BILATERAL CLINICAL INFORMATION: Screening. Asymptomatic. COMPARISON: Mammography: Comparison is made with available priors TECHNIQUE: Digital breast mammography with tomosynthesis is performed in both the craniocaudal and mediolateral oblique views along with computer-aided detection (CAD). FINDINGS: The breasts are heterogeneously dense, which may obscure small masses (ACR BI-RADS breast composition Category c). Left marker clip. There are no significant masses, abnormal calcifications, or other abnormalities. MM/MM tomosynthesis screening BI IMPRESSION: No mammographic evidence of malignancy. ASSESSMENT: BI-RADS BI-RADS 2 - Benign Findings RECOMMENDATION: Routine annual mammography screening. 1 year F/U This examination should not preclude the clinical evaluation of a suspicious palpable abnormality. This patient's information was entered into a reminder system with a target due date for their next mammogram. Electronically signed by: Mary Hollis DO 12/05/2024 05:38 PM EDT RP Dictated By: Mary Hollis DO Signed By: <Electronically signed by Mary Hollis DO in OV> 12/05/24 1738 DD/ 0910 TD/TT: 11/30/24 0920 Support Staff: Procedure Note Donotuseinterpreter, Image - 12/05/2024 [facility] [address] [place] [address] Mammography Report Signed Patient: Brooklynn De La Rosa EMR#: [id number] : 1960Acct:[id number] Age/Sex: 63 / FADM Date: 11/30/24 Loc: [facility].MAMMO Attending Dr: Cristiano Hairston DIRECTOR OF EMERGENCY NURSING Ordering Physician: CRISTIANO HAIRSTON NPResults: 2Beniantonette dumont Date of Service: 11/30/24Follow Up: 1 Year From Orig inal Mammogram Procedure(s): MM tomosynthesis screening BI Accession Number(s): [id number] cc: CRISTIANO HAIRSTON NP EXAMINATION: MM SCREENING DIGITAL BREAST TOMOSYNTHESIS, BILATERAL CLINICAL INFORMATION: Screening. Asymptomatic. COMPARISON: Mammography: Comparison is made with available priors TECHNIQUE: Digital breast mammography with tomosynthesis is performed in both the craniocaudal and mediolateral oblique views along with computer-aided detection (CAD). FINDINGS: The breasts are heterogeneously dense, which may obscure small masses (ACR BI-RADS breast composition Category c). Left marker clip. There are no significant masses, abnormal calcifications, or other abnormalities. MM/MM tomosynthesis screening BI IMPRESSION: No mammographic evidence of malignancy. ASSESSMENT: BI-RADS BI-RADS 2 - Benign Findings RECOMMENDATION: Routine annual mammography screening. 1 year F/U This examination should not preclude the clinical evaluation of a suspicious palpable abnormality. This patient's information was entered into a reminder system with a target due date for their next mammogram. Electronically signed by: Mary Hollis DO 12/05/2024 05:38 PM EDT Dictated By: Mary Hollis DO Signed By: <Electronically signed by Mary Hollis DO in OV> 12/05/24 1738 DD/ 0910 TD/TT: 11/30/24 0920 Support Staff: Cristiano SMITH IMJohn BI PROCEDURES Final Result * (ABNORMAL) Lipid Panel, Standard (07/18/2024 9:05 AM EST) Triglycerides 98 <150 mg/dL [facility] Comment:Desirable Triglyceri de: less than 150 mg/dLBorderline High Triglyceride 150-199 mg/dLHigh Triglyceride: 200-499 mg/dLVery High Triglyceride: greater than or equal to 5OO mg/dL Cholesterol 117 <200 mg/dL [facility] Comment:Desirable Cholestero l: less than 200 mg/dLBorderline High Cholesterol: 200-239 mg/dLHigh Cholesterol: greater than 239 mg/dL LDL Cholesterol Calculated 59 <100 mg/dL [facility] Comment:Desirable LDL: less than 100 mg/dLNear Optimal/Above Optimal LDL: 110- 129 mg/dLBorderline High LDL: 130-159 mg/dLHigh LDL: 160-189 mg/dLVery High LDL: greater than or equal to 190 mg/dL HDL Cholesterol 39(L) >40 mg/dL [facility] Comment:Desirable HDL: great er than 40 mg/dL Note: This HDL assay may give artificially low results in patients with liver disease. Blood Venous blood specimen / Unknown 07/18/2024 9:05 AM EST 07/18/2024 11:00 AM EST Cristiano Hairston ANP LAB BLOOD ORDERABLES Final Resul t Performing Organization Address [facility] Co de Phone Number [facility] [address] [place] [phone] * (ABNORMAL) Albumin, Random Urine W/Creatinine (01/27/2024 9:32 AM EDT) Creatinine, Urine 40.16 mg/dL [facility] Microalbumin Urine 16.0 mg/L [facility] Microalbum Creatinine Ratio Ur 39.8(H) <30 ug/mg cr [facility] Comment:Albumin/Creatinine R atio Reference Ranges: Normal: < 30 ug/mg creatinine Microalbuminuria: 30 - 300 ug/mg creatinineClinical Albuminuria: > 300 ug/mg creatinine Urine 01/27/2024 9:32 AM EDT 01/27/2024 11:21 AM EDT Cristiano Hairston ANP LAB URINE ORDERABLES Final Resul t Performing Organization Address [facility]/ZIP Co de Phone Number [facility] [address] [place], [place] [phone] * Colonoscopy (07/14/2023) Colonoscopy Normal Normal Narrative Shaye Isbell - 07/14/2023 Colonoscopy order added Historical Provider HEALTH MAINTENANCE Final Result * HIV 1/2 ANTIGEN/ANTIBODY,FOURTH GENERATION W/RFL (05/08/2021 10:50 AM EDT) HIV-1/2 ANTIGEN AND ANTIBODIES, 4TH GENERATION W/ REFLEX NON-REACT [facility] NON-REACT [facility] Comment: HIV-1 antigen and HIV-1/HIV-2 antibodies were not detected. There is no laboratory evidence of HIV infection. PLEASE NOTE: This information has been disclosed to you from records whose confidentiality may be protected by state law. If your state requires such protection, then the state law prohibits you from making any further disclosure of the information without the specific written consent of the person to whom it pertains, or as otherwise permitted by law. A general authorization for the release of medical or other information is NOT sufficient for this purpose. For additional information please refer to http://education.[employer]/faq/WWR988 (This link is being provided for informational/ educational purposes only.) The performance of this assay has not been clinically validated in patients less than 2 years old. 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
--- OUTSIDE RECORDS SUMMARY | 2025-05-08 15:51 | XMS_ITS | Encounter Summary ---
Author Organization [employer] Address [address] [place] [address] [address] [place] [address] Care Team Providers Care Landscape Technician Name Role Phone Ani Anguiano Primary Care Provider [phone] Gracie Corona Unavailable [phone] Reason for Visit * Reason Comments Med Refill Encounter Details Date Type Department Care Team (Late st Contact Info) Description 02/03/2025 Refill [facility] [address] [place] [address] Ani Anguiano ANP [address] [place] [address] Hypertension associated with diabetes (CMS/HCC) Social History Tobacco Use Types Packs/Day Years [...] Description 05/11/2025 9:00 AM EDT Clinical Support [facility] DIABETES/NUTRITION [address] [place] [address] Vee Gomez, PATRICK [address] [place] [address] 05/31/2025 9:30 AM EDT Office Visit [facility] MEDICINE [address] [place] [address] Ani Anguiano ANP [address] [place] [address] 07/10/2025 2:30 PM EST Office Visit [facility] OPTOMETRY [address] [place] [address] Bonny Means, OD [address] [place] [address] 08/10/2025 10:00 AM EST Medication Management [facility] [address] [place] [address] Emma Her, Luiz [address] [place] [address] documented as of this encounter Visit Diagnoses Diagnosis Hypertension associated with diabetes (HCC) Unspecified essential hypertension documented in this encounter Additional Health Concerns Assessment Noted Time PHQ-9 Depression Total Score: 6 10/14/19 25 10:44 AM EDT documented as of this encounter Care Teams Landscape Technician Relationship Specialty Start Date End Date Ani Anguiano ANP [address] [place] [address] PCP - General Family Medicine 05/06/22 Gracie Corona [address] [place] [address] 3rd [place] [address] Sleep Medicine 01/23/25 documented as of this encounter
--- OUTSIDE RECORDS SUMMARY | 2025-05-08 15:51 | XMS_ITS | Encounter Summary ---
Author Organization [employer] Address [address] [place] [address] 7t [place] [address] Care Team Providers Care Boom Crane Operator Name Role Phone Ani Anguiano Primary Care Provider [phone] Gracie Corona Unavailable [phone] Reason for Visit * Reason Comments Med Refill Encounter Details Date Type Department Care Team (Late st Contact Info) Description 08/24/2024 Refill [facility] MEDICINE [address] [place] [address] Ani Anguiano ANP [address] [place] [address] Hypertension associated with diabetes (CMS/HCC) (CMS/HCC); Bilateral [...] the past 12 months, has t he [employer] gas, oil or water company threatened to [...] Description 05/11/2025 9:00 AM EDT Clinical Support [facility] DIABETES/NUTRITION [address] [place] [address] Vee Gomez, PATRICK [address] [place] [address] 05/31/2025 9:30 AM EDT Office Visit [facility] MEDICINE [address] [place] [address] Ani Anguiano ANP [address] [place] [address] 07/10/2025 2:30 PM EST Office Visit [facility] OPTOMETRY [address] [place] [address] Bonny Means, OD [address] [place] [address] 08/10/2025 10:00 AM EST Medication Management [facility] MEDICINE [address] [place] [address] Emma Her, Luiz [address] [place] [address] documented as of this encounter Visit Diagnoses Diagnosis Hypertension associated with diabetes (HCC) Unspecified essential hypertension Bilateral leg pain Pain in soft tissues of limb documented in this encounter Additional Health Concerns Assessment Noted Time PHQ-9 Depression Total Score: 0 09/17/19 24 11:20 AM EST documented as of this encounter Care Teams Boom Crane Operator Relationship Specialty Start Date End Date Ani Anguiano ANP [address] [place] [address] PCP - General Family Medicine 05/06/22 Gracie Corona [address] [place] [address] Drive 3rd [place] [address] Sleep Medicine 01/23/25 documented as of this encounter
--- OUTSIDE RECORDS SUMMARY | 2025-05-08 15:51 | XMS_ITS | Encounter Summary ---
Author Organization [employer] Address [address] [place] [address] 7t [place] [address] Care Team Providers Care Supplier Quality Engineer Name Role Phone Ani Anguiano Primary Care Provider [phone] Gracie Corona Unavailable [phone] Reason for Visit * Reason Comments Med Refill Encounter Details Date Type Department Care Team ([facility] st Contact Info) Description 06/01/2023 Refill [facility] P[facility]S [address] [place], [place] [id number] Ani Anguiano ANP [address] [facility] [place] [address] Type 2 diabetes mellitus without complication, without long-term current use of insulin ([facility]) [...] 9:00 AM EDT Clinical Support [facility] DIABETES/NUTRITION [address] [place] [address] Vee Gomez, PATRICK [address] [place] [address] 05/31/2025 9:30 AM EDT Office Visit [facility] MEDICINE [address] [place] [address] Ani Anguiano ANP [address] [place] [address] 07/10/2025 2:30 PM EST Office Visit [facility] OPTOMETRY [address] [place] [address] Bonny Means, OD [address] [place] [address] 08/10/2025 10:00 AM EST Medication Management [facility] MEDICINE [address] [place] [address] Emma Her, PharmD [address] [place] [address] documented as of this encounter Visit Diagnoses Diagnosis Type 2 diabetes mellitus without complication, without long-term current use of insulin (HCC) documented in this encounter Additional Health Concerns Assessment Noted Time PHQ-9 Depression Total Score: 0 08/26/19 23 2:13 PM EST documented as of this encounter Care Teams Supplier Quality Engineer Relationship Specialty Start Date End Date Ani Anguiano ANP [address] [place] [id number] PCP - General Family Medicine 05/06/22 Gracie Corona [address] [place] [address] 3rd [place] [address] Sleep Medicine 01/23/25 documented as of this encounter
--- OUTSIDE RECORDS SUMMARY | 2025-05-08 15:51 | XMS_ITS | Encounter Summary ---
Author Organization [employer] Address [address] [place] [address] 7 [place] [address] Care Team Providers Care Laundry Folder Name Role Phone Ani Anguiano Primary Care Provider [phone] Gracie Corona Unavailable [phone] Reason for Visit * Reason Onset Date Comments Pre op 04/05/2024 Encounter Details Date Type Department Care Team (Late st Contact Info) Description 04/05/2024 Telephone [facility] MEDICINE [address] [place] [address] Ani Anguiano ANP [address] [place] [address] Pre op Social History Tobacco Use Types [...] for pre op 04/14/24 at 10:30AM with Oral. Appointment reminder letter mailed. * Telephone Encounter [...] Payne Facility name: [facility] Surgeon's office number: [phone] Surgeon's office fax number: [phone] Contact name (person you spoke with): Germania Last office note from surgeon requested: Yes documented in this encounter Plan of Treatment Upcoming Encounters Date Type Department Care Team (Late st Contact Info) Description 05/11/2025 9:00 AM EDT Clinical Support [facility] DIABETES/NUTRITION [address] [place] [address] Vee Gomez, RD [address] [place] [address] 05/31/2025 9:30 AM EDT Office Visit [facility] MEDICINE [address] [place] [address] Ani Anguiano ANP [address] [place] [address] 07/10/2025 2:30 PM EST Office Visit [facility] OPTOMETRY [address] [place] [address] Miguelangel, Bonny, OD 230 [place] [address] 08/10/2025 10:00 AM EST Medication Management [facility] MEDICINE [address] [place] [address] Emma Her, PharmD [address] [place] [address] documented as of this encounter Visit Diagnoses Not on filedocumented in this encounter Additional Health Concerns Assessment Noted Time PHQ-9 Depression Total Score: 0 09/17/19 24 11:20 AM EST documented as of this encounter Care Teams Laundry Folder Relationship Specialty Start Date End Date Ani Anguiano ANP [address] [place] [address] PCP - General Family Medicine 05/06/22 Gracie Corona [address] [place] [address] 3rd [place] [address] Sleep Medicine 01/23/25 documented as of this encounter
== END 2025-05-08 14:32 | disposition home or self-care (01) ==
LOC: HO.HOS 12:58
PROVIDERS: PCP Nurse Practitioner Primary Care; Visit Provider Physician Assistant
DX: Z47.89 Encounter for other orthopedic aftercare (principal); G56.02 Carpal tunnel syndrome, left upper limb
CPT/HCPCS: 99024

== ENCOUNTER → 2025-05-08 12:57 | Outpatient (BNVA) | payer MEDICARE, MEDICAID, SELFPAY | PROVIDERS: PCP Nurse Practitioner Primary Care; Visit Provider Physician Assistant | DX: G56.02 Carpal tunnel syndrome, left upper limb (principal); Z98.890 Other specified postprocedural states; Z48.02 Encounter for removal of sutures | CPT/HCPCS: 99212 ==

== ENCOUNTER 2025-05-31 11:07 | Outpatient (REF) | payer MEDICARE, MEDICAID, SELFPAY ==
[2025-05-31 13:41] LABS: Anion Gap 11 (12-20); Blood Urea Nitrogen 11 mg/dL (9-16); Calcium 9.7 mg/dL (8.4-10.2); Carbon Dioxide 29 mmol/L (22-29); Chloride 109 mmol/L (96-108); Cholesterol 183 mg/dL (<200); Estimated Glomerular Filt Rate > 60; HDL Cholesterol 45 mg/dL (>40); Potassium 4.5 mmol/L (3.3-5.1); Sodium 144 mmol/L (135-145); Triglycerides 175 mg/dL (<150)
--- OUTSIDE RECORDS SUMMARY | 2025-05-31 13:57 | XMS_ITS | Clinical Summary ---
Author Organization [facility] Address [address] [place] [address] Phone Care Team Providers Care Cattle Rancher Name Role Phone Ani Anguiano NP Primary Care Provider [phone] Social History Tobacco Use Types Packs/Day Years [...] Description 07/23/2025 10:30 AM EST Office Visit [facility] [address] [place] [address] Jeremy Cifuentes MD [address] [place] [address], [address] [address] Health Maintenance Due Date Last Done Comments [...] topic Medical Devices Not on file Insurance [facility] MEDICARE REPLACEMENT [facility] MEDICARE REPLACEMENT [facility] MEDICARE REPLACEMENT [facility] MEDICARE REPLACEMENT [facility] MEDICARE REPLACEMENT [place] [id number] [facility] MEDICARE REPLACEMENT Care Teams Cattle Rancher Relationship Specialty Start Date End Date Ani Anguiano NP [address] [place] [address] PCP - General 02/09/25 Additional Source Comments The information contained in this document represents components of the legal health record. It is not the complete legal health record.[facility]
[2025-05-31 13:59] LABS: Microalbum/Creatinine Ratio Ur 17.3 ug/mg cr (<30)
== END 2025-05-31 11:08 | disposition home or self-care (01) ==
LOC: HO.HHCL 11:07
PROVIDERS: PCP Nurse Practitioner Primary Care; Visit Provider Nurse Practitioner Primary Care
DX: E11.59 Type 2 diabetes mellitus with other circulatory complications (principal); I15.2 Hypertension secondary to endocrine disorders
CPT/HCPCS: 36415; 80048; 80061; 82043; 82570

== ENCOUNTER 2025-06-18 11:09 | Outpatient (AMB) | payer MEDICARE, MEDICAID, SELFPAY ==
--- NOTE | 2025-06-18 11:29 | A.OFFVIS_ITS ---
Vital Signs 06/18/25 11:33 Height 5 ft Weight 145 lb 15.136 oz BMI 28.5 BP 110/74 Blood Pressure Location Lt brachial Position Sitting Pulse 84 Pulse Source Monitor Intake Visit Reasons: bonbon dipper/dr. meza/atypical chest pain Intake Note: bonbon dipper/derrick/ chest pain Optical Technician Required: Yes Optical Technician Language: Dispensary Attendant Name: voyce/pashto/ Accompanied by: Self / Same As Patient Allergies latex Allergy (Severe, Verified 05/08/25 13:06) Angioedema dicyclomine (From Bentyl) Adverse Reaction (Severe, Verified 05/08/25 13:06) Dry Mucus Membranes Medication List - Last Reconciled 06/18/25 by Kunal Gomez MD acetaminophen ER (Arthritis Pain Relief (acetaminophen) ER) 650 mg PO Q12H PRN albuterol sulfate 90 mcg/actuation (Ventolin HFA) 2 puffs inhalation Q4H PRN atorvastatin 10 mg PO DAILY blood sugar diagnostic (FreeStyle Lite Strips) As directed qciufidheh-ugcthnozqfvqe-wzgc 50-325-40 mg tabs PO calcium carbonate-vitamin D3 600 mg-20 mcg (800 unit) 2 tabs PO DAILY cetirizine 10 mg PO DAILY cholecalciferol (vitamin D3) (Vitamin D3) 20 mcg PO DAILY enalapril maleate 10 mg PO DAILY fluticasone propion-salmeterol 230-21 mcg/actuation (Advair HFA) 2 puffs inhalation BID glimepiride 4 mg PO BID hydroxyzine HCl 25 mg PO Q6H PRN lancets (TRUEplus Lancets) As directed lancets (FreeStyle Lancets) As directed lidocaine 5% 1 patch topical DAILY loperamide (Imodium A-D) 2 mg PO BID melatonin 3 mg PO BEDTIME PRN metformin ER 1,000 mg PO BID pantoprazole 40 mg PO BID pregabalin 100 mg PO BID simethicone (Gas Relief (simethicone)) 125 mg PO BID-QID PRN HPI Comments Details: Pleasant 64-year-old lady who is here for assessment of chest pain. She has background history of hypertension and diabetes. She also has history of erosive esophagitis and gastroesophageal reflux disease. She has been complaining of chest pains and shortness of breath. She is saying that she gets a pressure-like feeling in the chest along with shortness of breath off and on. This has been ongoing over the last month. She tends to get these symptoms when she is laying down and during walks/activity she does not get significant symptoms. She does not take any aspirin appropriately given the history of erosive esophagitis. She is on atorvastatin 10 mg daily. Her last lipid panel showed LDL of 103, HDL 45, cholesterol 183 and triglycerides 175. [facility] Medical History Well woman exam with routine gynecological exam Pre-op examination Left upper quadrant abdominal pain Tubular adenoma of colon Urinary tract infection Moderate persistent asthma Osteopenia Hyperlipidemia Essential hypertension Obesity (BMI 30.0-34.9) Poor circulation DM type 2 (diabetes mellitus, type 2) Migraine Diverticulitis Gastritis Asthma Anxiety Surgical History Status post total hysterectomy and bilateral salpingo-oophorectomy (BSO) History of esophagogastroduodenoscopy (EGD) Hx of breast biopsy H/O colonoscopy with polypectomy H/O total hysterectomy H/O tubal ligation Family History Maternal Aunt Stomach cancer Father HTN (hypertension) Heart disease Mother Diabetes Asthma HTN (hypertension) Family/Other Diabetes HTN (hypertension) Social History Household Members Other:: son and 2 granddaughters Patient Tobacco Use Status: Never used Tobacco Female Reproductive History Menstrual Age of Menarche: 13 Review of Systems Const Denies chills, Denies fatigue, Denies fever(s), Denies frequent falls, Reports weakness, Denies weight gain and Denies weight loss ENT Denies dizziness Card Reports chest pain, Reports chest pain with activity, Denies leg edema, Denies lightheadedness, Denies palpitations, Reports dyspnea, Reports dyspnea on exertion and Reports orthopnea Resp Denies cough, Reports dyspnea and Reports dyspnea on exertion GI Denies bloating and Denies change in bowel habits Musc Reports muscle weakness, Denies numbness and Denies tingling Neuro Denies dizziness, Denies frequent falls, Denies numbness, Denies tingling and Reports weakness Endo Denies fatigue and Denies palpitations Physical Exam Vital Signs: Last Vital Signs Pulse 84 06/18/25 11:33 BP 110/74 06/18/25 11:33 BMI result Body Mass Index 28.5 GENERAL APPEARANCE: in no acute distress, pleasant. NECK: no carotid bruit, no jugular venous distention. SKIN: no suspicious lesions, warm and dry. HEART: no murmurs, regular rate and rhythm. LUNGS: clear to auscultation bilaterally. ABDOMEN: soft, nontender. EXTREMITIES: no edema. PERIPHERAL PULSES: equal. NEUROLOGIC: No gross deficits, AAO X 3 Office Procedures EKG Details: Normal sinus rhythm 84 beats per minute, normal axis, QTC 425 milliseconds. 10225-[id number], Complete Assessment & Plan Assessment & Plan (1) Chest pain: Code(s): R07.9 - Chest pain, unspecified Category: Medical Plan Pleasant 64-year-old lady presenting for assessment of chest pain. She is getting chest pain at rest along with shortness of breath. When she walks she does not get significant symptoms. She has significant risk factors for coronary disease. I we will arrange a stress MIBI for her. We will hold off on aspirin till she gets a stress testing done given her history of esophagitis. Blood pressure control is reasonable currently. Follow up with us in 3 months. Thank you for allowing me to participate in the care of your patient. Please feel free to contact me if you have any questions. Orders: Orders CA stress test Today R07.9 - Chest pain, unspecified NM cardiolite stress test Today R07.9 - Chest pain, unspecified Coding Level of Care Code New Pt Level 4 (29099) Diagnoses Chest pain R07.9 CPT Codes EKG - CPT: 19778-[id number], Complete ([id number])
[2025-06-18 11:33] VITALS: BP 110/74; PULSE 84; BMI 28.5
== END 2025-06-18 12:06 | disposition home or self-care (01) ==
PROVIDERS: PCP Nurse Practitioner Primary Care; Visit Provider Internal Medicine Cardiovascular Disease
DX: R07.9 Chest pain, unspecified (principal)
CPT/HCPCS: 93010; 99204

== ENCOUNTER → 2025-06-18 11:09 | Outpatient (BNVA) | payer MEDICARE, MEDICAID, SELFPAY | PROVIDERS: PCP Nurse Practitioner Primary Care; Visit Provider Internal Medicine Cardiovascular Disease | DX: R07.9 Chest pain, unspecified (principal) | CPT/HCPCS: 93005; 99202 ==